=== PATIENT | female | born 1980 | race Caucasian/White ===

== ENCOUNTER 2022-12-13 11:53 | Outpatient (REF) | payer OTHER, SELFPAY ==
[2022-12-19 15:08] LABS: Age Gdln ACOG Testing Note (.); HPV Aptima Negative (Negative); IGP, Aptima HPV, rfx 16/18,45 Note (.)
== END 2022-12-14 11:54 | disposition home or self-care (01) ==
LOC: LAB 11:53
PROVIDERS: Visit Provider Obstetrics & Gynecology
DX: Z12.4 Encounter for screening for malignant neoplasm of cervix (principal)
CPT/HCPCS: 87624; G0145

== ENCOUNTER 2023-01-06 08:07 | Outpatient (OUT) | payer OTHER, SELFPAY ==
--- NOTE | 2023-01-06 08:08 | MM_ITS ---
Patient: DANIELLA GOMEZ Exam Date: 01/06/2023 : 1980 Gender:F Ordering : DR Srikanth Bolden . Admission #: [id number] Family : MRS. BILLY ORTEGA . Order #: [id number] CLICK HERE TO VIEW EXAM RADIOLOGY REPORT PROCEDURE: MM TOMOSYNTHESIS SCREENING BI COMPARISON: MG MAMM SCREEN 3D NERI CAD, 01/03/2022. INDICATIONS: Screening Calculator Name NCI Breast Cancer Risk Assessment Tool 5 Year Breast Cancer Risk 0.90% Lifetime Breast Cancer Risk 11.80% Personal Breast Cancer No Personal Ovarian Cancer No Treatments hysterectomy and chemotherapy Family Cancers Aunt-maternal with breast cancer at age 81. LOCATION: [facility] BREAST COMPOSITION: Almost entirely fatty. FINDINGS: DIAGNOSTIC CATEGORY 1--NEGATIVE. NO CHANGE FROM COMPARISON ASSESSMENT. Scattered benign-appearing calcifications are present. RIGHT BREAST: No significant suspicious finding. LEFT BREAST: No significant suspicious finding. RECOMMENDATIONS: ROUTINE MAMMOGRAM AND CLINICAL EVALUATION IN 12 MONTHS. PLEASE NOTE: A NORMAL MAMMOGRAM DOES NOT EXCLUDE THE POSSIBILITY OF BREAST CANCER. A CLINICALLY SUSPICIOUS PALPABLE LUMP SHOULD BE BIOPSIED. Dictated by: Nikita Marinelli MD on 01/06/2023 at 12:09 Approved by: Nikita Marinelli MD on 01/06/2023 at 12:11
== END 2023-01-06 08:08 | disposition home or self-care (01) ==
LOC: MAMMO 08:07
PROVIDERS: PCP Nurse Practitioner; Visit Provider Obstetrics & Gynecology
DX: Z12.31 Encounter for screening mammogram for malignant neoplasm of breast (principal); Z80.3 Family history of malignant neoplasm of breast
CPT/HCPCS: 77063; 77067

== ENCOUNTER 2023-12-19 09:35 | Outpatient (OUT) | payer OTHER, SELFPAY ==
[2023-12-19 11:03] LABS: Estimated Average Glucose 108 mg/dL; Glycohemoglobin A1C 5.4 % (4.5-6.2)
== END 2023-12-19 09:36 | disposition home or self-care (01) ==
LOC: LAB 09:36
PROVIDERS: PCP Nurse Practitioner; Visit Provider Obstetrics & Gynecology
DX: E88.819 Insulin resistance, unspecified (principal); Z01.419 Encounter for gynecological examination (general) (routine) without abnormal findings; C54.1 Malignant neoplasm of endometrium; E87.8 Other disorders of electrolyte and fluid balance, not elsewhere classified; E61.1 Iron deficiency; E66.9 Obesity, unspecified; N95.1 Menopausal and female climacteric states; E83.42 Hypomagnesemia
CPT/HCPCS: 36415; 83036; 87624; 88175

== ENCOUNTER 2023-12-19 19:21 | Outpatient (REF) | payer OTHER, SELFPAY | END 2023-12-19 19:22 | disposition home or self-care (01) | LOC: LAB 19:21 | PROVIDERS: PCP Nurse Practitioner; Visit Provider Obstetrics & Gynecology | DX: Z01.419 Encounter for gynecological examination (general) (routine) without abnormal findings (principal) | CPT/HCPCS: 87624; 88175 ==

== ENCOUNTER 2024-01-26 08:25 | Outpatient (OUT) | payer OTHER, SELFPAY ==
--- OUTSIDE RECORDS SUMMARY | 2024-01-26 08:29 | XMS_ITS | CCD ---
Author Organization [facility] Care Team Providers Care Chemist Enzymes Name Role Phone MAHDI STEPHIE Unavailable Unavailable DOTTIEANGIE SHIRA Unavailable Unavailable DOTTIE, DR ADAMS Attending Unavailable DOTTIE, DR ADAMS Consulting Unavailable CHOI, DR BHUMI Velasco Primary Care Unavailable DOTTIE, DR ADAMS Admitting Unavailable CHOI, DR BHUMI Velasco Primary Care Unavailable DOTTIE, DR ADAMS Admitting Unavailable DOTTIE, DR ADAMS Attending Unavailable DOTTIE, DR ADAMS Consulting Unavailable ZIEBER, DR MAURO Stokes Consulting Unavailable Annabella Ortega Primary Care Physician [phone] Bhumi Choi MD Primary Care Provider [phone] Shannon FAMILY PRESERVATION WORKER-Annabella MARROQUIN Primary Care Provider Shannon, MARAH-C Annabella Plummer Primary Care Provider MELISSA Gold Attending Provider Oneida Gold Admitting Unavailable Oneida Gold Attending Unavailable Annabella Ortega Primary Care Unavailable ANGIE BODLEN Attending Unavailable Shannon, PING Miranda Attending Unavailable Shannon, PING Miranda Admitting Unavailable Shannon, PING Miranda Attending Unavailable Shannon, COMMERCIAL FRONT LOAD DRIVER Annabella Miranda Attending Unavailable Shannon, COMMERCIAL FRONT LOAD DRIVER Annabella Miranda Attending Unavailable ROXANNA GOODEN Attending Unavailable BHUMI CHOI Referring Unavailable BHUMI CHOI Primary Care Unavailable ROXANNA GOODEN Referring Unavailable SHANNONANNABELLA SCRUGGS Primary Care Unavailable ROXANNA GOODEN Attending Unavailable BHUMI CHOI Referring Unavailable SHANNONANNABELLA SCRUGGS Primary Care Unavailable ROXANNA GOODEN Referring Unavailable SHANNONANNABELLA SCRUGGS Primary Care Unavailable ROXANNA GOODEN Attending Unavailable ANNABELLA ORTEGA Referring Unavailable SHANNON, ANNABELLA L Primary Care Unavailable Annabella Ortega Admitting Unavailable Annabella Ortega Attending Unavailable Annabella Ortega Attending Unavailable Allergies Allergy Classification Reported Allergen(s) Allergy Type Date of Onset Reaction(s) Facility (1 source) Deanol Drug Allergy [facility] (1 source) Tetanus AND Diphtheria Tox,Adult Drug allergy (disorder) [facility] (7 sources) aprepitant; Translations: [aprepitant] Drug Allergy 1 Pain (finding), pain [facility] Comment on above: panic attack (11 sources) Morphine; Translations: [morphine] Drug Allergy 1 Eruption of skin (disorder), Rash [facility] (5 sources) tetanus toxoid vaccine, inactivated; Translations: [TETANUS TOXOID, ADSORBED] Drug Allergy 1 Other (See Comments) [facility] (5 sources) Measles, Mumps, And Rubella Vaccine Live; Translations: [MEASLES, MUMPS, AND RUBELLA VACCINE LIVE] Propensity to adverse reactions to drug 1 Other (See Comments) [facility] [employer] Work Phone: (3 sources) fosaprepitant; Translations: [fosaprepitant] Drug Allergy 4 Unknown Reaction [facility] (3 sources) measles and rubella live virus vacc; Translations: [measles and rubella live virus vacc] Allergy to substance 4 Unknown Reaction [facility] (3 sources) Tetanus Vaccines and Toxoid; Translations: [Tetanus Vaccines and Toxoid] Allergy to substance 4 Unknown Reaction [facility] (1 source) Morphine Drug Allergy 4 [facility] (2 sources) aprepitant; Translations: [Emend] Drug Allergy [facility] Repository Medications Current Medications Medication Drug Class(es) Dates Sig (Normalized) Sig (Original) acetaminophen 500 mg oral tablet (4 sources) take 1 tablet by mouth every six hours as needed for pain acetaminophen (TYLENOL) 500 mg tablet Take 1 tablet (500 mg total) by mouth every 6 (six) hours as needed for pain. 0 Active buPROPion hydrochloride 100 mg oral tablet (9 sources) Aminoketone Start: 12-15-2023 take 1 tablet by mouth twice daily buPROPion 100 mg Tab 100 mg = 1 tab(s), Oral, BID, # 60 tab(s), Refills(s) 11, [id number], cm, 12/15/23 9:27:00 EDT, Height/Length Dosing, 197, kg, 12/15/23 9:27:00 EDT, Weight Dosing Start Date: 12/15/23 Status: Ordered Start: 08-09-2023 Bupropion Hcl Active 100 MG PO Three times daily August 09, 2023 12:00am administer 6 hours apart Start: 11-03-2022 take 1 tablet by [facility] twice daily buPROPion 100 mg Tab 100 mg = 1 tab(s), Oral, BID, # 60 tab(s), Refills(s) 11, [id number], cm, 11/03/22 9:18:00 EDT, Height/Length Dosing, 408, kg, 11/03/22 9:18:00 EDT, Weight Dosing Start Date: 11/03/22 Status: Ordered Start: 11-03-2022 take 2 tablets by [facility] once daily buPROPion 100 mg Tab 200 mg = 2 tab(s), Oral, Daily, Refills(s) 0 Start Date: 11/03/22 Status: Ordered take 2 tablets by [facility] every twelve hours in the morning buPROPion SR (WELLBUTRIN SR) 100 mg 12 hr tablet Take 2 tablets (200 mg total) by mouth in the morning. 0 Active busPIRone hydrochloride 5 mg oral tablet (4 sources) Start: 12-15-2023 take 1 tablet by mouth once daily busPIRone 5 mg Tab 5 mg = 1 tab(s), Oral, Daily, # 30 tab(s), Refills(s) 11, Pharmacy: [facility]/pharmacy #[id number], 162, cm, 12/15/23 9:27:00 EDT, Height/Length Dosing, 197, kg, 12/15/23 9:27:00 EDT, Weight Dosing Start Date: 12/15/23 Status: Ordered Start: 08-09-2023 take 5 mg by mouth twice daily Buspirone Active 5 MG PO Twice daily August 09, 2023 12:00am Start: 11-02-2022 take 1 tablet by maris th once daily in the morning busPIRone 5 mg Tab 30 EA, TAKE 1 TABLET BY MOUTH EVERY DAY IN THE MORNING, Refills(s) 0 Start Date: 11/02/22 Status: Ordered gabapentin 100 mg oral capsule (9 sources) Anti-epileptic Agent Start: 08-09-2023 take 100 mg by mouth once daily Gabapentin Active 100 MG PO Daily August 09, 2023 12:00am Start: 04-05-2023 End: 07-18-2023 take 2 capsules by mouth once daily gabapentin (NEURONTIN) 100 mg capsule Indications: Hot flash, menopausal TAKE 2 CAPSULES BY MOUTH EVERY DAY AT NIGHT 60 capsule 3 07/18/2023 Active Start: 10-31-2022 take 4 capsules by m outh once daily hydroCHLOROthiazide 25 mg oral tablet (8 sources) Thiazide Diuretic Start: 12-15-2023 take 1 tablet by mouth once daily, then take 1 tablet by mouth once daily hydrochlorothiazide 25 mg Tab 25 mg = 1 tab(s), Oral, Daily, Take 25 mg by mouth daily., # 30 tab(s), Refills(s) 11, Pharmacy: [facility]/pharmacy #[id number], 162, cm, 12/15/23 9:27:00 EDT, Height/Length Dosing, 197, kg, 12/15/23 9:27:00 EDT, Weight Dosing Start Date: 12/15/23 Status: Ordered Start: 08-09-2023 take 25 mg by mouth once daily in the morning Hydrochlorothiazide Active 25 MG PO Every morning August 09, 2023 12:00am Start: 10-31-2022 take 1 mg by mouth o nce daily ibuprofen 600 mg oral tablet (6 sources) Nonsteroidal Anti-inflammatory Drug Start: 02-10-2021 take 1 tablet by mouth every six hours as needed for pain lidocaine 0.05 mg/mg topical ointment (4 sources) Antiarrhythmic, Amide Local Anesthetic Start: 01-19-2022 lidocaine (XYLOCAINE) 5 % ointment Indications: Endometrial cancer, FIGO stage IIIA ([facility]) , Port-A-Cath in place Apply 1 application topically as needed for pain. 35.44 g 0 01/19/2022 Active lidocaine 25 mg/ml / prilocaine 25 mg/ml topical cream (3 sources) Antiarrhythmic, Amide Local Anesthetic Start: 02-24-2021 End: 07-18-2023 lidocaine-prilocai ne (EMLA) cream Apply 1 application topically as needed for pain. 30 - 60 minutes prior to port access. Cover with 4 x 4 saran wrap 30 g 3 02/24/2021 07/18/2023 Discontinued (Therapy completed) loratadine 10 mg oral tablet (9 sources) Start: 08-09-2023 take 1 tablet by mouth once daily Loratadine (Allergy Relief (Loratadine)) 10 mg tablet Active 10 MG PO Daily August 09, 2023 12:00am Start: 10-31-2022 take 2 tablets by mo uth once daily loratadine 10 mg Tab 2 Refill(s), TAKE 1 TABLET BY MOUTH EVERY DAY, Refills(s) 0 Start Date: 10/31/22 Status: Ordered Start: 10-20-2022 End: 04-25-2023 take 1 tablet by mouth once daily loratadine (CLARITIN) 10 mg tablet TAKE 1 TABLET BY MOUTH EVERY DAY 90 tablet 1 04/25/2023 Active magnesium oxide 400 mg oral capsule (9 sources) Start: 08-09-2023 take 400 mg by mouth once daily Magnesium Oxide Active 400 MG PO Daily August 09, 2023 12:00am Start: 11-02-2022 End: 07-18-2023 take 1 tablet by mouth in the morning magnesium oxide (MAGOX) 400 mg tablet Indications: Hypomagnesemia Take 1 tablet (400 mg total) by mouth in the morning. 90 tablet 1 07/18/2023 Active 24 hr metoprolol succinate 50 mg extended release oral tablet (8 sources) beta-Adrenergic Nhung Start: 12-15-2023 take 1 tablet by mouth once daily metoprolol succinate 50 mg ER Tab 50 mg = 1 tab(s), Oral, Daily, # 30 tab(s), Refills(s) 11, Pharmacy: [facility]/pharmacy #[id number], 162, cm, 12/15/23 9:27:00 EDT, Height/Length Dosing, 197, kg, 12/15/23 9:27:00 EDT, Weight Dosing Start Date: 12/15/23 Status: Ordered Start: 11-03-2022 End: 10-29-2023 take 50 mg by mouth once daily Metoprolol Succinate Ac tive 50 MG PO Daily August 09, 2023 12:00am take 1 tablet by maris th every twenty-four hours in the morning metoprolol succinate XL (TOPROL-XL) 50 mg 24 hr tablet Take 1 tablet (50 mg total) by mouth in the morning. 0 Active NIFEdipine 30 mg oral tablet (8 sources) Dihydropyridine Calcium Channel Nhung Start: 12-15-2023 take 1 tablet by mouth twice daily NIFEdipine (Eqv-Procardia XL) 30 mg oral tablet, extended release See Instructions, TAKE 1 TABLET BY MOUTH TWICE A DAY, # 60 tab(s), Refills(s) 2, Pharmacy: [facility]/pharmacy #[id number], 162, cm, 12/15/23 9:27:00 EDT, Height/Length Dosing, 197, kg, 12/15/23 9:27:00 EDT, Weight Dosing Start Date: 12/15/23 Status: Ordered Start: 08-09-2023 take 1 tablet by maris th once daily Nifedipine (Procardia Xl) 30 mg tablet extended release 24hr Active 30 MG PO Daily August 09, 2023 12:00am Start: 10-31-2022 take 1 mg by mouth twice daily take 1 tablet by maris th twice daily NIFEdipine CC (ADALAT CC) 30 mg 24 hr tablet Take 1 tablet (30 mg total) by mouth 2 (two) times daily at 0800 and 1500. 0 Active phentermine hydrochloride 37.5 mg oral tablet (1 source) Sympathomimetic Amine Anorectic Start: 12-15-2023 take 1 tablet by mouth once daily phentermine 37.5 mg Tab 37.5 mg = 1 tab(s), Oral, Daily, # 30 tab(s), Refills(s) 0, Pharmacy: [facility] #[id number], 162, cm, 12/15/23 9:27:00 EDT, Height/Length Dosing, 197, kg, 12/15/23 9:27:00 EDT, Weight Dosing Start Date: 12/15/23 Status: Ordered polysaccharide iron complex 391 mg oral capsule (8 sources) Start: 08-09-2023 take 1 capsule by mouth once daily Polysaccharide Iron Complex (Pro Fe) 180 mg iron capsule Active 180 MG PO Daily August 09, 2023 12:00am Start: 07-25-2023 take 1 capsule by mo uth once daily in the morning polysaccharide iron complex (PRO FE) 180 mg iron capsule Indications: Iron deficiency anemia due to chronic blood loss take 1 capsule by mouth every day in the morning 90 each 4 07/25/2023 Active Start: 10-31-2022 Start: 07-19-2022 End: 07-25-2023 take 1 tablet by mouth in the morning polysaccharide iron complex (PRO FE) 180 mg iron capsule Indications: Iron deficiency anemia due to chronic blood loss Take 1 tablet by mouth in the morning. 90 each 4 07/19/2022 07/25/2023 Discontinued microencapsulated potassium chloride 20 meq extended release oral tablet (6 sources) Start: 06-19-2023 take 1 tablet by mouth once daily in the morning KLOR-CON M20 20 mEq CR tablet Indications: Hypokalemia TAKE 1 TABLET BY MOUTH EVERY DAY IN THE MORNING 30 tablet 3 06/19/2023 Active Start: 02-20-2023 take 1 tablet by maris once daily in the morning KLOR-CON M20 20 mEq CR tablet Indications: Hypokalemia TAKE 1 TABLET BY MOUTH EVERY MORNING 30 tablet 3 02/20/2023 Active Start: 10-31-2022 Problems Active Problems Problem Classification Problem Date Documented Date Episodic/Chronic Administrative/social admission (1 source) Other specified counseling; Translations: [Other specified counseling] Onset: 01-17-2024 Episodic Cancer of uterus (7 sources) Primary malignant neoplasm of endometrium; Translations: [Malignant neoplasm of endometrium] Onset: 02-23-2021 02-24-2021 Chronic Deficiency and other anemia (2 sources) Iron deficiency anemia due to blood loss; Translations: [Iron deficiency anemia secondary to blood loss (chronic)] 07-18-2023 Chronic Deficiency and other anemia (1 source) Iron deficiency anemia secondary to blood loss (chronic); Translations: [Iron deficiency anemia secondary to blood loss (chronic)] Onset: 07-18-2023 Chronic Essential hypertension (2 sources) Hypertensive disorder 11-03-2022 Chronic Fluid and electrolyte disorders (11 sources) Disorder of electrolytes; Translations: [Other disorders of electrolyte and fluid balance, not elsewhere classified] Onset: 02-24-2021 Resolved: 07-19-2022 02-24-2021 Episodic Immunizations and screening for infectious disease (1 source) Encounter for screening for human papillomavirus (HPV); Translations: [ENC SCREENING HUMAN PAPILLOMAVIRUS] Onset: 11-28-2021 Episodic Menopausal disorders (2 sources) Menopausal flushing; Translations: [Menopausal and female climacteric states] Onset: 07-18-2023 07-18-2023 Chronic Other non-traumatic joint disorders (1 source) Pain in left ankle and joints of left foot; Translations: [Pain in left ankle and joints of left foot] Onset: 08-09-2023 Episodic Other nutritional; endocrine; and metabolic disorders (6 sources) Morbid obesity; Translations: [Morbid (severe) obesity due to excess calories] Onset: 01-25-2021 01-27-2021 Chronic Other nutritional; endocrine; and metabolic disorders (1 source) Hypomagnesemia; Translations: [Hypomagnesemia] 07-18-2023 Chronic Other nutritional; endocrine; and metabolic disorders (1 source) Hypomagnesemia; Translations: [Hypomagnesemia] Onset: 07-18-2023 Chronic Other nutritional; endocrine; and metabolic disorders (1 source) Morbid (severe) obesity due to excess calories; Translations: [Morbid (severe) obesity due to excess calories] Onset: 01-27-2021 Chronic Other nutritional; endocrine; and metabolic disorders (1 source) Weight gain 12-15-2023 Episodic Other screening for suspected conditions (not mental disorders or infectious disease) (8 sources) Encounter for screening mammogram for malignant neoplasm of breast; Translations: [Encounter for screening for malignant neoplasm of cervix] Onset: 11-25-2021 Episodic Residual codes; unclassified (1 source) Family history of malignant neoplasm of breast; Translations: [FAMILY HX MALIG NEOPLASM OF BREAST] Onset: 01-08-2022 Episodic Unclassified (1 source) Unknown / UNK(Unknown) Onset: 12-14-2016 Unclassified (1 source) Patient encounter status 12-15-2023 Past or Other Problems Problem Classification Problem Date Documented Da te Episodic/Chronic Nausea and vomiting (4 sources) Chemotherapy-bobby michelle nausea and vomiting; Translations: [Nausea with vomiting, unspecified] Onset: 02-24-2021 Resolved: 07-19-2022 07-19-2022 Episodic Other aftercare (4 sources) Drug therapy finding; Translations: [Other nursing home (current) drug therapy] Onset: 02-24-2021 Resolved: 07-19-2022 07-19-2022 Episodic Other circulatory disease (4 sources) Device in situ; Translations: [Presence of other vascular implants and grafts] Onset: 02-24-2021 Resolved: 01-18-2023 01-18-2023 Chronic Viral infection (4 sources) Disease caused by 2019-nCoV; Translations: [COVID-19] Onset: 04-09-2021 Resolved: 07-19-2022 07-19-2022 Episodic Results Test Name Value Interpretation Reference Range Facility Family Medicine Office/Clini c Noteon 01-17-2024 Family Medicine Office/Clinic Note Family Medicine Office/Clinic Note Chief Complaint Weight Management HPI Staff Pt presents today for 1m Weight management follow up Started on adipex 12/15/23. Sleeping well:Yes, 6-8 hours Chest pain:No Tremors:No Headaches:Yes Heart fluttering:No Blurred Vision:No Starting Weight:433.4 Weight this visit: 408 Dr Bolden added metformin 500/1000mg to aid in insulin resistance w/adipex therapy. Last A1c - 5.4 Has been having headaches, dry mouth, upset stomach. All tolerable. Does take Tylenol with sx relief. History of Present Illness pt presents today for weight management Review of Systems PHQ Score Initial Depression Screen Score: 0 SCORE Physical Exam Vitals & Measurements T: 36.8 ?C(Temporal Artery) HR: 80(Peripheral) RR: 16 BP: 126/82 SpO2: 97% HT: 64 in HT: 162 cm WT: 185.8 kg WT: 408.76 lb BMI: 70.8 General: alert, no acute distress ENMT: oral mucosa moist, no pharyngeal erythema or exudate Cardiovascular: regular rate and rhythm, normal peripheral perfusion Respiratory: Lungs CTA, respirations non labored Extremities: no deformity, no trauma Neurological: oriented x 4, LOC appropriate for age, CN II-XII intact, motor strength equal & normal bilaterally, speech normal Assessment/Plan 1. Encounter for weight management (Z76.89: Persons encountering health services in other specified circumstances) pt is down 25 pounds. pt is doing well. her OBGYN also started her on metformin 500mg daily and she will increase to BID tomorrow. if her stomach can tolerate it. all questions answered. Pt is very happy with progress. RTC 4 weeks 2. BMI 70 and over, adult (Z68.45: Body mass index [BMI] 70 or greater, adult) BMI education given Ordered: phentermine, 37.5 mg = 1 tab(s), Oral, Daily, # 30 tab(s), Refills(s) 0, Pharmacy: [facility] #[id number], 162, cm, 01/17/24 14:02:00 EDT, Height/Length Dosing, 185.8, kg, 01/17/24 14:02:00 EDT, Weight Dosing phentermine, 37.5 mg = 1 tab(s), Oral, Daily, # 30 tab(s), Refills(s) 0, Pharmacy: [facility] #72, 162, cm, 12/15/23 9:27:00 EDT, Height/Length Dosing, 197, kg, 12/15/23 9:27:00 EDT, Weight Dosing 3. Non-smoker (Z78.9: Other specified health status) continue not smoking Ordered: phentermine, 37.5 mg = 1 tab(s), Oral, Daily, # 30 tab(s), Refills(s) 0, Pharmacy: [facility] #72, 162, cm, 01/17/24 14:02:00 EDT, Height/Length Dosing, 185.8, kg, 01/17/24 14:02:00 EDT, Weight Dosing phentermine, 37.5 mg = 1 tab(s), Oral, Daily, # 30 tab(s), Refills(s) 0, Pharmacy: [facility] #72, 162, cm, 12/15/23 9:27:00 EDT, Height/Length Dosing, 197, kg, 12/15/23 9:27:00 EDT, Weight Dosing 4. Morbid obesity (E66.01: Morbid (severe) obesity due to excess calories) continue adipex and healthy food choices Hypertension (I10: Essential (primary) hypertension) reviewed BP log all BP's at goal or lower. pt is doing very well Ordered: phentermine, 37.5 mg = 1 tab(s), Oral, Daily, # 30 tab(s), Refills(s) 0, Pharmacy: [facility] #72, 162, cm, 01/17/24 14:02:00 EDT, Height/Length Dosing, 185.8, kg, 01/17/24 14:02:00 EDT, Weight Dosing phentermine, 37.5 mg = 1 tab(s), Oral, Daily, # 30 tab(s), Refills(s) 0, Pharmacy: [facility] #72, 162, cm, 12/15/23 9:27:00 EDT, Height/Length Dosing, 197, kg, 12/15/23 9:27:00 EDT, Weight Dosing Follow-up No qualifying data available Problem List/Past Medical History Ongoing Encounter for weight management Hypertension Morbid obesity Weight gain Wellness examination Historical No qualifying data Procedure/Surgical History Port (03/11/2021), Hysterectomy (02/10/2021). Medications buPROPion 100 mg Tab, 100 mg= 1 tab(s), Oral, BID, 11 refills busPIRone 5 mg Tab, 5 mg= 1 tab(s), Oral, Daily, 11 refills gabapentin 100 mg Cap hydrochlorothiazide 25 mg Tab, 25 mg= 1 tab(s), Oral, Daily, 11 refills ibuprofen 600 mg Tab Klor-Con M20 oral tablet, extended release loratadine 10 mg Tab magnesium oxide 400 mg Tab MetFORMIN (Eqv-Glucophage XR) 500 mg oral tablet, extended release metoprolol succinate 50 mg ER Tab, 50 mg= 1 tab(s), Oral, Daily, 11 refills NIFEdipine (Eqv-Procardia XL) 30 mg oral tablet, extended release, See Instructions, 2 refills phentermine 37.5 mg Tab, 37.5 mg= 1 tab(s), Oral, Daily Allergies Emend (Pain) morphine (Rash) Social History Tobacco Never (less than 100 in lifetime) Tobacco Use:. Never Smokeless Tobacco Use:. Cigarettes, Household tobacco concerns: No. Yes, 01/17/2024 Family History Congenital heart disease: Father and Aunt. Depression: Mother and Grandparent. Diabetes mellitus type 2: Mother, Sister and Grandparent. Hypertension: Mother, Sister and Brother. Primary malignant neoplasm of female breast: Grandparent. Stroke: Aunt. Immunizations Vaccine Date Status hepatitis B pediatric vaccine 08/09/1997 Recorded Normal [facility] Comment on above: Result Comment: Elec tronically Signed By: Shannon FENG, Annabella Miranda\.br\Date and Time Signed: 01/17/24 15:22 EDT CBC AND AUTO DIFFon 01-12-20 ABSOLUTE BASOPHIL 0.1 X10E9/L Normal 0.0-0.2 [facility] Comment on above: Performed By: #### Karol GALVAN [facility], [id number] #### [facility] ([id number]) [address], [address] [place] [address] ABSOLUTE NEUTROPHIL 4.7 X10E9/L Normal 1.5-6.6 [facility] Comment on above: Performed By: #### Karol GALVAN [facility], [id number] #### [facility] ([id number]) [address], [address] [place] [address] Basophils/100 WBC (Bld) 1.3 % Normal [facility] Comment on above: Performed By: #### Karol GALVAN [facility], [id number] #### [facility] ([id number]) [address], [address] [place] [address] Eosinophils (Bld) [#/Vol] 0.3 10*3/uL Normal 0.0-0.4 [facility] Comment on above: Performed By: #### Karol GALVAN CMP, [id number] #### [facility] ([id number]) [address], [address] [place] [address] Eosinophils/100 WBC (Bld) 3.9 % Normal [facility] Comment on above: Performed By: #### Karol GALVAN, CMP, [id number] #### [facility] ([id number]) [address], [address] [place] [address] Erythrocyte distribution width (RBC) [Ratio] 14.7 % Normal 11.5-15.0 [facility] Comment on above: Performed By: #### C MANDY CMP, #### [facility] ([id number]) [address], [address] [place] [address] Hematocrit (Bld) [Volume fraction] 41.8 % Normal 35-47 [facility] Comment on above: Performed By: #### Karol GALVAN, CMP, #### [facility] ([id number]) [address], [address] [place] [address] Hemoglobin (Bld) [Mass/Vol] 14.5 g/dL Normal 11.7-15.5 [facility] Comment on above: Performed By: #### Karol GALVAN, CMP, #### [facility] ([id number]) [address], [address] [place] [address] Lymphocytes (Bld) [#/Vol] 1.5 10*3/uL Normal 1.0-3.5 [facility] Comment on above: Performed By: #### Karol GALVAN, CMP, #### [facility] ([id number]) [address], [address] [place] [address] Lymphocytes/100 WBC (Bld) 21.2 % Normal [facility] Comment on above: Performed By: #### Karol GALVAN CMP, #### [facility] ([id number]) [address] [place] [address] MCH (RBC) [Entitic mass] 29.6 pg Normal 27-34 [facility] Comment on above: Performed By: #### Karol GALVAN, CMP, #### [facility] ([id number]) [address], [address] [place] [address] MCHC (RBC) [Mass/Vol] 34.7 g/dL Normal 32-36 [facility] Comment on above: Performed By: #### Karol BCA, CMP, #### [facility] ([id number]) [address], [address] [place] [address] MCV (RBC) [Entitic vol] 85 fL Normal 80-100 [facility] Comment on above: Performed By: #### C BCA, CMP, #### [facility] ([id number]) [address], [address] [place] [address] Monocytes (Bld) [#/Vol] 0.4 10*3/uL Normal 0-0.9 [facility] Comment on above: Performed By: #### C MANDY, CMP, #### [facility] ([id number]) [address], [address] [place] [address] Monocytes/100 WBC (Bld) 6.0 % Normal [facility] Comment on above: Performed By: #### C MANDY, CMP, #### [facility] ([id number]) [address], [address] [place] [address] Neutrophils/100 WBC (Bld) 67.6 % Normal [facility] Comment on above: Performed By: #### C MANDY, CMP, #### [facility] ([id number]) [address], [address] [place] [address] Platelet mean volume (Bld) [Entitic vol] 9.3 fL Normal 7-12 [facility] Comment on above: Performed By: #### C MANDY, CMP, #### [facility] ([id number]) [address], [address] [place] [address] Platelets (Bld) [#/Vol] 279 10*3/uL Normal 150-450 [facility] Comment on above: Performed By: #### C BCA, CMP, #### [facility] ([id number]) [address], [address] [place] [address] RBC COUNT 4.91 X10E12/L Normal 3.80-5.20 [facility] Comment on above: Performed By: #### C BCA, CMP, 31764-0 #### [facility] ([id number]) [address], [address] [place] [address] WBC (Bld) [#/Vol] 6.9 10*3/uL Normal 4.0-11.0 [facility] Comment on above: Performed By: #### C BCA, CMP, #### [facility] ([id number]) [address], [address] [place] [address] COMPREHENSIVE METABOLIC PANE Geoffrey 01-12-2024 Albumin [Mass/Vol] 4.4 g/dL Normal 3.2-5.3 [facility] Comment on above: Performed By: #### C BCA, CMP, 05677-8 #### [facility] ([id number]) [address], [address] [place] [address] ALP [Catalytic activity/Vol] 73 U/L Normal 39-130 [facility] Comment on above: Performed By: #### C BCA, CMP, 96671-6 #### [facility] ([id number]) [address], [address] [place] [address] ALT [Catalytic activity/Vol] 50 U/L High 0-31 [facility] Comment on above: Performed By: #### C BCA, CMP, 08187-9 #### [facility] ([id number]) [address], [address] [place] [address] Anion gap [Moles/Vol] 12 mmol/L Normal 5-15 [facility] Comment on above: Performed By: #### C BCA, CMP, 13953-0 #### [facility] ([id number]) [address], [address] [place] [address] AST [Catalytic activity/Vol] 26 U/L Normal 0-41 [facility] Comment on above: Performed By: #### C KERRY GALVAN, #### [facility] ([id number]) [address], [address] [place] [address] Bilirubin [Mass/Vol] 1.1 mg/dL Normal 0.3-1.2 [facility] Comment on above: Performed By: #### C KERRY GALVAN, #### [facility] ([id number]) [address], [address] [place] [address] Calcium [Mass/Vol] 9.7 mg/dL Normal 8.5-10.5 [facility] Comment on above: Performed By: #### Karol GALVAN CMP, #### [facility] ([id number]) [address], [address] [place] [address] Chloride [Moles/Vol] 101 mmol/L Normal 98-109 [facility] Comment on above: Performed By: #### Karol GALVAN CMP, #### [facility] ([id number]) [address], [address] [place] [address] CO2 [Moles/Vol] 24 mmol/L Normal 22-32 [facility] Comment on above: Performed By: #### Karol GALVAN CMP, #### [facility] ([id number]) [address], [address] [place] [address] Creatinine [Mass/Vol] 1.30 mg/dL High 0.40-1.00 [facility] Comment on above: Result Comment: METH OD TRACEABLE TO IDMS STANDARD Performed By: #### C KERRY GALVAN, #### [facility] ([id number]) [address], [address] [place] [address] GFR/1.73 sq M.predicted among non-blacks MDRD (S/P/Bld) [Vol rate/Area] 52 mL/min/{1.73_m2} Low >59 [facility] Comment on above: Result Comment: Reported eGFR is based on the CKD-EPI 2020 equation that does not use a race coefficient. Performed By: #### C KERRY GALVAN, 96167-7 #### [facility] ([id number]) [address], [address] [place] [address] Glucose [Mass/Vol] 105 mg/dL High 65-99 [facility] Comment on above: Performed By: #### C MANDY [facility], 37226-3 #### [facility] ([id number]) [address], [address] [place] [address] Potassium [Moles/Vol] 3.6 mmol/L Normal 3.5-5.0 [facility] Comment on above: Performed By: #### Karol GALVAN [facility], #### [facility] ([id number]) [address], [address] [place] [address] Protein [Mass/Vol] 7.7 g/dL Normal 6.0-8.0 [facility] Comment on above: Performed By: #### Karol GALVAN [facility], 55935-7 #### [facility] ([id number]) [address], [address] [place] [address] Sodium [Moles/Vol] 137 mmol/L Normal 134-146 [facility] Comment on above: Performed By: #### Karol GALVAN [facility], 19999-7 #### [facility] ([id number]) [address], [address] [place] [address] Urea nitrogen [Mass/Vol] 36 mg/dL High 5-23 [facility] Comment on above: Performed By: #### Karol GALVAN [facility], 62252-5 #### [facility] ([id number]) [address], [address] [place] [address] MAGNESIUMon 01-12-2024 Magnesium [Mass/Vol] 1.9 mg/dL Normal 1.8-2.6 [facility] Comment on above: Performed By: #### C BCA, [facility], 01883-2 #### [facility] ([id number]) [address] [place] [address], [address] [place] [address] Ambulatory Visit Summaryon 0 12-15-2023 Ambulatory Visit Summary Ambulatory Visit Summary DANIELLA MANCERA :1980 Visit Date:12/15/2023 Ambulatory Visit Instructions Your Diagnosis Wellness examination Non-smoker BMI 70 and over, adult Hypertension Morbid obesity Your Care Team Attending Physician - Annabella Moscoso Primary Care Physician - Annabella Moscoso This Is Your Medications List NIFEdipine (NIFEdipine (Eqv-Procardia XL) 30 mg oral tablet, extended release) buPROPion (buPROPion 100 mg Tab) buPROPion (buPROPion 100 mg Tab) busPIRone (busPIRone 5 mg Tab) gabapentin (gabapentin 100 mg Cap) hydrochlorothiazide (hydrochlorothiazide 25 mg Tab) ibuprofen (ibuprofen 600 mg Tab) iron polysaccharide (iron polysaccharide 180 mg (as elemental iron) oral capsule) loratadine (loratadine 10 mg Tab) magnesium oxide (magnesium oxide 400 mg Tab) potassium chloride (Klor-Con M20 oral tablet, extended release) Procedures Performed Port (03/11/2021), Hysterectomy (02/10/2021). Discharge Vitals Temperature (Oral) 36.6 ?C Heart Rate (Peripheral) 72 Respiratory Rate 20 Blood Pressure 124/86 Height 162.0 cm Height 64 in Weight 197.0 kg Weight 433.4 lb BMI 75.06 What to do next Scheduled Follow-Up Appointments Monday 8:20 AM EDT With: Annabella Moscoso Where: [facility] Medicine [address] [address]- Medications What How Much When Instructions Unchanged buPROPion (buPROPion 100 mg Tab) 1 Tablets By Mouth 2 times a day Unchanged buPROPion (buPROPion 100 mg Tab) 2 Tablets By Mouth Every day Unchanged busPIRone (busPIRone 5 mg Tab) 1 Tablets By Mouth Every day Unchanged gabapentin (gabapentin 100 mg Cap) 200 Unknown, oral, 4 Refill(s), Take 2 capsules (200 mg total) by mouth nightly. Unchanged hydrochlorothiazide (hydrochlorothiazide 25 mg Tab) 1 Tablets By Mouth Every day 25 Unknown, oral, 1 Refill(s), Take 25 mg by mouth daily. Unchanged ibuprofen (ibuprofen 600 mg Tab) 600 Unknown, oral, 1 Refill(s), Take 1 tablet (600 mg total) by mouth every 6 (six) hours as needed for pain. Unchanged iron polysaccharide (iron polysaccharide 180 mg (as elemental iron) oral capsule) 1 Unknown, oral, 5 Refill(s), Take 1 tablet by mouth in the morning. Unchanged loratadine (loratadine 10 mg Tab) 2 Refill(s), TAKE 1 TABLET BY MOUTH EVERY DAY Unchanged magnesium oxide (magnesium oxide 400 mg Tab) 90 EA, TAKE 1 TABLET (400 MG TOTAL) BY MOUTH IN THE MORNING Unchanged NIFEdipine (NIFEdipine (Eqv-Procardia XL) 30 mg oral tablet, extended release) See instructions TAKE 1 TABLET BY MOUTH TWICE A DAY Unchanged potassium chloride (Klor-Con M20 oral tablet, extended release) 20 Unknown, oral, 4 Refill(s), Take 1 tablet (20 mEq total) by mouth in the morning. Allergies Emend (Pain) morphine (Rash) Problems Ongoing - Any problem that you are currently receiving treatment for. Hypertension Morbid obesity Wellness examination Patient Survey You may receive a survey via text or e-mail asking about your office visit. Please share your experience with us by completing your survey. We appreciate your feedback and thank you for choosing us for your care. Normal [facility] CHEMISTRYOrdered By: SYSTEM SYSTEM on 12-15-2023 Albumin [Mass/Vol] 4.1 g/dL Normal 3.3 - 5.0 gm/dL [facility] Albumin/Globulin [Mass ratio] 1.3 {ratio} Normal 1.1 - 2.2 [facility] ALP [Catalytic activity/Vol] 81 [iU]/d Normal 21 - 98 Int._Unit/L [facility] ALT No additional P-5'-P [Catalytic activity/Vol] 28 [iU]/d Normal 6 - 46 Int._Unit/L [facility] Anion gap [Moles/Vol] 17 mmol/L High 6 - 16 mEq/L [facility] AST [Catalytic activity/Vol] 22 [iU]/d Normal 5 - 43 Int._Unit/L [facility] Bilirubin [Mass/Vol] 0.7 mg/dL Normal 0.0 - 1 .1 mg/dL [facility] Calcium [Mass/Vol] 9.6 mg/dL Normal 8.9 - 11. 1 mg/dL [facility] Chloride [Moles/Vol] 106 mmol/L Normal 101 - 1 11 mmol/L [facility] Cholesterol [Mass/Vol] 172 mg/dL Normal 120 - 200 mg/dL [facility] Cholesterol in HDL [Mass/Vol] 39 mg/dL Invalid Interpretation Code [facility] Comment on above: Result Comment: '>= 60 LOW RISK' '<= 40 HIGH RISK' Cholesterol in LDL [Mass/Vol] 118 mg/dL Normal <=129mg/dL [facility] Cholesterol in VLDL [Mass/Vol] 28 mg/dL Normal 7 - 40 mg/dL [facility] CO2 [Moles/Vol] 22 mmol/L Normal 21 - 31 mmol/L [facility] Creatinine [Mass/Vol] 0.9 mg/dL Normal 0.5 - 1.3 mg/dL [facility] eGFR 81 mL/min/1.73 m2 Normal >=59mL/min /1 .73 m2 [facility] Globulin (S) [Mass/Vol] 3.1 g/dL Normal 1.4 - 4.0 gm/dL [facility] Glucose [Mass/Vol] 105 mg/dL Normal 55 - 199 mg/dL [facility] Potassium [Moles/Vol] 3.8 mmol/L Normal 3.5 - 5.3 mmol/L [facility] Protein [Mass/Vol] 7.2 g/dL Normal 6.0 - 7.8 gm/dL [facility] Sodium [Moles/Vol] 141 mmol/L Normal 135 - 145 mmol/L [facility] Triglyceride [Mass/Vol] 142 mg/dL Normal <=149mg/dL [facility] TSH Qn 1.22 m[IU]/L Normal 0.34 - 5.60 mcIU/mL [facility] Urea nitrogen [Mass/Vol] 22 mg/dL High 5 - 21 mg/dL [facility] Urea nitrogen/Creatinine [Mass ratio] 24 mg/mg High 10 - 20 [facility] CMPon 12-15-2023 Albumin [Mass/Vol] 4.1 g/dL Normal 3.3-5.0 [facility] Comment on above: Performed By: #### 2 [id number] #### [facility] [address] [place] [address] Albumin/Globulin (S) [Mass conc ratio] 1.3 Normal 1.1-2.2 [facility] Comment on above: Performed By: #### 2 856285 #### [facility] [address] [place] [address] ALP [Catalytic activity/Vol] 81 Int._Unit/L Normal 21-98 [facility] Comment on above: Performed By: #### 2 [id number] #### [facility] [address] [place] [address] ALT No additional P-5'-P [Catalytic activity/Vol] 28 Int._Unit/L Normal 6-46 [facility] Comment on above: Performed By: #### 2 [id number] #### [facility] [address] [place] [address] Anion gap [Moles/Vol] 17 mmol/L High 6-16 [facility] Comment on above: Performed By: #### 2 816102 #### [facility] [address] [place] [address] AST [Catalytic activity/Vol] 22 Int._Unit/L Normal 5-43 [facility] Comment on above: Performed By: #### 2 455955 #### [facility] [address] [place] [address] Bilirubin [Mass/Vol] 0.7 mg/dL Normal 0.0-1.1 [facility] Comment on above: Performed By: #### 2 677084 #### [facility] [address] [place] [address] Calcium [Mass/Vol] 9.6 mg/dL Normal 8.9-11.1 [facility] Comment on above: Performed By: #### 2 009634 #### [facility] [address] [place] [address] Chloride [Moles/Vol] 106 mmol/L Normal 101-111 [facility] Comment on above: Performed By: #### 2 012613 #### [facility] [address] [place] [address] CO2 [Moles/Vol] 22 mmol/L Normal 21-31 [facility] Comment on above: Performed By: #### 2 013023 #### [facility] [address] [place] [address] Creatinine [Mass/Vol] 0.9 mg/dL Normal 0.5-1.3 [facility] Comment on above: Performed By: #### 2 417251 #### [facility] [address] [place] [address] Globulin (S) [Mass/Vol] 3.1 g/dL Normal 1.4-4.0 [facility] Comment on above: Performed By: #### 2 479855 #### [facility] [address] [place] [address] Glucose [Mass/Vol] 105 mg/dL Normal 55-199 [facility] Comment on above: Performed By: #### 2 164197 #### [facility] [address] [place] [address] Potassium [Moles/Vol] 3.8 mmol/L Normal 3.5-5.3 [facility] Comment on above: Performed By: #### 2 174327 #### [facility] [address] [place] [address] Protein [Mass/Vol] 7.2 g/dL Normal 6.0-7.8 [facility] Comment on above: Performed By: #### 2 903116 #### [facility] [address] [place] [address] Sodium [Moles/Vol] 141 mmol/L Normal 135-145 [facility] Comment on above: Performed By: #### 2 432751 #### [facility] [address] [place] [address] Urea nitrogen [Mass/Vol] 22 mg/dL High 5-21 [facility] Comment on above: Performed By: #### 2 177157 #### [facility] [address] [place] [address] Urea nitrogen/Creatinine [Mass ratio] 24 No Units High 10-20 [facility] Comment on above: Performed By: #### 2 464645 #### [facility] [address] [place] [address] Family Medicine Office/Clini c Noteon 12-15-2023 Family Medicine Office/Clinic Note Family Medicine Office/Clinic Note HPI Staff Opal is a 43 year old female presenting with yearly check up- med refills All meds need refilled Had headaches for awhile when she went to the eye doctor her prescription was a lot different but now her headaches are better She brought a B/P log will scan into chart Mammo with Dr. Bolden Last Dec or November Labs done June History of Present Illness pt presents today for wellness visit. will draw labs today Review of Systems PHQ Score Initial Depression Screen Score: 0 SCORE Physical Exam Vitals & Measurements T: 36.6 ?C(Oral) HR: 72(Peripheral) RR: 20 BP: 124/86 SpO2: 97% HT: 64 in HT: 162.0 cm WT: 197.0 kg WT: 433.4 lb BMI: 75.06 General: alert, no acute distress ENMT: oral mucosa moist, no pharyngeal erythema or exudate Cardiovascular: regular rate and rhythm, normal peripheral perfusion Respiratory: Lungs CTA, respirations non labored Extremities: no deformity, no trauma Neurological: oriented x 4, LOC appropriate for age, CN II-XII intact, motor strength equal & normal bilaterally, speech normal Assessment/Plan 1. Wellness examination (Z00.00: Encounter for general adult medical examination without abnormal findings) pt presents today for annual wellness visit. will check labs today. has other labs with oncologist scheduled in December. due for mammogrma in December as well. will see Dr. Bolden for that Needs refills. RTC 1 month for weight check Ordered: metoprolol, 50 mg = 1 tab(s), Oral, Daily, # 30 tab(s), Refills(s) 11, Pharmacy: [facility] #[id number], 162, cm, 12/15/23 9:27:00 EDT, Height/Length Dosing, 197, kg, 12/15/23 9:27:00 EDT, Weight Dosing Comprehensive Metabolic Panel Est Preventative 40 to 64 years [address] Lipid Panel Thyroid Stimulating Hormone 2. Weight gain (R63.5: Abnormal weight gain) pt has gained 26 pounds since last visit. will start adipex. discussed making health food choices and increasing exercise Ordered: metoprolol, 50 mg = 1 tab(s), Oral, Daily, # 30 tab(s), Refills(s) 11, Pharmacy: [id number], 162, cm, 12/15/23 9:27:00 EDT, Height/Length Dosing, 197, kg, 12/15/23 9:27:00 EDT, Weight Dosing Est Preventative 40 to 64 years [address] 3. Hypertension (I10: Essential (primary) hypertension) BP at goal Ordered: metoprolol, 50 mg = 1 tab(s), Oral, Daily, # 30 tab(s), Refills(s) 11, Pharmacy: [id number], 162, cm, 12/15/23 9:27:00 EDT, Height/Length Dosing, 197, kg, 12/15/23 9:27:00 EDT, Weight Dosing Comprehensive Metabolic Panel Est Preventative 40 to 64 years [address] Lipid Panel Thyroid Stimulating Hormone 4. BMI 70 and over, adult (Z68.45: Body mass index [BMI] 70 or greater, adult) BMI education given Ordered: metoprolol, 50 mg = 1 tab(s), Oral, Daily, # 30 tab(s), Refills(s) 11, Pharmacy: [facility] #[id number], 162, cm, 12/15/23 9:27:00 EDT, Height/Length Dosing, 197, kg, 12/15/23 9:27:00 EDT, Weight Dosing Est Preventative 40 to 64 years [address] 5. Morbid obesity (E66.01: Morbid (severe) obesity due to excess calories) see above Ordered: metoprolol, 50 mg = 1 tab(s), Oral, Daily, # 30 tab(s), Refills(s) 11, [id number], 162, cm, 12/15/23 9:27:00 EDT, Height/Length Dosing, 197, kg, 12/15/23 9:27:00 EDT, Weight Dosing Comprehensive Metabolic Panel Est Preventative 40 to 64 years [address] Lipid Panel Thyroid Stimulating Hormone 6. Non-smoker (Z78.9: Other specified health status) continue not smoking Ordered: metoprolol, 50 mg = 1 tab(s), Oral, Daily, # 30 tab(s), Refills(s) 11, [id number], 162, cm, 12/15/23 9:27:00 EDT, Height/Length Dosing, 197, kg, 12/15/23 9:27:00 EDT, Weight Dosing Comprehensive Metabolic Panel Est Preventative 40 to 64 years [address] Lipid Panel Thyroid Stimulating Hormone Orders: buPROPion, 100 mg = 1 tab(s), Oral, BID, # 60 tab(s), Refills(s) 11, [id number], 162, cm, 11/03/22 9:18:00 EDT, Height/Length Dosing, 408, kg, 11/03/22 9:18:00 EDT, Weight Dosing buPROPion, 100 mg = 1 tab(s), Oral, BID, # 60 tab(s), Refills(s) 11, [id number], 162, cm, 12/15/23 9:27:00 EDT, Height/Length Dosing, 197, kg, 12/15/23 9:27:00 EDT, Weight Dosing buPROPion, See Instructions, TAKE 1 TABLET BY MOUTH TWICE A DAY, # 60 tab(s), Refills(s) 11, Pharmacy: [id number], 162, cm, 12/15/23 9:27:00 EDT, Height/Length Dosing, 197, kg, 12/15/23 9:27:00 EDT, Weight Dosing busPIRone, 5 mg = 1 tab(s), Oral, Daily, # 30 tab(s), Refills(s) 11, [id number], 162, cm, 12/15/23 9:27:00 EDT, Height/Length Dosing, 197, kg, 12/15/23 9:27:00 EDT, Weight Dosing busPIRone, 5 mg = 1 tab(s), Oral, Daily, # 30 tab(s), Refills(s) 5, Pharmacy: [facility]/pharm[facility] #[id number], 162, cm, 11/03/22 9:18:00 EDT, Height/Length Dosing, 408, kg, 11/03/22 9:18:00 EDT, Weight Dosing hydrochlorothiazide, 25 mg = 1 tab(s), Oral, Daily, 25 Unknown, oral, 1 Refill(s), Take 25 mg by mouth daily., # 30 tab(s), Refills(s) 11, Pharmacy: [facility] #61 (more content not included)... Normal [facility] Comment on above: Result Comment: Elec tronically Signed By: Annabella Moscoso\.br\Date and Time Signed: 12/15/23 10:14 EDT Lipid Panelon 12-15-2023 Cholesterol [Mass/Vol] 172 mg/dL Normal 120-200 [facility] Comment on above: Performed By: #### 2 630291 #### [facility] [address] [place] [address] Cholesterol in HDL [Mass/Vol] 39 mg/dL Invalid Interpretation Code [facility] Comment on above: Result Comment: '>= 60 LOW RISK' '<= 40 HIGH RISK' Performed By: #### 2 [id number] #### [facility] [address] [place] [address] Cholesterol in LDL [Mass/Vol] 118 mg/dL Normal <=129 [facility] Comment on above: Performed By: #### 2 692296 #### [facility] [address] [place] [address] Cholesterol in VLDL [Mass/Vol] 28 mg/dL Normal 7-40 [facility] Comment on above: Performed By: #### 2 636753 #### [facility] [address] [place] [address] Triglyceride [Mass/Vol] 142 mg/dL Normal <=149 [facility] Comment on above: Performed By: #### 2 736185 #### [facility] [address] [place] [address] TSHon 12-15-2023 TSH Qn 1.22 m[IU]/L Normal 0.34-5.60 [facility] Comment on above: Performed By: #### 2 889633 #### [facility] [address] [place] [address] eGFRon 12-15-2023 eGFR 81 mL/min/1.73 m2 Normal >=59 [facility] Comment on above: Order Comment: Order added by Discern Expert. Performed By: #### 1 [id number] #### [facility] [address] [place] [address] Consultation Noteon 08-11-19 Consultation Note [id number] IFF Normal [facility] XR ankle LT min 3V*on 2023 XR ankle LT min 3V* [facility] [address] XRay Report Signed Patient: Daniella Mancera MR#: [id number] : 1980 Acct:[id number] Age/Sex: 42 / F ADM Date: 08/09/23 Loc: [facility] Room: Type: [facility] Attending Dr: Oneida TORRES Copies to: MELISSA Chandler Ordering Provider: MELISSA Chandler Date of Service: 08/09/23 XR/XR ankle LT min 3V*: LEFT ANKLE PAIN LEFT ANKLE - 3 views CLINICAL HISTORY: Injury 2 weeks ago now with pain COMPARISON: None FINDINGS: Diffuse soft tissue swelling is seen. Ankle mortise appears intact. No acute bony process. Plantar spurring. XR/XR ankle LT min 3V* IMPRESSION: DIFFUSE SOFT TISSUE SWELLING WITHOUT ACUTE BONY PROCESS INVOLVING THE LEFT ANKLE. PLANTAR SPURRING. Impression dictated by: Aldo Hernandez Jr., D.O.08/09/2023 11:03 AM Dictation Location: [place] [address] Transcribed By: PWS 08/09/231102 Dictated By: Aldo Hernandez Jr, DO 08/09/23 110 Signed By: 08/09/23 110 Normal [facility] COMPREHENSIVE METABOLIC PANE Geoffrey 07-14-2023 Albumin [Mass/Vol] 4.2 g/dL Normal 3.2-5.3 [facility] Comment on above: Performed By: #### C CURT, 34009-4 #### [facility] ([id number]) [address], [address] [place] [address] ALP [Catalytic activity/Vol] 94 U/L Normal 39-130 [facility] Comment on above: Performed By: #### Karol ELIAS, 80350-6 #### [facility] ([id number]) [address], [address] [place] [address] ALT [Catalytic activity/Vol] 32 U/L High 0-31 [facility] Comment on above: Performed By: #### Karol ELIAS, #### [facility] ([id number]) [address], [address] [place] [address] Anion gap [Moles/Vol] 13 mmol/L Normal 5-15 [facility] Comment on above: Performed By: #### Karol ELIAS, #### [facility] ([id number]) [address], [address] [place] [address] AST [Catalytic activity/Vol] 20 U/L Normal 0-41 [facility] Comment on above: Performed By: #### Karol ELIAS, 00551-6 #### [facility] ([id number]) [address], [address] [place] [address] Bilirubin [Mass/Vol] 1.1 mg/dL Normal 0.3-1.2 [facility] Comment on above: Performed By: #### Karol ELIAS, 39118-3 #### [facility] ([id number]) [address], [address] [place] [address] Calcium [Mass/Vol] 9.5 mg/dL Normal 8.5-10.5 [facility] Comment on above: Performed By: #### Karol ELIAS, #### [facility] ([id number]) [address], [address] [place] [address] Chloride [Moles/Vol] 104 mmol/L Normal 98-109 [facility] Comment on above: Performed By: #### Karol ELIAS, #### [facility] ([id number]) [address], [address] [place] [address] CO2 [Moles/Vol] 24 mmol/L Normal 22-32 [facility] Comment on above: Performed By: #### Karol ELIAS, #### [facility] ([id number]) [address], [address] [place] [address] Creatinine [Mass/Vol] 1.01 mg/dL High 0.40-1.00 [facility] Comment on above: Result Comment: METH OD TRACEABLE TO IDMS STANDARD Performed By: #### Karol ELIAS, #### [facility] ([id number]) [address], [address] [address] [place] [address] GFR/1.73 sq M.predicted among non-blacks MDRD (S/P/Bld) [Vol rate/Area] 71 mL/min/{1.73_m2} Normal >59 [facility] Comment on above: Result Comment: Reported eGFR is based on the CKD-EPI 2020 equation that does not use a race coefficient. Performed By: #### Karol ELIAS, #### [facility] ([id number]) [address], [address] [place] [address] Glucose [Mass/Vol] 93 mg/dL Normal 65-99 [facility] Comment on above: Performed By: #### Karol ELIAS, #### [facility] ([id number]) [address], [address] [place] [address] Potassium [Moles/Vol] 3.8 mmol/L Normal 3.5-5.0 [facility] Comment on above: Performed By: #### Karol ELIAS, 87605-9 #### [facility] ([id number]) [address], [address] [place] [address] Protein [Mass/Vol] 7.8 g/dL Normal 6.0-8.0 [facility] Comment on above: Performed By: #### Karol ELIAS, 49150-3 #### [facility] ([id number]) [address], [address] [place] [address] Sodium [Moles/Vol] 141 mmol/L Normal 134-146 [facility] Comment on above: Performed By: #### Karol ELIAS, 22345-4 #### [facility] ([id number]) [address], [address] [place] [address] Urea nitrogen [Mass/Vol] 30 mg/dL High 5-23 [facility] Comment on above: Performed By: #### Karol ELIAS, 26141-6 #### [facility] ([id number]) [address], [address] [place] [address] MAGNESIUMon 07-14-2023 Magnesium [Mass/Vol] 1.7 mg/dL Low 1.8-2.6 [facility] Comment on above: Performed By: #### Karol ELIAS, 12959-7 #### [facility] ([id number]) [address], [address] [place] [address] Consultation Noteon 01-21-20 Consultation Note [id number] D:127 Normal [facility] CHEMISTRYOrdered By: SYSTEM SYSTEM on 11-03-2022 Cholesterol [Mass/Vol] 163 mg/dL Normal 120 - 200 mg/dL [facility] Cholesterol in HDL [Mass/Vol] 41 mg/dL Invalid Interpretation Code [facility] Cholesterol in LDL [Mass/Vol] 104 mg/dL Normal <=129mg/dL [facility] Cholesterol in VLDL [Mass/Vol] 23 mg/dL Normal 7 - 40 mg/dL [facility] Triglyceride [Mass/Vol] 116 mg/dL Normal <=149mg/dL [facility] TSH Qn 1.25 m[IU]/L Normal 0.34 - 5.60 mcIU/mL [facility] MG MAMM SCREEN 3D NERI CADon 01-03-2022 MG MAMM SCREEN 3D NERI CAD Patient: DANIELLA MANCERA Exam Date: 01/03/2022 : 1980 Gender:F Ordering : DR ANGIE BOLDEN . Admission #: [id number] Family : JARED SHEARER Order #: [id number] CLICK HERE TO VIEW EXAM RADIOLOGY REPORT PROCEDURE: MAMMOGRAM SCREENING 3D BILATERAL CAD COMPARISON: None. INDICATIONS: Screening mammography Calculator Name NCI Breast Cancer Risk Assessment Tool 5 Year Breast Cancer Risk 0.80% Lifetime Breast Cancer Risk 11.90% Personal Breast Cancer No Personal Ovarian Cancer No Treatments hysterectomy and chemotherapy Family Cancers Aunt-maternal with breast cancer at age 81. LOCATION: [facility] BREAST COMPOSITION: Almost entirely fatty. FINDINGS: DIAGNOSTIC CATEGORY 2--BENIGN FINDING: RIGHT BREAST: No significant suspicious finding. Port-A-Cath. LEFT BREAST: No significant suspicious finding. Scattered benign-appearing calcifications are present. RECOMMENDATIONS: ROUTINE MAMMOGRAM AND CLINICAL EVALUATION IN 12 MONTHS. PLEASE NOTE: A NORMAL MAMMOGRAM DOES NOT EXCLUDE THE POSSIBILITY OF BREAST CANCER. A CLINICALLY SUSPICIOUS PALPABLE LUMP SHOULD BE BIOPSIED. Dictated by: Mauro Heller M.D. on 01/03/2022 at 15:56 Approved by: Mauro Heller M.D. on 01/03/2022 at 15:59 Normal [facility] PAP ACOG PANEL 2: 30 to 65on 12-01-2021 . . Normal [facility] Comment on above: Result Comment: Perf ormed at: WB Performed By: #### [id number] #### [facility] [address] [place] [address] Dr. Billy Parikh Age Gdln ACOG Testing 30-65 Normal [facility] Comment on above: Performed By: #### [id number] #### [facility] [address] [place] [address] Dr. Billy Parikh DIAGNOSIS: Comment Normal [facility] Comment on above: Result Comment: NEGA TIVE FOR INTRAEPITHELIAL LESION OR MALIGNANCY. Performed at: WB Performed By: #### 4 [id number] #### [facility] [address] [address] [address] Billy Parikh HPV Aptima Negative Normal Negative [facility] Comment on above: Result Comment: This nucleic acid amplification test detects fourteen high-risk HPV types (16,18,31,33,35,39,45,51,52,56,58,59,66,68) without differentiation. Performed at: =G Performed By: #### [id number] #### [facility] [address] [place] [address] Dr. Billy Parikh Methodology: CTIM Normal [facility] Comment on above: Result Comment: The Thin Prep(R) Brand Marketing Specialist was unable to read this specimen. Therefore a manual review was performed. Performed at: WB Performed By: #### 4 [id number] #### [facility] [address] [place] [address] Dr. Billy Parikh Note: Comment [facility] Comment on above: Result Comment: The Pap smear is a screening test designed to aid in the detection of premalignant and malignant conditions of the uterine cervix. It is not a diagnostic procedure and should not be used as the sole means of detecting cervical cancer. Both false-positive and false-negative reports do occur. . Performed at: WB Performed By: #### 4 [id number] #### [facility] [address] [place] [address] Dr. Billy Parikh Performed by: Comment [facility] Comment on above: Result Comment: Nish Wolff Manager Real Estate (ASCP) Performed at: WB Performed By: #### 4 [id number] #### [facility] [address] [place] [address] Dr. Billy Parikh Specimen adequacy: Comment Normal [facility] Comment on above: Result Comment: Sati sfactory for evaluation. No endocervical component is identified. Performed at: WB Performed By: #### 4 [id number] #### [facility] [address] [address] [address] Billy Parikh PROGRESSon 12-18-2016 PROGRESS HNO ID: [id number]: Stephie BuenoConstantineervice: (none)Author Type: PhysicianType: Progress NotesFiled: 12/18/2016 11:00 AMNote Text:DATE OF SERVICE: 12/14/2016PROBLEM: Daniella Mancera is a consult from Dr. Bolden for evaluation ofabnormal uterine bleeding.SUBJECTIVE/HPI : Ms. Mancera is a 36 year old female with history ofpelvic pain and heavy irregular vaginal bleeding requiring ER visits. Sherecently underwent hysteroscopy and D/C on 12/16 that came back c/wendometrial polyp and benign disease.Pelvic USUterus 11.5 x 6.7 x 7.3 cm. ET 44 mmNormal ovariesHysteroscopy and D/C 12/16/2016Benign endometrial polyp and secretory endometrium.HISTORIES:P AST GYNECOLOGIC HISTORY:G0. LMP: No LMP recorded.History of abnormal pap: No.No past surgical history on file. Dante teeth removalPAST MEDICAL HISTORYDiagnosis Date- Abnormal uterine bleeding- Anemia- Anxiety- Hypertension- Thickened endometriumNo family history on file.Family history of breast, ovarian, uterine or colon cancer: NoFamily history of VTE: NoSOCIAL HISTORYSocial HistorySubstance Use Topics- Smoking status: Never Smoker- Smokeless tobacco: Never Used- Alcohol use Not on file Comment: occasionalOccupation:Ma rital Status: SingleREVIEW OF SYSTEMS:GENERAL: No recent weight loss, fever, chills, malaise or fatigue.HEENT: No changes in hearing or vision, frequent or severe headaches, nosebleeds or other nasal problems.NECK: No lumps, goiter, pain, significant neck swelling, or difficultyswallowing.RE SPIRATORY: No shortness of breath, cough, wheezing, recent pneumonia(within last 6 weeks) or recent URI (within 2 weeks).CARDIOVASCULAR: No angina with activity or at rest, lower extremity edema,or palpitations. No recent MD (within 6 months), cardiac stent, cardiacsurgery, gangrene, or PVD. No history of hypertension.BREAST: No breast lumps, skin changes, nipple discharge, or adenopathy.GI: No abdominal pain, nausea, vomiting, diarrhea, or constipation. Noprior history of esophageal varicies or ascites. Patient denies drinking>2 alcoholic beverages a day.: No dysuria, gross hematuria, urinary frequency, urinary urgency, orincontinence. No history of renal failure, dialysis, or recent UTI (<6weeks).MUSCULOSKELET AL: No muscle weakness or joint pain.SKIN: No skin lesions, rashes, or itching.PSYCH: No sleep disturbances, depression, bipolar disorder, drugdependency/history of drug dependency, or recent psychosocial stressors.HEMATOLOGY/LY MPHOLOGY: No prolonged bleeding, bruising easily, swollennodes, or anemia. No prior history of a blood clot or clotting disorder.No prior history of a bleeding disorder. Not on chronicanticoagulant/pl atelet medications.ENDOCRINE: No cold or heat intolerance, polyuria, polydipsia, polyphagia,goiter, hot flashes or night sweats. No prior diagnosis of diabetes orthyroid disorder. No chronic steroid use.NEURO: No history of paralysis, stroke/TIA, seizures, tremors, syncope,or paresthesias.ECOG performance status is zero (fully active, able to carry on allpre-disease performance without restriction)Stephie Holliday MDOBJECTIVE:VITALS: BP 175/111 (BP Site: Left Arm, BP Position: Sitting, BP Cuff Size:Large Adult) Pulse 91 Temp 37.4 ?C (99.3 ?F) Resp 18 Ht 165.1 cm(5' 5 ) Wt (!) 180.3 kg (397 lb 6.4 oz) BMI 66.13 kg/c8LZYEFGZ: Patient is a well developed, well nourished female.She is Alert, oriented, pleasant and cooperative.SKIN: Color, texture, turgor normal. No rashes or lesions.HEENT: Normocephalic, atraumatic, mucus membranes moist and no lesionsLUNGS: Normal efforts .PROCEDURES: NoneASSESSMENT:36 yo women with abnormal uterine bleeding and benign endometrium andbenign polypMorbid obesityPLAN:We had a long discussion regarding the treatment options. I am happy tosee that her endometrium was benign with no evidence of cancer orhyperplasia. There was evidence of endometrial polyp which could becausing her bleeding but I think her bleeding is also related to hormonalimbalance and excess estrogen. I explained to her that at this point, I donot recommend surgery and I do recommend trying non surgical optionsincluding OCPs or MIRENA IUD. The decision to choose one of the two willbe based on the discussion between her and Dr. Bolden. We can considersurgery if all of non surgical options failed especially given her youngage, and body habitus.Total face to face time 30 minutes and more that 50% spent on counselingthe patient and coordinating her care.Stephie Holliday MD, MPHA letter and a copy of this office note were sent to:Angie Bolden, [id number] [facility]Asc[facility] [place] [id number]:Bhumi Choi MD (PCP) [facility] 12-14-2016 CNCO Letter TextDegayle Mancera:How to activate your [facility] ZOCKO Account 1. Visit the ZOCKO Signup page at [email or web address] 2. Identify yourself using your one-time use activation code: [email or web address] 3. Follow the on-screen prompts to choose your own secure username andpasswordThe following information will be necessary to access your account for thefirst time:Information needed for sign-up:Your custom activation code used one-time only for the initial accountset-up.Your date of birthThe last 4 digits of your social security numberWhat to do next:Fill in the requested information on the Identify Yourself Form [email or web address] , click Next.Create your login and password, choose a ZOCKO ID and password that will beeasy for you to use, but impossible for anyone else to guess.Pick a security question that will assist you in the event you forget yourpassword the next time you log-on.If you have difficulty activating your account, please call our [place] FFTline at [phone] or toll free at .We hope you enjoy using ZOCKO!Kindest Regards,[facility] MyChart Team Normal [facility] CNOVon 12-14-2016 CNOV Office Visit (GYNOSA) LILIANA DANIELLA GONSALES ([id number]) 1980 FDate Time Provider Department12/14/16 3:00 PM STEPHIE HOLLIDAY During your visit today, we recorded the following information about you: Temperature Pulse Respiration Blood pressure 99.3 degrees 91/minute 18/minute 175/111 Weight Height 180.3 kg 1.651 Rocío Holliday MD 12/18/2016 11:00 AM SignedDATE OF SERVICE: 12/14/2016PROBLEM: Daniella Mancera is a consult from Dr. Bolden for evaluation ofabnormal uterine bleeding.SUBJECTIVE/HPI : Ms. Mancera is a 36 year old female with history of pelvicpain and heavy irregular vaginal bleeding requiring ER visits. She recentlyunderwent hysteroscopy and D/C on 12/16 that came back c/w endometrial polyp andbenign disease.Pelvic USUterus 11.5 x 6.7 x 7.3 cm. ET 44 mmNormal ovariesHysteroscopy and D/C 12/16/2016Benign endometrial polyp and secretory endometrium.HISTORIES:P AST GYNECOLOGIC HISTORY:G0. LMP: No LMP recorded.History of abnormal pap: No.No past surgical history on file. Dante teeth removalPAST MEDICAL HISTORYDiagnosis Date- Abnormal uterine bleeding- Anemia- Anxiety- Hypertension- Thickened endometriumNo family history on file.Family history of breast, ovarian, uterine or colon cancer: NoFamily history of VTE: NoSOCIAL HISTORYSocial HistorySubstance Use Topics- Smoking status: Never Smoker- Smokeless tobacco: Never Used- Alcohol use Not on file Comment: occasionalOccupation:Ma rital Status: SingleREVIEW OF SYSTEMS:GENERAL: No recent weight loss, fever, chills, malaise or fatigue.HEENT: No changes in hearing or vision, frequent or severe headaches, nosebleeds or other nasal problems.NECK: No lumps, goiter, pain, significant neck swelling, or difficultyswallowing.RE SPIRATORY: No shortness of breath, cough, wheezing, recent pneumonia (withinlast 6 weeks) or recent URI (within 2 weeks).CARDIOVASCULAR: No angina with activity or at rest, lower extremity edema, orpalpitations. No recent MD (within 6 months), cardiac stent, cardiac surgery,gangrene, or PVD. No history of hypertension.BREAST: No breast lumps, skin changes, nipple discharge, or adenopathy.GI: No abdominal pain, nausea, vomiting, diarrhea, or constipation. No priorhistory of esophageal varicies or ascites. Patient denies drinking ANDgt;2alcoholic beverages a day.: No dysuria, gross hematuria, urinary frequency, urinary urgency, orincontinence. No history of renal failure, dialysis, or recent UTI (ANDlt;6weeks).MUSCULOS KELETAL: No muscle weakness or joint pain.SKIN: No skin lesions, rashes, or itching.PSYCH: No sleep disturbances, depression, bipolar disorder, drugdependency/history of drug dependency, or recent psychosocial stressors.HEMATOLOGY/LY MPHOLOGY: No prolonged bleeding, bruising easily, swollen nodes,or anemia. No prior history of a blood clot or clotting disorder. No priorhistory of a bleeding disorder. Not on chronic anticoagulant/plateletm edications.ENDOCRINE: No cold or heat intolerance, polyuria, polydipsia, polyphagia,goiter, hot flashes or night sweats. No prior diagnosis of diabetes or thyroiddisorder. No chronic steroid use.NEURO: No history of paralysis, stroke/TIA, seizures, tremors, syncope, orparesthesias.ECOG performance status is zero (fully active, able to carry on all pre-diseaseperformance without restriction)Stephie Holliday MDOBJECTIVE:VITALS: BP 175/111 (BP Site: Left Arm, BP Position: Sitting, BP Cuff Size:Large Adult) Pulse 91 Temp 37.4 ?C (99.3 ?F) Resp 18 Ht 165.1 cm (5'5ANDquot;) Wt (!) 180.3 kg (397 lb 6.4 oz) BMI 66.13 kg/a2LCVKOGK: Patient is a well developed, well nourished female. She isAlert, oriented, pleasant and cooperative.SKIN: Color, texture, turgor normal. No rashes or lesions.HEENT: Normocephalic, atraumatic, mucus membranes moist and no lesionsLUNGS: Normal efforts .PROCEDURES: NoneASSESSMENT:36 yo women with abnormal uterine bleeding and benign endometrium and benignpolypMorbid obesityPLAN:We had a long discussion regarding the treatment options. I am happy to seethat her endometrium was benign with no evidence of cancer or hyperplasia.There was evidence of endometrial polyp which could be causing her bleeding butI think her bleeding is also related to hormonal imbalance and excess estrogen.I explained to her that at this point, I do not recommend surgery and I dorecommend trying non surgical options including OCPs or MIRENA IUD. Thedecision to choose one of the two will be based on the discussion between herand Dr. Bolden. We can consider surgery if all of non surgical options failedespecially given her young age, and body habitus.Total face to face time 30 minutes and more that 50% spent on counseling thepatient and coordinating her care.Stephie Holliday MD, MPHA letter and a copy of this office note were sent to:Angie Bolden, [id number] [facility] [id number]:Bhumi Choi MD (PCP)Referring Provider: ANGIE BOLDEN [[id number]]Allergies As of Date: 12/14/2016(No Known Allergies)Date Reviewed: 12/14/2016Reviewed by: July Sohan - Fully AssessedReason for Visit: abnormal uterine bleeding [Other] Cmt: new patient consultationPrimary Visit Diagnosis:Abnormal uterine bleeding [N93.9] Other Visit Diagnosis:Endometrial polyp [N84.0]Prescriptions as of 12/14/2016 Sig: CLONIDINE HCL 0.1 MG TABLET KLOR-CON M10 MEQ TABLET,EXTEN* MEGESTROL 20 MG TABLET VITAMIN C ORAL Take by mouth. HYDROCHLOROTHIAZIDE 25 MG TAB* Take 25 mg by mouth once clive* NIFEDIPINE ER 30 MG TABLET,EX* Take 30 mg by mouth once clive* METOPROLOL SUCCINATE ER 50 MG* Take 50 mg by mouth once clive* BUPROPION HCL 100 MG TABLET Take 100 mg by mouth once monique* FOLIC ACID 1 MG TABLET Take 1 mg by mouth once daily. FERROUS SULFATE 325 MG (65 MG* Take 325 mg by mouth daily wi*Medication notes this encounter CLONIDINE HCL 0.1 MG TABLET >> July Parry 12/14/2016 2:43 PM >> PARRYJulyDec 14, 2016 2:43 PM Received from: External Pharmacy DECLANOR-CON M10 MEQ TABLET,EXTENDED RELEASE >> July Parry 12/14/2016 2:43 PM >> SOHAN JulyDec 14, 2016 2:43 PM Received from: External Pharmacy HYDROCODONE 5 MG-ACETAMINOPHEN 325 MG TABLET >> July Parry 12/14/2016 2:43 PM >> PARRYJulyDec 14, 2016 2:43 PM Received from: External Pharmacy HYOSCYAMINE SULFATE 0.125 MG TABLET >> July Parry 12/14/2016 2:43 PM >> PARRYJulyDec 14, 2016 2:43 PM Received from: External PharmacyProblem List As Of Date: 12/14/2016(None)Medicat ions Discontinued During This Encounter acetaminophen-codeine (TYLENOL-CODEI* 12/14/2016 Class: Historical Med Route: ORAL Sig: Take 1 tablet by mouth every 6 hours as needed. Disc: Erroneous entry HYDROcodone-acetaminoph en (NORCO) 5-* 11/13/2016 12/14/2016 Class: Historical Med Sig: Disc: Erroneous entry hyoscyamine (LEVSIN) 0.125 mg tablet 11/18/2016 12/14/2016 Class: Historical Med Sig: Disc: Erroneous entry potassium chloride ER (K-DUR, KLOR-C* 12/14/2016 Class: Historical Med Route: ORAL Sig: Take 20 mEq by mouth once daily. Disc: Erroneous entryFollow-up and Disposition History RecordedEncounter Number: [id number] Status:Closed by STEPHIE HOLLIDAY MD on 12/18/[address] [facility] RI-US PELVIS & TRANSVAG IMPO RTon 10-20-2016 RI-US PELVIS & TRANSVAG IMPORT Images were obtained outside of [facility] Normal [facility] Vital Signs Date Time Vital Sign Value Performing Clinician Facility 08-09-2023 10:15-0400 Body temperature 99.2 [degF] [employer]ICE TEAM MEMBER-C Annabella Shannon Work Phone: [facility] 08-09-2023 10:15-0400 Body weight 195.49 kg FOOD SERVICE TEAM MEMBER-C Annabella Shannon Work Phone: [facility] 08-09-2023 10:15-0400 Diastolic blood pressure 98 mm[Hg] FOOD SERVICE TEAM MEMBER-C Annabella Shannon Work Phone: [facility] 08-09-2023 10:15-0400 Heart rate 67 /min [employer] SERVICE TEAM MEMBER-C Annabella Shannon Work Phone: [facility] 08-09-2023 10:15-0400 Respiratory rate 18 /min FO[employer] SERVICE TEAM MEMBER-C Annabella Shannon Work Phone: [facility] 08-09-2023 10:15-0400 SaO2% (BldA) [Mass fraction] 98 % FOOD SERVICE TEAM MEMBER-C Annabella Shannon Work Phone: [facility] 08-09-2023 10:15-0400 Systolic blood pressure 148 mm[Hg] FOOD SERVICE TEAM MEMBER-C Annabella Shannon Work Phone: [facility] 07-18-2023 09:03-0400 Body height 165.1 cm Roxanna RAYO Work Phone: [facility] 07-18-2023 09:03-0400 Body mass index (BMI) [Ratio] 71.39 kg/m2 Roxanna Gooden PA Work Phone: [facility] 07-18-2023 09:03-0400 Body temperature 98.01 [degF] Roxanna Gooden PA Work Phone: [facility] 07-18-2023 09:03-0400 Body weight 194.59 kg [facility] Gooden [facility] 07-18-2023 09:03-0400 Diastolic blood pressure 98 mm[Hg] Roxanna RAYO Work Phone: [facility] 07-18-2023 09:03-0400 Heart rate 74 /min Roxanna RAYO Work Phone: [facility] 07-18-2023 09:03-0400 Respiratory rate 18 /min Roxanna Gooden PA Work Phone: [facility] 07-18-2023 09:03-0400 SaO2% (BldA) [Mass fraction] 99 % Roxanna RAYO Work Phone: [facility] 07-18-2023 09:03-0400 Systolic blood pressure 152 mm[Hg] Roxanna RAYO Work Phone: [facility] Encounters Encounter Date Encounter Type Care Provider Facility Start: 02-13-2024 ambulatory Annabella L Shannon Facility: [facility] Start: 01-17-2024 End: 01-17-2024 ambulatory [employer] Annabella L Shannon Facility:[facility] Start: 01-17-2024 End: 01-17-2024 ambulatory [facility] Start: 01-12-2024 End: 01-12-2024 ambulatory [facility] Start: 12-19-2023 End: 12-19-2023 ambulatory ANGIE ELMOREZIO Not Available Start: 12-15-2023 End: 12-15-2023 Lab Drop off Annabella L Shannon [facility] Start: 12-15-2023 End: 12-15-2023 ambulatory [employer] Annabella L Shannon Facility:[facility] Start: 08-09-2023 End: 08-09-2023 ambulatory Oneida Rashidmond Facility:[facility] Start: 08-09-2023 End: 08-09-2023 ambulatory FOOD SERVICE TEAM MEMBER-C Annabella Plummer Shannon Work Phone: [facility] Work Phone: Start: 08-09-2023 End: 08-09-2023 Patient encounter procedure FOOD SERVICE TEAM MEMBER-C Annabella Ortega Work Phone: [facility] Work Phone: Start: 07-25-2023 Refill Roxanna RAYO Work Phone: [facility] Comment on above: Iron deficiency anem ia due to chronic blood loss Start: 07-18-2023 End: 07-18-2023 Office outpatient visit 25 minutes Roxanna RAYO Work Phone: [facility] Comment on above: Endometrial cancer, FIGO stage IIIA ([facility]) (Primary Dx); Electrolyte abnormality; Iron deficiency anemia due to chronic blood loss; Obesity, morbid ([facility]); Hot flash, menopausal; Hypomagnesemia Start: 07-18-2023 End: 07-18-2023 ambulatory [facility] Start: 07-14-2023 End: 07-14-2023 [facility] Start: 07-06-2023 Orders Only Niecy Oliva RN [facility] Comment on above: Endometrial cancer, FIGO stage IIIA ([facility]) (Primary Dx) Start: 04-22-2023 Refill [facility]ox[facility] RAYO [facility] Start: 04-19-2023 End: 04-19-2023 ambulatory [facility] Start: 04-07-2023 End: 04-07-2023 ambulatory [employer] Annabella Ortega Facility:[facility] Start: 11-03-2022 End: 11-03-2022 Lab Drop off Annabella Ortega [facility] Start: 01-03-2022 End: 01-04-[address] BHUMI CHOI Facility: Start: 11-25-2021 End: 11-25-[address] ANGIE BOLDEN Facility:[facility] Start: 01-27-2021 End: 04-21-2021 Preoperative state Roxanna RAYO Work Phone: [facility] Start: 12-14-2016 End: 12-14-2016 Ambulatory STEPHIE HOLLIDAY [facility] Procedures Date Procedure Procedure Detail Performing Clinician Start: 08-09-2023 X-ray of left ankle [employer]ICE TEAM MEMBER- C Annabella Ortega Work Phone: Start: 04-19-2023 Follow-up visit Follow-up ALEXIA GOODEN Start: 03-11-2021 Port (substance) Annabella David chwab Comment on above: port remmoved 07/2022 infusion port placed Start: 02-10-2021 Hysterectomy Annabella peterson Comment on above: uterine caner Plan of Treatment Date Care Activity Detail Author Start: 07-17-2024 Adult BMI Screening Adult BMI Screen ing [facility] Start: 04-19-2024 Adult BMI Screening Adult BMI Screen ing [facility] Start: 01-17-2024 End: 01-17-2024 Patient encounter procedure 01/17/2024 9:00 AM EDT Office Visit Juanita Echols [facility] [address] [place] [address] [phone] Roxanna Gooden PA [address] [place] [address] Juanita Echols [facility] Start: 12-24-2023 Influenza vaccination Influenza Vacc ine [facility] Start: 07-18-2023 End: 07-18-2023 Patient encounter procedure 07/18/2023 9:00 AM EDT Office Visit Juanita Echols [facility] [address] [place] [address] [phone] Roxanna Gooden PA [address] [place] [address] [facility] Start: 12-23-2022 [facility]enza [facility] Start: 10-20-2022 Tobacco Screening [facility] Start: 11-05-1998 DTaP,Tdap and Td Vaccines (1 - Tdap) DTaP,Tdap and Td Vaccines (1 - Tdap) [facility] Start: 11-05-1997 Adult BMI Follow Up Plan Adult BMI F ollow Up Plan [facility] Start: 1991 Depression Screening Depression Scre [facility]ing [facility] End: 07-17-2024 CBC W Auto Differential panel - Blood CBC with auto diff Lab Routine Iron deficiency anemia due to chronic blood loss 1 Occurrences starting 07/18/2023 until 07/17/2024 [employer] Work Phone: Comment on above: 1 Occurrences starti ng 07/18/2023 until 07/17/2024 End: 07-05-2024 Comprehensive metabolic 2000 panel - Serum or Plasma Comprehensive metabolic panel Lab Routine Endometrial cancer, FIGO stage IIIA ([facility]) 1 Occurrences starting 07/06/2023 until 07/05/2024 [employer] Work Phone: Comment on above: 1 Occurrences starti ng 07/06/2023 until 07/05/2024 End: 07-17-2024 Comprehensive metabolic 2000 panel - Serum or Plasma Comprehensive metabolic panel Lab Routine Electrolyte abnormality 1 Occurrences starting 07/18/2023 until 07/17/2024 [employer] Comment on above: 1 Occurrences starti ng 07/18/2023 until 07/17/2024 End: 07-05-2024 Magnesium [Mass/volume] in Serum or Plasma Magnesium Lab Routine Endometrial cancer, FIGO stage IIIA ([facility]) 1 Occurrences starting 07/06/2023 until 07/05/2024 [place] Comment on above: 1 Occurrences starti ng 07/06/2023 until 07/05/2024 End: 07-17-2024 Magnesium [Mass/volume] in Serum or Plasma Magnesium Lab Routine Electrolyte abnormality 1 Occurrences starting 07/18/2023 until 07/17/2024 [place] Comment on above: 1 Occurrences starti ng 07/18/2023 until 07/17/2024 XR Ankle - left GE 3 Views [facility] Immunizations Immunization Date Immunization Notes Care Provider Dariela arnold 08-09-1997 hepatitis B vaccine, pediatric or pediatric/adolescent dosage Annabella Ortega [facility] Payers Date Payer Category Payer Self-pay [id number] 2020 Unknown [employer] [place] [employer] [id number] 2020-Present [phone] [address] [place] [address] [id number] 1979 Unknown [id number] [id number]. 593 1979 Unknown [id number] 2.16.840.1.263018.3.579.2. 593 1979 Unknown [id number] 2.16.840.1.661153.3.579.2. 1259 1979 Unknown [id number] 2.16.840.1.079692.3.579.2. 727 1979 Unknown [id number] 2.16.840.1.596620.3.579.2. 727 1979 Unknown [id number] 2.16.840.1.000934.3.579.2. 727 1979 Unknown [id number] 2.16.840.1.298948.3.579.2. 727 1979 Unknown [id number] 2.16.840.1.044234.3.579.2. 1286 1979 Unknown [id number] 2.16.840.1.492081.3.579.2. 1286 1979 Unknown [id number] 2.16.840.1.241324.3.579.2. 1286 1979 Unknown [id number] 2.16.840.1.713313.3.579.2. 1286 1979 Unknown [id number] 2.16.840.1.481273.3.579.2. 1286 1979 Unknown [id number] 2.16.840.1.918644.3.579.2. 727 1959 Unknown [id number] Private Health Insurance [facility] [id number] Unknown [id number] [id number]. 531 Social History Date Type Detail Facility Start: 11-03-2022 End: 12-15-2023 Tobacco smoking status Never smoked tobacco (finding) [facility] Tobacco smoking status Never [facility] Start: 10-20-2021 Sex Assigned At Female [facility] Start: 01-25-2021 Tobacco use and exposure Smokeless tobacco non-user [facility] Start: 10-20-2021 Alcohol intake Ex-drinker (finding) [facility] Start: 10-20-2021 History of Social function [facility] Start: 1980 Sex Assigned At Female P [facility] Start: 06-24-2021 Gender identity Identifies as female gender (finding) [facility] Start: 06-24-2021 Sexual orientation Heterosexual (fin ding) [facility] Medical Equipment Procedure Code Equipment Code Equipment Origin al Text Equipment Identifier Dates Port Powerport D uo Mri Argd 9.5fr 2 Lum Pwr Inj Rad Trnlu Rpl [id number] - [id number] , [id number] [facility] Start: 03-11-2021 Clinical Notes 07-18-2023 PERRI Farrell - 07/18/2023 9:00 AM EDT Note Date & Type Note Facility 07-18-2023 History of Present illness Narrative Subjective: Daniella M Fiordaliza is a 42 y.o. female who is here for surveillance for her stage IIIA endometrial adenocarcinoma, grade 3. Patient reports doing well. Hot flashes are mostly controlled with taking gabapentin 200 mg at night. Abdominal pain has subsided since changing her diet. She had her port removed in July 2022. She is taking iron, potassium, and magnesium for iron and electrolyte deficiency without complaints. She denies abdominal or pelvic pain, vaginal bleeding, vaginal discharge, bowel/bladder changes, SOB, cough, nausea, and vomiting. Oncology History Overview Note 11/09/2020: pelvic TVUS - 6 cm stripe, ovaries wnl 01/08/2021: D&C - endometrioid adenocarcinoma, grade 3 02/10/2021: RAH, BSO, SLND, stage IIIA endometrial carcinoma. DOI 60%, negative LVSI, +Fallopian tubes and ovaries. Loss of MLH1 and PMS2. Hypermethylation absent. 06/23/21: completed 6 cycles Carbo/Taxol. Post tx scans JAS. Endometrial cancer, FIGO stage IIIA ([facility]) 02/23/2021 Initial Diagnosis Endometrial cancer ([facility]) 07/14/2021 Remission Daniella Mancera Denies Early satiety Denies Abdominal distention Denies Leg swelling Denies Shortness of breath Denies Vaginal bleeding Denies Change in bowel habits Denies Change in bladder habits Denies Nausea and vomiting All other systems negative, unless specifically noted in HPI. Past Gynecologic History: OB History No obstetric history on file. No LMP recorded. Patient has had an implant. Hormonal Contraceptives No HRT use No History of abnormal pap No Past Surgical History: Procedure Laterality Date DAVINCI BILATERAL PELVIC LYMPH NODE DISSECTION/ BILATERAL PELVIC LYMPH NODE MAPPING/ PELVIC WASHINGS N/A 02/10/2021 Performed by Jared Shearer MD at [facility] DAVINCI HYSTERECTOMY BILATERAL SALPINGO-OOPHORECTOMY N/A 02/10/2021 Performed by Jared Shearer MD at [facility] DILATION AND CURETTAGE OF UTERUS 12/2020 WISDOM TOOTH EXTRACTION Past Medical History: Diagnosis Date Abnormal uterine bleeding Anxiety Arthritis Chronic anemia Depression Endometrial ca ([facility] 12/2020 Endometrial polyp Hypertension Iron deficiency anemia Menorrhagia Obesity Family History Problem Relation Age of Onset Arthritis Mother Depression Mother Heart disease Mother Diabetes Mother Cervical polyp Mother Heart disease Father Hypertension Father Melanoma Maternal Grandmother 87 Arthritis Maternal Grandmother Diabetes Maternal Grandmother Heart disease Maternal Grandmother Kidney disease Maternal Grandmother Ulcers Maternal Grandmother Scoliosis Maternal Grandmother Arthritis Maternal Grandfather Hypertension Maternal Grandfather Stroke Maternal Grandfather Arthritis Paternal Grandmother Heart disease Paternal Grandmother Heart failure Paternal Grandmother Hypertension Paternal Grandmother Goiter Paternal Grandmother Colon polyps Paternal Grandmother 87 Heart disease Paternal Grandfather Stroke Paternal Grandfather Breast cancer Paternal Aunt 80 Colon cancer Paternal Uncle Social History Socioeconomic History Marital status: Single Spouse name: Not on file Number of children: Not on file Years of education: Not on file Highest education level: Not on file Occupational History Not on file Tobacco Use Smoking status: Never Smokeless tobacco: Never Substance and Sexual Activity Alcohol use: Not Currently Drug use: Never Sexual activity: Defer Other Topics Concern Caffeine Use Yes Social History Narrative Not on file Social Determinants of Health Financial Resource Strain: Not on file Food Insecurity: Not on file Transportation Needs: Not on file Physical Activity: Not on file Stress: Not on file Social Connections: Not on file Interpersonal Safety: Not on file Housing Instability: Not on file Review of Symptoms: Pertinent items are noted in HPI. Objective: BP (!) 152/98 Pulse 74 Temp 36.7 C (98 F) (Oral) Resp 18 Ht 165.1 cm (5' 5 ) Wt (!) 194.6 kg (429 lb) LMP 01/29/2021 SpO2 99% BMI 71.39 kg/m ECO- Asymptomatic Physical Exam: General: alert, appears stated age and cooperative Heart: regular rate and rhythm Lungs: clear to auscultation bilaterally Abdomen: soft, non-tender, without masses or organomegaly Vulva: normal, Bartholin's, Urethra, [place]'s normal. Vagina: Atrophy: no Vaginal Cuff: yes - intact Bleeding: no Discharge: no No lesions or masses. Cervix: absent Uterus: absent Adnexa: absent Lymphatics: No abnormally enlarged lymph nodes. Musculoskeletal: Normal. No LE edema. Skin: Skin color, texture, turgor normal. No rashes or lesions Neuro: normal without focal findings, mental status, speech normal, alert and oriented x3 Psychological: normal mood, behavior, speech, dress, and thought processes Labs: Lab Results Component Value Date WBC 9.4 07/12/2022 HGB 12.8 07/12/2022 HCT 38.0 07/12/2022 MCV 82 07/12/2022 PLT 301 07/12/2022 Lab Results Component Value Date GLU 93 07/14/2023 CALCIUM 9.5 07/14/2023 SODIUM 141 07/14/2023 K 3.8 07/14/2023 CO2 24 07/14/2023 BUN 30 (H) 07/14/2023 CREATININE 1.01 (H) 07/14/2023 No results found for: CA125 Assessment: Patient is diagnosed with Patient Active Problem List Diagnosis Obesity, morbid ([facility]) Endometrial cancer, FIGO stage IIIA ([facility]) Electrolyte abnormality Plan: 1. Stage IIIA endometrial cancer - She has completed the SOC regimen with 6 cycles Carbo/Taxol. No evidence of recurrence on today's exam. - We discussed signs and symptoms of recurrence including bleeding, pain, changes in bowel or bladder habits encouraging her to call with any changes. RTC in 6 months. - mammogram up to date. Pap smears no longer indicated. 3. 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 Negative for mutations. 4. Hot flashes at night - well controlled Gabapentin at 200mg before bed. Refill provided. 5. Obesity - Encouraged continued efforts in her weight loss goals, explaining importance to her overall health and reduction in recurrence risk with lowering her BMI. 6. Anemia - hgb improved, no bleeding. Continue daily or moexp-fyxem-hhs iron tablets. Repeat CBC prior to next visit. 7. Electrolyte imbalance - mg and k wnl, continue magox and klorcon. Repeat CMP and Mag prior to next visit. *The patient has a documented plan of care to address pain. All questions were answered to the patient's satisfaction. She is agreeable to this plan of care. *This note was completed using a voice ticketer system. Every effort was made to ensure accuracy. However, inadvertent computerized ticketer errors may be present. .Total time spent was 32 minutes: Preparing to see the patient (e.g., review of tests) Performing a medically appropriate examination and/or evaluation Counseling and educating the patient/family/caregiver Ordering medications, tests, or procedures Documenting clinical information in the electronic or other health record Care coordination (not separately reported) Roxanna Gooden PA-C, RD, IF PERRI Farrell 07/18/23 0930 documented in this encounter [facility] Evaluation + Plan note No data available for this section [facility] Evaluation + Plan note Future Appointments Appointment Date:01/19/2024 08:20:00 AM Scheduled Provider:Annabella Moscoso Location:[facility] Appointment Type: Open [facility] Evaluation note Diagnosis Endometrial cancer, FIGO stage IIIA ([facility]-HCC)- Primary documented in this encounter [facility] Diagnosis Endometrial cancer, FIGO stage IIIA ([facility])- Primary Electrolyte abnormality Electrolyte and fluid disorders not elsewhere classified Iron deficiency anemia due to chronic blood loss Iron deficiency anemia secondary to blood loss (chronic) Obesity, morbid ([facility]) Morbid obesity Hot flash, menopausal Symptomatic menopausal or female climacteric states Hypomagnesemia Disorders of magnesium metabolism documented in this encounter [facility]* Diagnosis Iron deficiency anemia due to chronic blood loss Iron deficiency anemia secondary to blood loss (chronic) documented in this encounter [facility] note[facility] assessment information available [facility] Work Phone: Hospital Discharge instructions No data available for this section [facility] filedocumented in this encounter [facility] filedocumented in this encounter [facility] filedocumented in this encounter [facility] on filedocumented in this encounter [facility] No data available for this section [facility] Summary Purpose Family History No Family History Records FoundNo Family History Records FoundNo Family History Records Found No data available for this section No Family History Records FoundNo Family History Records FoundNo Family History Records FoundNo Family History Records FoundNo Family History Records FoundNo Family History Records FoundNo Family History Records Found Advance Directives No Advanced Directives Records Found Advance Directive Response Recorded Date/ Time Advance Directives No October 21 3:36pm Chief Complaint and Reason for Visit Chief Complaint Left ankle pain s/p injury Additional Source Comments INFORMATION SOURCE (unrecogn ized section and content) DATE CREATED AUTHOR 10/18/2017 [facility] DATE CREATED AUTHOR AUTHOR'S ORGANIZ ATION 01/22/2022 [facility] DATE CREATED AUTHOR AUTHOR'S ORGANIZ ATION 08/19/2023 [facility] DATE CREATED AUTHOR AUTHOR'S ORGANIZ ATION 12/18/2023 [facility] DATE CREATED AUTHOR AUTHOR'S ORGANIZ ATION 12/20/2023 [facility] DATE CREATED AUTHOR AUTHOR'S ORGANIZ ATION 01/18/2024 [facility] DATE CREATED AUTHOR AUTHOR'S ORGANIZ ATION 01/19/2024 [facility] DATE CREATED AUTHOR AUTHOR'S ORGANIZ ATION 01/23/2024 [facility] Patient Care team informatio n (unrecognized section and content) [employer] Relationship Specialty Start Date End Date Bhumi Choi MD [address] [place] [id number] PCP - General Family Medicine 01/20/21 [employer] Relationship Specialty Start Date End Date Annabella Ortega APRN-MACHINE WIPER [address] [place] [id number] PCP - General Nurse Practitioner 07/14/23 [employer] Relationship Specialty Start Date End Date Annabella Ortega APRN-MACHINE WIPER [address] [place] [id number] PCP - General Nurse Practitioner 07/14/23 Team Status: Active Member Role Status Dates MELISSA Rollins Primary Care Provider Active Team Status: Inactive Member Role Status Dates MELISSA Flores Attending Provider Active S tart: August 09, 2023 End: August 09, 2023 MELISSA Rollins Primary Care Provider Active Start: August 09, 2023 End: August 09, 2023 Team Status: Active Member Role Status Dates MELISSA Rollins Primary Care Provider Active Start: August 09, 2023 MELISSA Flores Attending Provider Active S tart: August 09, 2023 Team Status: Inactive Member Role Status Dates Annabella Ortega NP-Karol Primary Care Provider Active Start: August 09, 2023 End: August 09, 2023 MELISSA Flores Attending Provider Active S tart: August 09, 2023 End: August 09, 2023 Reason for Visit (unrecogniz ed section and content) Reason Comments Med Refill Reason Comments Follow-up Goals (unrecognized section and content) Goals may be documented in a n alternate section FOR RECORDS PERTAINING TO PATIENTS WHO ARE OR HAVE BEEN ENROLLED IN A CHEMICAL DEPENDENCY/SUBSTANCEABUSE PROGRAM, SOME INFORMATION MAY BE OMITTED. This clinical summary was aggregated from multiple sources. Caution should be exercised in using it in the provision of clinical care. This summary normalizes information from multiple sources, and as a consequence, information in this document may materially change the coding, format and clinical context of patient data. In addition, data may be omitted in some cases. CLINICAL DECISIONS SHOULD BE BASED ON THE PRIMARY CLINICAL RECORDS. [employer] provides no warranty or guarantee of the accuracy or completeness of information in this document.
--- NOTE | 2024-01-26 08:30 | MM_ITS ---
Patient Name: DANIELLA GOMEZ MR#: [id number] : 1980 Exam Date: 01/26/2024 Ordering Doctor: DR Srikanth Bolden . RADIOLOGY REPORT PROCEDURE: MM TOMOSYNTHESIS SCREENING BI COMPARISON: MM TOMOSYNTHESIS SCREENING BI, 01/06/2023. MG MAMM SCREEN 3D NERI CAD, 01/03/2022. INDICATIONS: Screening Calculator Name NCI Breast Cancer Risk Assessment Tool 5 Year Breast Cancer Risk 0.90% Lifetime Breast Cancer Risk 11.70% Personal Breast Cancer No Personal Ovarian Cancer No Treatments hysterectomy and chemotherapy Family Cancers Aunt-maternal with breast cancer at age 81. LOCATION: [facility] BREAST COMPOSITION: The breasts are almost entirely fatty. FINDINGS: DIAGNOSTIC CATEGORY 1--NEGATIVE. RIGHT BREAST: No significant suspicious finding. No significant change has occurred. LEFT BREAST: No significant suspicious finding. No significant change has occurred. RECOMMENDATIONS: ROUTINE MAMMOGRAM AND CLINICAL EVALUATION IN 12 MONTHS. PLEASE NOTE: A NORMAL MAMMOGRAM DOES NOT EXCLUDE THE POSSIBILITY OF BREAST CANCER. A CLINICALLY SUSPICIOUS PALPABLE LUMP SHOULD BE BIOPSIED. Dictated by: Mauro Heller M.D. on 01/26/2024 at 12:39 Approved by: Mauro Heller M.D. on 01/26/2024 at 12:42
== END 2024-01-26 08:26 | disposition home or self-care (01) ==
LOC: MAMMO 08:25
PROVIDERS: PCP Nurse Practitioner; Visit Provider Obstetrics & Gynecology
DX: Z12.31 Encounter for screening mammogram for malignant neoplasm of breast (principal); Z80.3 Family history of malignant neoplasm of breast
CPT/HCPCS: 77063; 77067

== ENCOUNTER 2024-11-13 07:27 | Outpatient (OUT) | payer OTHER, SELFPAY ==
--- OUTSIDE RECORDS SUMMARY | 2024-11-13 07:31 | XMS_ITS | CCD ---
Author Organization [facility]ini[facility] Care Team Providers Care Electronic Assembly Name Role Phone STEPHIE HOLLIDAY Unavailable Unavailable YUANSRIKANTH Unavailable Unavailable YUAN, DR ADAMS Attending Unavailable YUAN, DR ADAMS Consulting Unavailable CHOI, DR ALLISON Velasco Primary Care Unavailable YUAN, DR ADAMS Admitting Unavailable CHOI, DR ALLISON Velasco Primary Care Unavailable YUAN, DR ADAMS Admitting Unavailable YUAN, DR ADAMS Attending Unavailable YUAN, DR ADAMS Consulting Unavailable ZIEBER, DR MARCO ANTONIO Stokes Consulting Unavailable ShannonBilly marquez Primary Care Physician Shannon, CHANGC Billy Plummer Primary Care Provider [phone] MELISSA Gold Attending Provider Oneida Gold Admitting Unavailable Oneida Gold Attending Unavailable Billy Okeefe Primary Care Unavailable SRIKANTH BOLDEN Attending Unavailable Shannon, WHEELCHAIR DRIVER Billy Miranda Attending Unavailable Shannon, WHEELCHAIR DRIVER Billy Miranda Admitting Unavailable Shannon, WHEELCHAIR DRIVER Billy Miranda Attending Unavailable Shannon, WHEELCHAIR DRIVER Billy Miranda Attending Unavailable Shannon, WHEELCHAIR DRIVER Billy Miranda Attending Unavailable Unavailable Primary Care Provider Unavailshankar Choi MD, Allison Velasco Primary Care Provider Shannon CLINICAL QUALITY MANAGER-CARDIOVASCULAR SURGEONBilly Primary Care Provider Shannon CLINICAL QUALITY MANAGER-CARDIOVASCULAR SURGEONBilly Primary Care Provider ROXANNA GOODEN Referring Unavailable SHANNONBILLY Primary Care Unavailable ROXANNA GOODEN Attending Unavailable SHANNONBILLY Referring Unavailable SHANNONBILLY Primary Care Unavailable ROXANNA GOODEN Attending Unavailable SHANNONBILLY Referring Unavailable SHANNON, BILLY Miranda Primary Care Unavailable Shannon CLINICAL QUALITY MANAGER-CARDIOVASCULAR SURGEONBilly Primary Care Provider Shannon, Billy L Attending Unavailable Shannon, Billy L Admitting Unavailable Shannon, Billy L Attending Unavailable Shannon, Billy L Attending Unavailable Shannon, Billy L Admitting Unavailable Shannon, Billy L Attending Unavailable Shannon, Billy L Admitting Unavailable Shannon, Billy L Attending Unavailable Shannon, Billy L Attending Unavailable Shannon, Billy L Attending Unavailable Shannon, Billy L Admitting Unavailable Shannon, Billy L Attending Unavailable Shannon, Billy L Attending Unavailable Shannon, Billy L Attending Unavailable Shannon, Billy L Attending Unavailable Shannon, Billy L Attending Unavailable Shannon, Billy L Admitting Unavailable Shannon, Billy L Attending Unavailable Shannon COMPUTER SUPPORT ANALYSTLarryCBilly Primary Care Provider Krissy Morelos MD Attending Provider Allergies Allergy Classification Reported Allergen(s) Allergy Type Date of Onset Reaction(s) Facility (1 source) Deanol Drug Allergy [facility] Repository (1 source) Tetanus AND Diphtheria Tox,Adult Drug allergy (disorder) [facility] Repository (19 sources) aprepitant; Translations: [aprepitant] Drug Allergy 1 Pain (finding), pain [facility] Comment on above: panic attack (20 sources) Morphine; Translations: [morphine] Drug Allergy 1 Eruption of skin (disorder), Dizziness, Headache, Hives, Itching, Rash [facility] (4 sources) fosaprepitant; Translations: [fosaprepitant] Drug Allergy 4 Unknown Reaction [facility] (4 sources) measles and rubella live virus vacc; Translations: [measles and rubella live virus vacc] Allergy to substance 4 Unknown Reaction [facility] (4 sources) Tetanus Vaccines and Toxoid; Translations: [Tetanus Vaccines and Toxoid] Allergy to substance 4 Unknown Reaction [facility] (1 source) Morphine Drug Allergy 4 [facility] Repository (4 sources) aprepitant; Translations: [Emend] Drug Allergy [facility] Repository (4 sources) aprepitant Drug Allergy 1 Other [facility] Work Phone: (4 sources) Other Propensity to adverse reactions 1 Dizziness, Headache, Other, Shortness of breath, Unknown, Fever, Itching, Swelling [facility] (19 sources) Tetanus Toxoid, Adsorbed; Translations: [TETANUS TOXOID, ADSORBED] Propensity to adverse reactions 1 Unknown, Other (See Comments) [facility] (15 sources) Measles, Mumps, And Rubella Vaccine Live; Translations: [MEASLES, MUMPS, AND RUBELLA VACCINE LIVE] Propensity to adverse reactions to drug 1 Other (See Comments) [facility] Work Phone: (5 sources) tetanus toxoid vaccine, inactivated; Translations: [tetanus toxoid] Drug Allergy Eruption of skin (disorder), Swelling (finding), Fever (finding) [facility] (5 sources) measles virus vaccine live, attenuated Taco strain / mumps virus vaccine live, Domenic Kavitha strain / rubella virus vaccine live (Wistar RA 27-3 strain); Translations: [measles/mumps/ rubella virus vaccine] Propensity to adverse reactions to substance Fever (finding), Swelling (finding), Eruption of skin (disorder) [facility] Medications Current Medications Medication Drug Class(es) Dates Sig (Normalized) Sig (Original) acetaminophen 500 mg oral capsule (15 sources) Start: 10-21-2024 take 2 capsules by mouth every six hours as needed Acetaminophen 500 mg capsule Active 1000 MG PO Every 6 hours as needed October 21, 2024 12:00am Complies with drug therapy take 1 tablet by maris th every six hours as needed for pain acetaminophen (TYLENOL) 500 mg tablet Ta ke 1 tablet (500 mg total) by mouth every 6 (six) hours as needed for pain. Active buPROPion hydrochloride 100 mg oral tablet (20 sources) Aminoketone Start: 10-21-2024 take 2 tablets by mouth once Bupropion Hcl 100 mg tablet Active 200 MG PO Once October 21, 2024 10:15am Complies with drug therapy Start: 12-15-2023 take 1 tablet by maris th twice daily buPROPion 100 mg Tab 100 mg = 1 tab(s), Oral, BID, # 60 tab(s), Refills(s) 11, Pharmacy: [facility]/pharmacy #[id number], 162, cm, 12/15/23 9:27:00 EDT, Height/Length Dosing, 197, kg, 12/15/23 9:27:00 EDT, Weight Dosing Start Date: 12/15/23 Status: Ordered Start: 08-09-2023 End: 10-21-2024 Bupropion Hcl 100 mg tablet Discontinued 100 MG PO Three times daily August 09, 2023 12:00am October 21, 2024 10:19am administer 6 hours apart Start: 11-03-2022 take 1 tablet by maris twice daily buPROPion 100 mg Tab 100 mg = 1 tab(s), Oral, BID, # 60 tab(s), Refills(s) 11, Pharmacy: [facility]/pharmacy #[id number], 162, cm, 11/03/22 9:18:00 EDT, Height/Length Dosing, 408, kg, 11/03/22 9:18:00 EDT, Weight Dosing Start Date: 11/03/22 Status: Ordered Start: 11-03-2022 take 2 tablets by mo [facility] once daily buPROPion 100 mg Tab 200 mg = 2 tab(s), Oral, Daily, Refills(s) 0 Start Date: 11/03/22 Status: Ordered take 2 tablets by mo [facility] every twelve hours in the morning buPROPion SR (WELLBUTRIN SR) 100 mg 12 hr tablet Take 2 tablets (200 mg total) by mouth in the morning. Active take 1 tablet by maris every twelve hours in the morning buPROPion SR (Wellbutrin SR) 100 MG 12 hr tablet Take 200 mg by mouth in the morning. Active busPIRone hydrochloride 5 mg oral tablet (14 sources) Start: 11-02-2022 take 1 tablet by mouth once daily Buspirone 5 mg tablet Active 5 MG PO Daily October 21, 2024 10:15am Complies with drug therapy Start: 11-02-2022 End: 10-21-2024 take 1 tablet by mouth twice daily Buspirone 5 mg tablet Discontinued 5 MG PO Twice daily August 09, 2023 12:00am October 21, 2024 10:19am Calcium Carb-Cholecalciferol (CALCIUM 600 + D PO) (3 sources) take 1 dose by mouth in the morning, then take 1 dose by mouth once daily at bedtime Calcium Carb-Cholecalciferol (CALCIUM 600 + D PO) Take 1 each by mouth in the morning and 1 each before bedtime. Active calcium carbonate 1500 mg / cholecalciferol 800 unt chewable tablet (2 sources) Vitamin D Start: take 1 tablet by mouth twice daily Calcium Carbonate-Vitamin D3 (Calcium 600 With Vitamin D3) 600 mg-10 mcg (400 unit) tablet,chewable Active 1 TAB PO Twice daily October 21, 2024 12:00am Complies with drug therapy Start: 02-13-2024 take 1 tablet by maris th every twelve hours calcium-vitamin D 600 mg-500 intl units oral tablet, extended release 1 tab(s), Oral, q12hr, Refill(s) 0 Start Date: 02/13/24 Status: Ordered FIBER ADULT GUMMIES PO (3 sources) take 10 mg by mouth once daily FIBER ADULT GUMMIES PO Take 10 mg by mouth Daily Active gabapentin 100 mg oral capsule (20 sources) Anti-epileptic Agent Start: 10-31-2024 take 2 capsules by mouth once daily gabapentin (NEURONTIN) 100 mg capsule Indications: Hot flash, menopausal TAKE 2 CAPSULES BY MOUTH EVERY DAY AT NIGHT 60 capsule 3 10/31/2024 Active Start: 08-09-2023 End: 10-21-2024 take 1 capsule by mouth once daily Gabapentin 100 mg capsule Discontinued 100 MG PO Daily August 09, 2023 12:00am October 21, 2024 10:19am Start: 10-31-2022 take 4 capsules by m outh once daily Start: 10-31-2022 End: 10-31-2024 take 2 capsules by mouth once daily at bedtime Gabapentin 100 mg capsule Active 200 MG PO Daily at bedtime October 21, 2024 10:15am Complies with drug therapy hydroCHLOROthiazide 25 mg oral tablet (20 sources) Thiazide Diuretic Start: 10-31-2022 take 1 tablet by mouth once daily in the morning Hydrochlorothiazide 25 mg tablet Active 25 MG PO Every morning August 09, 2023 12:00am Complies with drug therapy ibuprofen 200 mg oral tablet (18 sources) Nonsteroidal Anti-inflammator y Drug Start: 10-21-2024 take 3 tablets by mouth every six hours as needed Ibuprofen 200 mg tablet Active 600 MG PO Every 6 hours as needed October 21, 2024 12:00am Complies with drug therapy Start: 02-10-2021 take 1 tablet by maris every six hours as needed for pain ibuprofen (ADVIL,MOTRIN) 600 mg tablet Take 1 tablet (600 mg total) by mouth every 6 (six) hours as needed for pain. 30 tablet 02/10/2021 Active lidocaine 0.05 mg/mg topical ointment (14 sources) Antiarrhythmic, Amide Local Anesthetic Start: 01-19-2022 lidocaine (XYLOCAINE) 5 % ointment Indications: Endometrial cancer, FIGO stage IIIA ([facility] , Port-A-Cath in place Apply 1 application topically as needed for pain. 35.44 g 01/19/2022 Active lidocaine 25 mg/ml / prilocaine 25 mg/ml topical cream (5 sources) Antiarrhythmic, Amide Local Anesthetic Start: 02-24-2021 End: 07-18-2023 lidocaine-prilocai ne (EMLA) cream Apply 1 application topically as needed for pain. 30 - 60 minutes prior to port access. Cover with 4 x 4 saran wrap 30 g 3 02/24/2021 07/18/2023 Discontinued (Therapy completed) loratadine 10 mg oral tablet (20 sources) Start: 07-24-2024 take 1 tablet by mouth once daily in the morning loratadine (CLARITIN) 10 mg tablet TAKE 1 TABLET (10 MG TOTAL) BY MOUTH EVERY MORNING. 90 tablet 1 07/24/2024 Active Start: 10-31-2022 take 2 tablets by mo [facility] once daily loratadine 10 mg Tab 2 Refill(s), TAKE 1 TABLET BY MOUTH EVERY DAY, Refills(s) 0 Start Date: 10/31/22 Status: Ordered Start: 10-20-2022 End: 07-24-2024 take 1 tablet by mouth once daily Loratadine (Allergy Relief (Loratadine)) 10 mg tablet Active 10 MG PO Daily August 09, 2023 12:00am Complies with drug therapy magnesium oxide 400 mg oral tablet (20 sources) Start: 08-09-2023 take 1 capsule by mouth once daily Magnesium Oxide 400 mg magnesium capsule Active 400 MG PO Daily August 09, 2023 12:00am Complies with drug therapy Start: 11-02-2022 End: 07-17-2024 take 1 tablet by mouth in the morning magnesium oxide (MAGOX) 400 mg tablet Indications: Hypomagnesemia Take 1 tablet (400 mg total) by mouth in the morning. 90 tablet 1 07/17/2024 Active 24 hr metFORMIN hydrochlorid e 500 mg extended release oral tablet (8 sources) Biguanide Start: 10-21-2024 Metformin 500 mg tablet extended release 24 hr Active 1000 MG PO Every evening October 21, 2024 12:00am Complies with drug therapy Start: 01-17-2024 take 1 tablet by maris th once daily at mealtime MetFORMIN (Eqv-Glucophage XR) 500 mg oral tablet, extended release 1,000 mg = 2 tab(s), Oral, Daily, TAKE 1 TABLET (500 MG) BY MOUTH IN THE EVENING. TAKE WITH MEALS DO NOT CRUSH, CHEW, OR SPLIT. Start Date: 01/17/24 Status: Ordered Start: 12-19-2023 End: 12-18-2024 take 1 tablet by mouth every twenty-four hours at mealtime metFORMIN XR (Glucophage-XR) 500 MG 24 hr tablet Indications: Insulin resistance Take 1 tablet (500 mg) by mouth in the evening. Take with meals Do not crush, chew, or split. 30 tablet 11 12/19/2023 12/18/2024 Active 24 hr metoprolol succinate 50 mg extended release oral tablet (20 sources) beta-Adrenergic Nhung Start: 11-03-2022 End: 10-29-2023 take 1 tablet by mouth once daily metoprolol succinate 50 mg ER Tab 50 mg = 1 tab(s), Oral, Daily, # 30 tab(s), Refills(s) 11, Pharmacy: [facility]/pharmacy #[id number], 162, cm, 12/15/23 9:27:00 EDT, Height/Length Dosing, 197, kg, 12/15/23 9:27:00 EDT, Weight Dosing Start Date: 12/15/23 Status: Ordered take 1 tablet by maris th every twenty-four hours in the morning metoprolol succinate XL (TOPROL-XL) 50 m g 24 hr tablet Take 1 tablet (50 mg total) by mouth in the morning. Active NIFEdipine 30 mg oral tablet (20 sources) Dihydropyridine Calcium Channel Nhung Start: 12-15-2023 take 1 tablet by mouth twice daily NIFEdipine (Eqv-Procardia XL) 30 mg oral tablet, extended release See Instructions, TAKE 1 TABLET BY MOUTH TWICE A DAY, # 60 tab(s), Refills(s) 2, Pharmacy: [facility]/pharmacy #[id number], 162, cm, 12/15/23 9:27:00 EDT, Height/Length Dosing, 197, kg, 12/15/23 9:27:00 EDT, Weight Dosing Start Date: 12/15/23 Status: Ordered Start: 12-08-2023 take 1 tablet by maris th every twenty-four hours in the morning NIFEdipine XL (Procardia XL) 30 MG 24 hr tablet Take 30 mg by mouth in the morning and 30 mg before bedtime. 12/08/2023 Active Start: 08-09-2023 take 1 tablet by mouth once da brady Nifedipine (Procardia Xl) 30 mg tablet extended release 24hr Active 30 MG PO Daily August 09, 2023 12:00am Complies with drug therapy Start: 10-31-2022 take 1 mg by mouth twice daily take 1 tablet by mouth twice monique ly NIFEdipine CC (ADALAT CC) 30 mg 24 hr tablet Take 1 tablet (30 mg total) by mouth 2 (two) times daily at 0800 and 1500. Active omeprazole 20 mg delayed release oral capsule (1 source) Proton Pump Inhibitor Start: 10-21-2024 take 1 capsule by mouth once daily as needed Omeprazole 20 mg capsule,delayed release(DR/EC) Active 20 MG PO Daily as needed October 21, 2024 12:00am Complies with drug therapy phentermine hydrochloride 37.5 mg oral tablet (9 sources) Sympathomimetic Amine Anorectic Start: 12-15-2023 take 1 tablet by mouth once daily in the morning Phentermine 37.5 mg tablet Active 37.5 MG PO Every morning October 21, 2024 12:00am Complies with drug therapy polysaccharide iron complex 391 mg oral capsule (20 sources) Start: 07-17-2024 take 1 capsule by mouth in the morning polysaccharide iron complex (PRO FE) 180 mg iron capsule Indications: Iron deficiency anemia due to chronic blood loss Apply 1 capsule to the mouth or throat in the morning. Take in the morning. 90 each 07/17/2024 Active Start: 10-31-2022 Start: 07-19-2022 End: 07-17-2024 take 1 capsule by mouth once daily Polysaccharide Iron Complex (Pro Fe) 180 mg iron capsule Active 180 MG PO Daily August 09, 2023 12:00am Complies with drug therapy take 1 capsule by mo ut once daily ProFe 391.3 (180 Fe) MG capsule Take 391.3 mg by mouth Daily Active microencapsulated potassium chloride 20 meq extended release oral tablet (20 sources) Start: 10-31-2022 End: 07-17-2024 take 1 tablet by mouth once daily Potassium Chloride 20 mEq tablet,ER particles/crystals Active 20 MEQ PO daily October 21, 2024 12:00am Complies with drug therapy ProFe 180 mg oral capsule (1 source) Start: 03-12-2024 take 1 capsule by mouth once daily in the morning ProFe 180 mg oral capsule TAKE 1 CAPSULE BY MOUTH EVERY DAY IN THE MORNING Start Date: 03/12/24 Status: Ordered Problems Active Problems Problem Classification Problem Date Documented Date Episodic/Chronic Acute and unspecified renal failure (1 source) Acute renal failure syndrome 07-24-2024 Episodic Anxiety disorders (2 sources) Mixed anxiety and depressive disorder 02-13-2024 Chronic Cancer of uterus (20 sources) Primary malignant neoplasm of endometrium; Translations: [Malignant neoplasm of endometrium] Onset: 1 04-19-2023 Chronic Chronic kidney disease (6 sources) Chronic kidney disease stage 3A ; Translations: [Chronic kidney disease, stage 3a] Onset: 5 Chronic Deficiency and other anemia (3 sources) Iron deficiency anemia due to blood loss; Translations: [Iron deficiency anemia secondary to blood loss (chronic)] 07-18-2023 Chronic Deficiency and other anemia (1 source) Iron deficiency anemia secondary to blood loss (chronic); Translations: [Iron deficiency anemia secondary to blood loss (chronic)] Onset: 4 Chronic Deficiency and other anemia (3 sources) Anemia; Translations: [Anemia, unspecified] 02-13-2024 Episodic Essential hypertension (5 sources) Hypertensive disorder; Translations: [Essential (primary) hypertension] 11-03-2022 Chronic Hypertension with complications and secondary hypertension (2 sources) Chronic kidney disease due to hypertension; Translations: [Hypertensive chronic kidney disease with stage 1 through stage 4 chronic kidney disease, or unspecified chronic kidney disease] 10-21-2024 Chronic Immunizations and screening for infectious disease (1 source) Encounter for screening for human papillomavirus (HPV); Translations: [ENC SCREENING HUMAN PAPILLOMAVIRUS] Onset: 2 Episodic Menopausal disorders (5 sources) Menopausal flushing; Translations: [Menopausal and female climacteric states] Onset: 4 07-18-2023 Chronic Miscellaneous mental health disorders (1 source) Chronic mental disorder; Translations: [Mental disorder, not otherwise specified] 10-21-2024 Chronic Other diseases of kidney and ureters (2 sources) Secondary hyperparathyroidism; Translations: [Secondary hyperparathyroidism of renal origin] 10-21-2024 Chronic Other non-traumatic joint disorders (1 source) Pain in left ankle and joints of left foot; Translations: [Pain in left ankle and joints of left foot] Onset: 4 Episodic Other nutritional; endocrine; and metabolic disorders (20 sources) Morbid obesity; Translations: [Morbid (severe) obesity due to excess calories] Onset: 1 12-15-2023 Chronic Other nutritional; endocrine; and metabolic disorders (2 sources) Insulin resistance; Translations: [Insulin resistance] 12-19-2023 Chronic Other nutritional; endocrine; and metabolic disorders (3 sources) Hypomagnesemia; Translations: [Hypomagnesemia] 07-18-2023 Chronic Other nutritional; endocrine; and metabolic disorders (1 source) Morbid (severe) obesity due to excess calories; Translations: [Morbid (severe) obesity due to excess calories] Onset: 1 Chronic Other nutritional; endocrine; and metabolic disorders (1 source) Hypomagnesemia; Translations: [Hypomagnesemia] Onset: 4 Chronic Other nutritional; endocrine; and metabolic disorders (3 sources) Weight gain 12-15-2023 Episodic Other screening for suspected conditions (not mental disorders or infectious disease) (12 sources) Encounter for screening mammogram for malignant neoplasm of breast; Translations: [Encounter for screening for malignant neoplasm of cervix] Onset: 2 Episodic Residual codes; unclassified (1 source) Family history of malignant neoplasm of breast; Translations: [FAMILY HX MALIG NEOPLASM OF BREAST] Onset: 2 Episodic Unclassified (1 source) Unknown / UNK(Unknown) Onset: 7 Unclassified (5 sources) Patient encounter status 12-15-2023 Past or Other Problems Problem Classification Problem Date Documented Da te Episodic/Chronic Administrative/social admission (2 sources) Patient encounter status; Translations: [Other specified counseling] Onset: 01-17-2024 01-17-2024 Episodic Fluid and electrolyte disorders (20 sources) Disorder of electrolytes; Translations: [Other disorders of electrolyte and fluid balance, not elsewhere classified] Onset: 02-24-2021 Resolved: 07-19-2022 04-19-2023 Episodic Nausea and vomiting (14 sources) Chemotherapy-induce d nausea and vomiting; Translations: [Nausea with vomiting, unspecified] Onset: 02-24-2021 Resolved: 07-19-2022 07-19-2022 Episodic Other aftercare (14 sources) Drug therapy finding; Translations: [Other long line teamster (current) drug therapy] Onset: 02-24-2021 Resolved: 07-19-2022 07-19-2022 Episodic Other circulatory disease (14 sources) Device in situ; Translations: [Presence of other vascular implants and grafts] Onset: 02-24-2021 Resolved: 01-18-2023 01-18-2023 Chronic Viral infection (14 sources) Disease caused by 2019-nCoV; Translations: [COVID-19] Onset: 04-09-2021 Resolved: 07-19-2022 07-19-2022 Episodic Results Test Name Value Interpretation Reference Range Facility Ambulatory Visit Summaryon 0 09-10-2024 Ambulatory Visit Summary Ambulatory Visit Summary LILIANAILDADANIELLA OPAL :1980 Visit Date:09/10/2024 Ambulatory Visit Instructions Your Diagnosis BMI 60.0-69.9, adult Non-smoker Your Care Team Attending Physician - Billy Moscoso Primary Care Physician - Billy Moscoso This Is Your Medications List NIFEdipine (NIFEdipine (Eqv-Procardia XL) 30 mg oral tablet, extended release) buPROPion (buPROPion 100 mg Tab) busPIRone (busPIRone 5 mg Tab) calcium-vitamin D (calcium-vitamin D 600 mg-500 intl units oral tablet, extended release) gabapentin (gabapentin 100 mg Cap) hydrochlorothiazide (hydrochlorothiazide 25 mg Tab) ibuprofen (ibuprofen 600 mg Tab) iron polysaccharide (ProFe 180 mg oral capsule) loratadine (loratadine 10 mg Tab) magnesium oxide (magnesium oxide 400 mg Tab) metformin (MetFORMIN (Eqv-Glucophage XR) 500 mg oral tablet, extended release) metoprolol (metoprolol succinate 50 mg ER Tab) phentermine (phentermine 37.5 mg Tab) potassium chloride (Klor-Con M20 oral tablet, extended release) Procedures Performed Port (03/11/2021), Chemotherapy (03/10/2021), Hysterectomy (02/10/2021), Dilation and curettage of uterus. Discharge Vitals Heart Rate (Peripheral) 78 Respiratory Rate 16 Blood Pressure 116/82 Height 162 cm Height 64 in Weight 163.0 kg Weight 359.353 lb BMI 62.11 What to do next Scheduled Follow-Up Appointments Monday 8:20 AM EDT With: Billy Moscoso Where: [place] [id number]- Medications What How Much When Why Instructions Unchanged buPROPion (buPROPion 100 mg Tab) See instructions Take 2 capsules once daily Unchanged busPIRone (busPIRone 5 mg Tab) 1 Tablets By Mouth Every day Unchanged calcium-vitamin D (calcium-vitamin D 600 mg-500 intl units oral tablet, extended release) 1 Tablets By Mouth Every 12 hours Unchanged gabapentin (gabapentin 100 mg Cap) 200 Unknown, oral, 4 Refill(s), Take 2 capsules (200 mg total) by mouth nightly. Unchanged hydrochlorothiazide (hydrochlorothiazide 25 mg Tab) 1 Tablets By Mouth Every day Take 25 mg by mouth daily. Unchanged ibuprofen (ibuprofen 600 mg Tab) 600 Unknown, oral, 1 Refill(s), Take 1 tablet (600 mg total) by mouth every 6 (six) hours as needed for pain. Unchanged iron polysaccharide (ProFe 180 mg oral capsule) TAKE 1 CAPSULE BY MOUTH EVERY DAY IN THE MORNING Unchanged loratadine (loratadine 10 mg Tab) 2 Refill(s), TAKE 1 TABLET BY MOUTH EVERY DAY Unchanged magnesium oxide (magnesium oxide 400 mg Tab) 90 EA, TAKE 1 TABLET (400 MG TOTAL) BY MOUTH IN THE MORNING Unchanged metformin (MetFORMIN (Eqv-Glucophage XR) 500 mg oral tablet, extended release) 2 Tablets By Mouth Every day TAKE 1 TABLET (500 MG) BY MOUTH IN THE EVENING. TAKE WITH MEALS DO NOT CRUSH, CHEW, OR SPLIT. Unchanged metoprolol (metoprolol succinate 50 mg ER Tab) 1 Tablets By Mouth Every day Wellness examination Weight gain Hypertension BMI 70 and over, adult Morbid obesity Non-smoker Unchanged NIFEdipine (NIFEdipine (Eqv-Procardia XL) 30 mg oral tablet, extended release) 1 Tablets By Mouth Every day Unchanged phentermine (phentermine 37.5 mg Tab) 1 Tablets By Mouth Every day Hypertension BMI 70 and over, adult Non-smoker bmi 102.8 z68.44 Unchanged potassium chloride (Klor-Con M20 oral tablet, extended release) 20 Unknown, oral, 4 Refill(s), Take 1 tablet (20 mEq total) by mouth in the morning. Allergies Emend (Pain) measles/mumps/rubella virus vaccine (Fever, Swelling, Eruption) morphine (Rash) tetanus toxoid (Eruption, Swelling, Fever) Problems Ongoing - Any problem that you are currently receiving treatment for. FREDA (acute kidney injury) Anemia CKD stage 3a, GFR 45-59 ml/min Elevated BUN Encounter for weight management Hypertension Mixed anxiety and depressive disorder Morbid obesity Morbid obesity with BMI of 60.0-69.9, adult Weight gain Wellness examination Patient Survey You may receive a survey via text or e-mail asking about your office visit. Please share your experience with us by completing your survey. We appreciate your feedback and thank you for choosing us for your care. Normal Barboza [facility] Family Medicine Office/Clini c Noteon 09-10-2024 Family Medicine Office/Clinic Note Family Medicine Office/Clinic Note HPI Staff Daniella is a 43 year old female presenting for 3 month follow up Weight management: Phentermine started 12/15/23 Sleeping well:Yes, 6-8 hours Chest pain:No Tremors:No Headaches:No Heart fluttering:No Blurred Vision:No Beginning weight: 433.4 Previous weight: 372 Today's weight: 359 Questions/Concerns: none History of Present Illness pt presents today for weight management Review of Systems PHQ Score Initial Depression Screen Score: 0 SCORE Physical Exam Vitals & Measurements HR: 78(Peripheral) RR: 16 BP: 116/82 SpO2: 99% HT: 64 in HT: 162 cm WT: 359.353 lb WT: 163.0 kg BMI: 62.11 General: alert, no acute distress ENMT: oral [...] in other specified circumstances) pt is down a total of 74 pounds is doing well. continues making healthy food choices and exercising. RTC 3 months 2. CKD stage 3a, GFR 45-59 ml/min (N18.31: Chronic kidney disease, stage 3a) is schedule to see nephrology in September 24. Hypertension (I10: Essential (primary) hypertension) BP well controlled. BP log scanned into chart Ordered: phentermine, 37.5 mg = 1 tab(s), Oral, Daily, bmi 102.8 z68.44, # 30 tab(s), Refills(s) 0, Pharmacy: [facility] #[id number], 162, cm, 09/10/24 8:20:00 EDT, Height/Length Dosing, 163, kg, 09/10/24 8:20:00 EDT, Weight Dosing phentermine, 37.5 mg = 1 tab(s), Oral, Daily, bmi 102.8 z68.44, # 30 tab(s), Refills(s) 0, Pharmacy: [facility] #[id number], 162, cm, 07/24/24 8:35:00 EDT, Height/Length Dosing, 166.3, kg, 07/24/24 8:35:00 EDT, Weight Dosing 4. BMI 60.0-69.9, adult (Z68.44: Body mass index [BMI] 60.0-69.9, adult) BMI education given 5. Non-smoker (Z78.9: Other specified health status) continue not smoking Ordered: phentermine, 37.5 mg = 1 tab(s), Oral, Daily, bmi 102.8 z68.44, # 30 tab(s), Refills(s) 0, Pharmacy: [facility]/pharmacy #[id number], 162, cm, 09/10/24 8:20:00 EDT, Height/Length Dosing, 163, kg, 09/10/24 8:20:00 EDT, Weight Dosing phentermine, 37.5 mg = 1 tab(s), Oral, Daily, bmi 102.8 z68.44, # 30 tab(s), Refills(s) 0, Pharmacy: [facility]/pharmacy #[id number], 162, cm, 07/24/24 8:35:00 EDT, Height/Length Dosing, 166.3, kg, 07/24/24 8:35:00 EDT, Weight Dosing Follow-up No qualifying data available Problem List/Past Medical History Ongoing FREDA (acute kidney injury) Anemia CKD stage 3a, GFR 45-59 ml/min Elevated BUN Encounter for weight management Hypertension Mixed anxiety and depressive disorder Morbid obesity Morbid obesity with BMI of 60.0-69.9, adult Weight gain Wellness examination Historical No qualifying data Procedure/Surgical History Port (03/11/2021), Chemotherapy (03/10/2021), Hysterectomy (02/10/2021), Dilation and curettage of uterus. Medications buPROPion 100 mg Tab, See Instructions busPIRone 5 mg Tab, 5 mg= 1 tab(s), Oral, Daily, 11 refills calcium-vitamin D 600 mg-500 intl units oral tablet, extended release, 1 tab(s), Oral, q12hr gabapentin 100 mg Cap hydrochlorothiazide 25 mg Tab, 25 mg= 1 tab(s), Oral, Daily, 11 refills ibuprofen 600 mg Tab Klor-Con M20 oral tablet, extended release loratadine 10 mg Tab magnesium oxide 400 mg Tab MetFORMIN (Eqv-Glucophage XR) 500 mg oral tablet, extended release, 1000 mg= 2 tab(s), Oral, Daily metoprolol succinate 50 mg ER Tab, 50 mg= 1 tab(s), Oral, Daily, 11 refills NIFEdipine (Eqv-Procardia XL) 30 mg oral tablet, extended release, 30 mg= 1 tab(s), Oral, Daily phentermine 37.5 mg Tab, 37.5 mg= 1 tab(s), Oral, Daily ProFe 180 mg oral capsule Allergies Emend (Pain) measles/mumps/rubella virus vaccine (Fever, Swelling, Eruption) morphine (Rash) tetanus toxoid (Eruption, Swelling, Fever) Social History Alcohol Never., 02/10/2024 Substance Abuse Never., 02/10/2024 Tobacco Never (less than 100 in lifetime) Tobacco Use:. Never Smokeless Tobacco Use:. Cigarettes, 03/12/2024 Family History Congenital heart disease: Father and Aunt. Depression: Mother and Grandparent. Diabetes mellitus type 2: Mother, Sister and Grandparent. Hypertension: Mother, Sister and Brother. Primary malignant neoplasm of female breast: Grandparent. Stroke: Aunt. Immunizations Vaccine Date Status hepatitis B pediatric vaccine 08/09/1997 Recorded Normal [facility] Comment on above: Result Comment: Elec tronically Signed By: Billy Moscoso\.br\Date and Time Signed: 09/10/24 08:37 EDT Ambulatory Visit Summaryon 0 07-24-2024 Ambulatory Visit Summary Ambulatory Visit Summary DANIELLA MANECRA :1980 Visit Date:07/24/2024 Ambulatory Visit Instructions Your Diagnosis Hypertension FREDA (acute kidney injury) BMI 60.0-69.9, adult Non-smoker Your Care Team Attending Physician - Billy Moscoso Primary Care Physician - Billy Moscoso This Is Your Medications List NIFEdipine (NIFEdipine (Eqv-Procardia XL) 30 mg oral tablet, extended release) buPROPion (buPROPion 100 mg Tab) busPIRone (busPIRone 5 mg Tab) calcium-vitamin D (calcium-vitamin D 600 mg-500 intl units oral tablet, extended release) gabapentin (gabapentin 100 mg Cap) hydrochlorothiazide (hydrochlorothiazide 25 mg Tab) ibuprofen (ibuprofen 600 mg Tab) iron polysaccharide (ProFe 180 mg oral capsule) loratadine (loratadine 10 mg Tab) magnesium oxide (magnesium oxide 400 mg Tab) metformin (MetFORMIN (Eqv-Glucophage XR) 500 mg oral tablet, extended release) metoprolol (metoprolol succinate 50 mg ER Tab) phentermine (phentermine 37.5 mg Tab) potassium chloride (Klor-Con M20 oral tablet, extended release) Procedures Performed Port (03/11/2021), Chemotherapy (03/10/2021), Hysterectomy (02/10/2021), Dilation and curettage of uterus. Discharge Vitals Heart Rate (Peripheral) 74 Respiratory Rate 18 Blood Pressure 118/84 Height 162.0 cm Height 64 in Weight 166.28 kg Weight 366.584 lb BMI 63.36 What to do next Scheduled Follow-Up Appointments Monday 8:20 AM EDT With: Billy Moscoso Where: [address] [id number]- Medications What How Much When Why Instructions Unchanged buPROPion (buPROPion 100 mg Tab) See instructions Take 2 capsules once daily Unchanged busPIRone (busPIRone 5 mg Tab) 1 Tablets By Mouth Every day Unchanged calcium-vitamin D (calcium-vitamin D 600 mg-500 intl units oral tablet, extended release) 1 Tablets By Mouth Every 12 hours Unchanged gabapentin (gabapentin 100 mg Cap) 200 Unknown, oral, 4 Refill(s), Take 2 capsules (200 mg total) by mouth nightly. Unchanged hydrochlorothiazide (hydrochlorothiazide 25 mg Tab) 1 Tablets By Mouth Every day Take 25 mg by mouth daily. Unchanged ibuprofen (ibuprofen 600 mg Tab) 600 Unknown, oral, 1 Refill(s), Take 1 tablet (600 mg total) by mouth every 6 (six) hours as needed for pain. Unchanged iron polysaccharide (ProFe 180 mg oral capsule) TAKE 1 CAPSULE BY MOUTH EVERY DAY IN THE MORNING Unchanged loratadine (loratadine 10 mg Tab) 2 Refill(s), TAKE 1 TABLET BY MOUTH EVERY DAY Unchanged magnesium oxide (magnesium oxide 400 mg Tab) 90 EA, TAKE 1 TABLET (400 MG TOTAL) BY MOUTH IN THE MORNING Unchanged metformin (MetFORMIN (Eqv-Glucophage XR) 500 mg oral tablet, extended release) 2 Tablets By Mouth Every day TAKE 1 TABLET (500 MG) BY MOUTH IN THE EVENING. TAKE WITH MEALS DO NOT CRUSH, CHEW, OR SPLIT. Unchanged metoprolol (metoprolol succinate 50 mg ER Tab) 1 Tablets By Mouth Every day Wellness examination Weight gain Hypertension BMI 70 and over, adult Morbid obesity Non-smoker Unchanged NIFEdipine (NIFEdipine (Eqv-Procardia XL) 30 mg oral tablet, extended release) 1 Tablets By Mouth Every day TAKE 1 TABLET BY MOUTH TWICE A DAY Unchanged phentermine (phentermine 37.5 mg Tab) 1 Tablets By Mouth Every day Hypertension BMI 70 and over, adult Non-smoker bmi 66.3 Unchanged potassium chloride (Klor-Con M20 oral tablet, extended release) 20 Unknown, oral, 4 Refill(s), Take 1 tablet (20 mEq total) by mouth in the morning. Allergies Emend (Pain) measles/mumps/rubella virus vaccine (Fever, Swelling, Eruption) morphine (Rash) tetanus toxoid (Eruption, Swelling, Fever) Problems Ongoing - Any problem that you are currently receiving treatment for. FREDA (acute kidney injury) Anemia Elevated BUN Encounter for weight management Hypertension Mixed anxiety and depressive disorder Morbid obesity Weight gain Wellness examination Patient Survey You may receive a survey via text or e-mail asking about your office visit. Please share your experience with us by completing your survey. We appreciate your feedback and thank you for choosing us for your care. Normal [facility] BMPon 07-24-2024 Anion gap [Moles/Vol] 14 mmol/L Normal 6-16 [facility] Comment on above: Performed By: #### 2 [id number] #### [facility] [address] [place] [address] Calcium [Mass/Vol] 9.7 mg/dL Normal 8.9-11.1 [facility] Comment on above: Performed By: #### 2 [id number] #### [facility] [address] [place] [address] Chloride [Moles/Vol] 105 mmol/L Normal 101-111 [facility] Comment on above: Performed By: #### 2 [id number] #### [facility] [address] [place] [address] CO2 [Moles/Vol] 24 mmol/L Normal 21-31 [facility] Comment on above: Performed By: #### 2 [id number] #### [facility] [address] [place] [address] Creatinine [Mass/Vol] 1.3 mg/dL Normal 0.5-1.3 [facility] Comment on above: Performed By: #### 2 [id number] #### [facility] [address] [place] [address] Glucose [Mass/Vol] 101 mg/dL Normal 55-199 [facility] Comment on above: Performed By: #### 2 [id number] #### [facility] [address] [place] [address] Potassium [Moles/Vol] 3.9 mmol/L Normal 3.5-5.3 [facility] Comment on above: Performed By: #### 2 [id number] #### [facility] [address] [place] [address] Sodium [Moles/Vol] 139 mmol/L Normal 135-145 [facility] Comment on above: Performed By: #### 2 [id number] #### [facility] [address] [place] [address] Urea nitrogen [Mass/Vol] 30 mg/dL High 5-21 [facility] Comment on above: Performed By: #### 2 [id number] #### [facility] [address] [place] [address] Urea nitrogen/Creatinine [Mass ratio] 23 No Units High 10-20 [facility] Comment on above: Performed By: #### 2 [id number] #### [facility] [address] [place] [address] CHEMISTRYOrdered By: SYSTEM SYSTEM on 07-24-2024 Anion gap [Moles/Vol] 14 mmol/L Normal 6 - 16 mEq/L [facility] Calcium [Mass/Vol] 9.7 mg/dL Normal 8.9 - 11. 1 mg/dL [facility] Chloride [Moles/Vol] 105 mmol/L Normal 101 - 1 11 mmol/L [facility] CO2 [Moles/Vol] 24 mmol/L Normal 21 - 31 mmol/L [facility] Creatinine [Mass/Vol] 1.3 mg/dL Normal 0.5 - 1.3 mg/dL [facility] eGFR 52 mL/min/1.73 m2 Low >=59mL/min /1 .73 m2 [facility] Glucose [Mass/Vol] 101 mg/dL Normal 55 - 199 mg/dL [facility] Potassium [Moles/Vol] 3.9 mmol/L Normal 3.5 - 5.3 mmol/L [facility] Sodium [Moles/Vol] 139 mmol/L Normal 135 - 145 mmol/L [facility] Urea nitrogen [Mass/Vol] 30 mg/dL High 5 - 21 mg/dL [facility] Urea nitrogen/Creatinine [Mass ratio] 23 mg/mg High 10 - 20 [facility] Family Medicine Office/Clini c Noteon 07-24-2024 Family Medicine Office/Clinic Note Family Medicine Office/Clinic Note HPI Staff Daniella is a 43 year old female presenting for medication refill Weight management: Started Phentermine on Sleeping well:Yes, 6-8 hours Chest pain:No Tremors:No Headaches:No Heart fluttering:No Blurred Vision:No Beginning weight: 433.4 Previous weight: 372 Today's weight: 366.6 Patient is here for follow up on hypertension. How often are you checking your blood pressure? Daily What are your average readings? _ pt brought in blood pressure records Do you have any of the following symptoms? Chest Pain? no Palpitations? no HOPE/SOB? no Headache? no Peripheral Edema? no Light Headed? no Follow up for Mental Status: Medication adherence- Yes, takes medication as prescribed Medication refill needed: _ Suicidal thoughts-Not at this time Most recent ANTON: 4 Most recent PHQ: 1 Pt currently doesn't need any refills, pt would like lab work done, pt saw oncologist for re check and got a clean bill of health Pt does have rash middle chest c/o redness and itching starting about the time she restarted nifedipine on 07/03/24 History of Present Illness pt presents today for BP check and labs to check kidney function Review of Systems PHQ Score Initial Depression Screen Score: 0 SCORE Physical Exam Vitals & Measurements HR: 74(Peripheral) RR: 18 BP: 118/84 SpO2: 98% HT: 162.0 cm HT: 64 in WT: 166.28 kg WT: 366.584 lb BMI: 63.36 General: alert, no acute distress ENMT: oral mucosa moist, no pharyngeal erythema or exudate Cardiovascular: regular rate and rhythm, normal peripheral perfusion Respiratory: Lungs CTA, respirations non labored Extremities: no deformity, no trauma Neurological: oriented x 4, LOC appropriate for age, CN II-XII intact, motor strength equal & normal bilaterally, speech normal Assessment/Plan 1. Hypertension (I10: Essential (primary) hypertension) BP at goal. reviewed BP log. much improved since starting back on meds. RTC 3 months Ordered: Basic Metabolic Panel 2. FREDA (acute kidney injury) (N17.9: Acute kidney failure, unspecified) we attempted to get her off HCTZ and nifedipine but her BP elevated and she was having headaches. so she restarted them. will check BMP in office today. if kidney function is still compromised, will send referral to nephrology Ordered: Basic Metabolic Panel 3. BMI 60.0-69.9, adult (Z68.44: Body mass index [BMI] 60.0-69.9, adult) BMI education given Ordered: Basic Metabolic Panel 4. Non-smoker (Z78.9: Other specified health status) continue not smoking Ordered: Basic Metabolic Panel Orders: buPROPion, 100 mg = 1 tab(s), Oral, BID, # 60 tab(s), Refills(s) 11, Pharmacy: [facility]/pharmacy #[id number], 162, cm, 12/15/23 9:27:00 EDT, Height/Length Dosing, 197, kg, 12/15/23 9:27:00 EDT, Weight Dosing Follow-up No qualifying data available Problem List/Past Medical History Ongoing FREDA (acute kidney injury) Anemia Elevated BUN Encounter for weight management Hypertension Mixed anxiety and depressive disorder Morbid obesity Weight gain Wellness examination Historical No qualifying data Procedure/Surgical History Port (03/11/2021), Chemotherapy (03/10/2021), Hysterectomy (02/10/2021), Dilation and curettage of uterus. Medications buPROPion 100 mg Tab, See Instructions busPIRone 5 mg Tab, 5 mg= 1 tab(s), Oral, Daily, 11 refills calcium-vitamin D 600 mg-500 intl units oral tablet, extended release, 1 tab(s), Oral, q12hr gabapentin 100 mg Cap hydrochlorothiazide 25 mg Tab, 25 mg= 1 tab(s), Oral, Daily, 11 refills ibuprofen 600 mg Tab Klor-Con M20 oral tablet, extended release loratadine 10 mg Tab magnesium oxide 400 mg Tab MetFORMIN (Eqv-Glucophage XR) 500 mg oral tablet, extended release, 1000 mg= 2 tab(s), Oral, Daily metoprolol succinate 50 mg ER Tab, 50 mg= 1 tab(s), Oral, Daily, 11 refills NIFEdipine (Eqv-Procardia XL) 30 mg oral tablet, extended release, 30 mg= 1 tab(s), Oral, Daily phentermine 37.5 mg Tab, 37.5 mg= 1 tab(s), Oral, Daily ProFe 180 mg oral capsule Allergies Emend (Pain) measles/mumps/rubella virus vaccine (Fever, Swelling, Eruption) morphine (Rash) tetanus toxoid (Eruption, Swelling, Fever) Social History Alcohol Never., 02/10/2024 Substance Abuse Never., 02/10/2024 Tobacco Never (less than 100 in lifetime) Tobacco Use:. Never Smokeless Tobacco Use:. Cigarettes, 03/12/2024 Family History Congenital heart disease: Father and Aunt. Depression: Mother and Grandparent. Diabetes mellitus type 2: Mother, Sister and Grandparent. Hypertension: Mother, Sister and Brother. Primary malignant neoplasm of female breast: Grandparent. Stroke: Aunt. Immunizations Vaccine Date Status hepatitis B pediatric vaccine 08/09/1997 Recorded Normal [facility] Comment on above: Result Comment: Elec tronically Signed By: Billy Moscoso\.br\Date and Time Signed: 07/24/24 08:53 EDT eGFRon 07-24-2024 eGFR 52 mL/min/1.73 m2 Low >=59 [facility] Comment on above: Performed By: #### 1 [id number] #### [facility] [address] [place] [address] Ambulatory Visit Summaryon 0 06-12-2024 Ambulatory Visit Summary Ambulatory Visit Summary DANIELLA MANCERA :1980 Visit Date:06/12/2024 Ambulatory Visit Instructions Your Diagnosis Encounter for weight management Elevated BUN BMI 60.0-69.9, adult Non-smoker Your Care Team Attending Physician - Billy Moscoso Primary Care Physician - Billy Moscoso This Is Your Medications List NIFEdipine (NIFEdipine (Eqv-Procardia XL) 30 mg oral tablet, extended release) buPROPion (buPROPion 100 mg Tab) busPIRone (busPIRone 5 mg Tab) calcium-vitamin D (calcium-vitamin D 600 mg-500 intl units oral tablet, extended release) gabapentin (gabapentin 100 mg Cap) hydrochlorothiazide (hydrochlorothiazide 25 mg Tab) ibuprofen (ibuprofen 600 mg Tab) iron polysaccharide (ProFe 180 mg oral capsule) loratadine (loratadine 10 mg Tab) magnesium oxide (magnesium oxide 400 mg Tab) metformin (MetFORMIN (Eqv-Glucophage XR) 500 mg oral tablet, extended release) metoprolol (metoprolol succinate 50 mg ER Tab) phentermine (phentermine 37.5 mg Tab) potassium chloride (Klor-Con M20 oral tablet, extended release) Procedures Performed Port (03/11/2021), Chemotherapy (03/10/2021), Hysterectomy (02/10/2021), Dilation and curettage of uterus. Discharge Vitals Heart Rate (Peripheral) 90 Respiratory Rate 18 Blood Pressure 110/78 Height 162.0 cm Height 64 in Weight 168.75 kg Weight 372.03 lb BMI 64.3 What to do next Scheduled Follow-Up Appointments Monday. 2024 8:20 AM EDT With: Billy Moscoso Where: [address] Medications What How Much When Why Instructions Unchanged buPROPion (buPROPion 100 mg Tab) 1 Tablets By Mouth 2 times a day Unchanged busPIRone (busPIRone 5 mg Tab) 1 Tablets By Mouth Every day Unchanged calcium-vitamin D (calcium-vitamin D 600 mg-500 intl units oral tablet, extended release) 1 Tablets By Mouth Every 12 hours Unchanged gabapentin (gabapentin 100 mg Cap) 200 Unknown, oral, 4 Refill(s), Take 2 capsules (200 mg total) by mouth nightly. Unchanged hydrochlorothiazide (hydrochlorothiazide 25 mg Tab) 1 Tablets By Mouth Every day Take 25 mg by mouth daily. Unchanged ibuprofen (ibuprofen 600 mg Tab) 600 Unknown, oral, 1 Refill(s), Take 1 tablet (600 mg total) by mouth every 6 (six) hours as needed for pain. Unchanged iron polysaccharide (ProFe 180 mg oral capsule) TAKE 1 CAPSULE BY MOUTH EVERY DAY IN THE MORNING Unchanged loratadine (loratadine 10 mg Tab) 2 Refill(s), TAKE 1 TABLET BY MOUTH EVERY DAY Unchanged magnesium oxide (magnesium oxide 400 mg Tab) 90 EA, TAKE 1 TABLET (400 MG TOTAL) BY MOUTH IN THE MORNING Unchanged metformin (MetFORMIN (Eqv-Glucophage XR) 500 mg oral tablet, extended release) 2 Tablets By Mouth Every day TAKE 1 TABLET (500 MG) BY MOUTH IN THE EVENING. TAKE WITH MEALS DO NOT CRUSH, CHEW, OR SPLIT. Unchanged metoprolol (metoprolol succinate 50 mg ER Tab) 1 Tablets By Mouth Every day Wellness examination Weight gain Hypertension BMI 70 and over, adult Morbid obesity Non-smoker Unchanged NIFEdipine (NIFEdipine (Eqv-Procardia XL) 30 mg oral tablet, extended release) 1 Tablets By Mouth 2 times a day Duration: 90 Days Unchanged phentermine (phentermine 37.5 mg Tab) 1 Tablets By Mouth Every day Hypertension BMI 70 and over, adult Non-smoker bmi 66.3 Unchanged potassium chloride (Klor-Con M20 oral tablet, extended release) 20 Unknown, oral, 4 Refill(s), Take 1 tablet (20 mEq total) by mouth in the morning. Allergies Emend (Pain) measles/mumps/rubella virus vaccine (Fever, Swelling, Eruption) morphine (Rash) tetanus toxoid (Eruption, Swelling, Fever) Problems Ongoing - Any problem that you are currently receiving treatment for. Anemia Elevated BUN Encounter for weight management Hypertension Mixed anxiety and depressive disorder Morbid obesity Weight gain Wellness examination Patient Survey You may receive a survey via text or e-mail asking about your office visit. Please share your experience with us by completing your survey. We appreciate your feedback and thank you for choosing us for your care. Normal [facility] BMPon 06-12-2024 Anion gap [Moles/Vol] 16 mmol/L Normal 6-16 [facility] Comment on above: Performed By: #### 2 [id number] #### [facility] [address] [place] [address] Calcium [Mass/Vol] 9.2 mg/dL Normal 8.9-11.1 [facility] Comment on above: Performed By: #### 2 [id number] #### [facility] [address] [place] [address] Chloride [Moles/Vol] 102 mmol/L Normal 101-111 [facility] Comment on above: Performed By: #### 2 [id number] #### [facility] [address] [place] [address] CO2 [Moles/Vol] 24 mmol/L Normal 21-31 [facility] Comment on above: Performed By: #### 2 [id number] #### [facility] [address] [place] [address] Creatinine [Mass/Vol] 1.4 mg/dL High 0.5-1.3 [facility] Comment on above: Performed By: #### 2 [id number] #### [facility] [address] [place] [address] Glucose [Mass/Vol] 101 mg/dL Normal 55-199 [facility] Comment on above: Performed By: #### 2 [id number] #### [facility] [address] [place] [address] Potassium [Moles/Vol] 3.7 mmol/L Normal 3.5-5.3 [facility] Comment on above: Performed By: #### 2 [id number] #### [facility] [address] [place] [address] Sodium [Moles/Vol] 138 mmol/L Normal 135-145 [facility] Comment on above: Performed By: #### 2 [id number] #### [facility] [address] [place] [address] Urea nitrogen [Mass/Vol] 23 mg/dL High 5-21 [facility] Comment on above: Performed By: #### 2 [id number] #### [facility] [address] [place] [address] Urea nitrogen/Creatinine [Mass ratio] 16 No Units Normal 10-20 [facility] Comment on above: Performed By: #### 2 [id number] #### [facility] [address] [place] [address] CHEMISTRYOrdered By: SYSTEM SYSTEM on 06-12-2024 Anion gap [Moles/Vol] 16 mmol/L Normal 6 - 16 mEq/L Remisol Chem Calcium [Mass/Vol] 9.2 mg/dL Normal 8.9 - 11. 1 mg/dL Remisol Chem Chloride [Moles/Vol] 102 mmol/L Normal 101 - 1 11 mmol/L Remisol Chem CO2 [Moles/Vol] 24 mmol/L Normal 21 - 31 mmol/L Remisol Chem Creatinine [Mass/Vol] 1.4 mg/dL High 0.5 - 1.3 mg/dL Remisol Chem eGFR 47 mL/min/1.73 m2 Low >=59mL/min /1 .73 m2 Remisol Chem Glucose [Mass/Vol] 101 mg/dL Normal 55 - 199 mg/dL Remisol Chem Potassium [Moles/Vol] 3.7 mmol/L Normal 3.5 - 5.3 mmol/L Remisol Chem Sodium [Moles/Vol] 138 mmol/L Normal 135 - 145 mmol/L Remisol Chem Urea nitrogen [Mass/Vol] 23 mg/dL High 5 - 21 mg/dL Remisol Chem Urea nitrogen/Creatinine [Mass ratio] 16 mg/mg Normal 10 - 20 Remisol Chem Family Medicine Office/Clini c Noteon 06-12-2024 Family Medicine Office/Clinic Note Family Medicine Office/Clinic Note HPI Staff Daniella is a 43 year old female presenting for 3 month follow up Weight management: Started Phentermine on Sleeping well:Yes, 6-8 hours Chest pain:No Tremors:No Headaches:No Heart fluttering:No Blurred Vision:No Beginning weight: 433.4 Previous weight: 388.23 Today's weight: 372 Questions/Concerns: none History of Present Illness pt presents today for weigh management. Review of Systems PHQ Score Initial Depression Screen Score: 0 SCORE Physical Exam Vitals & Measurements HR: 90(Peripheral) RR: 18 BP: 110/78 SpO2: 99% HT: 64 in HT: 162.0 cm WT: 168.75 kg WT: 372.03 lb BMI: 64.3 General: alert, no acute distress ENMT: oral [...] health services in other specified circumstances) pt presents today for weight management. is down another 16 pounds. Is doing an amazing job. denies needs. RTC 3 months Ordered: Basic Metabolic Panel Lab Specimen Collect [id number] 2. Elevated BUN (R79.9: Abnormal finding of blood chemistry, unspecified) will check BMP today Ordered: Basic Metabolic Panel Lab Specimen Collect [id number] 3. Hypertension (I10: Essential (primary) hypertension) BP log reviewed. Some are 90/70's will instruct her to stop the Procardia and continue to monitor her BP Ordered: phentermine, 37.5 mg = 1 tab(s), Oral, Daily, bmi 66.3, # 30 tab(s), Refills(s) 0, [facility]acy: [id number], 162, cm, 06/12/24 8:34:00 EST, Height/Length Dosing, 168.8, kg, 06/12/24 8:34:00 EST, Weight Dosing phentermine, 37.5 mg = 1 tab(s), Oral, Daily, bmi 66.3, # 30 tab(s), Refills(s) 0, Pharmacy: [id number], 162, cm, 04/10/24 7:19:00 EST, Height/Length Dosing, 174, kg, 04/10/24 7:19:00 EST, Weight Dosing 4. BMI 60.0-69.9, adult (Z68.44: Body mass index [BMI] 60.0-69.9, adult) BMI education given Ordered: Basic Metabolic Panel Lab Specimen Collect [id number] 5. Non-smoker (Z78.9: Other specified health status) continue not smoking Ordered: phentermine, 37.5 mg = 1 tab(s), Oral, Daily, bmi 66.3, # 30 tab(s), Refills(s) 0, Pharmacy: [id number], 162, cm, 06/12/24 8:34:00 EST, Height/Length Dosing, 168.8, kg, 06/12/24 8:34:00 EST, Weight Dosing phentermine, 37.5 mg = 1 tab(s), Oral, Daily, bmi 66.3, # 30 tab(s), Refills(s) 0, Pharmacy: [facility] #[id number], 162, cm, 04/10/24 7:19:00 EST, Height/Length Dosing, 174, kg, 04/10/24 7:19:00 EST, Weight Dosing Basic Metabolic Panel Lab Specimen Collect [id number] Follow-up No qualifying data available Problem List/Past Medical History Ongoing Anemia Elevated BUN Encounter for weight management Hypertension Mixed anxiety and depressive disorder Morbid obesity Weight gain Wellness examination Historical No qualifying data Procedure/Surgical History Port (03/11/2021), Chemotherapy (03/10/2021), Hysterectomy (02/10/2021), Dilation and curettage of uterus. Medications buPROPion 100 mg Tab, 100 mg= 1 tab(s), Oral, BID, 11 refills busPIRone 5 mg Tab, 5 mg= 1 tab(s), Oral, Daily, 11 refills calcium-vitamin D 600 mg-500 intl units oral tablet, extended release, 1 tab(s), Oral, q12hr gabapentin 100 mg Cap hydrochlorothiazide 25 mg Tab, 25 mg= 1 tab(s), Oral, Daily, 11 refills ibuprofen 600 mg Tab Klor-Con M20 oral tablet, extended release loratadine 10 mg Tab magnesium oxide 400 mg Tab MetFORMIN (Eqv-Glucophage XR) 500 mg oral tablet, extended release, 1000 mg= 2 tab(s), Oral, Daily metoprolol succinate 50 mg ER Tab, 50 mg= 1 tab(s), Oral, Daily, 11 refills NIFEdipine (Eqv-Procardia XL) 30 mg oral tablet, extended release, 30 mg= 1 tab(s), Oral, BID, 3 refills phentermine 37.5 mg Tab, 37.5 mg= 1 tab(s), Oral, Daily ProFe 180 mg oral capsule Allergies Emend (Pain) measles/mumps/rubella virus vaccine (Fever, Swelling, Eruption) morphine (Rash) tetanus toxoid (Eruption, Swelling, Fever) Social History Alcohol Never., 02/10/2024 Substance Abuse Never., 02/10/2024 Tobacco Never (less than 100 in lifetime) Tobacco Use:. Never Smokeless Tobacco Use:. Cigarettes, 03/12/2024 Family History Congenital heart disease: Father and Aunt. Depression: Mother and Grandparent. Diabetes mellitus type 2: Mother, Sister and Grandparent. Hypertension: Mother, Sister and Brother. Primary malignant neoplasm of female breast: Grandparent. Stroke: Aunt. Immunizations Vaccine Date Status hepatitis B pediatric vaccine 08/09/1997 Recorded Normal [facility] Comment on above: Result Comment: Elec tronically Signed By: Billy Moscoso\.br\Date and Time Signed: 06/12/24 08:58 EST eGFRon 06-12-2024 eGFR 47 mL/min/1.73 m2 Low >=59 [facility] Comment on above: Performed By: #### 1 [id number] #### [facility] [address] [place] [address] Ambulatory Visit Summaryon 05-12-2023 Ambulatory Visit Summary Ambulatory Visit Summary DANIELLA MANCERA :1980 Visit Date:03/12/2024 Ambulatory Visit Instructions Your Diagnosis Non-smoker BMI 60.0-69.9, adult, Body mass index [BMI] 60.0-69.9, adult Morbid obesity with BMI of 60.0-69.9, adult BMI 70 and over, adult Hypertension Your Care Team Attending Physician - Billy Moscoso Primary Care Physician - Billy Moscoso This Is Your Medications List NIFEdipine (NIFEdipine (Eqv-Procardia XL) 30 mg oral tablet, extended release) buPROPion (buPROPion 100 mg Tab) busPIRone (busPIRone 5 mg Tab) calcium-vitamin D (calcium-vitamin D 600 mg-500 intl units oral tablet, extended release) gabapentin (gabapentin 100 mg Cap) hydrochlorothiazide (hydrochlorothiazide 25 mg Tab) ibuprofen (ibuprofen 600 mg Tab) iron polysaccharide (ProFe 180 mg oral capsule) loratadine (loratadine 10 mg Tab) magnesium oxide (magnesium oxide 400 mg Tab) metformin (MetFORMIN (Eqv-Glucophage XR) 500 mg oral tablet, extended release) metoprolol (metoprolol succinate 50 mg ER Tab) phentermine (phentermine 37.5 mg Tab) potassium chloride (Klor-Con M20 oral tablet, extended release) Procedures Performed Port (03/11/2021), Chemotherapy (03/10/2021), Hysterectomy (02/10/2021), Dilation and curettage of uterus. Discharge Vitals Temperature (Oral) 36.2 ???C Heart Rate (Peripheral) 76 Respiratory Rate 18 Blood Pressure 112/72 Height 162.0 cm Height 64 in Weight 176.1 kg Weight 388.234 lb BMI 67.1 What to do next Scheduled Follow-Up Appointments Monday 8:20 AM EST With: Where: [address] [id number]- Monday 8:20 AM EST With: Billy Moscoso Where: [address] [address]- Medications What How Much When Why Instructions New phentermine (phentermine 37.5 mg Tab) 1 Tablets By Mouth Every day Hypertension BMI 70 and over, adult Non-smoker Pickup at [facility]/pharmacy #[id number] Unchanged buPROPion (buPROPion 100 mg Tab) 1 Tablets By Mouth 2 times a day Unchanged busPIRone (busPIRone 5 mg Tab) 1 Tablets By Mouth Every day Unchanged calcium-vitamin D (calcium-vitamin D 600 mg-500 intl units oral tablet, extended release) 1 Tablets By Mouth Every 12 hours Unchanged gabapentin (gabapentin 100 mg Cap) 200 Unknown, oral, 4 Refill(s), Take 2 capsules (200 mg total) by mouth nightly. Unchanged hydrochlorothiazide (hydrochlorothiazide 25 mg Tab) 1 Tablets By Mouth Every day Take 25 mg by mouth daily. Unchanged ibuprofen (ibuprofen 600 mg Tab) 600 Unknown, oral, 1 Refill(s), Take 1 tablet (600 mg total) by mouth every 6 (six) hours as needed for pain. Unchanged iron polysaccharide (ProFe 180 mg oral capsule) TAKE 1 CAPSULE BY MOUTH EVERY DAY IN THE MORNING Unchanged loratadine (loratadine 10 mg Tab) 2 Refill(s), TAKE 1 TABLET BY MOUTH EVERY DAY Unchanged magnesium oxide (magnesium oxide 400 mg Tab) 90 EA, TAKE 1 TABLET (400 MG TOTAL) BY MOUTH IN THE MORNING Unchanged metformin (MetFORMIN (Eqv-Glucophage XR) 500 mg oral tablet, extended release) TAKE 1 TABLET (500 MG) BY MOUTH IN THE EVENING. TAKE WITH MEALS DO NOT CRUSH, CHEW, OR SPLIT. Unchanged metoprolol (metoprolol succinate 50 mg ER Tab) 1 Tablets By Mouth Every day Wellness examination Weight gain Hypertension BMI 70 and over, adult Morbid obesity Non-smoker Unchanged NIFEdipine (NIFEdipine (Eqv-Procardia XL) 30 mg oral tablet, extended release) 1 Tablets By Mouth 2 times a day Duration: 90 Days Unchanged potassium chloride (Klor-Con M20 oral tablet, extended release) 20 Unknown, oral, 4 Refill(s), Take 1 tablet (20 mEq total) by mouth in the morning. Pharmacy Information [id number]: [address], [place] [id number] [phone] Allergies Emend (Pain) measles/mumps/rubella virus vaccine (Fever, Swelling, Eruption) morphine (Rash) tetanus toxoid (Eruption, Swelling, Fever) Problems Ongoing - Any problem that you are currently receiving treatment for. Anemia Encounter for weight management Hypertension Mixed anxiety and depressive disorder Morbid obesity Weight gain Wellness examination Patient Survey You may receive a survey via text or e-mail asking about your office visit. Please share your experience with us by completing your survey. We appreciate your feedback and thank you for choosing us for your care. Normal Barboza [facility] Family Medicine Office/Clini c Noteon 03-12-2024 Family Medicine Office/Clinic Note Family Medicine Office/Clinic Note HPI Staff Daniella 43 year old female presenting with weight management f/u Weight management Adipex 12/15/23 Sleeping well:Yes, 6-8 hours Chest pain:No Tremors:No Headaches:No Heart fluttering:No Blurred Vision:No Starting Weight: 433.4 lbs Weight last visit: 402.16 lbs Weight this visit: 388,23 lbs History of Present Illness pt presents today for weight management Review of Systems PHQ Score Initial Depression Screen Score: 0 SCORE Physical Exam Vitals & Measurements T: 36.2 ???C(Oral) HR: 76(Peripheral) RR: 18 BP: 112/72 SpO2: 97% HT: 64 in HT: 162.0 cm WT: 176.1 kg WT: 388.234 lb BMI: 67.1 General: alert, no acute distress ENMT: oral [...] in other specified circumstances) pt is down another 14 pounds. is doing well. feeling great. BP is well controlled. RTC 3 months 2. Hypertension (I10: Essential (primary) hypertension) BP well controlled Ordered: phentermine, 37.5 mg = 1 tab(s), Oral, Daily, # 30 tab(s), Refills(s) 0, Pharmacy: [id number], 162, cm, 02/13/24 8:26:00 EDT, Height/Length Dosing, 182.8, kg, 02/13/24 8:26:00 EDT, Weight Dosing phentermine, 37.5 mg = 1 tab(s), Oral, Daily, # 30 tab(s), Refills(s) 0, Pharmacy: [id number], 162, cm, 03/12/24 8:26:00 EST, Height/Length Dosing, 176.1, kg, 03/12/24 8:26:00 EST, Weight Dosing 3. Non-smoker (Z78.9: Other specified health status) continue not smoking Ordered: phentermine, 37.5 mg = 1 tab(s), Oral, Daily, # 30 tab(s), Refills(s) 0, Pharmacy: [id number], 162, cm, 02/13/24 8:26:00 EDT, Height/Length Dosing, 182.8, kg, 02/13/24 8:26:00 EDT, Weight Dosing phentermine, 37.5 mg = 1 tab(s), Oral, Daily, # 30 tab(s), Refills(s) 0, Pharmacy: [id number], 162, cm, 03/12/24 8:26:00 EST, Height/Length Dosing, 176.1, kg, 03/12/24 8:26:00 EST, Weight Dosing 4. BMI 60.0-69.9, adult (Z68.44: Body mass index [BMI] 60.0-69.9, adult) BMI education pt continues to lose weight 5. Morbid obesity with BMI of 60.0-69.9, adult (E66.01: Morbid (severe) obesity due to excess calories) will continue adipex Follow-up No qualifying data available Problem List/Past Medical History Ongoing Anemia Encounter for weight management Hypertension Mixed anxiety and depressive disorder Morbid obesity Weight gain Wellness examination Historical No qualifying data Procedure/Surgical History Port (03/11/2021), Chemotherapy (03/10/2021), Hysterectomy (02/10/2021), Dilation and curettage of uterus. Medications buPROPion 100 mg Tab, 100 mg= 1 tab(s), Oral, BID, 11 refills busPIRone 5 mg Tab, 5 mg= 1 tab(s), Oral, Daily, 11 refills calcium-vitamin D 600 mg-500 intl units oral tablet, extended release, 1 tab(s), Oral, q12hr gabapentin 100 mg Cap hydrochlorothiazide 25 mg [...] XL) 30 mg oral tablet, extended release, 30 mg= 1 tab(s), Oral, BID, 3 refills phentermine 37.5 mg Tab, 37.5 mg= 1 tab(s), Oral, Daily ProFe 180 mg oral capsule Allergies Emend (Pain) measles/mumps/rubella virus vaccine (Fever, Swelling, Eruption) morphine (Rash) tetanus toxoid (Eruption, Swelling, Fever) Social History Alcohol Never., 02/10/2024 Substance Abuse Never., 02/10/2024 Tobacco Never (less than 100 in lifetime) Tobacco Use:. Never Smokeless Tobacco Use:. Cigarettes, 03/12/2024 Family History Congenital heart disease: Father and Aunt. Depression: Mother and Grandparent. Diabetes mellitus type 2: Mother, Sister and Grandparent. Hypertension: Mother, Sister and Brother. Primary malignant neoplasm of female breast: Grandparent. Stroke: Aunt. Immunizations Vaccine Date Status hepatitis B pediatric vaccine 08/09/1997 Recorded Normal [facility] Comment on above: Result Comment: Elec tronically Signed By: Billy Moscoso\.br\Date and Time Signed: 03/12/24 08:41 EST Ambulatory Visit Summaryon 1 Ambulatory Visit Summary Ambulatory Visit Summary DANIELLA MANCERA :1980 Visit Date:02/13/2024 Ambulatory Visit Instructions Your Diagnosis Encounter for weight management Non-smoker Adult BMI 60.0-69.9 kg/sq m Morbid obesity Respiratory disorder, unspecified Your Care Team Attending Physician - Billy Moscoso Primary Care Physician - Billy Moscoso This Is Your Medications List NIFEdipine (NIFEdipine (Eqv-Procardia XL) 30 mg oral tablet, extended release) buPROPion (buPROPion 100 mg Tab) busPIRone (busPIRone 5 mg Tab) calcium-vitamin D (calcium-vitamin D 600 mg-500 intl units oral tablet, extended release) gabapentin (gabapentin 100 mg Cap) hydrochlorothiazide (hydrochlorothiazide 25 mg Tab) ibuprofen (ibuprofen 600 mg Tab) loratadine (loratadine 10 mg Tab) magnesium oxide (magnesium oxide 400 mg Tab) metformin (MetFORMIN (Eqv-Glucophage XR) 500 mg oral tablet, extended release) metoprolol (metoprolol succinate 50 mg ER Tab) phentermine (phentermine 37.5 mg Tab) potassium chloride (Klor-Con M20 oral tablet, extended release) Procedures Performed Port (03/11/2021), Hysterectomy (02/10/2021), Dilation and curettage of uterus. Discharge Vitals Temperature (Temporal Artery) 36.9 ?C Heart Rate (Peripheral) 88 Respiratory Rate 18 Blood Pressure 124/86 Height 162.0 cm Height 64 in Weight 182.8 kg Weight 402.16 lb BMI 69.65 What to do next Scheduled Follow-Up Appointments Monday 8:20 AM EST With: Billy Moscoso Where: [place] [id number]- Medications What How Much When Why Instructions New calcium-vitamin D (calcium-vitamin D 600 mg-500 intl units oral tablet, extended release) 1 Tablets By Mouth Every 12 hours Unchanged buPROPion (buPROPion 100 mg Tab) 1 Tablets By Mouth 2 times a day Unchanged busPIRone (busPIRone 5 mg Tab) 1 Tablets By Mouth Every day Unchanged gabapentin (gabapentin 100 mg Cap) 200 Unknown, oral, 4 Refill(s), Take 2 capsules (200 mg total) by mouth nightly. Unchanged hydrochlorothiazide (hydrochlorothiazide 25 mg Tab) 1 Tablets By Mouth Every day Take 25 mg by mouth daily. Unchanged ibuprofen (ibuprofen 600 mg Tab) 600 Unknown, oral, 1 Refill(s), Take 1 tablet (600 mg total) by mouth every 6 (six) hours as needed for pain. Unchanged loratadine (loratadine 10 mg Tab) 2 Refill(s), TAKE 1 TABLET BY MOUTH EVERY DAY Unchanged magnesium oxide (magnesium oxide 400 mg Tab) 90 EA, TAKE 1 TABLET (400 MG TOTAL) BY MOUTH IN THE MORNING Unchanged metformin (MetFORMIN (Eqv-Glucophage XR) 500 mg oral tablet, extended release) TAKE 1 TABLET (500 MG) BY MOUTH IN THE EVENING. TAKE WITH MEALS DO NOT CRUSH, CHEW, OR SPLIT. Unchanged metoprolol (metoprolol succinate 50 mg ER Tab) 1 Tablets By Mouth Every day Wellness examination Weight gain Hypertension BMI 70 and over, adult Morbid obesity Non-smoker Unchanged NIFEdipine (NIFEdipine (Eqv-Procardia XL) 30 mg oral tablet, extended release) See instructions TAKE 1 TABLET BY MOUTH TWICE A DAY Unchanged phentermine (phentermine 37.5 mg Tab) 1 Tablets By Mouth Every day Hypertension BMI 70 and over, adult Non-smoker Unchanged potassium chloride (Klor-Con M20 oral tablet, extended release) 20 Unknown, oral, 4 Refill(s), Take 1 tablet (20 mEq total) by mouth in the morning. Allergies Emend (Pain) measles/mumps/rubella virus vaccine (Fever, Swelling, Eruption) morphine (Rash) tetanus toxoid (Eruption, Swelling, Fever) Problems Ongoing - Any problem that you are currently receiving treatment for. Anemia Encounter for weight management Hypertension Mixed anxiety and depressive disorder Morbid obesity Weight gain Wellness examination Patient Survey You may receive a survey via text or e-mail asking about your office visit. Please share your experience with us by completing your survey. We appreciate your feedback and thank you for choosing us for your care. Normal Jabari [facility] Family Medicine Office/Clini c Noteon 02-13-2024 Family Medicine Office/Clinic Note Family Medicine Office/Clinic Note HPI Staff Pt presents today for 1m Weight management follow up Started on adipex 12/15/23. Sleeping well:Yes, 6-8 hours Chest pain:No Tremors:No Headaches:Yes Heart fluttering:No Blurred Vision:No Starting Weight:433.4lbs Weight Last Visit: 408lbs Weight this visit: 402.16 lbs Refills on Nifedipine 30 mg History of Present Illness pt presents today for weight management Review of Systems PHQ Score Initial Depression Screen Score: 0 SCORE Physical Exam Vitals & Measurements T: 36.9 ?C(Temporal Artery) HR: 88(Peripheral) RR: 18 BP: 124/86 SpO2: 97% HT: 64 in HT: 162.0 cm WT: 182.8 kg WT: 402.16 lb BMI: 69.65 General: alert, no acute distress ENMT: oral [...] health services in other specified circumstances) pt presents today for weight management is down another 6 pounds. doing very well. denies needs. refill sent. RTC 1 month 2. Non-smoker (Z78.9: Other specified health status) continue not smoking Ordered: phentermine, 37.5 mg = 1 tab(s), Oral, Daily, # 30 tab(s), Refills(s) 0, Pharmacy: [facility]/pharmacy #[id number], 162, cm, 02/13/24 8:26:00 EDT, Height/Length Dosing, 182.8, kg, 02/13/24 8:26:00 EDT, Weight Dosing phentermine, 37.5 mg = 1 tab(s), Oral, Daily, # 30 tab(s), Refills(s) 0, Pharmacy: [facility], 162, cm, 01/17/24 14:02:00 EDT, Height/Length Dosing, 185.8, kg, 01/17/24 14:02:00 EDT, Weight Dosing 3. Adult BMI 60.0-69.9 kg/sq m (Z68.44: Body mass index [BMI] 60.0-69.9, adult) pt will continue making healthy food choices and walking daily. pt has been getting 7,000 steps in a day 4. Morbid obesity (E66.01: Morbid (severe) obesity due to excess calories) see above Orders: NIFEdipine, See Instructions, TAKE 1 TABLET BY MOUTH TWICE A DAY, # 60 tab(s), Refills(s) 2, Pharmacy: [facility]/pharmacy #[id number], 162, cm, 12/15/23 9:27:00 EDT, Height/Length Dosing, 197, kg, 12/15/23 9:27:00 EDT, Weight Dosing NIFEdipine, 30 mg = 1 tab(s), Oral, BID, # 180 tab(s), Refills(s) 3, Pharmacy: [facility]/pharmacy #[id number], 162, cm, 02/13/24 8:26:00 EDT, Height/Length Dosing, 182.8, kg, 02/13/24 8:26:00 EDT, Weight Dosing Follow-up No qualifying data available Problem List/Past Medical History Ongoing Anemia Encounter for weight management Hypertension Mixed anxiety and depressive disorder Morbid obesity Weight gain Wellness examination Historical No qualifying data Procedure/Surgical History Port (03/11/2021), Hysterectomy (02/10/2021), Dilation and curettage of uterus. Medications buPROPion 100 mg Tab, 100 mg= 1 tab(s), Oral, BID, 11 refills busPIRone 5 mg Tab, 5 mg= 1 tab(s), Oral, Daily, 11 refills calcium-vitamin D 600 mg-500 intl units oral tablet, extended release, 1 tab(s), Oral, q12hr gabapentin 100 mg Cap hydrochlorothiazide 25 mg [...] XL) 30 mg oral tablet, extended release, 30 mg= 1 tab(s), Oral, BID, 3 refills phentermine 37.5 mg Tab, 37.5 mg= 1 tab(s), Oral, Daily Allergies Emend (Pain) measles/mumps/rubella virus vaccine (Fever, Swelling, Eruption) morphine (Rash) tetanus toxoid (Eruption, Swelling, Fever) Social History Alcohol Never., 02/10/2024 Substance Abuse Never., 02/10/2024 Tobacco Never (less than 100 in lifetime) Tobacco Use:. Never Smokeless Tobacco Use:. Cigarettes, 02/13/2024 Family History Congenital heart disease: Father and Aunt. Depression: Mother and Grandparent. Diabetes mellitus type 2: Mother, Sister and Grandparent. Hypertension: Mother, Sister and Brother. Primary malignant neoplasm of female breast: Grandparent. Stroke: Aunt. Immunizations Vaccine Date Status hepatitis B pediatric vaccine 08/09/1997 Recorded Normal [facility] Comment on above: Result Comment: Elec tronically Signed By: Billy Moscoso\.br\Date and Time Signed: 02/13/24 08:39 EDT Family Medicine Office/Clini c Noteon 01-17-2024 Family [...] in insulin resistance w/adipex therapy. Last A1c 12/18/245- 5.4 Has been having headaches, dry mouth, [...] Daily, # 30 tab(s), Refills(s) 0, Pharmacy: [facility], 162, cm, 01/17/24 14:02:00 EDT, Height/Length Dosing, 185.8, kg, 01/17/24 14:02:00 EDT, Weight Dosing phentermine, 37.5 mg = 1 tab(s), Oral, Daily, # 30 tab(s), Refills(s) 0, Pharmacy: [facility], 162, cm, 12/15/23 9:27:00 EDT, Height/Length Dosing, 197, kg, 12/15/23 9:27:00 EDT, Weight Dosing 3. Non-smoker (Z78.9: Other specified health status) continue not smoking Ordered: phentermine, 37.5 mg = 1 tab(s), Oral, Daily, # 30 tab(s), Refills(s) 0, Pharmacy: [facility], 162, cm, 01/17/24 14:02:00 EDT, Height/Length Dosing, 185.8, kg, 01/17/24 14:02:00 EDT, Weight Dosing phentermine, 37.5 mg = 1 tab(s), Oral, Daily, # 30 tab(s), Refills(s) 0, Pharmacy: [facility], 162, cm, 12/15/23 9:27:00 EDT, Height/Length [...] Daily, # 30 tab(s), Refills(s) 0, Pharmacy: [facility], 162, cm, 01/17/24 14:02:00 EDT, Height/Length Dosing, 185.8, kg, 01/17/24 14:02:00 EDT, Weight Dosing phentermine, 37.5 mg = 1 tab(s), Oral, Daily, # 30 tab(s), Refills(s) 0, Pharmacy: [facility], 162, cm, 12/15/23 9:27:00 EDT, Height/Length [...] hepatitis B pediatric vaccine 08/09/1997 Recorded Normal [facility] Comment on above: Result Comment: Elec tronically Signed By: Shannon FENG, Billy Miranda\.br\Date and Time Signed: 01/17/24 15:22 EDT CBC AND AUTO DIFFon 01-12-20 ABSOLUTE BASOPHIL 0.1 X10E9/L Normal 0.0-0.2 [facility] Comment on above: Performed By: #### 1 9123-9, CBCA, CMP #### [facility] ([id number]) [address] [place] [address] ABSOLUTE NEUTROPHIL 4.7 X10E9/L Normal 1.5-6.6 [facility] Comment on above: Performed By: #### 1 9123-9, CBCA, CMP #### [facility] ([id number]) [address] [facility] [address] [place] [address] Basophils/100 WBC (Bld) 1.3 % Normal [facility] Comment on above: Performed By: #### 1 9123-9, CBCA, CMP #### [facility] ([id number]) [address] [address] Eosinophils (Bld) [#/Vol] 0.3 10*3/uL Normal 0.0-0.4 [facility] Comment on above: Performed By: #### 1 9123-9, CBCA, CMP #### [facility] ([id number]) [address] [place] [address] Eosinophils/100 WBC (Bld) 3.9 % Normal [facility] Comment on above: Performed By: #### 1 9123-9, CBCA, CMP #### [facility] ([id number]) [address] [facility] [address] [place] [address] Erythrocyte distribution width (RBC) [Ratio] 14.7 % Normal 11.5-15.0 [facility] Comment on above: Performed By: #### 1 9123-9, CBCA, CMP #### [facility] ([id number]) [address] [place] [address] Hematocrit (Bld) [Volume fraction] 41.8 % Normal 35-47 [facility] Comment on above: Performed By: #### 1 9123-9, CBCA, CMP #### [facility] ([id number]) [address], [address] [place] [address] Hemoglobin (Bld) [Mass/Vol] 14.5 g/dL Normal 11.7-15.5 [facility] Comment on above: Performed By: #### 1 9123-9, CBCA, CMP #### [facility] ([id number]) [address], [address] [place] [address] Lymphocytes (Bld) [#/Vol] 1.5 10*3/uL Normal 1.0-3.5 [facility] Comment on above: Performed By: #### 1 9123-9, CBCA, CMP #### [facility] ([id number]) [address], [facility] [address] [place] [address] Lymphocytes/100 WBC (Bld) 21.2 % Normal [facility] Comment on above: Performed By: #### 1 9123-9, CBCA, CMP #### [facility] ([id number]) [address], [address] [place] [address] MCH (RBC) [Entitic mass] 29.6 pg Normal 27-34 [facility] Comment on above: Performed By: #### 1 9123-9, CBCA, CMP #### [facility] ([id number]) [address], [address] [place] [address] MCHC (RBC) [Mass/Vol] 34.7 g/dL Normal 32-36 [facility] Comment on above: Performed By: #### 1 9123-9, CBCA, CMP #### [facility] ([id number]) [address], [address] [place] [address] MCV (RBC) [Entitic vol] 85 fL Normal 80-100 [facility] Comment on above: Performed By: #### 1 9123-9, CBCA, CMP #### [facility] ([id number]) [address], [address] [place] [address] Monocytes (Bld) [#/Vol] 0.4 10*3/uL Normal 0-0.9 [facility] Comment on above: Performed By: #### 1 9123-9, CBCA, CMP #### [facility] ([id number]) [address], [address] [place] [address] Monocytes/100 WBC (Bld) 6.0 % Normal [facility] Comment on above: Performed By: #### 1 9123-9, CBCA, CMP #### [facility] ([id number]) [address], [address] [place] [address] Neutrophils/100 WBC (Bld) 67.6 % Normal [facility] Comment on above: Performed By: #### 1 9123-9, CBCA, CMP #### [facility] ([id number]) [address], [address] [place] [address] Platelet mean volume (Bld) [Entitic vol] 9.3 fL Normal 7-12 [facility] Comment on above: Performed By: #### 1 9123-9, CBCA, CMP #### [facility] ([id number]) [address], [address] [place] [address] Platelets (Bld) [#/Vol] 279 10*3/uL Normal 150-450 [facility] Comment on above: Performed By: #### 1 9123-9, CBCA, CMP #### [facility] ([id number]) [address], [facility] [address] [place] [address] RBC COUNT 4.91 X10E12/L Normal 3.80-5.20 [facility] Comment on above: Performed By: #### 1 9123-9, CBCA, CMP #### [facility] ([id number]) [address], [facility] [address] [place] [address] WBC (Bld) [#/Vol] 6.9 10*3/uL Normal 4.0-11.0 [facility] Comment on above: Performed By: #### 1 9123-9, CBCA, CMP #### [facility] ([id number]) [address], [address] [place] [address] COMPREHENSIVE METABOLIC PANE Geoffrey 01-12-2024 Albumin [Mass/Vol] 4.4 g/dL Normal 3.2-5.3 [facility] Comment on above: Performed By: #### 1 9123-9, CBCA, CMP #### [facility] ([id number]) [address], [address] [place] [address] ALP [Catalytic activity/Vol] 73 U/L Normal 39-130 [facility] Comment on above: Performed By: #### 1 9123-9, CBCA, CMP #### [facility] ([id number]) [address], [address] [place] [address] ALT [Catalytic activity/Vol] 50 U/L High 0-31 [facility] Comment on above: Performed By: #### 1 9123-9, CBCA, CMP #### [facility] ([id number]) [address], [address] [place] [address] Anion gap [Moles/Vol] 12 mmol/L Normal 5-15 [facility] Comment on above: Performed By: #### 1 9123-9, CBCA, CMP #### [facility] ([id number]) [address], [address] [place] [address] AST [Catalytic activity/Vol] 26 U/L Normal 0-41 [facility] Comment on above: Performed By: #### 1 9123-9, CBCA, CMP #### [facility] ([id number]) [address], [address] [place] [address] Bilirubin [Mass/Vol] 1.1 mg/dL Normal 0.3-1.2 [facility] Comment on above: Performed By: #### 1 9123-9, CBCA, CMP #### [facility] ([id number]) [address], [address] [place] [address] Calcium [Mass/Vol] 9.7 mg/dL Normal 8.5-10.5 [facility] Comment on above: Performed By: #### 1 9123-9, CBCA, CMP #### [facility] ([id number]) [address], [address] [place] [address] Chloride [Moles/Vol] 101 mmol/L Normal 98-109 [facility] Comment on above: Performed By: #### 1 9123-9, CBCA, CMP #### [facility] ([id number]) [address], [address] [place] [address] CO2 [Moles/Vol] 24 mmol/L Normal 22-32 [facility] Comment on above: Performed By: #### 1 9123-9, CBCA, CMP #### [facility] ([id number]) [address] [address] [place] [address] Creatinine [Mass/Vol] 1.30 mg/dL High 0.40-1.00 [facility] Comment on above: Result Comment: METH OD TRACEABLE TO IDMS STANDARD Performed By: #### 1 9123-9, CBCA, CMP #### [facility] ([id number]) [address] [place] [address] GFR/1.73 sq M.predicted among non-blacks MDRD (S/P/Bld) [Vol rate/Area] 52 mL/min/{1.73_m2} Low >59 [facility] Comment on above: Result Comment: Reported eGFR is based on the CKD-EPI 2020 equation that does not use a race coefficient. Performed By: #### 1 9123-9, CBCA, CMP #### [facility] ([id number]) [address] [place] [address] Glucose [Mass/Vol] 105 mg/dL High 65-99 [facility] Comment on above: Performed By: #### 1 9123-9, CBCA, CMP #### [facility] ([id number]) [address] [address] [place] [address] Potassium [Moles/Vol] 3.6 mmol/L Normal 3.5-5.0 [facility] Comment on above: Performed By: #### 1 9123-9, CBCA, CMP #### [facility] ([id number]) [address] [address] [place] [address] Protein [Mass/Vol] 7.7 g/dL Normal 6.0-8.0 [facility] Comment on above: Performed By: #### 1 9123-9, CBCA, CMP #### [facility] ([id number]) [address] [place] [address] Sodium [Moles/Vol] 137 mmol/L Normal 134-146 [facility] Comment on above: Performed By: #### 1 9123-9, CBCA, CMP #### [facility] ([id number]) [address], [address] [place] [address] Urea nitrogen [Mass/Vol] 36 mg/dL High 5-23 [facility] Comment on above: Performed By: #### 1 9123-9, CBCA, CMP #### [facility] ([id number]) [address] [facility] [facility] [place] [address] MAGNESIUMon 01-12-2024 Magnesium [Mass/Vol] 1.9 mg/dL Normal 1.8-2.6 [facility] Comment on above: Performed By: #### 1 9123-9, CBCA, CMP #### [facility] ([id number]) [address], [address] [place] [address] MLR HEMOGLOBIN A1Con 024 Glucose [Mass/Vol] 108 mg/dL [facility] HbA1c (Bld) [Mass fraction] 5.4 % 4.5 - 6.2 % [facility] Comment on above: ADA RECOMMENDED LIMI T 4.0 - 6.0 ADA THERAPEUTIC TARGET < 7.0 ACTION SUGGESTED > 7.[address] [facility] Ambulatory Visit Summaryon 0 12-15-2023 Ambulatory Visit Summary Ambulatory Visit Summary DANIELLA MANCERA :1980 Visit Date:12/15/2023 Ambulatory Visit Instructions Your Diagnosis Wellness examination Non-smoker BMI 70 and over, adult Hypertension Morbid obesity Your Care Team Attending Physician - Billy Moscoso Primary Care Physician - Billy Moscoso This Is Your Medications List NIFEdipine [...] Follow-Up Appointments Monday 8:20 AM EDT With: Billy Moscoso Where: [place] [id number]- Medications What How Much When Instructions Unchanged [...] for choosing us for your care. Normal [facility] CHEMISTRYOrdered By: SYSTEM SYSTEM on 12-15-2023 Albumin [...] 12-15-2023 Albumin [Mass/Vol] 4.1 g/dL Normal 3.3-5.0 [facility] Comment on above: Performed By: #### 2 [id number] #### [facility] [address] [place] [address] Albumin/Globulin (S) [Mass conc ratio] 1.3 Normal 1.1-2.2 [facility] Comment on above: Performed By: #### 2 [id number] #### [facility] [address] [place] [address] ALP [Catalytic activity/Vol] 81 Int._Unit/L Normal 21-98 [facility] Comment on above: Performed By: #### 2 [id number] #### [facility] [address] [place] [address] ALT No additional P-5'-P [Catalytic activity/Vol] 28 Int._Unit/L Normal 6-46 [facility] Comment on above: Performed By: #### 2 152686 #### [facility] [address] [place] [address] Anion gap [Moles/Vol] 17 mmol/L High 6-16 [facility] Comment on above: Performed By: #### 2 284961 #### [facility] [address] [place] [address] AST [Catalytic activity/Vol] 22 Int._Unit/L Normal 5-43 [facility] Comment on above: Performed By: #### 2 476873 #### [facility] [address] [place] [address] Bilirubin [Mass/Vol] 0.7 mg/dL Normal 0.0-1.1 [facility] Comment on above: Performed By: #### 2 [id number] #### [facility] [address] [place] [address] Calcium [Mass/Vol] 9.6 mg/dL Normal 8.9-11.1 [facility] Comment on above: Performed By: #### 2 854654 #### [facility] [address] [place] [address] Chloride [Moles/Vol] 106 mmol/L Normal 101-111 [facility] Comment on above: Performed By: #### 2 804948 #### [facility] [address] [place] [address] CO2 [Moles/Vol] 22 mmol/L Normal 21-31 [facility] Comment on above: Performed By: #### 2 152521 #### [facility] [address] [place] [address] Creatinine [Mass/Vol] 0.9 mg/dL Normal 0.5-1.3 [facility] Comment on above: Performed By: #### 2 739242 #### [facility] [address] [place] [address] Globulin (S) [Mass/Vol] 3.1 g/dL Normal 1.4-4.0 [facility] Comment on above: Performed By: #### 2 519107 #### [facility] [address] [place] [address] Glucose [Mass/Vol] 105 mg/dL Normal 55-199 [facility] Comment on above: Performed By: #### 2 878833 #### [facility] [address] [place] [address] Potassium [Moles/Vol] 3.8 mmol/L Normal 3.5-5.3 [facility] Comment on above: Performed By: #### 2 564904 #### [facility] [address] [place] [address] Protein [Mass/Vol] 7.2 g/dL Normal 6.0-7.8 [facility] Comment on above: Performed By: #### 2 642703 #### [facility] [address] [place] [address] Sodium [Moles/Vol] 141 mmol/L Normal 135-145 [facility] Comment on above: Performed By: #### 2 532161 #### [facility] [address] [place] [address] Urea nitrogen [Mass/Vol] 22 mg/dL High 5-21 [facility] Comment on above: Performed By: #### 2 392894 #### [facility] [address] [place] [address] Urea nitrogen/Creatinine [Mass ratio] 24 No Units High 10-20 [facility] Comment on above: Performed By: #### 2 292716 #### [facility] [address] [place] [address] Family Medicine Office/Clini c Noteon 12-15-2023 Family [...] Daily, # 30 tab(s), Refills(s) 11, Pharmacy: [facility] #[id number], 162, cm, 12/15/23 9:27:00 EDT, Height/Length Dosing, 197, kg, 12/15/23 9:27:00 EDT, Weight Dosing Comprehensive Metabolic Panel Est Preventative 40 to 64 years [address] Lipid Panel Thyroid Stimulating Hormone 2. Weight gain (R63.5: Abnormal weight gain) pt has gained 26 pounds since last visit. will start adipex. discussed making health food choices and increasing exercise Ordered: metoprolol, 50 mg = 1 tab(s), Oral, Daily, # 30 tab(s), Refills(s) 11, Pharmacy: [id number], 162, cm, 12/15/23 9:27:00 EDT, Height/Length Dosing, 197, kg, 12/15/23 9:27:00 EDT, Weight Dosing Est Preventative 40 to 64 years [address] 3. Hypertension (I10: Essential (primary) hypertension) BP at goal Ordered: metoprolol, 50 mg = 1 tab(s), Oral, Daily, # 30 tab(s), Refills(s) 11, Pharmacy: [facility]/pharmacy #[id number], 162, cm, 12/15/23 9:27:00 EDT, Height/Length Dosing, 197, kg, 12/15/23 9:27:00 EDT, Weight Dosing Comprehensive Metabolic Panel Est Preventative 40 to 64 years [address] Lipid Panel Thyroid Stimulating Hormone 4. BMI 70 and over, adult (Z68.45: Body mass index [BMI] 70 or greater, adult) BMI education given Ordered: metoprolol, 50 mg = 1 tab(s), Oral, Daily, # 30 tab(s), Refills(s) 11, Pharmacy: [facility]/pharmacy #6177, 162, cm, 12/15/23 9:27:00 EDT, Height/Length Dosing, 197, kg, 12/15/23 9:27:00 EDT, Weight Dosing Est Preventative 40 to 64 years [address] 5. Morbid obesity (E66.01: Morbid (severe) obesity due to excess calories) see above Ordered: metoprolol, 50 mg = 1 tab(s), Oral, Daily, # 30 tab(s), Refills(s) 11, Pharmacy: [facility]/pharmacy #6177, 162, cm, 12/15/23 9:27:00 EDT, Height/Length Dosing, 197, kg, 12/15/23 9:27:00 EDT, Weight Dosing Comprehensive Metabolic Panel Est Preventative 40 to 64 years [address] Lipid Panel Thyroid Stimulating Hormone 6. Non-smoker (Z78.9: Other specified health status) continue not smoking Ordered: metoprolol, 50 mg = 1 tab(s), Oral, Daily, # 30 tab(s), Refills(s) 11, Pharmacy: [facility]/pharmacy #6177, 162, cm, 12/15/23 9:27:00 EDT, Height/Length Dosing, 197, kg, 12/15/23 9:27:00 EDT, Weight Dosing Comprehensive Metabolic Panel Est Preventative 40 to 64 years [address] Lipid Panel Thyroid Stimulating Hormone Orders: buPROPion, 100 mg = 1 tab(s), Oral, BID, # 60 tab(s), Refills(s) 11, Pharmacy: [facility]/pharmacy #[id number], 162, cm, 11/03/22 9:18:00 EDT, Height/Length Dosing, 408, kg, 11/03/22 9:18:00 EDT, Weight Dosing buPROPion, 100 mg = 1 tab(s), Oral, BID, # 60 tab(s), Refills(s) 11, [facility], 162, cm, 12/15/23 9:27:00 EDT, Height/Length Dosing, 197, kg, 12/15/23 9:27:00 EDT, Weight Dosing buPROPion, See Instructions, TAKE 1 TABLET BY MOUTH TWICE A DAY, # 60 tab(s), Refills(s) 11, Pharmacy: [facility] [id number], 162, cm, 12/15/23 9:27:00 EDT, Height/Length Dosing, 197, kg, 12/15/23 9:27:00 EDT, Weight Dosing busPIRone, 5 mg = 1 tab(s), Oral, Daily, # 30 tab(s), Refills(s) 11, [id number], 162, cm, 12/15/23 9:27:00 EDT, Height/Length Dosing, 197, kg, 12/15/23 9:27:00 EDT, Weight Dosing busPIRone, 5 mg = 1 tab(s), Oral, Daily, # 30 tab(s), Refills(s) 5, [id number], 162, cm, 11/03/22 9:18:00 EDT, Height/Length Dosing, 408, kg, 11/03/22 9:18:00 EDT, Weight Dosing hydrochlorothiazide, 25 mg = 1 tab(s), Oral, Daily, 25 Unknown, oral, 1 Refill(s), Take 25 mg by mouth daily., # 30 tab(s), Refills(s) 11, Pharmacy: [facility]/pharmacy #61 (more content not included)... Normal [facility] Comment on above: Result Comment: Elec tronically Signed By: Billy Moscoso.br\Date and Time Signed: 12/15/23 10:14 EDT Lipid Panelon 12-15-2023 Cholesterol [Mass/Vol] 172 mg/dL Normal 120-200 [facility] Comment on above: Performed By: #### 2 [id number] #### [facility] [address] [place] [address] Cholesterol in HDL [Mass/Vol] 39 mg/dL Invalid Interpretation Code [facility] Comment on above: Result Comment: '>= 60 LOW RISK' '<= 40 HIGH RISK' Performed By: #### 2 585076 #### [facility] [address] [place] [address] Cholesterol in LDL [Mass/Vol] 118 mg/dL Normal <=129 [facility] Comment on above: Performed By: #### 2 844243 #### [facility] [address] [place] [address] Cholesterol in VLDL [Mass/Vol] 28 mg/dL Normal 7-40 [facility] Comment on above: Performed By: #### 2 442627 #### [facility] [address] [place] [address] Triglyceride [Mass/Vol] 142 mg/dL Normal <=149 [facility] Comment on above: Performed By: #### 2 032278 #### [facility] [address] [place] [address] TSHon 12-15-2023 TSH Qn 1.22 m[IU]/L Normal 0.34-5.60 [facility] Comment on above: Performed By: #### 2 452229 #### [facility] [address] [place] [address] eGFRon 12-15-2023 eGFR 81 mL/min/1.73 m2 Normal >=59 [facility] Comment on above: Order Comment: Order added by Discern Expert. Performed By: #### 1 [id number] #### [facility] [address] [place] [address] Consultation Noteon 08-11-19 Consultation Note [id number] IFF Normal [facility] XR ankle LT min 3V*on 2023 XR ankle LT min 3V* [address] [place] [address] XRay Report Signed Patient: Daniella Mancera MR#: [id number] : 1980 Acct:[id number] Age/Sex: 42 / F ADM Date: 08/09/23 Loc: XDUCLY Room: Type: [facility] Attending Dr: Oneida TORRES Copies to: MELISSA [...] SPURRING. Impression dictated by: Aldo Hernandez Jr., DCampbellOCampbell08/09/2023 11:03 AM Dictation Location: [place] [address] Transcribed By: [facility] 08/09/23 1103 Dictated By: Aldo Hernandez Jr, DO 08/09/23 1103 Signed By: 08/09/23 1103 Normal [facility] Consultation Noteon 01-21-20 Consultation Note [id number] D:127 Normal [facility] Cytology Cervical or vaginal smear or scraping studyon 12-13-2022 [facility] CHEMISTRYOrdered By: SYSTEM SYSTEM on 11-03-2022 Cholesterol [...] 1.25 m[IU]/L Normal 0.34 - 5.60 mcIU/mL [facility] Remisol MG MAMM SCREEN 3D NERI CADon 01-03-2022 MG MAMM SCREEN 3D NERI CAD Patient: DANIELLA MANCERA Exam Date: 01/03/2022 : 1980 Gender:F Ordering : DR SRIKANTH BOLDEN . Admission #: [id number] Family : JARED SHEARER Order #: [id number] CLICK HERE TO VIEW EXAM RADIOLOGY REPORT PROCEDURE: MAMMOGRAM SCREENING 3D BILATERAL CAD COMPARISON: None. INDICATIONS: Screening mammography Calculator Name NCI Breast Cancer Risk Assessment Tool 5 Year Breast Cancer Risk 0.80% Lifetime Breast Cancer Risk 11.90% Personal Breast Cancer No Personal Ovarian Cancer No Treatments hysterectomy and chemotherapy Family Cancers Aunt-maternal with breast cancer at age 81. LOCATION: [facility] BREAST COMPOSITION: Almost entirely fatty. FINDINGS: DIAGNOSTIC CATEGORY 2--BENIGN FINDING: RIGHT BREAST: No significant suspicious finding. Port-A-Cath. LEFT BREAST: No significant suspicious finding. Scattered benign-appearing calcifications are present. RECOMMENDATIONS: ROUTINE MAMMOGRAM AND CLINICAL EVALUATION IN 12 MONTHS. PLEASE NOTE: A NORMAL MAMMOGRAM DOES NOT EXCLUDE THE POSSIBILITY OF BREAST CANCER. A CLINICALLY SUSPICIOUS PALPABLE LUMP SHOULD BE BIOPSIED. Dictated by: Marco Antonio Heller M.D. on 01/03/2022 at 15:56 Approved by: Marco Antonio Heller M.D. on 01/03/2022 at 15:59 [facility] PAP ACOG PANEL 2: 30 to 65on 12-01-2021 . . Normal [facility] Comment on above: Result Comment: Perf ormed at: WB Performed By: #### 4 [id number] #### [facility] [address] [place] [address] [address] Billy Parikh Age Gdln ACOG Testing 30-65 Normal [facility] Comment on above: Performed By: #### 4 [id number] #### [facility] [address] [place] [address] [address] Billy Parikh DIAGNOSIS: Comment Normal [facility] Comment on above: Result Comment: NEGA TIVE FOR INTRAEPITHELIAL LESION OR MALIGNANCY. Performed at: WB Performed By: #### 4 [id number] #### [facility] [address] [place] [address] Dr. Billy Parikh HPV Aptima Negative Normal Negative [facility] Comment on above: Result Comment: This nucleic acid amplification test detects fourteen high-risk HPV types (16,18,31,33,35,39,45,51,52,56,58,59,66,68) without differentiation. Performed at: =G Performed By: #### 4 [id number] #### [facility] [address] [place] [address] Dr. Billy Parikh Methodology: CTIM Normal [facility] Comment on above: Result Comment: The Thin Prep(R) Machine Deburrer was unable to read this specimen. Therefore a manual review was performed. Performed at: WB Performed By: #### 4 [id number] #### [facility] [address] [place] [address] Dr. Billy Parikh Note: Comment Normal [facility] Comment on above: Result Comment: The Pap smear is a screening test designed to aid in the detection of premalignant and malignant conditions of the uterine cervix. It is not a diagnostic procedure and should not be used as the sole means of detecting cervical cancer. Both false-positive and false-negative reports do occur. . Performed at: WB Performed By: #### 4 [id number] #### [facility] [address] [place] [address] Dr. Billy Parikh Performed by: Comment Normal [facility] Comment on above: Result Comment: Nish Wolff Consumer Marketing Analyst (ASCP) Performed at: WB Performed By: #### 4 [id number] #### [facility] [address] [place] [address] Dr. Billy Parikh Specimen adequacy: Comment Normal [facility] Comment on above: Result Comment: Sati sfactory for evaluation. No endocervical component is identified. Performed at: WB Performed By: #### 4 [id number] #### [facility] [address] [place], [place] [id number] Dr. Billy Parikh PROGRESSon 12-18-2016 PROGRESS HNO ID: [id number]: Stephie Looneyice: (none)Author Type: PhysicianType: Progress NotesFiled: 12/18/2016 11:00 [...] pap: No.No past surgical history on file. [place] teeth removalPAST MEDICAL HISTORYDiagnosis Date- Abnormal uterine [...] rest, lower extremity edema,or palpitations. No recent ID (within 6 months), cardiac stent, cardiacsurgery, gangrene, [...] kg (397 lb 6.4 oz) BMI 66.13 kg/y1DVGQCAS: Patient is a well developed, well nourished [...] copy of this office note were sent to:Srikanth Bolden, [id number] [facility] Hospital[facility] [place] [id number]:Allison Choi MD (PCP) Normal [facility] CNCOon 12-14-2016 CNCO Letter JimboDegayle Mancera:How to activate your [facility] [email or web address] Account 1. Visit the [email or web address] Signup page at [email or web address] 2. Identify yourself using your one-time use activation code: [email or web address] 3. Follow the on-screen prompts to choose your own secure username andpasswordThe following information will be necessary to access your account for thefirst time:Information needed for sign-up:Your custom activation code used one-time only for the initial accountset-up.Your date of birthThe last 4 digits of your social security numberWhat to do next:Fill in the requested information on the Identify Yourself Form [email or web address] , click Next.Create your login and password, choose a [email or web address] ID and password that will beeasy for you to use, but impossible for anyone else to guess.Pick a security question that will assist you in the event you forget yourpassword the next time you log-on.If you have difficulty activating your account, please call our [employer] at [phone] or toll free at .We hope you enjoy using [email or web address]!Kindest Regards,[facility] Streemiot Team Normal [facility] CNOVon 12-14-2016 CNOV Office Visit (GYNOSA) LILIANA DANIELLA GONSALES ([id number]) 1980 FDate Time Provider Department12/14/16 3:00 PM [...] pap: No.No past surgical history on file. [place] teeth removalPAST MEDICAL HISTORYDiagnosis Date- Abnormal uterine [...] rest, lower extremity edema, orpalpitations. No recent ID (within 6 months), cardiac stent, cardiac surgery,gangrene, [...] kg (397 lb 6.4 oz) BMI 66.13 kg/u7GAHOIKC: Patient is a well developed, well nourished [...] copy of this office note were sent to:Srikanth Bolden, [id number] [facility] [id number]:Allison Choi MD (PCP)Referring Provider: SRIKANTH BOLDEN [[id number]]Allergies As of Date: 12/14/2016(No Known Allergies)Date Reviewed: 12/14/2016Reviewed by: Sadia Parry - Fully AssessedReason for Visit: abnormal uterine [...] encounter CLONIDINE HCL 0.1 MG TABLET >> Sadia Parry 12/14/2016 2:43 PM >> SHASHA JulyDec 14, 2016 2:43 PM Received from: External Pharmacy KLOR-CON M10 MEQ TABLET,EXTENDED RELEASE >> July Parry 12/14/2016 2:43 PM >> PARRYJulyDec 14, 2016 2:43 PM Received from: External Pharmacy HYDROCODONE 5 MG-ACETAMINOPHEN 325 MG TABLET >> July Parry 12/14/2016 2:43 PM >> PARRYJulyDec 14, 2016 2:43 PM Received from: External Pharmacy HYOSCYAMINE SULFATE 0.125 MG TABLET >> July Parry 12/14/2016 2:43 PM >> SHASHAJulyDec 14, 2016 2:43 PM Received from: External [...] Erroneous entryFollow-up and Disposition History RecordedEncounter Number: [id number] Status:Closed by STEPHIE HOLLIDAY MD on 12/18/16 Normal [facility] WA-US PELVIS & TRANSVAG IMPO RTon 10-20-2016 WA-US PELVIS & TRANSVAG IMPORT Images were obtained outside of [facility] Normal [facility] Vital Signs Date Time Vital Sign Value Performing Clinician Facility 10-21-2024 10: Body height 162.56 cm Billy Okeefe NP-C Work Phone: [facility] 10-21-2024 10: Body mass index (BMI) [Ratio] 60.2 kg/m2 Billy Okeefe COMPUTER SUPPORT ANALYST-C Work Phone: [facility] 10-21-2024 10:14-0400 Body temperature 97.4 [degF] Billy Shannon COMPUTER SUPPORT ANALYST-C Work Phone: [facility] 10-21-2024 10:14-0400 Body weight 159.38 kg Billy Shannon COMPUTER SUPPORT ANALYST-C Work Phone: [facility] 10-21-2024 10:14-0400 Diastolic blood pressure 93 mm[Hg] Billy Shannon COMPUTER SUPPORT ANALYST-C Work Phone: [facility] 10-21-2024 10:14-0400 Heart rate 78 /min Billy Shannon COMPUTER SUPPORT ANALYST-C Work Phone: [facility] 10-21-2024 10:14-0400 Respiratory rate 18 /min Billy Shannon COMPUTER SUPPORT ANALYST-C Work Phone: [facility] 10-21-2024 10:14-0400 SaO2% (BldA) [Mass fraction] 99 % Billy Shannon COMPUTER SUPPORT ANALYST-C Work Phone: [facility] 10-21-2024 10:14-0400 Systolic blood pressure 139 mm[Hg] Billy Shannon COMPUTER SUPPORT ANALYST-C Work Phone: [facility] 07-17-2024 09:14-0400 Body height 165.1 cm Roxanna RAYO [facility] 07-17-2024 09:14-0400 Body mass index (BMI) [Ratio] 61.54 kg/m2 Roxanna Gooden PA Work Phone: [facility] 07-17-2024 09:14-0400 Body temperature 98.2 [degF] Roxanna Gooden PA Work Phone: [employer] 07-17-2024 09:14-0400 Body weight 167.74 kg Roxanna Gooden PA [facility] 07-17-2024 09:14-0400 Diastolic blood pressure 83 mm[Hg] Roxanna Gooden PA Work Phone: [facility] 07-17-2024 09:14-0400 Heart rate 81 /min Roxanna Gooden PA [facility] 07-17-2024 09:14-0400 Respiratory rate 18 /min Roxanna Gooden PA [facility] 07-17-2024 09:14-0400 SaO2% (BldA) [Mass fraction] 100 % Roxanna Gooden PA [facility] 07-17-2024 09:14-0400 Systolic blood pressure 130 mm[Hg] Roxanna Gooden PA [facility] 01-17-2024 09:00-0400 Body height 165.1 cm Roxanna Gooden PA [facility] 01-17-2024 09:00-0400 Body mass index (BMI) [Ratio] 68.39 kg/m2 Roxanna Gooden PA [facility] 01-17-2024 09:00-0400 Body temperature 98.2 [degF] Roxanna Gooden PA [facility] 01-17-2024 09:00-0400 Body weight 186.43 kg Roxanna Gooden PA [facility] 01-17-2024 09:00-0400 Diastolic blood pressure 88 mm[Hg] Roxanna Gooden PA [facility] 01-17-2024 09:00-0400 Heart rate 84 /min Roxanna Gooden PA [facility] 01-17-2024 09:00-0400 Respiratory rate 18 /min Roxanna Gooden PA [facility] 01-17-2024 09:00-0400 SaO2% (BldA) [Mass fraction] 99 % Roxanna Gooden PA Work Phone: [facility] 01-17-2024 09:00-0400 Systolic blood pressure 135 mm[Hg] Roxanna Gooden PA Work Phone: [facility] 12-19-2023 08:48-0400 Body height 162.6 cm Srikanth Yuan DO Work Phone: [facility] 12-19-2023 08:48-0400 Body mass index (BMI) [Ratio] 73.98 kg/m2 Srikanth Yuan DO Work Phone: [facility] 12-19-2023 08:48-0400 Body weight 195.5 kg Srikanth Yuan DO Work Phone: [facility] 12-19-2023 08:48-0400 Diastolic blood pressure 72 mm[Hg] Srikanth Yuan DO Work Phone: [facility] 12-19-2023 08:48-0400 Systolic blood pressure 128 mm[Hg] Srikanth Yuan DO Work Phone: [facility] 08-09-2023 10:15-0400 Body temperature 99.2 [degF] COMPUTER SUPPORT ANALYST-C Billy Shannon Work Phone: [facility] 08-09-2023 10:15-0400 Body weight 195.49 kg COMPUTER SUPPORT ANALYST-C Billy Shannon Work Phone: [facility] 08-09-2023 10:15-0400 Diastolic blood pressure 98 mm[Hg] COMPUTER SUPPORT ANALYST-C Billy Shannon Work Phone: [facility] 08-09-2023 10:15-0400 Heart rate 67 /min COMPUTER SUPPORT ANALYST-C Billy Shannon Work Phone: [facility] 08-09-2023 10:15-0400 Respiratory rate 18 /min COMPUTER SUPPORT ANALYST-C Billy Shannon Work Phone: [facility] 08-09-2023 10:15-0400 SaO2% (BldA) [Mass fraction] 98 % COMPUTER SUPPORT ANALYST-C Billy Shannon Work Phone: [facility] 08-09-2023 10:15-0400 Systolic blood pressure 148 mm[Hg] COMPUTER SUPPORT ANALYST-C Billy Okeefe Work Phone: [facility] 07-18-2023 09:03-0400 Body height 165.1 cm Roxanna Gooden PA [facility] 07-18-2023 09:03-0400 Body mass index (BMI) [Ratio] 71.39 kg/m2 Roxanna Gooden PA Work Phone: [facility] 07-18-2023 09:03-0400 Body temperature 98.01 [degF] Roxanna Gooden PA Work Phone: [facility] 07-18-2023 09:03-0400 Body weight 194.59 kg Roxanna Gooden PA [facility] 07-18-2023 09:03-0400 Diastolic blood pressure 98 mm[Hg] Roxanna Gooden PA Work Phone: [facility] 07-18-2023 09:03-0400 Heart rate 74 /min Roxanna Gooden PA Work Phone: [facility] 07-18-2023 09:03-0400 Respiratory rate 18 /min Roxanna Gooden PA [facility] 07-18-2023 09:03-0400 SaO2% (BldA) [Mass fraction] 99 % Roxanna Gooden PA Work Phone: [facility] 07-18-2023 09:03-0400 Systolic blood pressure 152 mm[Hg] Roxanna Gooden PA Work Phone: [facility] 04-19-2023 09:06-0500 Body height 165.1 cm Roxanna Gooden PA Work Phone: [facility] 04-19-2023 09:06-0500 Body mass index (BMI) [Ratio] 71.66 kg/m2 Roxanna Gooden PA Work Phone: [facility] 04-19-2023 09:06-0500 Body temperature 97.9 [degF] Roxanna Gooden PA [facility] 04-19-2023 09:06-0500 Body weight 195.32 kg Roxanna Gooden PA [facility] 04-19-2023 09:06-0500 Diastolic blood pressure 91 mm[Hg] Roxanna Gooden PA Work Phone: [facility] 04-19-2023 09:06-0500 Heart rate 79 /min Roxanna Gooden PA [facility] 04-19-2023 09:06-0500 Respiratory rate 18 /min Roxanna Wanne PA [facility] 04-19-2023 09:06-0500 SaO2% (BldA) [Mass fraction] 97 % Roxanna Wanne PA [facility] Phone[facility] 04-19-2023 09:06-0500 Systolic blood pressure 143 mm[Hg] Roxanna Wanne PA [facility] Phone[facility] En[facility] Encounter Date Encounter Type Care Provider Facility Start: 12-11-2024 ambulatory Billy Okeefe Facility: [facility] Start: 10-30-2024 End: 10-31-2024 Refill Roxanna Gooden PA Work Phone: [facility] Comment on above: Hot flash, menopausa l Start: 10-21-2024 End: 10-21-2024 ambulatory Billy Okeefe COMPUTER SUPPORT ANALYST-C Work Phone: [facility] Work Phone: Start: 10-21-2024 End: 10-21-2024 Patient encounter procedure Kirssy Morelos MD -[facility] Work Phone: Start: 09-10-2024 End: 09-10-2024 ambulatory Billy L Shannon Facility:[facility] [place] Start: 07-24-2024 End: 07-25-2024 Lab Drop off Billy L Shannon [facility] Start: 07-24-2024 End: 07-25-2024 ambulatory Billy L Shannon Facility:[facility] [place] Start: 07-23-2024 End: 07-24-2024 Refill Roxanna RAYO Work Phone: [facility] - [facility] On[facility] Start: 07-17-2024 End: 07-17-2024 ambulatory ROXANNA GOODEN [facility] Start: 07-17-2024 End: 07-17-2024 Office outpatient visit 25 minutes Roxanna RAYO Work Phone: [facility] - Medical Oncology Comment on above: Endometrial cancer, FIGO stage IIIA ([facility]) (Primary Dx); Electrolyte abnormality; Obesity, morbid ([facility]); Hypomagnesemia; Hypokalemia; Iron deficiency anemia due to chronic blood loss Start: 06-23-2024 End: 06-24-2024 Refill Roxanna RAYO Work Phone: [facility] - [facility] Oncology Comment on above: Hypokalemia Start: 06-12-2024 End: 06-12-2024 Lab Drop off Billy L Shannon [facility] Start: 06-12-2024 End: 06-12-2024 ambulatory Billy L Shannon Facility:[facility] Start: 05-17-2024 ambulatory Billy L Shannon Facility: [facility] [place] Start: 03-12-2024 End: 03-12-2024 ambulatory Billy L Shannon Facility:[facility] [place] Start: 02-13-2024 End: 02-13-2024 ambulatory Billy L Shannon Facility:[facility] [place] Start: 01-17-2024 End: 01-17-2024 ambulatory WHEELCHAIR DRIVER Billy Okeefe Facility:[facility] Start: 01-17-2024 End: 01-17-2024 Office outpatient visit 25 minutes Roxanna RAYO Work Phone: [facility] - Medical Oncology Comment on above: Endometrial cancer, FIGO stage IIIA ([facility]) (Primary Dx); Hot flash, menopausal; Hypokalemia; Hypomagnesemia; Electrolyte abnormality; Counseling on health promotion and disease prevention Start: 01-17-2024 End: 01-17-2024 ambulatory [facility] Start: 01-12-2024 End: 01-12-2024 ambulatory [facility] Start: 12-19-2023 End: 12-19-2023 Bamboo flowsheet Srikanth Yuan DO Work Phone: [facility] Start: 12-19-2023 End: 12-19-2023 Bamboo flowsheet Srikanth Yuan DO Work Phone: [facility] Start: 12-19-2023 End: 12-19-2023 Clinisync Result Encounter Srikanth Yuan DO Work Phone: [facility] Unsolicited Start: 12-19-2023 End: 12-19-2023 ambulatory SRIKANTH YUAN Not Available Start: 12-19-2023 End: 12-19-2023 Patient encounter procedure Srikanth Yuan DO Work Phone: [facility] Work Phone: Start: 12-19-2023 End: 12-19-2023 Periodic preventive med est patient 40-64yrs Srikanth Yuan DO Work Phone: [facility] Comment on above: Well woman exam with routine gynecological exam; Breast cancer screening by mammogram; Insulin resistance Start: 12-15-2023 End: 12-15-2023 Lab Drop off Billy Okeefe [facility] Start: 12-15-2023 End: 12-15-2023 ambulatory WHEELCHAIR DRIVER Billy Okeefe Facility:[facility] [place] Start: 12-03-2023 End: 12-04-2023 Refill Roxanna RAYO Work Phone: [facility] - Medical Oncology Comment on above: Hot flash, menopausa l Start: 10-22-2023 End: 10-23-2023 Refill Roxanna RAYO Work Phone: [facility] Start: 10-12-2023 End: 10-12-2023 Refill Roxanna RAYO Work Phone: [facility] - Medical Oncology Comment on above: Hypokalemia Start: 08-09-2023 End: 08-09-2023 ambulatory Oneida Gold Facility:[facility] Start: 08-09-2023 End: 08-09-2023 ambulatory COMPUTER SUPPORT ANALYST-C Billy Okeefe Work Phone: [facility] Work Phone: Start: 08-09-2023 End: 08-09-2023 Patient encounter procedure COMPUTER SUPPORT ANALYST-Karol Okeefe Work Phone: [facility] Work Phone: Start: 07-25-2023 Refill Roxanna RAYO Work Phone: [facility] - Medical Oncology Comment on above: Iron deficiency anem ia due to chronic blood loss Start: 07-18-2023 End: 07-18-2023 Office outpatient visit 25 minutes Roxanna RAYO Work Phone: [facility] - [facility] Oncology Comment on above: Endometrial cancer, FIGO stage IIIA ([facility]) (Primary Dx); Electrolyte abnormality; Iron deficiency anemia due to chronic blood loss; Obesity, morbid (CMS-HCC); Hot flash, menopausal; Hypomagnesemia Start: 07-06-2023 Orders Only [facility] Comment on above: Endometrial cancer, FIGO stage IIIA ([facility]) (Primary Dx) Start: 06-16-2023 Refill Roxanna RAYO Work Phone: [facility] - [facility] Oncology Comment on above: Hypokalemia Start: 04-22-2023 Refill Roxanna RAYO Work Phone: [facility] Start: 04-19-2023 End: 04-19-2023 Office outpatient visit 25 minutes Roxanna RAYO Work Phone: [facility] - [facility] Comment on above: Endometrial cancer, FIGO stage IIIA ([facility]) (Primary Dx); Electrolyte abnormality; Obesity, morbid ([facility]) Start: 04-07-2023 End: 04-07-2023 ambulatory WHEELCHAIR DRIVER Billy Okeefe Facility:[facility] Start: 11-03-2022 End: 11-03-2022 Lab Drop off Billy Okeefe [facility] Start: 01-03-2022 End: 01-04-[address] ALLISON CHOI Facility:[facility] Start: 11-25-2021 End: 11-25-[address] SRIKANTH BOLDEN Facility:[facility] Start: 01-27-2021 End: 04-21-2021 Preoperative state Roxanna RAYO Work Phone: [facility] Start: 12-14-2016 End: 12-14-2016 Ambulatory STEPHIE HOLLIDAY [facility] Procedures Date Procedure Procedure Detail Performing Clinician Start: 01-17-2024 Follow-up visit Follow-up ALEXIA GOODEN Start: 12-19-2023 MLR HEMOGLOBIN A1C Carter Bolden DO Work Phone: Start: 08-09-2023 X-ray of left ankle COMPUTER SUPPORT ANALYST- C Billy Okeefe Work Phone: Start: 12-13-2022 Cytp cerv/vag auto t hin layer prep mnl screen [facility] Yuan Nurse Start: 11-18-2021 Port (substance) Billy york Comment on above: port remmoved 07/2022 infusion port placed Start: 03-10-2021 Chemotherapy Billy peterson Start: 02-10-2021 Hysterectomy Billy peterson Comment on above: uterine caner Dilation and curetta ge of uterus Billy Okeefe Plan of Treatment Date Care Activity Detail Author Start: 07-17-2025 Adult BMI Screening Adult BMI Screen ing [facility] Start: 07-17-2025 Tobacco Screening Tobacco Screening [facility] Start: 01-22-2025 End: 01-22-2025 Patient encounter procedure 01/22/2025 9:00 AM EDT Office Visit [facility]ita L [facility] - Medical Oncology [address] [place] [address] [phone] Roxanna Gooden PA [address] [place] [address] [facility] Start: 01-16-2025 Adult BMI Screening Adult BMI Screen ing [facility] Start: 12-23-2024 Influenza vaccination Influenza Vacc ine [facility] Start: 12-19-2024 End: 12-19-2024 Patient encounter procedure 12/19/2024 8:30 AM EDT Office Visit [facility] [address] [place] [phone] Srikanth Bolden DO [address] [place] [place] [address] [facility] Start: 07-17-2024 Adult BMI Screening Adult BMI Screen ing [facility] Start: 07-17-2024 End: 07-17-2024 Patient encounter procedure 07/17/2024 9:00 AM EDT Office Visit Juanita Ruben [facility] - Medical Oncology [address] [place] [phone] Roxanna Gooden PA [address] [facility] [place] [address] Juanitaterry Echols [facility] - [facility] Oncology Start: 04-19-2024 Adult BMI Screening Adult BMI Screen ing [facility] Start: 01-17-2024 End: 01-17-2024 Patient encounter procedure 01/17/2024 9:00 AM EDT Office Visit Juanitaterry Echols [facility] - Medical Oncology [address] [place] [phone] Roxanna Gooden PA [address] [place] [address] Juanitaterry Echols [facility] Medical Oncology Start: 12-24-2023 Influenza vaccination Influenza Vacc ine [facility] Start: 12-19-2023 End: 02-17-2025 MG Breast - bilateral Screening Bilateral screening mammogram Imaging Routine Breast cancer screening by mammogram Expected: 12/19/2023 (Approximate), Expires: 02/17/2025 [facility] [employer] Work Phone: Comment on above: Expected: 12/19/2023 (Approximate), Expires: 02/17/2025 Start: 07-18-2023 End: 07-18-2023 Patient encounter procedure 07/18/2023 9:00 AM EDT Office Visit Juanita Echols [facility] Medical Oncology [address] [place] [phone] Roxanna Gooden PA [address] [place] [address] Juanitaterry Echols [facility] Medical Oncology Start: 12-23-2022 Influenza vaccination Influenza Vacc ine [facility] Start: 10-20-2022 Tobacco Screening Tobacco Screening [facility] Start: 11-05-1998 DTaP,Tdap and Td Vaccines (1 - Tdap) DTaP,Tdap and Td Vaccines (1 - Tdap) [facility] Start: 11-05-1997 Adult BMI Follow Up Plan Adult BMI Follow [facility] Plan [facility] Start: 1991 Depression Screening Depression Scre ening [facility] Start: 1991 Tobacco Screening Tobacco Screening [facility] End: 07-17-2024 CBC W Auto Differential panel - Blood CBC with auto diff Lab Routine Iron deficiency anemia due to chronic blood loss 1 Occurrences starting 07/18/2023 until 07/17/2024 [employer] Work Phone: Comment on above: 1 Occurrences starti ng 07/18/2023 until 07/17/2024 End: 07-05-2024 Comprehensive metabolic 2000 panel - Serum or Plasma Comprehensive metabolic panel Lab Routine Endometrial cancer, FIGO stage IIIA ([facility]) 1 Occurrences starting 07/06/2023 until 07/05/2024 [employer] Work Phone: Comment on above: 1 Occurrences starti ng 07/06/2023 until 07/05/2024 End: 07-17-2024 Comprehensive metabolic 2000 panel - Serum or Plasma Comprehensive metabolic panel Lab Routine Electrolyte abnormality 1 Occurrences starting 07/18/2023 until 07/17/2024 [employer] Comment on above: 1 Occurrences starti ng 07/18/2023 until 07/17/2024 Hemoglobin A1c/Hemoglobin.total in Blood Hemoglobin A1c Lab Routine Insulin resistance Ordered: 12/19/2023 [facility] Comment on above: Ordered: 12/19/2023 End: 07-05-2024 Magnesium [Mass/volume] in Serum or Plasma Magnesium Lab Routine Endometrial cancer, FIGO stage IIIA ([facility]) 1 Occurrences starting 07/06/2023 until 07/05/2024 [facility] Comment on above: 1 Occurrences starti ng 07/06/2023 until 07/05/2024 End: 07-17-2024 Magnesium [Mass/volume] in Serum or Plasma Magnesium Lab Routine Electrolyte abnormality 1 Occurrences starting 07/18/2023 until 07/17/2024 [facility] Comment on above: 1 Occurrences starti ng 07/18/2023 until 07/17/2024 Renal function 2000 panel - Serum or Plasma [facility] THIN PREP TIS PAP AN D HR HPV DNA THIN PREP TIS PAP AND HR HPV DNA Pathology and Cytology Routine Well woman exam with routine gynecological exam Ordered: 12/19/2023 [facility] Comment on above: Ordered: 12/19/2023 US Kidney - bilateral [facility] XR Ankle - left GE 3 Views [facility] Immunizations Immunization Date Immunization Notes Care Provider Dariela jordanbita 08[birth year]09[birth year]1997 hepatitis B vaccine, pediatric or pediatric/adolescent dosage Billy Okeefe [facility] Payers Date Payer Category Payer Self-pay [id number] 2020 [employer] are - [employer] Member Subscriber Plan / Payer (Effective 2020-Present) Name: Daniella Mancera Relation to Subscriber: Self Name: Daniella Mancera Payer ID: Not on file Type: Not on file Address: [place] [id number] 2020 Unknown [id number] 1979 Unknown [id number] [id number]. 593 1979 Unknown [id number] [id number]. 593 1979 Unknown [id number] 2..840.1.706360.3.579.2. 1259 1979 Unknown [id number] 2.16.840.1.949357.3.579.2. 727 1979 Unknown [id number] 2.16.840.1.700004.3.579.2. 727 1979 Unknown [id number] 2.16.840.1.494991.3.579.2. 1979 Unknown [id number] 2.16.840.1.772399.3.579.2. 1979 Unknown [id number] 2.16.840.1.242384.3.579.2. 1285 1979 Unknown [id number] 2.16.840.1.938808.3.579.2. 1285 1979 Unknown [id number]. [id number] 1979 Unknown [id number] [id number] 1979 Unknown [id number] [id number] 1979 Unknown [id number] 2.16.840.1.332733.3.579.2. 1979 Unknown [id number] 2.16.840.1.295071.3.579.2. 1979 Unknown [id number] 2.16.840.1.441484.3.579.2. 1979 Unknown [id number] 2.16.840.1.340386.3.579.2. 1979 Unknown [id number] 2.16.840.1.178200.3.579.2. 1979 Unknown [id number] 2.16.840.1.840644.3.579.2. 1979 Unknown [id number] 2.16.840.1.265708.3.579.2. 1979 Unknown [id number] 2.16.840.1.662338.3.579.2. 72 1959 Unknown [id number] Private Health Insurance [facility] [id number] Unknown [id number]. 531 Social History Date Type Detail Facility Start: 01-25-2021 End: 11-03-2022 Tobacco smoking status Never smoked tobacco (finding) [facility] Tobacco smoking status Never [facility] Start: 10-20-2021 End: 07-16-2024 Sex Assigned At Female [facility] Start: 1980 Sex Assigned At Female [facility] Tobacco smoking stat [facility] Tobacco smoking consumption unknown [facility] Start: 06-24-2021 Gender identity Identifies as female gender (finding) [facility] Start: 06-24-2021 Sexual orientation Heterosexual (finding) [facility] Start: 01-25-2021 Tobacco use and exposure Smokeless tobacco non-user [facility] Start: 10-20-2021 End: 07-17-2024 Alcohol intake Ex-drinker (finding) [facility] Start: 10-20-2021 End: 07-16-2024 History of Social function [facility] Start: 01-18-2021 Sex Female (finding) [facility] How hard is it for y ou to pay for the very basics like food, housing, medical care, and heating Not very hard [facility] Sexual Orientation [facility] Medical Equipment Procedure Code Equipment Code Equipment Origin al Text Equipment Identifier Dates Port Powerport D uo Mri Argd 9.5fr 2 Lum Pwr Inj Rad Trnlu Rpl [id number] - [id number] , [id number] [facility] Start: 03-11-2021 Clinical Notes 04-19-2023 to 07-17-2024 PERRI Farrell - 07/17/2024 9:00 AM PERRI Perry - 01/17/2024 9:00 AM Gely Smart LPN - 12/19/2023 8:30 AM PERRI Perry - 07/18/2023 9:00 AM EDT Note Date & Type Note Facility 07-17-2024 History of Present illness Narrative Subjective: Daniella Mancera is a 43 y.o. female who is here for surveillance for her stage IIIA endometrial adenocarcinoma, grade 3. Patient reports doing well. Hot flashes are mostly controlled with taking gabapentin 200 mg at night. She has lost about 70 lb in the last two years with continued diet and exercise changes. She was also placed on metformin by Dr. Bolden and Adipex by Billy Okeefe NP (PCP). Her blood pressure is well controlled. She reports occasional stomach upset, diarrhea, nausea with metformin but otherwise feels like she is tolerating these well. She had her port removed in July [...] scans JAS. Endometrial cancer, FIGO stage IIIA ([facility]) 02/23/2021 Initial Diagnosis Endometrial cancer ([facility]) 07/14/2021 Remission Daniella Mancera Denies Early satiety [...] 02/10/2021 Performed by Jared Shearer MD at [facility] HYSTERECTOMY BILATERAL SALPINGO-OOPHORECTOMY N/A 02/10/2021 Performed by Jared Shearer MD at [facility] DILATION AND CURETTAGE OF UTERUS 12/2020 WISDOM TOOTH EXTRACTION Past Medical History: Diagnosis Date Abnormal uterine bleeding Anxiety Arthritis Chronic anemia Depression Endometrial ca ([facility]) 12/2020 Endometrial polyp Hypertension Iron deficiency anemia [...] Social History Socioeconomic History Marital status: Single Tobacco Use Smoking status: Never Smokeless tobacco: Never Substance and Sexual Activity Alcohol use: Not Currently Drug use: Never Sexual activity: Defer Other Topics Concern Caffeine Use Yes Social Drivers of Health Financial Resource Strain: Low Risk (07/16/2024) Overall Financial Resource Strain (CARDIA) Difficulty of Paying Living Expenses: Not very hard Food Insecurity: No Food Insecurity (07/16/2024) Hunger Screening Food Insecurity - Worry: Never True Food Insecurity - Inability: Never True Transportation Needs: No Transportation Needs (07/16/2024) PRAPARE - Transportation Lack of Transportation (Medical): No Lack of Transportation (Non-Medical): No Housing Instability: Low Risk (07/16/2024) Housing Instability Housing Instability: No Review of Symptoms: Pertinent items are noted in HPI. Objective: BP 130/83 Pulse 81 Temp 36.8 C (98.2 F) (Oral) Resp 18 Ht 165.1 cm (5' 5 ) Wt (!) 167.7 kg (369 lb 12.8 oz) LMP 01/29/2021 SpO2 100% BMI 61.54 kg/m ECO- Asymptomatic Physical Exam: General: alert, appears stated age and cooperative Heart: regular rate and rhythm Lungs: clear to auscultation bilaterally Abdomen: soft, non-tender, without masses or organomegaly Vulva: normal, Bartholin's, Urethra, Funk's normal. Vagina: Atrophy: no Vaginal Cuff: yes [...] Labs: Lab Results Component Value Date WBC 6.9 01/12/2024 HGB 14.5 01/12/2024 HCT 41.8 01/12/2024 MCV 85 01/12/2024 PLT 279 01/12/2024 Lab Results Component Value Date GLU 105 (H) 01/12/2024 CALCIUM 9.7 01/12/2024 SODIUM 137 01/12/2024 K 3.6 01/12/2024 CO2 24 01/12/2024 BUN 36 (H) 01/12/2024 CREATININE 1.30 (H) 01/12/2024 No results found for: CA125 Assessment: Patient is diagnosed with Patient Active Problem List Diagnosis Obesity, morbid ([facility]) Endometrial cancer, FIGO stage IIIA ([facility]) Electrolyte abnormality Plan: 1. Stage IIIA endometrial cancer - She has completed the SOC regimen with 6 cycles Carbo/Taxol. No evidence of recurrence on today's exam. - We discussed signs and symptoms of recurrence including bleeding, pain, changes in bowel or bladder habits encouraging her to call with any changes. RTC in 6 months. - mammogram up to date and wnl. Pap smears no longer indicated. 3. 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 Negative for mutations. 4. Hot flashes at night - well controlled Gabapentin at 200mg before bed. Refill provided. 5. Obesity - Encouraged continued efforts in her weight loss goals, explaining importance to her overall health and reduction in recurrence risk with lowering her BMI. Continue follow up with PCP and benign structural steel worker helper re: metformin and Adipex. 6. Anemia - hgb improved, no bleeding. Continue daily or ifmao-ctsco-joi iron tablets. Repeat CBC prior to next visit. Iron tablets refilled. May consider discontinuing if consistently wnl. 7. Electrolyte imbalance - mg and k wnl, continue magox and klorcon. Repeat CMP and Mag prior to next visit. Refills provided. *The patient has a documented plan of care to address pain. All questions were answered to the patient's satisfaction. She is agreeable to this plan of care. *This note was completed using a voice material mover system. Every effort was made to ensure accuracy. However, inadvertent computerized material mover errors may be present. .Total time spent was 32 minutes: Preparing to see the patient (e.g., review of tests) Performing a medically appropriate examination and/or evaluation Counseling and educating the patient/family/caregiver Ordering medications, tests, or procedures Documenting clinical information in the electronic or other health record Care coordination (not separately reported) Roxanna Gooden PA-C, RD, IF PERRI Farrell 07/17/24 0946 documented in this encounter [facility] 01-17-2024 History of Present illness Narrative Subjective: Daniella Mancera is a 43 y.o. female who is here for surveillance for her stage IIIA endometrial adenocarcinoma, grade 3. Patient reports doing well. Hot flashes are mostly controlled with taking gabapentin 200 mg at night. She has lost about 23 lb in the last few months with continued diet and exercise changes. She was also placed on metformin by Dr. Bolden and Adipex by Billy Okeefe NP (PCP). Her blood pressure is well controlled. She reports occasional stomach upset, diarrhea, nausea with metformin but otherwise feels like she is tolerating these well. She had her port removed in July [...] scans JAS. Endometrial cancer, FIGO stage IIIA ([facility]) 02/23/2021 Initial Diagnosis Endometrial cancer ([facility]) 07/14/2021 Remission Daniella Mancera Denies Early satiety [...] 02/10/2021 Performed by Jared Shearer MD at [facility] HYSTERECTOMY BILATERAL SALPINGO-OOPHORECTOMY N/A 02/10/2021 Performed by Jared Shearer MD at [facility] DILATION AND CURETTAGE OF UTERUS 12/2020 WISDOM TOOTH EXTRACTION Past Medical History: Diagnosis Date Abnormal uterine bleeding Anxiety Arthritis Chronic anemia Depression Endometrial ca ([facility]) 12/2020 Endometrial polyp Hypertension Iron deficiency anemia [...] Social History Socioeconomic History Marital status: Single Tobacco Use Smoking status: Never Smokeless tobacco: Never Substance and Sexual Activity Alcohol use: Not Currently Drug use: Never Sexual activity: Defer Other Topics Concern Caffeine Use Yes Review of Symptoms: Pertinent items are noted in HPI. Objective: BP 135/88 Pulse 84 Temp 36.8 C (98.2 F) (Oral) Resp 18 Ht 165.1 cm (5' 5 ) Wt (!) 186.4 kg (411 lb) LMP 01/29/2021 SpO2 99% BMI 68.39 kg/m ECO- Asymptomatic Physical Exam: General: alert, appears stated age and cooperative Heart: regular rate and rhythm Lungs: clear to auscultation bilaterally Abdomen: soft, non-tender, without masses or organomegaly Vulva: normal, Bartholin's, Urethra, Funk's normal. Vagina: Atrophy: no Vaginal Cuff: yes [...] Labs: Lab Results Component Value Date WBC 6.9 01/12/2024 HGB 14.5 01/12/2024 HCT 41.8 01/12/2024 MCV 85 01/12/2024 PLT 279 01/12/2024 Lab Results Component Value Date GLU 105 (H) 01/12/2024 CALCIUM 9.7 01/12/2024 SODIUM 137 01/12/2024 K 3.6 01/12/2024 CO2 24 01/12/2024 BUN 36 (H) 01/12/2024 CREATININE 1.30 (H) 01/12/2024 No results found for: CA125 Assessment: Patient is diagnosed with Patient Active Problem List Diagnosis Obesity, morbid ([facility]) Endometrial cancer, FIGO stage IIIA ([facility]) Electrolyte abnormality Plan: 1. Stage IIIA endometrial cancer - She has completed the SOC regimen with 6 cycles Carbo/Taxol. No evidence of recurrence on today's exam. - We discussed signs and symptoms of recurrence including bleeding, pain, changes in bowel or bladder habits encouraging her to call with any changes. RTC in 6 months. - mammogram due. Pap smears no longer indicated. 3. 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 Negative for mutations. 4. Hot flashes at night - well controlled Gabapentin at 200mg before bed. Refill provided. 5. Obesity - Encouraged continued efforts in her weight loss goals, explaining importance to her overall health and reduction in recurrence risk with lowering her BMI. Continue follow up with PCP and benign structural steel worker helper re: metformin and Adipex. 6. Anemia - hgb improved, no bleeding. Continue daily or tlyek-sgnlz-fsk iron tablets. Repeat CBC prior to next visit. Iron tablets refilled. May consider discontinuing if consistently wnl. 7. Electrolyte imbalance - mg and k wnl, continue magox and klorcon. Repeat CMP and Mag prior to next visit. Refills provided. *The patient has a documented plan of care to address pain. All questions were answered to the patient's satisfaction. She is agreeable to this plan of care. *This note was completed using a voice material mover system. Every effort was made to ensure accuracy. However, inadvertent computerized material mover errors may be present. .Total time spent was 32 minutes: Preparing to see the patient (e.g., review of tests) Performing a medically appropriate examination and/or evaluation Counseling and educating the patient/family/caregiver Ordering medications, tests, or procedures Documenting clinical information in the electronic or other health record Care coordination (not separately reported) Roxanna Gooden PA-C, RD, IF PERRI Farrell 01/17/24 0935 documented in this encounter [facility] 12-19-2023 History of Present illness Narrative Reason for Appointment: Patient ID: Daniella Mancera is a 43 y.o. female who presents for Well Women Visit Patient presents today for Annual Exam. MEDICATIONS Current Outpatient Medications Medication Instructions buPROPion SR (WELLBUTRIN SR) 200 mg, Oral, Daily RT busPIRone (BUSPAR) 5 mg, Oral, Every morning Calcium Carb-Cholecalciferol (CALCIUM 600 + D PO) 1 each, Oral, 2 times daily FIBER ADULT GUMMIES PO 10 mg, Oral, Daily gabapentin (NEURONTIN) 200 mg, Oral, Nightly hydroCHLOROthiazide (HYDRODIURIL) 25 mg, Oral, Daily KLOR-CON 20 MEQ ER tablet 20 mEq, Oral, Daily loratadine (CLARITIN) 10 mg, Oral, Daily magnesium oxide (MAG-OX) 400 mg, Oral, Daily metoprolol succinate XL (TOPROL-XL) 50 mg, Oral, Daily NIFEdipine XL (PROCARDIA XL) 30 mg, Oral, 2 times daily phentermine (ADIPEX-P) 37.5 mg, Oral, Daily before breakfast ProFe 391.3 mg, Oral, Daily ALLERGIES Allergies Allergen Reactions Other Dizziness, Headache, Other, Shortness of breath, Unknown, Fever, Itching and Swelling Fever of 106 per patent Aprepitant Other panic attack Tetanus Toxoid, Adsorbed Unknown High fever cellults Morphine Dizziness, Headache, Hives, Itching and Rash PROBLEMS Active Ambulatory Problems Diagnosis Date Noted No Active Ambulatory Problems Resolved Ambulatory Problems Diagnosis Date Noted No Resolved Ambulatory Problems Past Medical History: Diagnosis Date Anemia Endometrial polyp Iron deficiency Pelvic pain in female Vaginal bleeding between periods HISTORY PAST MEDICAL HISTORY SOCIAL HISTORY Past Medical History: Diagnosis Date Anemia Endometrial polyp Iron deficiency Pelvic pain in female Vaginal bleeding between periods Social History Tobacco Use Smoking status: Not on file Smokeless tobacco: Not on file Substance Use Topics Alcohol use: Not on file Drug use: Not on file FAMILY HISTORY Family History Problem Relation Name Age of Onset Hypertension Mother Diabetes Mother Mental illness Mother Hypertension Father Heart disease Father Diabetes Maternal Grandmother Heart disease Maternal Grandmother Hypertension Maternal Grandmother Hypertension Maternal Grandfather Hypertension Paternal Grandmother Heart disease Paternal Grandfather Hypertension Paternal Grandfather SURGICAL HISTORY Past Surgical History: Procedure Laterality Date DILATION AND CURETTAGE HYSTERECTOMY IR CVC PORT REMOVAL 07/29/2022 IR CVC PORT REMOVAL 07/29/2022 IR TUNNELED CENTRAL VENOUS ACCESS DEVICE W SUBCUTANEOUS PUMP 03/11/2021 IR TUNNELED CENTRAL VENOUS ACCESS DEVICE W SUBCUTANEOUS PUMP 03/11/2021 WISDOM TOOTH EXTRACTION wisdom teeth REVIEW OF SYSTEMS Review of Systems: Review of Systems Constitutional: Negative. HENT: Negative. Eyes: Negative. Respiratory: Negative. Cardiovascular: Negative. Gastrointestinal: Negative. Genitourinary: Negative. Musculoskeletal: Negative. Skin: Negative. Neurological: Negative. All other systems reviewed and are negative. Hematological: Negative. Endocrine: Negative. Allergic/Immunologic: Negative. OBJECTIVE Objective: Physical Exam Constitutional: Appearance: Normal appearance. She is well-developed. Genitourinary: Vulva normal. Breasts: Breasts are soft. Right: Normal. Left: Normal. Cardiovascular: Rate and Rhythm: Normal rate and regular rhythm. Pulmonary: Effort: Pulmonary effort is normal. Breath sounds: Normal breath sounds. Abdominal: General: Bowel sounds are normal. There is no distension. Palpations: Abdomen is soft. Tenderness: There is no abdominal tenderness. There is no guarding or rebound. Musculoskeletal: General: No swelling. Normal range of motion. Right lower leg: No edema. Left lower leg: No edema. Neurological: Mental Status: She is alert and oriented to person, place, and time. Skin: General: Skin is warm and dry. Psychiatric: Mood and Affect: Mood normal. Behavior: Behavior normal. Vitals and nursing note reviewed. Exam conducted with a gunite nozzle operator present. Vitals: Estimated body mass index is 73.98 kg/m as calculated from the following: Height as of this encounter: 5' 4 . Weight as of this encounter: 431 lb. BP: 128/72 No LMP recorded. Patient has had a hysterectomy. ASSESSMENT & PLAN ICD-10-CM 1. Well woman exam with routine gynecological exam Z01.419 THIN PREP TIS PAP AND HR HPV DNA 2. Breast cancer screening by mammogram Z12.31 Bilateral screening mammogram Bilateral screening mammogram Annual Exam: Patient presents today for an annual exam. Patient states she is doing well and has no complaints. Pap was obtained without difficulty. Pt had hysterectomy with Dr Shearer. Sees oncologist at [facility]. Pt having night sweats takes gabapentin 200mg at HS. Hot flashes are minimal during the day. Pt given hgba1c- rx for for metformin faxed to pharmacy. Discussed adding 500mg to total 1000mg a day. Orders Placed This Encounter Procedures Bilateral screening mammogram Follow Up: Patient is to return in one year for annual unless needed otherwise. Documented by Vinita Smart LPN on behalf of: Srikanth Bolden DO documented in this encounter [facility] 07-18-2023 History of Present illness Narrative Subjective: Daniella Mancera is a 42 y.o. female who is [...] scans JAS. Endometrial cancer, FIGO stage IIIA ([facility]) 02/23/2021 Initial Diagnosis Endometrial cancer ([facility]) 07/14/2021 Remission Daniella Taylor Mancera Denies Early satiety Denies Abdominal distention [...] 02/10/2021 Performed by Jared Shearer MD at [facility] HYSTERECTOMY BILATERAL SALPINGO-OOPHORECTOMY N/A 02/10/2021 Performed by Jared Shearer MD at [facility] DILATION AND CURETTAGE OF UTERUS 12/2020 WISDOM TOOTH EXTRACTION Past Medical History: Diagnosis Date Abnormal uterine bleeding Anxiety Arthritis Chronic anemia Depression Endometrial ca ([facility]) 12/2020 Endometrial polyp Hypertension Iron deficiency anemia [...] masses or organomegaly Vulva: normal, Bartholin's, Urethra, Funk's normal. Vagina: Atrophy: no Vaginal Cuff: yes [...] Patient Active Problem List Diagnosis Obesity, morbid ([facility]) Endometrial cancer, FIGO stage IIIA ([facility]) Electrolyte abnormality Plan: 1. Stage IIIA endometrial [...] hgb improved, no bleeding. Continue daily or wcdvx-samyy-dki iron tablets. Repeat CBC prior to next visit. 7. Electrolyte imbalance - mg and k wnl, continue magox and klorcon. Repeat CMP and Mag prior to next visit. *The patient has a documented plan of care to address pain. All questions were answered to the patient's satisfaction. She is agreeable to this plan of care. *This note was completed using a voice material mover system. Every effort was made to ensure accuracy. However, inadvertent computerized material mover errors may be present. .Total time spent [...] Farrell 07/18/23 0930 documented in this encounter [facility] 04-19-2023 History of Present illness Narrative Subjective: Daniella Mancera is a 42 y.o. female who is here for surveillance for her stage IIIA endometrial adenocarcinoma, grade 3. Patient reports doing well. Hot flashes are mostly controlled with taking gabapentin 200 mg at night. She has noticed an occasional stabbing abdominal pain that transitions to an ache. She states this is typically brief and occurs once or twice a month. She denies any changes in appetite, bowel or bladder changes. She had her port removed in July 2022. She is taking iron, potassium, and magnesium for iron and electrolyte deficiency without complaints. She denies abdominal or pelvic pain, vaginal bleeding, vaginal discharge, SOB, cough, nausea, and vomiting. Oncology History Overview Note 11/09/2020: pelvic TVUS - 6 cm stripe, ovaries wnl 01/08/2021: D&C - endometrioid adenocarcinoma, grade 3 02/10/2021: RAH, BSO, SLND, stage IIIA endometrial carcinoma. DOI 60%, negative LVSI, +Fallopian tubes and ovaries. Loss of MLH1 and PMS2. Hypermethylation absent. 06/23/21: completed 6 cycles Carbo/Taxol. Post tx scans JAS. Endometrial cancer, FIGO stage IIIA ([facility]) 02/23/2021 Initial Diagnosis Endometrial cancer ([facility]) 07/14/2021 Remission Daniella Mancera Denies Early satiety [...] 02/10/2021 Performed by Jared Shearer MD at [facility] DILATION AND CURETTAGE OF UTERUS 12/2020 WISDOM TOOTH EXTRACTION Past Medical History: Diagnosis Date Abnormal uterine bleeding Anxiety Arthritis Chronic anemia Depression Endometrial ca ([facility]) 12/2020 Endometrial polyp Hypertension Iron deficiency anemia [...] on file Interpersonal Safety: Not on file Review of Symptoms: Pertinent items are noted in HPI. Objective: BP (!) 143/91 Pulse 79 Temp 36.6 C (97.9 F) (Oral) Resp 18 Ht 165.1 cm (5' 5 ) Wt (!) 195.3 kg (430 lb 9.6 oz) LMP 01/29/2021 SpO2 97% BMI 71.66 kg/m ECO- Asymptomatic Physical Exam: General: alert, appears stated age and cooperative Heart: regular rate and rhythm Lungs: clear to auscultation bilaterally Abdomen: soft, non-tender, without masses or organomegaly Vulva: normal, Bartholin's, Urethra, Funk's normal. Vagina: Atrophy: no Vaginal Cuff: yes [...] 07/12/2022 Lab Results Component Value Date GLU 115 (H) 01/10/2023 CALCIUM 9.0 01/10/2023 SODIUM 139 01/10/2023 K 3.7 01/10/2023 CO2 25 01/10/2023 BUN 24 (H) 01/10/2023 CREATININE 0.79 01/10/2023 No results found for: CA125 Assessment: Patient is diagnosed with Patient Active Problem List Diagnosis Obesity, morbid ([facility]) Endometrial cancer, FIGO stage IIIA ([facility]) Electrolyte abnormality Plan: 1. Stage IIIA endometrial cancer - She has completed the SOC regimen with 6 cycles Carbo/Taxol. No evidence of recurrence on today's exam. - Discussed surveillance schedule including visits every 3 months for the first 2 years, every 6 months for 2 years, then annually. We discussed signs and symptoms of recurrence including bleeding, pain, changes in bowel or bladder habits encouraging her to call with any changes. - Plan for next surveillance visit in 3 months. Begin 6 month visits in june 2023. - mammogram up to date. Pap smears no longer indicated. 3. 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 Negative for mutations. 4. Hot flashes at night - well controlled Gabapentin at 200mg before bed. Refills not needed at this time. 5. Obesity - Encouraged continued efforts in her weight loss goals, explaining importance to her overall health and reduction in recurrence risk with lowering her BMI. 6. Anemia - hgb improved, no bleeding. Continue daily or xmsvq-nlobn-qcu iron tablets. 7. Electrolyte imbalance - mg and k wnl, continue magox and klorcon. Repeat labs in 3 months. PERRI Farrell 04/19/23 0930 documented in this encounter [facility] Evaluation + Plan note No data available for this section [facility] Evaluation + Plan note Future Appointments Appointment Date:01/19/2024 08:20:00 AM Scheduled Provider:Billy Moscoso Location:[facility] Appointment Type:[facility] Evaluation + Plan note Future Appointments Appointment Date:09/10/2024 08:20:00 AM Scheduled Provider:Billy Moscoso Location:[facility] Appointment Type:[facility] Evaluation note No assessment inform ation available [facility] Work Phone: Evaluation note Diagnosis Well woman exam with routine gynecological exam Routine gynecological examination Breast cancer screening by mammogram Insulin resistance Other abnormal glucose documented in this encounter [facility] HealthcareEvaluation note* Diagnosis Endometrial cancer, FIGO stage IIIA (CMS-HCC)- Primary Electrolyte abnormality Electrolyte and fluid disorders not elsewhere classified Obesity, morbid (CMS-HCC) Morbid obesity [facility] Hypokalemia Hypopotassemia [facility] Diagnosis Hypokalemia Hypopotassemia [facility] Diagnosis Endometrial cancer, FIGO stage IIIA (CMS-HCC)- Primary [facility] Diagnosis Endometrial cancer, FIGO stage IIIA (CMS-HCC)- Primary Electrolyte abnormality Electrolyte and fluid disorders not elsewhere classified Iron deficiency anemia due to chronic blood loss Iron deficiency anemia secondary to blood loss (chronic) Obesity, morbid (CMS-HCC) Morbid obesity Hot flash, menopausal Symptomatic menopausal or female climacteric states Hypomagnesemia Disorders of magnesium metabolism [facility] Iron deficiency anemia due to chronic blood loss Iron deficiency anemia secondary to blood loss (chronic) [facility] Diagnosis Hot flash, menopausal Symptomatic menopausal or female climacteric states [facility] Diagnosis Endometrial cancer, FIGO stage IIIA (CMS-HCC)- Primary Hot flash, menopausal Symptomatic menopausal or female climacteric states Hypokalemia Hypopotassemia Hypomagnesemia Disorders of magnesium metabolism Electrolyte abnormality Electrolyte and fluid disorders not elsewhere classified Counseling on health promotion and disease prevention Other specified counseling [facility] Diagnosis Endometrial cancer, FIGO stage IIIA (CMS-HCC)- Primary Electrolyte abnormality Electrolyte and fluid disorders not elsewhere classified Obesity, morbid (CMS-HCC) Morbid obesity Hypomagnesemia Disorders of magnesium metabolism Hypokalemia Hypopotassemia Iron deficiency anemia due to chronic blood loss Iron deficiency anemia secondary to blood loss (chronic) [facility] Diagnosis Onset Date Resolution Status Admit Date Anemia of renal disease acute J 2024 10:09am BMI 60.0-69.9, adult acute October 21, 2024 10:09am CKD (chronic kidney disease) stage 3, GFR 30-59 ml/min acute October 21 10:09am Endometrial cancer, FIGO stage IIIA acute October 21, 2024 10:09am Hypertensive chronic kidney disease with stage 1 through stage 4 chronic ki acute October 21, 2024 10:09am Secondary hyperparathyroidism acute October 21, 2024 10:09am [facility] Work Phone: Evaluation note* Diagnosis Hot flash, menopausal Symptomatic menopausal or female climacteric states [facility] No data available for this section [facility] filedocumented in this [facility] filedocumented in this [facility] filedocumented in this encounter [facility] filedocumented in this encounter [facility] filedocumented in this encounter [facility] on filedocumented in this encounter [facility] on filedocumented in this encounter [facility] on filedocumented in this encounter [facility] on filedocumented in this encounter [facility] No data available for this section [facility] HospitalReason for referral (narrative)No reason for referral [facility] Summary Purpose Family History Relationship Condition Age at Onset Recorded Date/T jonathan father Myocardial infarction Unknown mother Chronic kidney disea se with end stage renal failure on dialysis Unknown Advance Directives Advance Directive Response Recorded Date/ Time Advance Directives No October 21 3:36pm Chief Complaint and Reason for Visit Chief Complaint Left ankle pain s/p injury Chief Complaint Admit Date RENAL CKD 3 October 21, 2024 10:0 9am Reason for Visit Admit Date Anemia of renal disease October 21, 2024 10:09am BMI 60.0-69.9, adult October 21, 2024 10: 09am CKD (chronic kidney disease) stage 3, GF R 30-59 ml/min October 21, 2024 10:09am Endometrial cancer, FIGO stage IIIA October 21, 2024 10:09am Hypertensive chronic kidney disease with stage 1 through stage 4 chronic ki October 21, 2024 10:09am Secondary hyperparathyroidism October 21, 2024 10:09am Additional Source Comments INFORMATION SOURCE (unrecogn ized section and content) DATE CREATED AUTHOR 10/18/2017 [facility] DATE CREATED AUTHOR AUTHOR'S ORGANIZ ATION 01/22/2022 [facility] DATE CREATED AUTHOR AUTHOR'S ORGANIZ ATION 08/19/2023 [facility] DATE CREATED AUTHOR AUTHOR'S ORGANIZ ATION 12/18/2023 [facility] DATE CREATED AUTHOR AUTHOR'S ORGANIZ ATION 12/20/2023 [facility] DATE CREATED AUTHOR AUTHOR'S ORGANIZ ATION 01/18/2024 [facility] DATE CREATED AUTHOR AUTHOR'S ORGANIZ ATION 06/14/2024 [facility] DATE CREATED AUTHOR AUTHOR'S ORGANIZ ATION 07/18/2024 [facility] DATE CREATED AUTHOR AUTHOR'S ORGANIZ ATION 07/27/2024 [facility] DATE CREATED AUTHOR AUTHOR'S ORGANIZ ATION 07/28/2024 [facility] DATE CREATED AUTHOR AUTHOR'S ORGANIZ ATION 09/11/2024 [facility] DATE CREATED AUTHOR AUTHOR'S ORGANIZ ATION 09/17/2024 [facility] Patient Care team informatio n (unrecognized section and content) Team Status: Active Member Role Status Dates MELISSA Rollins Primary Care Provider Active Team Status: Inactive Member Role Status Dates MELISSA Flores Attending Provider Active S tart: August 09, 2023 End: August 09, 2023 MELISSA Rollins Primary Care Provider Active Start: August 09, 2023 End: August 09, 2023 Team Status: Active Member Role Status Dates CHANG RollinsC Primary Care Provider Active Start: August 09, 2023 MELISSA Flores Attending Provider Active S tart: August 09, 2023 Team Status: Inactive Member Role Status Dates MELISSA Rollins Primary Care Provider Active Start: August 09, 2023 End: August 09, 2023 MELISSA Flores Attending Provider Active S tart: August 09, 2023 End: August 09, 2023 Electronic Assembly Relationship Specialty Start Date End Date Allison Choi MD [address] [place] [address] [phone] PCP - General Family Medicine 01/20/21 Electronic Assembly Relationship Specialty Start Date End Date Allison Choi MD [address] [place], [place] [phone] PCP - General Family Medicine 01/20/21 Electronic Assembly Relationship Specialty Start Date End Date Billy Okeefe, CLINICAL QUALITY MANAGER-CARDIOVASCULAR SURGEON [address] [place], [place] [phone] PCP - General Nurse Practitioner 07/14/23 Electronic Assembly Relationship Specialty Start Date End Date Billy Okeefe, CLINICAL QUALITY MANAGER-CARDIOVASCULAR SURGEON [address] [place], [place] [phone] PCP - General Nurse Practitioner 07/14/23 Electronic Assembly Relationship Specialty Start Date End Date Allison Choi MD [address] [place] [address] [phone] PCP - General Family Medicine 01/20/21 Electronic Assembly Relationship Specialty Start Date End Date Billy Okeefe CLINICAL QUALITY MANAGER-CARDIOVASCULAR SURGEON [address] [place] [address] [phone] PCP - General Nurse Practitioner 07/14/23 Electronic Assembly Relationship Specialty Start Date End Date Billy Okeefe, CLINICAL QUALITY MANAGER-CARDIOVASCULAR SURGEON [address] [place] [id number] PCP - General Nurse Practitioner 07/14/23 Electronic Assembly Relationship Specialty Start Date End Date Billy Okeefe, CLINICAL QUALITY MANAGER-CARDIOVASCULAR SURGEON [address] [place] [id number] PCP - General Nurse Practitioner 07/14/23 Electronic Assembly Relationship Specialty Start Date End Date Billy Okeefe, CLINICAL QUALITY MANAGER-CARDIOVASCULAR SURGEON [address] [place] [phone] PCP - General Nurse Practitioner 07/14/23 Team Status: Inactive Member Role Status Dates Billy Okeefe , COMPUTER SUPPORT ANALYST-C Primary Care Provider Active Start: October 21, 2024 End: October 21, 2024 Krissy Morelos MD Attending Provider Active Start : October 21, 2024 End: October 21, 2024 Electronic Assembly Relationship Specialty Start Date End Date Billy Okeefe, CLINICAL QUALITY MANAGER-CARDIOVASCULAR SURGEON [address] [place] [id number] PCP - General Nurse Practitioner 07/14/23 Goals (unrecognized section and content) Goals may be documented in a n alternate section Reason for Visit (unrecogniz ed section and content) Reason Comments Well Women Visit Reason Comments Follow-up Reason Comments Med Refill FOR RECORDS PERTAINING TO PATIENTS WHO ARE [...] BE BASED ON THE PRIMARY CLINICAL RECORDS. [facility]. provides no warranty or guarantee of the accuracy or completeness of information in this document.
--- NOTE | 2024-11-13 07:35 | US_ITS ---
The [place] [id number] Patient Name: DANIELLA GOMEZ MRN: [id number] date: 1980 Sex: F Assigned Patient Location: US Current Patient Location: US Accession/Order Number: [id number] Exam Date: 11/13/2024 09:48 Report Date: 11/13/2024 09:50 At the request of: HOMAR LANDERS Procedure: US renal BI BILATERAL RENAL AND BLADDER ULTRASOUND CLINICAL HISTORY: Stage 3 Chronic Kidney Disease, Hypertensive Renal Disease COMPARISON: None FINDINGS: Estimation of renal size is approximately 11.8 cm on the right and 11.5 cm on the left. No hydronephrosis. Suspected bilateral renal calculi largest measuring 7 mm involving the right kidney. Small cyst left kidney. The urinary bladder is partially distended with a volume of 25 ml. No shadowing stone or focal lesion. US/US renal BI IMPRESSION: BILATERAL NEPHROLITHIASIS. NO HYDRONEPHROSIS. Impression dictated by: Aldo Hernandez Jr., DCampbellOCampbell 11/13/2024 9:50 AM Dictation Location: [place] [address] Electronically authenticated by: [id number] Y Date: 11/13/2024 09:50
[2024-11-13 08:29] LABS: Hematocrit 39.0 % (36.0-48.0); Hemoglobin 13.5 g/dL (12.0-16.0); Mean Corpuscular HGB Conc 34.6 g/dL (29.9-35.2); Mean Corpuscular Hemoglobin 30.7 pg (26.7-34.0); Mean Corpuscular Volume 88.6 fL (81.0-99.0); Platelet Count 297 10^3/uL (150-450); Red Blood Count 4.40 10^6/uL (4.20-5.40); White Blood Count 7.6 10^3/uL (4.0-11.0)
[2024-11-13 08:40] LABS: Glucose Urine UA NEGATIVE (NEGATIVE)
[2024-11-13 08:51] LABS: Cast Seen? NONE SEEN #/LPF (NONE SEEN); Crystals Seen? None Seen #/HPF (None Seen)
[2024-11-13 09:13] LABS: Protein Creatinine Ratio Urine 0.14; Total Protein Urine Random 18.8 mg/dL (<=11.9)
[2024-11-13 09:52] LABS: Albumin Level 3.5 g/dL (3.4-5.0); Anion Gap 16.8; Blood Urea Nitrogen 32.0 mg/dL (7.0-18.0); Calcium 9.5 mg/dL (8.5-10.1); Carbon Dioxide 25.1 mmol/L (21.0-32.0); Chloride 101 mmol/L (98-107); Estimated GFR (African America 32 (>=60 mL/min/1.73m^2); Estimated GFR (Non-African Ame 26 (>=60 mL/min/1.73m^2); Glucose 99 mg/dL (74-106); Magnesium 1.6 mg/dL (1.8-2.4); Potassium 3.9 mmol/L (3.5-5.1); Sodium 139 mmol/L (136-145); Uric Acid 9.1 mg/dL (2.6-6.0)
== END 2024-11-13 07:28 | disposition home or self-care (01) ==
LOC: US 07:29
PROVIDERS: PCP Nurse Practitioner; Visit Provider Internal Medicine
DX: N20.0 Calculus of kidney (principal); Z68.44 Body mass index [BMI] 60.0-69.9, adult; N25.81 Secondary hyperparathyroidism of renal origin; N18.9 Chronic kidney disease, unspecified; D63.1 Anemia in chronic kidney disease; I12.9 Hypertensive chronic kidney disease with stage 1 through stage 4 chronic kidney disease, or unspecified chronic kidney disease; N18.30 Chronic kidney disease, stage 3 unspecified
CPT/HCPCS: 36415; 76775; 80069; 81001; 82306; 82570; 83735; 83970; 84156; 84550; 85027

== ENCOUNTER 2024-11-21 09:37 | Outpatient (OUT) | payer OTHER, SELFPAY ==
--- OUTSIDE RECORDS SUMMARY | 2024-11-21 09:39 | XMS_ITS | Clinical Summary ---
Author Organization [facility] Address [address] [place] [address] Care Team Providers Care Band Shover Name Role Phone Unavailable Primary Care Provider Unavailabl e Allergies Active Allergy Reactions Criticality Noted Date Comments Aprepitant Other 03/11/2021 panic attack Morphine Dizziness,Headache,H i ves,Itching,Rash Low 03/10/2021 Other Dizziness,Headache,O t her,Shortness of breath,Unknown,Fever, Itching,Swelling High 01/29/2021 Fever of 106 per patent Tetanus Toxoid, Adsorbed Unknown 01/25/2021 High fever cellults Medications magnesium oxide (Mag-Ox) 400 MG tablet Take 400 mg by mouth in the morning. Active hydroCHLOROthia zide (HYDRODiuril) 25 MG tablet Take 25 mg by mouth in the morning. Active busPIRone (Buspar) 5 MG tablet Take 5 mg by mouth in the morning. Active KLOR-CON 20 MEQ ER tablet Take 20 mEq by mouth in the morning. Active buPROPion SR (Wellbutrin SR) 100 MG 12 hr tablet Take 200 mg by mouth in the morning. Active metoprolol succinate XL (Toprol-XL) 50 MG 24 hr tablet Take 50 mg by mouth in the morning. Active gabapentin (Neurontin) 100 MG capsule Take 200 mg by mouth at bedtime. 10/31/2022 Active ProFe 391.3 (180 Fe) MG capsule Take 391.3 mg by mouth Daily Active loratadine (Claritin) 10 MG tablet Take 10 mg by mouth Daily Active NIFEdipine XL (Procardia XL) 30 MG 24 hr tablet Take 30 mg by mouth in the morning and 30 mg before bedtime. 12/08/2023 Active Calcium Carb-Cholecalci ferol (CALCIUM 600 + D PO) Take 1 each by mouth in the morning and 1 each before bedtime. Active FIBER ADULT GUMMIES PO Take 10 mg by mouth Daily Active phentermine (Adipex-P) 37.5 MG tablet Take 37.5 mg by mouth in the morning. Take before meals. Active metFORMIN XR (Glucophage-XR) 500 MG 24 hr tabletIndicatio ns:Insulin resistance Take 2 tablets (1,000 mg) by mouth in the evening. Take with meals Do not crush, chew, or split. 60 tablet 11 01/29/2024 Active Family History Medical History Relation Name Comments Heart disease Father Hypertension Father Hypertension Maternal Grandfather Diabetes Maternal Grandmother Heart disease Maternal Grandmother Hypertension Maternal Grandmother Diabetes Mother Hypertension Mother Mental illness Mother Heart disease Paternal Grandfather Hypertension Paternal Grandfather Hypertension Paternal Grandmother Relation Name Status Comments Father Maternal Grandfather Maternal Grandmother Mother Paternal Grandfather Paternal Grandmother Social History Tobacco Use Types Packs/Day Years Used Date Smoking Tobacco: Never Assessed Comments No Sex and Gender Information Value Date Recorded Sex Assigned at Female 12/06/2022 10:11 PM EDT Legal Sex Female 11:47 PM EDT Gender Identity Female 12/06/2022 10:11 PM EDT Sexual Orientation Straight 12/06/2022 10 :11 PM EDT Last Filed Vital Signs Vital Sign Reading Time Taken Comments Blood Pressure 128/72 12/19/2023 8:48 AM EDT Pulse - - Temperature - - Respiratory Rate - - Oxygen Saturation - - Inhaled Oxygen Concentration - - Weight 196 kg (431 lb) 12/19/2023 8:48 AM EDT Height 162.6 cm (5' 4 ) 12/19/2023 8:48 AM EDT Body Mass Index 73.98 12/19/2023 8:48 AM EDT Plan of Treatment Upcoming Encounters Date Type Department Care Team (Late st Contact Info) Description 12/19/2024 8:30 AM EDT Office Visit [facility] [address] [place] [place] [id number] Srikanth Bolden DO [address] [place] [address] Insurance [employer]
--- OUTSIDE RECORDS SUMMARY | 2024-11-21 09:39 | XMS_ITS | Encounter Summary ---
Author Organization [facility] Address [address] [place] [address] Care Team Providers Care Advanced Practice Professional Name Role Phone Unavailable Primary Care Provider Unavailabl e Encounter Details Date Type Department Care Team (Late Contact Info) Description 01/26/2024 Clinisync Result Encounter [facility] Unsolicited Srikanth Bolden, DO [address] [place], [facility] Social History Tobacco Use Types Packs/Day Years Used Date Smoking Tobacco: Never Assessed Comments No Sex and Gender Information Value Date Recorded Sex Assigned at Female 12/06/2022 10:11 PM EDT Legal Sex Female 11:47 PM EDT Gender Identity Female 12/06/2022 10:11 PM EDT Sexual Orientation Straight 12/06/2022 10 :11 PM EDT documented as of this encounter Plan of Treatment Upcoming Encounters Date Type Department Care Team (Late Contact Info) Description 12/19/2024 8:30 AM EDT [facility] [place] [facility] [address] [place] [phone] Srikanth Bolden DO [address] [place] [address] documented as of this encounter Procedures Procedure Name Priority Date/Time Associated Diagnosis Comments MM TOMOSYNTHESIS SCREENING BI 01/26/2024 12:42 PM EDT documented in this encounter Results * MM TOMOSYNTHESIS SCREENING BI (01/26/2024 12:42 PM EDT) Anatomical Region Laterality Modality Other 01/26/2024 12:4 2 PM EDT Narrative 01/26/2024 12:43 PM EDT The [address] [address] Mammography Report Signed Patient: FE MANCERA MR#: [id number] : 1980 Acct:[id number] Age/Sex: 43 / F ADM Date: 01/26/24 Loc: MAMMO Attending Dr: Srikanth Bolden D.O. Ordering Physician: Srikanth Bolden D.O. Results: Date of Service: 01/26/24 Follow Up: Procedure(s): MM tomosynthesis screening BI Accession Number(s): [id number] cc: Srikanth Bolden D.O.; BILLY ORTEGA Patient Name: FE MANCERA MR#: [id number] : 1980 Exam Date: 01/26/2024 Ordering Doctor: DR Srikanth Bolden . RADIOLOGY REPORT PROCEDURE: MM TOMOSYNTHESIS SCREENING BI COMPARISON: MM TOMOSYNTHESIS SCREENING BI, 01/06/2023. MG MAMM SCREEN 3D NERI CAD, 01/03/2022. INDICATIONS: Screening Calculator Name NCI Breast Cancer Risk Assessment Tool 5 Year Breast Cancer Risk 0.90% Lifetime Breast Cancer Risk 11.70% Personal Breast Cancer No Personal Ovarian Cancer No Treatments hysterectomy and chemotherapy Family Cancers Aunt-maternal with breast cancer at age 81. LOCATION: The [facility] BREAST COMPOSITION: The breasts are almost entirely fatty. FINDINGS: DIAGNOSTIC CATEGORY 1--NEGATIVE. RIGHT BREAST: No significant suspicious finding. No significant change has occurred. LEFT BREAST: No significant suspicious finding. No significant change has occurred. RECOMMENDATIONS: ROUTINE MAMMOGRAM AND CLINICAL EVALUATION IN 12 MONTHS. PLEASE NOTE: A NORMAL MAMMOGRAM DOES NOT EXCLUDE THE POSSIBILITY OF BREAST CANCER. A CLINICALLY SUSPICIOUS PALPABLE LUMP SHOULD BE BIOPSIED. Dictated by: Mauro Heller M.D. on 01/26/2024 at 12:39 Approved by: Mauro Heller M.D. on 01/26/2024 at 12:42 Dictated By: Mauro Heller M.D. Signed By: 01/26/24 1243 DD/ 41 TD/TT: Process Safety Engineering Technologist: Procedure Note Radiology, Radiologist, MD - 01/26/2024 [place] [address] Mammography Report Signed Patient: FE MANCERA MMR#: [id number] : 1980Acct:[id number] Age/Sex: 43 / FADM Date: 01/26/24 Loc: MAMMO Attending Dr: Srikanth Bolden D.O. Ordering Physician: Srikanth Bolden D.O.Results: Date of Service: 01/26/24Follow Up: Procedure(s): MM tomosynthesis screening BI Accession Number(s): [id number] cc: Srikanth Bolden D.O.; BILLY ORTEGA Patient Name: FE MANCERA MR#: [id number] : 1980 Exam Date: 01/26/2024 Ordering Doctor: DR Srikanth Bolden . RADIOLOGY REPORT PROCEDURE: MM TOMOSYNTHESIS SCREENING BI COMPARISON: MM TOMOSYNTHESIS SCREENING BI, 01/06/2023. MG MAMM [id number] NERI CAD, 01/03/2022. INDICATIONS: Screening Calculator Name NCI Breast Cancer Risk Assessment Tool 5 Year Breast Cancer Risk 0.90% Lifetime Breast Cancer Risk 11.70% Personal Breast Cancer No Personal Ovarian Cancer No Treatments hysterectomy and chemotherapy Family Cancers Aunt-maternal with breast cancer at age 81. LOCATION: The [facility] BREAST COMPOSITION: The breasts are almost entirely fatty. FINDINGS: DIAGNOSTIC CATEGORY 1--NEGATIVE. RIGHT BREAST: No significant suspicious finding. No significant changehas occurred. LEFT BREAST: No significant suspicious finding. No significant changehas occurred. RECOMMENDATIONS: ROUTINE MAMMOGRAM AND CLINICAL EVALUATION IN 12 MONTHS. PLEASE NOTE: A NORMAL MAMMOGRAM DOES NOT EXCLUDE THE POSSIBILITY OFBREAST CANCER. A CLINICALLY SUSPICIOUS PALPABLE LUMP SHOULD BE BIOPSIED. Dictated by: Mauro Heller M.D. on 01/26/2024 at 12:39 Approved by: Mauro Heller M.D. on 01/26/2024 at 12:42 Dictated By: Mauro Heller M.D. Signed By:01/26/24 1243 DD/ 1242 TD/TT: Process Safety Engineering Technologist: us Srikanth Bolden DO [facility] Final Result documented in this encounter Visit Diagnoses Not on filedocumented in this encounter
--- OUTSIDE RECORDS SUMMARY | 2024-11-21 09:39 | XMS_ITS | Clinical Summary ---
Author Organization [facility] Address [address] [place] [address] Care Team Providers Care Armored Service Technician Name Role Phone Bhumi Choi MD Primary Care Provider [phone] Allergies No known active allergies Medications hydroCHLOROthiaz benedict (HYDRODIURIL, ESIDRIX) 25 mg tablet Take 25 mg by mouth once daily. Active NIFEdipine XL (ADALAT CC,PROCARDIA XL) 30 mg 24 hr tablet Take 30 mg by mouth once daily. Active metoprolol succinate ER (TOPROL XL) 50 mg 24 hr tablet Take 50 mg by mouth once daily. Active buPROPion (WELLBUTRIN) 100 mg tablet Take 100 mg by mouth once daily. Active folic acid 1 mg tablet Take 1 mg by mouth once daily. Active ferrous sulfate 325 mg (65 mg iron) tablet Take 325 mg by mouth daily with breakfast. Active cloNIDine HCl (CATAPRES) 0.1 mg tablet 11/18/2016 Active KLOR-CON M10 10 mEq tablet 11/16/2016 Active megestrol (MEGACE) 20 mg tablet 11/07/2016 Active ASCORBIC ACID (VITAMIN C ORAL) Take by mouth. Active Active Problems No known active problems Social History Tobacco Use Types Packs/Day Years Used Date Smoking Tobacco: Never Smokeless Tobacco: Never Comments No Sex and Gender Information Value Date Recorded Sex Assigned at Not on file Legal Sex Female 9:40 AM EDT Gender Identity Not on file Sexual Orientation Not on file Last Filed Vital Signs Vital Sign Reading Time Taken Comments Blood Pressure 175/111 12/14/2016 3:05 PM EDT Pulse 91 12/14/2016 3:05 PM EDT Temperature 37.4 C (99.3 F) 12/14/2016 3:05 PM EDT Respiratory Rate 18 12/14/2016 3:05 PM EDT Oxygen Saturation - - Inhaled Oxygen Concentration - - Weight 180.3 kg (397 lb 6.4 oz) 12/14/2016 3:05 PM EDT Height 165.1 cm (5' 5 ) 12/14/2016 3:05 PM EDT Body Mass Index 66.13 12/14/2016 3:05 PM EDT Plan of Treatment Health Maintenance Due Date Last Done Comments Anxiety Screening 11/05/1997 Depression Screening 11/05/1997 HIV Screening 11/05/1997 Hepatitis C Screening 11/05/1997 DTaP,Tdap,Td Vaccine (1 - Tdap) 11/05/1998 Hepatitis B Vaccine (1 of 3 - 19+ 3-dose series) 11/05 Cervical Cancer Screening 11/05/2000 Mammogram Screening 2019 Covid-19 Vaccine () 12/24/2023 CT Colonography 11/05/2024 Cologuard (FIT-DNA) 11/05/2024 Colonoscopy 11/05/2024 Colorectal Cancer Screening 11/05/2024 Diabetes Screening 11/05/2024 Fecal Occult Blood 11/05/2024 Lipid Screening 11/05/2024 Sigmoidoscopy 11/05/2024 Influenza Vaccine (#1) 2024 Care Teams Armored Service Technician Relationship Specialty Start Date End Date Bhumi Choi MD [address] [place] [address] PCP - General Family Medicine 12/06/16
--- OUTSIDE RECORDS SUMMARY | 2024-11-21 09:39 | XMS_ITS | Encounter Summary ---
Author Organization [facility] Address [address] [place] [address] Care Team Providers Care Snack Foods Mixer Operator Name Role Phone Unavailable Primary Care Provider Unavailabl e Encounter Details Date Type Department Care Team (Late Contact Info) Description 01/18/[address] [place] [address] Srikanth Bolden DO [address] [place], [place] [address] Social History Tobacco Use Types Packs/Day Years [...] Description 12/19/2024 8:30 AM EDT Office Visit [address] [place] [address] Srikanth Bolden DO [address] [place], [place] [id number] documented as of this encounter Visit Diagnoses Not on filedocumented in this encounter
--- OUTSIDE RECORDS SUMMARY | 2024-11-21 09:39 | XMS_ITS | Encounter Summary ---
Author Organization [facility] Address [address] [place] [address] Care Team Providers Care Microcomputer Support Specialist Name Role Phone Unavailable Primary Care Provider Unavailabl e Encounter Details Date Type Department Care Team (Late Contact Info) Description 01/06/2023 Clinisync Result Encounter [facility] External Department Unsolicited Srikanth Bolden, DO [address] [place], [place] [id number] Social History Tobacco Use Types Packs/Day Years Used Date Smoking Tobacco: Never Assessed Comments Unknown Sex and Gender Information Value Date Recorded Sex Assigned at Female 12/06/2022 10:11 PM EDT Legal Sex Female 11:47 PM EDT Gender Identity Female 12/06/2022 10:11 PM EDT Sexual Orientation Straight 12/06/2022 10 :11 PM EDT COVID-19 Exposure Response Date Recorded In the last 10 days, have yo u been in contact with someone who was confirmed or suspected to have Coronavirus/COVID-19? No / Unsure 12/12/2022 8:24 PM EDT documented as of this encounter Plan of Treatment Upcoming Encounters Date Type Department Care Team ([facility] Contact Info) Description 12/19/2024 8:30 AM EDT Office Visit [facility] [place] [facility] [address] [place] [phone] Srikanth Bolden, DO [address] [place], [place] [id number] documented as of this encounter Procedures Procedure Name Priority Date/Time Associated Diagnosis Comments MM TOMOSYNTHESIS SCREENING BI 01/06/2023 12:11 PM EDT documented in this encounter Results * MM TOMOSYNTHESIS SCREENING BI (01/06/2023 12:11 PM EDT) Anatomical Region Laterality Modality Other 01/06/2023 12:1 1 PM EDT Narrative 01/06/2023 12:11 [place] [address] Mammography Report Signed Patient: FE MANCERA MR#: [id number] : 1980 Acct:[id number] Age/Sex: 42 / F ADM Date: 01/06/23 Loc: MAMMO Attending Dr: Srikanth Bolden D.O. Ordering Physician: Srikanth Bolden D.O. Results: Date of Service: 01/06/23 Follow Up: Procedure(s): MM tomosynthesis screening BI Accession Number(s): [id number] cc: Srikanth Bolden D.O.; BILLY ORTEGA Patient: FE MANCERA. Exam Date: 01/06/2023 : 1980 Gender:F Ordering : DR Srikanth Bolden . Admission #: [id number] Family : MRS. BILLY Miranda. SHANNON . Order #: [id number] CLICK HERE TO VIEW EXAM RADIOLOGY REPORT PROCEDURE: MM TOMOSYNTHESIS SCREENING BI COMPARISON: MG MAMM SCREEN 3D NERI CAD, 01/03/2022. INDICATIONS: Screening Calculator Name NCI Breast Cancer Risk Assessment Tool 5 Year Breast Cancer Risk 0.90% Lifetime Breast Cancer Risk 11.80% Personal Breast Cancer No Personal Ovarian Cancer No Treatments hysterectomy and chemotherapy Family Cancers Aunt-maternal with breast cancer at age 81. LOCATION: The BREAST COMPOSITION: Almost entirely fatty. FINDINGS: DIAGNOSTIC CATEGORY 1--NEGATIVE. NO CHANGE FROM COMPARISON ASSESSMENT. Scattered benign-appearing calcifications are present. RIGHT BREAST: No significant suspicious finding. LEFT BREAST: No significant suspicious finding. RECOMMENDATIONS: ROUTINE MAMMOGRAM AND CLINICAL EVALUATION IN 12 MONTHS. PLEASE NOTE: A NORMAL MAMMOGRAM DOES NOT EXCLUDE THE POSSIBILITY OF BREAST CANCER. A CLINICALLY SUSPICIOUS PALPABLE LUMP SHOULD BE BIOPSIED. Dictated by: Nikita Marinelli MD on 01/06/2023 at 12:09 Approved by: Nikita Marinelli MD on 01/06/2023 at 12:11 Dictated By: Nikita Marinelli M.D. Signed By: 01/06/23 1212 DD/ 121 TD/TT: Business Records Manager: Procedure Note Radiology, Radiologist, MD - 01/13/2023 [facility] [place] [id number] Mammography Report Signed Patient: FE MANCERA MMR#: [id number] : 1980Acct:[id number] Age/Sex: 42 / FADM Date: 01/06/23 Loc: MAMMO Attending Dr: Srikanth Bolden D.O. Ordering Physician: Srikanth Bolden D.O.Results: Date of Service: 01/06/23Follow Up: Procedure(s): MM tomosynthesis screening BI Accession Number(s): [id number] cc: Srikanth Bolden D.O.; BILLY ORTEGA Patient: FE MANCERA Exam Date: 01/06/2023 : 1980 Gender:F Ordering : DR Srikanth Bolden . Admission #: [id number] Family : MRS. BILLY Miranda. SHANNON . Order #: [id number] CLICK HERE TO VIEW EXAM RADIOLOGY REPORT PROCEDURE: MM TOMOSYNTHESIS SCREENING BI COMPARISON: MG MAMM SCREEN 3D NERI CAD, 01/03/2022. INDICATIONS: Screening Calculator Name NCI Breast Cancer Risk Assessment Tool 5 Year Breast Cancer Risk 0.90% Lifetime Breast Cancer Risk 11.80% Personal Breast Cancer No Personal Ovarian Cancer No Treatments hysterectomy and chemotherapy Family Cancers Aunt-maternal with breast cancer at age 81. LOCATION: The BREAST COMPOSITION: Almost entirely fatty. FINDINGS: DIAGNOSTIC CATEGORY 1--NEGATIVE. NO CHANGE FROM COMPARISON ASSESSMENT. Scattered benign-appearing calcifications are present. RIGHT BREAST: No significant suspicious finding. LEFT BREAST: No significant suspicious finding. RECOMMENDATIONS: ROUTINE MAMMOGRAM AND CLINICAL EVALUATION IN 12 MONTHS. PLEASE NOTE: A NORMAL MAMMOGRAM DOES NOT EXCLUDE THE POSSIBILITY OFBREAST CANCER. A CLINICALLY SUSPICIOUS PALPABLE LUMP SHOULD BE BIOPSIED. Dictated by: Nikita Marinelli MD on 01/06/2023 at 12:09 Approved by: Nikita Marinelli MD on 01/06/2023 at 12:11 Dictated By: Nikita Marinelli M.D. Signed By:01/06/23 1212 DD/ 1211 TD/TT: Business Records Manager: Srikanth Bolden DO [facility] Final Result documented in this encounter Visit Diagnoses Not on filedocumented in this encounter
--- OUTSIDE RECORDS SUMMARY | 2024-11-21 09:39 | XMS_ITS | Encounter Summary ---
Author Organization [facility] Address [address] [place] [address] Care Team Providers Care Egg Processing Supervisor Name Role Phone Unavailable Primary Care Provider Unavailabl e Encounter Details Date Type Department Care Team (Late Contact Info) Description 01/03/[address] [place] [address] Marina Hernandez LPN Social History Tobacco Use Types Packs/Day Years [...] Office Visit [address] [place] [address] Srikanth Bolden DO [address] [place] [address] [place], [facility]11 documented as of this encounter Visit Diagnoses Not on filedocumented in this encounter
--- OUTSIDE RECORDS SUMMARY | 2024-11-21 09:39 | XMS_ITS | Encounter Summary ---
Author Organization [facility] Address [address] [place] [address] Care Team Providers Care Signal Manager Name Role Phone Unavailable Primary Care Provider Unavailabl e Encounter Details Date Type Department Care Team (Late Contact Info) Description 12/19/[address] [place] [address] Srikanth Bolden DO [address] [place], [place] [address] Social History Tobacco Use Types Packs/Day Years [...] Office Visit [address] [place] [address] Srikanth Bolden DO [address] [place], [place] [id number] documented as of this encounter Visit Diagnoses Not on filedocumented in this encounter
--- OUTSIDE RECORDS SUMMARY | 2024-11-21 09:39 | XMS_ITS | Encounter Summary ---
Author Organization [facility] Address [address] [place] [address] Care Team Providers Care Case Management Manager Name Role Phone Unavailable Primary Care Provider Unavailabl e Encounter Details Date Type Department Care Team (Late Contact Info) Description 12/28/[address] [place] [phone] Ramona Murdock LPN [address] [place] [address] [facility]11 Social History Tobacco Use Types Packs/Day [...] 12/19/2024 8:30 AM EDT Office Visit [facility] [address] [place] [place] [address] Srikanth Bolden DO [address] [facility] [address] [place], [place] [phone] documented as of this encounter Procedures Procedure Name Priority Date/Time Associated Diagnosis Comments PAP SMEAR Routine 12/19/2023 12:00 AM EDT documented in this encounter Results * Pap Smear (12/19/2023 12:00 AM EDT) Swab Cervical swab / Unknown us Yuan Nurse [facility] CYTOLOGY ORDERABLES Final Result EXTERNAL LAB documented in this encounter Visit Diagnoses Not on filedocumented in this encounter
--- OUTSIDE RECORDS SUMMARY | 2024-11-21 09:57 | XMS_ITS | CCD ---
Author Organization [facility] CliniSyde Care Team Providers Care Pest Controller Assistant Name Role Phone STEPHIE HOLLIDAY Unavailable Unavailable [...] Shannon, CHANGC Billy Plummer Primary Care Provider [phone] MELISSA Gold Attending Provider Oneida Gold Admitting Unavailable Oneida Gold Attending Unavailable Billy Okeefe Primary Care Unavailable SRIKANTH BOLDEN Attending Unavailable Shannon, CHANGE DIRECTOR Billy Miranda Attending Unavailable Shannon, CHANGE DIRECTOR Billy Miranda Admitting Unavailable Shannon, CHANGE DIRECTOR Billy Miranda Attending Unavailable Shannon, CHANGE DIRECTOR Billy Miranda Attending Unavailable Shannon, CHANGE DIRECTOR Billy Miranda Attending Unavailable Unavailable Primary Care Provider Unavailshankar Choi MD, Allison Velasco Primary Care Provider Shannon ELECTROMEDICAL SERVICE ENGINEER-MEDICAL SERVICES COORDINATORBilly Primary Care Provider Shannon ELECTROMEDICAL SERVICE ENGINEER-MEDICAL SERVICES COORDINATORBilly Primary Care Provider ROXANNA GOODEN Referring Unavailable SHANNONBILLY Primary Care Unavailable ROXANNA GOODEN Attending Unavailable SHANNONBILLY Referring Unavailable SHANNONBILLY Primary Care Unavailable ROXANNA GOODEN Attending Unavailable SHANNONBILLY Referring Unavailable SHANNON, BILLY Miranda Primary Care Unavailable Shannon ELECTROMEDICAL SERVICE ENGINEER-MEDICAL SERVICES COORDINATORBilly Primary Care Provider Shannon, Billy L Attending [...] Unavailable Shannon, Billy L Attending Unavailable Shannon COMPOSITE BOAT BUILDERLarryC, Billy Plummer Primary Care Provider Krissy Morelos MD Attending Provider [phone] Allergies Allergy Classification Reported Allergen(s) Allergy Type Date of Onset Reaction(s) Facility (1 source) Deanol Drug Allergy [facility] Repository (1 source) Tetanus AND Diphtheria Tox,Adult Drug allergy (disorder) [facility] Repository (19 sources) aprepitant; Translations: [aprepitant] Drug Allergy 1 Pain (finding), pain [facility] Comment on above: panic attack (20 sources) Morphine; Translations: [morphine] Drug Allergy 1 Eruption of skin (disorder), Dizziness, Headache, Hives, Itching, Rash [facility] (5 sources) fosaprepitant; Translations: [fosaprepitant] Drug Allergy 4 Unknown Reaction [facility] (5 sources) measles and rubella live virus vacc; Translations: [measles and rubella live virus vacc] Allergy to substance 4 Unknown Reaction [facility] (5 sources) Tetanus Vaccines and Toxoid; Translations: [Tetanus Vaccines and Toxoid] Allergy to substance 4 Unknown Reaction [facility] (1 source) Morphine Drug Allergy 4 [facility] Repository (4 sources) aprepitant; Translations: [Emend] Drug Allergy [facility] Repository (4 sources) aprepitant Drug Allergy 1 Other [facility] Work Phone: (4 sources) Other Propensity to adverse reactions 1 Dizziness, Headache, Other, Shortness of breath, Unknown, Fever, Itching, Swelling [facility] (19 sources) Tetanus Toxoid, Adsorbed; Translations: [TETANUS TOXOID, ADSORBED] Propensity to adverse reactions 1 Unknown, Other (See Comments) [facility] (15 sources) Measles, Mumps, And Rubella Vaccine Live; Translations: [MEASLES, MUMPS, AND RUBELLA VACCINE LIVE] Propensity to adverse reactions to drug 1 Other (See Comments) [facility] Work Phone: (5 sources) tetanus toxoid vaccine, inactivated; Translations: [tetanus toxoid] Drug Allergy Eruption of skin (disorder), Swelling (finding), Fever (finding) [facility] (5 sources) measles virus vaccine live, attenuated Taco strain / mumps virus vaccine live, Domenic Kavitha strain / rubella virus vaccine live (Wistar 27-3 strain); Translations: [measles/mumps/ rubella virus vaccine] Propensity to adverse reactions to substance Fever (finding), Swelling (finding), Eruption of skin (disorder) [facility] Medications Current Medications Medication Drug Class(es) Dates Sig (Normalized) Sig (Original) acetaminophen 500 mg oral capsule (16 sources) Start: 10-21-2024 take 2 capsules by [...] # 60 tab(s), Refills(s) 11, Pharmacy: [facility]/pharmacy #[id number], 162, cm, 12/15/23 9:27:00 [...] # 60 tab(s), Refills(s) 11, Pharmacy: [facility]/pharmacy #[id number], 162, cm, 11/03/22 9:18:00 EDT, Height/Length Dosing, 408, kg, 11/03/22 9:18:00 EDT, Weight Dosing Start Date: 11/03/22 Status: Ordered Start: 11-03-2022 take 2 tablets by mo [facility] once daily buPROPion 100 mg Tab 200 mg = 2 tab(s), Oral, Daily, Refills(s) 0 Start Date: 11/03/22 Status: Ordered take [address] [facility] every twelve hours in the morning buPROPion SR (WELLBUTRIN SR) 100 mg 12 hr tablet Take 2 tablets (200 mg total) by mouth in the morning. Active take 1 tablet by maris every twelve hours in the morning buPROPion SR (Wellbutrin SR) 100 MG 12 hr tablet Take 200 mg by mouth in the morning. Active Calcium Carb-Cholecalciferol (CALCIUM 600 + D PO) (3 sources) take 1 dose by mouth in the morning, then take 1 dose by mouth once daily at bedtime Calcium Carb-Cholecalciferol (CALCIUM 600 + D PO) Take 1 each by mouth in the morning and 1 each before bedtime. Active calcium carbonate 1500 mg / cholecalciferol 800 unt chewable tablet (3 sources) Vitamin D Start: take 1 tablet [...] Take 10 mg by mouth Daily Active hydroCHLOROthiazide 25 mg oral tablet (20 sources) Thiazide Diuretic Start: Hydrochlorothiazide 25 mg tablet Active 12.5 MG PO Every morning November 14, 2024 10:45am Complies with drug therapy Start: 10-31-2022 End: 11-14-2024 take 1 tablet by mouth once daily in the morning Hydrochlorothiazide 25 mg tablet Discontinued 25 MG PO Every morning August 09, 2023 12:00am November 14, 2024 10:45am ibuprofen 200 mg oral tablet (19 sources) Nonsteroidal Anti-inflammatory Drug Start: 10-21-2024 take 3 tablets by mouth every six hours as needed Ibuprofen 200 mg tablet Active 600 MG PO Every 6 hours as needed October 21, 2024 12:00am Complies with drug therapy Start: 02-10-2021 take 1 tablet by maris th every six hours as needed for pain ibuprofen (ADVIL,MOTRIN) 600 mg tablet Take 1 tablet (600 mg total) by mouth every 6 (six) hours as needed for pain. 30 tablet 02/10/2021 Active lidocaine 0.05 mg/mg topical ointment (14 sources) Antiarrhythmic, Amide Local Anesthetic Start: 01-19-2022 lidocaine (XYLOCAINE) 5 % ointment Indications: Endometrial cancer, FIGO stage IIIA [facility] , Port-A-Cath in place Apply 1 application [...] 10 mg oral tablet (20 sources) Start: 10-31-2022 take 2 tablets by mouth once daily loratadine 10 mg Tab 2 Refill(s), TAKE 1 TABLET BY MOUTH EVERY DAY, Refills(s) 0 Start Date: 10/31/22 Status: Ordered Start: 10-20-2022 End: 07-24-2024 take 1 tablet by mouth once daily in the morning loratadine (CLARITIN) 10 mg tablet TAKE 1 TABLET (10 MG TOTAL) BY MOUTH EVERY MORNING. 90 tablet 1 07/24/2024 Active 24 hr metFORMIN hydrochlorid e 500 mg extended release oral tablet (9 sources) Biguanide Start: 10-21-2024 Metformin 500 mg [...] take 1 tablet by mouth once daily Metoprolol Succinate 50 mg tablet extended release 24 hr Active 50 MG PO Daily August 09, 2023 12:00am Complies with drug therapy take 1 tablet by maris th every twenty-four hours in the morning metoprolol succinate XL (TOPROL-XL) 50 m g 24 hr tablet Take 1 tablet (50 mg total) by mouth in the morning. Active NIFEdipine 30 mg osmotic 24 hr extended release oral tablet (20 sources) Dihydropyridine Calcium Channel Nhung Start: 11-14-2024 take 1 tablet by mouth twice daily Nifedipine (Procardia Xl) 30 mg tablet extended release 24hr Active 30 MG PO Twice daily November 14, 2024 10:44am Complies with drug therapy Start: 12-15-2023 take 1 tablet by maris th twice daily NIFEdipine (Eqv-Procardia XL) 30 mg oral tablet, extended release See Instructions, TAKE 1 TABLET BY MOUTH TWICE A DAY, # 60 tab(s), Refills(s) 2, Pharmacy: [facility]/pharmacy #[id number], 162, cm, 12/15/23 9:27:00 EDT, Height/Length Dosing, 197, kg, 12/15/23 9:27:00 EDT, Weight Dosing Start Date: 12/15/23 Status: Ordered Start: 12-08-2023 take 1 tablet by maris th every twenty-four hours in the morning NIFEdipine XL (Procardia XL) 30 MG 24 hr tablet Take 30 mg by mouth in the morning and 30 mg before bedtime. 12/08/2023 Active Start: 08-09-2023 End: 11-14-2024 take 1 tablet by mouth once daily Nifedipine (Procardia Xl) 30 mg tablet extended release 24hr Discontinued 30 MG PO Daily August 09, 2023 12:00am November 14, 2024 10:45am Start: 10-31-2022 take 1 mg by mouth twice daily take 1 tablet by maris th twice daily NIFEdipine CC (ADALAT CC) 30 mg 24 hr tablet Take 1 tablet (30 mg total) by mouth 2 (two) times daily at 0800 and 1500. Active omeprazole 20 mg delayed release oral capsule (2 sources) Proton Pump Inhibitor Start: 10-21-2024 take 1 capsule by mouth once daily as needed Omeprazole 20 mg capsule,delayed release(DR/EC) Active 20 MG PO Daily as needed October 21, 2024 12:00am Complies with drug therapy phentermine hydrochloride 37.5 mg oral tablet (10 sources) Sympathomimetic Amine Anorectic Start: 12-15-2023 take [...] morning. Take in the morning. 90 each 4 07/17/2024 Active Start: 10-31-2022 Start: 07-19-2022 End: 07-17-2024 take 1 capsule by mouth once daily Polysaccharide Iron Complex (Pro Fe) 180 mg iron capsule Active 180 MG PO Daily August 09, 2023 12:00am Complies with drug therapy take [address] [facility] once daily ProFe 391.3 (180 Fe) MG capsule Take 391.3 mg by mouth Daily Active microencapsulated potassium chloride 20 meq extended release oral tablet (20 sources) Start: 10-21-2024 take 1 tablet by mouth once daily Potassium Chloride 20 mEq tablet,ER particles/crystals Active 20 MEQ PO daily October 21, 2024 12:00am Complies with drug therapy Start: 10-31-2022 End: 07-17-2024 take 1 tablet [...] THE MORNING Start Date: 03/12/24 Status: Ordered Completed/Discontinued Medications Medication Drug Class(es) Dates Sig (Normalized) Sig (Original) busPIRone hydrochloride 5 mg oral tablet (16 sources) Start: 11-02-2022 take 1 tablet by mouth once daily Buspirone 5 mg tablet Active 5 MG PO Daily October 21, 2024 10:15am Complies with drug therapy Start: 11-02-2022 End: 10-21-2024 take 1 tablet by mouth twice daily Buspirone 5 mg tablet Discontinued 5 MG PO Twice daily August 09, 2023 12:00am October 21, 2024 10:19am gabapentin 100 mg oral capsule (20 sources) Anti-epileptic Agent Start: 08-09-2023 End: 10-21-2024 take 1 capsule [...] AT NIGHT 60 capsule 3 10/31/2024 Active magnesium oxide 400 mg oral capsule (20 sources) Start: 11-14-2024 End: 11-14-2024 take 1 capsule by mouth twice daily Magnesium Oxide 400 mg magnesium capsule Discontinued 400 MG PO Twice daily November 14, 2024 10:45am November 14, 2024 10:47am Start: 11-14-2024 take 1 tablet by maris th twice daily Magnesium Oxide 400 mg (241.3 mg magnesium) tablet Active 400 MG PO Twice daily 180 November 14, 2024 12:00am Complies with drug therapy Start: 08-09-2023 End: 11-14-2024 take 1 capsule by mouth once daily Magnesium Oxide 400 mg magnesium capsule Discontinued 400 MG PO Daily August 09, 2023 12:00am November 14, 2024 10:46am Start: 11-02-2022 End: 07-17-2024 take 1 tablet by mouth in the morning magnesium oxide (MAGOX) 400 mg tablet Indications: Hypomagnesemia Take 1 tablet (400 mg total) by mouth in the morning. 90 tablet 1 07/17/2024 Active Problems Active Problems Problem Classification Problem Date Documented Date Episodic/Chronic Acute and unspecified renal failure (1 source) Acute renal failure syndrome 07-24-2024 Episodic Anxiety disorders (2 sources) Mixed anxiety and depressive disorder 02-13-2024 Chronic Calculus of urinary tract (2 sources) Kidney stone; Translations: [Calculus of kidney] 11-14-2024 Episodic Cancer of uterus (20 sources) Primary malignant neoplasm of endometrium; Translations: [Malignant neoplasm of endometrium] Onset: 04-19-2023 Chronic Chronic kidney disease (11 sources) Chronic kidney disease stage 3A ; [...] Onset: 4 Chronic Deficiency and other anemia (4 sources) Anemia; Translations: [Anemia, unspecified] 02-13-2024 Episodic Essential hypertension (6 sources) Hypertensive disorder; Translations: [Essential (primary) hypertension] 11-03-2022 Chronic Hypertension with complications and secondary hypertension (5 sources) Chronic kidney disease due to hypertension; [...] 4 07-18-2023 Chronic Miscellaneous mental health disorders (2 sources) Chronic mental disorder; Translations: [Mental disorder, not otherwise specified] 10-21-2024 Chronic Other diseases of kidney and ureters (5 sources) Secondary hyperparathyroidism; Translations: [Secondary hyperparathyroidism of [...] (14 sources) Drug therapy finding; Translations: [Other terminal superintendent (current) drug therapy] Onset: 02-24-2021 Resolved: 07-19-2022 07-19-2022 Episodic Other circulatory disease (14 sources) Device in situ; Translations: [Presence of other vascular implants and grafts] Onset: 02-24-2021 Resolved: 01-18-2023 01-18-2023 Chronic Viral infection (14 sources) Disease caused by 2019-nCoV; Translations: [COVID-19] Onset: 04-09-2021 Resolved: 07-19-2022 07-19-2022 Episodic Results Test Name Value Interpretation Reference Range Facility Erythrocyte distribution wid th Auto (RBC) [Ratio]Ordered By: Krissy Morelos on 11-13-2024 Erythrocyte distribution width (RBC) [Ratio] 13.6 % 11.0-15.0 [facility] Estimated glomerular filtrat ion rate (GFR) non- AmericanOrdered By: Krissy Morelos on 11-13-2024 GFR/1.73 sq M.predicted among non-blacks MDRD (S/P/Bld) [Vol rate/Area] 26 mL/min/{1.73_m2} Low >=60 mL/min/1.73 m 2 [facility] Hematocrit Auto (Bld) [Volum e fraction]Ordered By: Krissy Morelos on 11-13-2024 Hematocrit (Bld) [Volume fraction] 39.0 % 36.0-48.0 [facility] Hemoglobin [Mass/volume] in BloodOrdered By: Krissy Morelos on 11-13-2024 Hemoglobin (Bld) [Mass/Vol] 13.5 g/dL 12.0-16.0 [facility] Laboratory - Chemistry and C hemistry - challengeOrdered By: Krissy Morelos on 11-13-2024 Albumin [Mass/Vol] 3.5 g/dL 3.4-5.0 [facility] Calcium [Mass/Vol] 9.5 mg/dL 8.5-10.1 [facility] Chloride [Moles/Vol] 101 mmol/L 98-107 [facility] CO2 [Moles/Vol] 25.1 mmol/L 21.0-32.0 [facility] Creatinine [Mass/Vol] 2.06 mg/dL High 0.55-1.02 [place] GFR/1.73 sq M.predicted MDRD (S/P/Bld) [Vol rate/Area] 32 mL/min/{1.73_m2} Low >=60 mL/min/1.73 m 2 [facility] Glucose [Mass/Vol] 99 mg/dL 74-106 [facility] Magnesium [Mass/Vol] 1.6 mg/dL Low 1.8-2.4 [facility] Potassium [Moles/Vol] 3.9 mmol/L 3.5-5.1 [place] Sodium [Moles/Vol] 139 mmol/L 136-145 [facility] Urate [Mass/Vol] 9.1 mg/dL High 2.6-6.0 [facility] Urea nitrogen [Mass/Vol] 32.0 mg/dL High 7.0-18.0 [facility] Urea nitrogen/Creatinine [Mass ratio] 15.5 mg/mg [facility] Bilirubin Ql (U) Negative NEGATIVE [facility] Glucose (U) [Mass/Vol] Negative NEGATIVE [facility] Ketones Ql (U) Negative NEGATIVE [facility] pH (U) 6.0 [pH] 5.0-9.0 [facility] Specific gravity (U) [Rel density] 1.015 1.005-1.025 [facility] Urobilinogen Qn (U) 0.2 {Bhavya'U}/dL 0.2-1.0 [facility] Laboratory - Specimen inform ationOrdered By: Krissy Morelos on 11-13-2024 Appearance (U) CLEAR CLEAR [facility] Color (U) LT. YELLOW YELLOW [facility] Laboratory - UrinalysisOrder ed By: Krissy Morelos on 11-13-2024 Leukocyte esterase Test strip Ql (U) Negative NEGATIVE [facility] Mucus Ql (Urine sed) TRACE Abnormal NONE SEEN [facility] Nitrite Ql (U) Negative NEGATIVE [facility] Protein (U) [Mass/Vol] 18.8 mg/dL High <=11.9 [facility] Protein Ql (U) Negative NEG/TRACE [facility] Leukocytes [#/volume] correc rebecca for nucleated erythrocytes in Blood by Automated counOrdered By: Krissy Morelos on 11-13-2024 WBC corrected for nucl RBC Auto (Bld) [#/Vol] 7.6 10 3/uL 4.0-11.0 [facility] MCH Auto (RBC) [Entitic mass ]Ordered By: Krissy Morelos on 11-13-2024 MCH (RBC) [Entitic mass] 30.7 pg 26.7-34.0 [facility] MCHC Auto (RBC) [Mass/Vol]Or dered By: Krissy Morelos on 11-13-2024 MCHC (RBC) [Mass/Vol] 34.6 g/dL 29.9-35.2 [facility] MCV Auto (RBC) [Entitic vol] Ordered By: Krissy Morelos on 11-13-2024 MCV (RBC) [Entitic vol] 88.6 fL 81.0-99.0 [facility] No Panel InformationOrdered By: Krissy Morelos on 11-13-2024 25-Hydroxy Vitamin D Total 32.4 ng/mL [facility] Comment on above: <20 ng/mL Vit D defi cient20-<30 ng/mL Vit D [id number] ng/mL Vit D sufficient>100 ng/mL Potential Toxicity Phosphorus Level 4.4 mg/dL 2.6-4.7 [facility] Urine Bacteria MODERATE #/HPF Abnormal NONE SEEN [facility] Urine Occult Blood SMALL Abnormal NEGATIVE [facility] Urine Other Casts NONE SEEN #/LPF NONE SEEN [facility] Urine Other Crystals None Seen #/HPF None Seen [facility] Urine Random Creatinine 131.92 mg/dL 20.0 0-300.0 0 [facility] Urine RBC 0-2 #/HPF 0-2 [facility] Urine Squamous Epithelial Cells MODERATE #/LPF Abnormal NONE/RARE [facility] Urine WBC 0-2 #/HPF Abnormal NONE SEEN [facility] Platelet mean volume Auto (B ld) [Entitic vol]Ordered By: Krissy Morelos on 11-13-2024 Platelet mean volume (Bld) [Entitic vol] 10.1 fL 9.5-13.5 [facility] Platelets Auto (Bld) [#/Vol] Ordered By: Krissy Morelos on 11-13-2024 Platelets (Bld) [#/Vol] 297 10 3/uL 150-450 [facility] RBC Auto (Bld) [#/Vol]Ordere d By: Krissy Morelos on 11-13-2024 RBC (Bld) [#/Vol] 4.40 10 6/uL 4.20-5.40 [facility] Serum or plasma anion gap de terminationOrdered By: Krissy Morelos on 11-13-2024 Anion gap [Moles/Vol] 16.8 mmol/L [facility] Urine protein/creatinine rat ioOrdered By: Krissy Morelos on 11-13-2024 Protein/Creatinine (U) [Ratio] 0.14 [facility] Ambulatory Visit Summaryon 0 09-10-2024 Ambulatory Visit Summary Ambulatory Visit Summary DANIELLA MANCERA :1980 Visit Date:09/10/2024 Ambulatory Visit Instructions Your [...] 8:20 AM EDT With: Billy Moscoso Where: [facility] [place] [phone]- Medications What How Much When Why Instructions [...] choosing us for your care. Normal [facility] Family Medicine Office/Clini c Noteon 09-10-2024 Family [...] z68.44, # 30 tab(s), Refills(s) 0, [id number], cm, 09/10/24 8:20:00 EDT, Height/Length Dosing, 163, kg, 09/10/24 8:20:00 EDT, Weight Dosing phentermine, 37.5 mg = 1 tab(s), Oral, Daily, bmi 102.8 z68.44, # 30 tab(s), Refills(s) 0, [id number], cm, 07/24/24 8:35:00 EDT, Height/Length Dosing, 166.3, kg, 07/24/24 8:35:00 EDT, Weight Dosing 4. BMI 60.0-69.9, adult (Z68.44: Body mass index [BMI] 60.0-69.9, adult) BMI education given 5. Non-smoker (Z78.9: Other specified health status) continue not smoking Ordered: phentermine, 37.5 mg = 1 tab(s), Oral, Daily, bmi 102.8 z68.44, # 30 tab(s), Refills(s) 0, [id number] 162, cm, 09/10/24 8:20:00 EDT, Height/Length Dosing, 163, kg, 09/10/24 8:20:00 EDT, Weight Dosing phentermine, 37.5 mg = 1 tab(s), Oral, Daily, bmi 102.8 z68.44, # 30 tab(s), Refills(s) 0, [id number], cm, 07/24/24 8:35:00 EDT, Height/Length [...] hepatitis B pediatric vaccine 08/09/1997 Recorded Normal [facility] Comment on above: Result Comment: Elec tronically Signed By: Billy Moscoso\.julianna\Date and Time Signed: 09/10/24 08:37 EDT Ambulatory Visit Summaryon 0 07-24-2024 Ambulatory Visit Summary Ambulatory Visit Summary DANIELLA MANCERA :1980 Visit Date:07/24/2024 Ambulatory Visit Instructions Your [...] 8:20 AM EDT With: Billy Moscoso Where: [place] [phone]- Medications What How Much When Why Instructions [...] choosing us for your care. Normal [facility] BMPon 07-24-2024 Anion gap [Moles/Vol] 14 mmol/L Normal 6-16 [facility] Comment on above: Performed By: #### [id number] #### [facility] Laboratory [address] [place] [address] Calcium [Mass/Vol] 9.7 mg/dL Normal 8.9-11.1 [facility] Comment on above: Performed By: #### [id number] #### [facility] [address] [place] [address] Chloride [Moles/Vol] 105 mmol/L Normal 101-111 [facility] Comment on above: Performed By: #### [id number] #### [facility] [address] [place] [address] CO2 [Moles/Vol] 24 mmol/L Normal 21-31 [facility] Comment on above: Performed By: #### 2 [id number] #### [facility] [address] [place] [address] Creatinine [Mass/Vol] 1.3 mg/dL Normal 0.5-1.3 [facility] Comment on above: Performed By: #### 2 [id number] #### [facility] [address] [place] [address] Glucose [Mass/Vol] 101 mg/dL Normal 55-199 [facility] Comment on above: Performed By: #### 2 [id number] #### [facility] [address] [place] [address] Potassium [Moles/Vol] 3.9 mmol/L Normal 3.5-5.3 [facility] Comment on above: Performed By: #### 2 [id number] #### [facility] [address] [place] [address] Sodium [Moles/Vol] 139 mmol/L Normal 135-145 [facility] Comment on above: Performed By: #### 2 [id number] #### [facility] [address] [place] [address] Urea nitrogen [Mass/Vol] 30 mg/dL High 5-21 [facility] Comment on above: Performed By: #### 2 [id number] #### [facility] [address] [place] [address] Urea nitrogen/Creatinine [Mass ratio] 23 No Units High 10-20 [facility] Comment on above: Performed By: #### 2 [id number] #### [facility] [address] [place] [address] CHEMISTRYOrdered By: SYSTEM SYSTEM on 07-24-2024 Anion [...] Chem eGFR 52 mL/min/1.73 m2 Low >=59mL/min / 1.73 m2 Remisol Chem Glucose [Mass/Vol] 101 mg/dL [...] # 60 tab(s), Refills(s) 11, Pharmacy: [facility]/pharmacy #[id number], 162, cm, 12/15/23 9:27:00 EDT, Height/Length Dosing, [...] hepatitis B pediatric vaccine 08/09/1997 Recorded Normal [facility] Comment on above: Result Comment: Elec tronically Signed By: Billy Moscoso\.br\Date and Time Signed: 07/24/24 08:53 EDT eGFRon 07-24-2024 eGFR 52 mL/min/1.73 m2 Low >=59 [facility] Comment on above: Performed By: #### 1 [id number] #### [facility] Laboratory [address] [place] [address] Ambulatory Visit Summaryon 0 06-12-2024 Ambulatory Visit [...] 8:20 AM EDT With: Billy Moscoso Where: [address] Street Medications What How Much When Why [...] for choosing us for your care. Normal [facility] BMPon 06-12-2024 Anion gap [Moles/Vol] 16 mmol/L Normal 6-16 [facility] Comment on above: Performed By: #### 2 [id number] #### [facility] Laboratory [address] [place] [address] Calcium [Mass/Vol] 9.2 mg/dL Normal 8.9-11.1 [facility] Comment on above: Performed By: #### 2 [id number] #### [facility] [address] [place] [address] Chloride [Moles/Vol] 102 mmol/L Normal 101-111 [facility] Comment on above: Performed By: #### 2 [id number] #### [facility] [address] [place] [address] CO2 [Moles/Vol] 24 mmol/L Normal 21-31 [facility] Comment on above: Performed By: #### 2 [id number] #### [facility] [address] [place] [address] Creatinine [Mass/Vol] 1.4 mg/dL High 0.5-1.3 [facility] Comment on above: Performed By: #### 2 [id number] #### [facility] [address] [place] [address] Glucose [Mass/Vol] 101 mg/dL Normal 55-199 [facility] Comment on above: Performed By: #### 2 [id number] #### [facility] [address] [place] [address] Potassium [Moles/Vol] 3.7 mmol/L Normal 3.5-5.3 [facility] Comment on above: Performed By: #### 2 151515 #### [facility] [address] [place] [address] Sodium [Moles/Vol] 138 mmol/L Normal 135-145 [facility] Comment on above: Performed By: #### 2 [id number] #### [facility] [address] [place] [address] Urea nitrogen [Mass/Vol] 23 mg/dL High 5-21 [facility] Comment on above: Performed By: #### 2 [id number] #### [facility] [address] [place] [address] Urea nitrogen/Creatinine [Mass ratio] 16 No Units Normal 10-20 [facility] Comment on above: Performed By: #### 2 [id number] #### [facility] [address] [place] [address] CHEMISTRYOrdered By: SYSTEM SYSTEM on 06-12-2024 Anion [...] Chem eGFR 47 mL/min/1.73 m2 Low >=59mL/min / 1.73 m2 Remisol Chem Glucose [Mass/Vol] 101 mg/dL Normal 55 - 199 mg/dL Remisol Chem Potassium [Moles/Vol] 3.7 mmol/L Normal 3.5 - 5.3 mmol/L Remisol Chem Sodium [Moles/Vol] 138 mmol/L Normal 135 - 145 mmol/L Remisol Chem Urea nitrogen [Mass/Vol] 23 mg/dL High 5 - 21 mg/dL Remisol Chem Urea nitrogen/Creatinine [Mass ratio] 16 mg/mg Normal 10 - 20 Remisol Chem Family [facility] Office/Clini c Noteon 06-12-2024 Family Medicine Office/Clinic [...] Ordered: Basic Metabolic Panel Lab Specimen Collect 39471 2. Elevated BUN (R79.9: Abnormal finding of blood chemistry, unspecified) will check BMP today Ordered: Basic Metabolic Panel Lab Specimen Collect [id number] 3. Hypertension (I10: Essential (primary) hypertension) BP log reviewed. Some are 90/70's will instruct her to stop the Procardia and continue to monitor her BP Ordered: phentermine, 37.5 mg = 1 tab(s), Oral, Daily, bmi 66.3, # 30 tab(s), Refills(s) 0, Pharmacy: [facility]/pharmacy #[id number], 162, cm, 06/12/24 8:34:00 EST, Height/Length Dosing, 168.8, kg, 06/12/24 8:34:00 EST, Weight Dosing phentermine, 37.5 mg = 1 tab(s), Oral, Daily, bmi 66.3, # 30 tab(s), Refills(s) 0, [id number], cm, 04/10/24 7:19:00 EST, Height/Length Dosing, 174, kg, 04/10/24 7:19:00 EST, Weight Dosing 4. BMI 60.0-69.9, adult (Z68.44: Body mass index [BMI] 60.0-69.9, adult) BMI education given Ordered: Basic Metabolic Panel Lab Specimen Collect [id number] 5. Non-smoker (Z78.9: Other specified health status) continue not smoking Ordered: phentermine, 37.5 mg = 1 tab(s), Oral, Daily, bmi 66.3, # 30 tab(s), Refills(s) 0, [facility] 162, cm, 06/12/24 8:34:00 EST, Height/Length Dosing, 168.8, kg, 06/12/24 8:34:00 EST, Weight Dosing phentermine, 37.5 mg = 1 tab(s), Oral, Daily, bmi 66.3, # 30 tab(s), Refills(s) 0, [id number], 162, cm, 04/10/24 7:19:00 EST, Height/Length Dosing, 174, kg, 04/10/24 7:19:00 EST, Weight Dosing Basic Metabolic Panel Lab Specimen Collect 13418 Follow-up No qualifying data available Problem List/Past [...] hepatitis B pediatric vaccine 08/09/1997 Recorded Normal [facility] Comment on above: Result Comment: Elec tronically Signed By: Billy Moscoso\.br\Date and Time Signed: 06/12/24 08:58 EST eGFRon 06-12-2024 eGFR 47 mL/min/1.73 m2 Low >=59 [facility] Comment on above: Performed By: #### 1 [id number] #### [facility] Laboratory [address] [place] [address] Ambulatory Visit Summaryon 1 05-12-2023 Ambulatory Visit Summary Ambulatory Visit Summary [...] Appointments Monday 8:20 AM EST With: Where: [address] [id number]- Monday 8:20 AM EST With: Billy Moscoso Where: [address] [address]- Medications What How Much When Why Instructions New phentermine (phentermine 37.5 mg Tab) 1 Tablets By Mouth Every day Hypertension BMI 70 and over, adult Non-smoker Pickup at [facility]/pharmacy #[id number] Unchanged buPROPion (buPROPion 100 mg Tab) 1 [...] by mouth in the morning. Pharmacy Information [facility]/pharmacy #[id number]: [address], [place] [id number] [phone] Allergies Emend (Pain) measles/mumps/rubella virus vaccine (Fever, [...] choosing us for your care. Normal [facility] Family Medicine Office/Clini c Noteon 03-12-2024 Family [...] Daily, # 30 tab(s), Refills(s) 0, Pharmacy: [facility]/pharmacy #[id number], 162, cm, 02/13/24 8:26:00 EDT, Height/Length Dosing, 182.8, kg, 02/13/24 8:26:00 EDT, Weight Dosing phentermine, 37.5 mg = 1 tab(s), Oral, Daily, # 30 tab(s), Refills(s) 0, Pharmacy: [facility]/pharmacy #[id number], 162, cm, 03/12/24 8:26:00 EST, Height/Length Dosing, 176.1, kg, 03/12/24 8:26:00 EST, Weight Dosing 3. Non-smoker (Z78.9: Other specified health status) continue not smoking Ordered: phentermine, 37.5 mg = 1 tab(s), Oral, Daily, # 30 tab(s), Refills(s) 0, Pharmacy: [facility]/pharmacy #[id number], 162, cm, 02/13/24 8:26:00 EDT, Height/Length Dosing, 182.8, kg, 02/13/24 8:26:00 EDT, Weight Dosing phentermine, 37.5 mg = 1 tab(s), Oral, Daily, # 30 tab(s), Refills(s) 0, Pharmacy: [facility]/pharmacy #[id number], 162, cm, 03/12/24 8:26:00 EST, Height/Length [...] hepatitis B pediatric vaccine 08/09/1997 Recorded Normal [facility] Comment on above: Result Comment: [...] 8:20 AM EST With: Billy Moscoso Where: [place] [id number]- Medications What How Much When Why Instructions [...] for choosing us for your care. Normal [facility] Family Medicine Office/Clini c Noteon 02-13-2024 Family [...] Daily, # 30 tab(s), Refills(s) 0, [id number] 162, cm, 02/13/24 8:26:00 EDT, Height/Length Dosing, 182.8, kg, 02/13/24 8:26:00 EDT, Weight Dosing phentermine, 37.5 mg = 1 tab(s), Oral, Daily, # 30 tab(s), Refills(s) 0, Pharmacy: [facility] #72, 162, cm, 01/17/24 14:02:00 EDT, Height/Length [...] DAY, # 60 tab(s), Refills(s) 2, Pharmacy: [facility]/pharmacy #[id number], 162, cm, 12/15/23 9:27:00 EDT, Height/Length Dosing, 197, kg, 12/15/23 9:27:00 EDT, Weight Dosing NIFEdipine, 30 mg = 1 tab(s), Oral, BID, # 180 tab(s), Refills(s) 3, Pharmacy: [facility]/pharmacy #[id number], 162, cm, 02/13/24 8:26:00 EDT, Height/Length [...] hepatitis B pediatric vaccine 08/09/1997 Recorded Normal [facility] Comment on above: Result Comment: Elec tronically Signed By: Billy Moscoso.julianna\Date and Time Signed: 02/13/24 08:39 EDT Family [...] Daily, # 30 tab(s), Refills(s) 0, Pharmacy: [facility] #72, 162, cm, 01/17/24 14:02:00 EDT, Height/Length Dosing, 185.8, kg, 01/17/24 14:02:00 EDT, Weight Dosing phentermine, 37.5 mg = 1 tab(s), Oral, Daily, # 30 tab(s), Refills(s) 0, Pharmacy: [facility] #72, 162, cm, 12/15/23 9:27:00 EDT, Height/Length Dosing, 197, kg, 12/15/23 9:27:00 EDT, Weight Dosing 3. Non-smoker (Z78.9: Other specified health status) continue not smoking Ordered: phentermine, 37.5 mg = 1 tab(s), Oral, Daily, # 30 tab(s), Refills(s) 0, Pharmacy: [facility] #[facility], 162, cm, 01/17/24 14:02:00 EDT, Height/Length Dosing, 185.8, kg, 01/17/24 14:02:00 EDT, Weight Dosing phentermine, 37.5 mg = 1 tab(s), Oral, Daily, # 30 tab(s), Refills(s) 0, Pharmacy: [facility] #72, 162, cm, 12/15/23 9:27:00 EDT, Height/Length [...] Daily, # 30 tab(s), Refills(s) 0, Pharmacy: [facility] #72, 162, cm, 01/17/24 14:02:00 EDT, Height/Length Dosing, 185.8, kg, 01/17/24 14:02:00 EDT, Weight Dosing phentermine, 37.5 mg = 1 tab(s), Oral, Daily, # 30 tab(s), Refills(s) 0, Pharmacy: [facility] #72, 162, cm, 12/15/23 9:27:00 EDT, Height/Length [...] hepatitis B pediatric vaccine 08/09/1997 Recorded Normal [facility] Comment on above: Result Comment: Elec tronically Signed By: Billy Moscoso\.br\Date and Time Signed: 01/17/24 15:22 EDT CBC AND AUTO DIFFon 01-12-20 ABSOLUTE BASOPHIL 0.1 X10E9/L Normal 0.0-0.2 [facility] Comment on above: Performed By: #### 1 9123-9, CBCA, CMP #### [facility] ([id number]) [address], [address] [place] [address] ABSOLUTE NEUTROPHIL 4.7 X10E9/L Normal 1.5-6.6 [facility] Comment on above: Performed By: #### 1 9123-9, CBCA, CMP #### [facility] ([id number]) [address], [address] [place] [address] Basophils/100 WBC (Bld) 1.3 % Normal [facility] Comment on above: Performed By: #### 1 9123-9, CBCA, CMP #### [facility] ([id number]) [address], [address] [place] [address] Eosinophils (Bld) [#/Vol] 0.3 10*3/uL Normal 0.0-0.4 [facility] Comment on above: Performed By: #### 1 9123-9, CBCA, CMP #### [facility] ([id number]) [address], [address] [place] [address] Eosinophils/100 WBC (Bld) 3.9 % Normal [facility] Comment on above: Performed By: #### 1 9123-9, CBCA, CMP #### [facility] ([id number]) [address], [address] [place] [address] Erythrocyte distribution width (RBC) [Ratio] 14.7 % Normal 11.5-15.0 [facility] Comment on above: Performed By: #### 1 9123-9, CBCA, CMP #### [facility] ([id number]) [address], [address] [place] [address] Hematocrit (Bld) [Volume fraction] 41.8 % Normal 35-47 [facility] Comment on above: Performed By: #### 1 9123-9, CBCA, CMP #### [facility] ([id number]) [address], [address] [place] [address] Hemoglobin (Bld) [Mass/Vol] 14.5 g/dL Normal 11.7-15.5 [facility] Comment on above: Performed By: #### 1 9123-9, CBCA, CMP #### [facility] ([id number]) [address], [facility] [address] [place] [address] Lymphocytes (Bld) [#/Vol] 1.5 10*3/uL Normal 1.0-3.5 [facility] Comment on above: Performed By: #### 1 9123-9, CBCA, CMP #### [facility] ([id number]) [address], [facility] [address] [place] [address] Lymphocytes/100 WBC (Bld) 21.2 % Normal [facility] Comment on above: Performed By: #### 1 9123-9, CBCA, CMP #### [facility] ([id number]) [address], [facility] [address] [place] [address] MCH (RBC) [Entitic mass] 29.6 pg Normal 27-34 [facility] Comment on above: Performed By: #### 1 9123-9, CBCA, CMP #### [facility] ([id number]) [address], [address] [place] [address] MCHC (RBC) [Mass/Vol] 34.7 g/dL Normal 32-36 [facility] Comment on above: Performed By: #### 1 9123-9, CBCA, CMP #### [facility] ([id number]) [address], [facility] [address] [place] [address] MCV (RBC) [Entitic vol] 85 fL Normal 80-100 [facility] Comment on above: Performed By: #### 1 9123-9, CBCA, CMP #### [facility] ([id number]) [address], [address] [place] [address] Monocytes (Bld) [#/Vol] 0.4 10*3/uL Normal 0-0.9 [facility] Comment on above: Performed By: #### 1 9123-9, CBCA, CMP #### [facility] ([id number]) [address], [address] [place] [address] Monocytes/100 WBC (Bld) 6.0 % Normal [facility] Comment on above: Performed By: #### 1 9123-9, CBCA, CMP #### [facility] ([id number]) [address], [address] [place] [address] Neutrophils/100 WBC (Bld) 67.6 % Normal [facility] Comment on above: Performed By: #### 1 9123-9, CBCA, CMP #### [facility] ([id number]) [address], [address] [place] [address] Platelet mean volume (Bld) [Entitic vol] 9.3 fL Normal 7-12 [facility] Comment on above: Performed By: #### 1 9123-9, CBCA, CMP #### [facility] ([id number]) [address], [address] [place] [address] Platelets (Bld) [#/Vol] 279 10*3/uL Normal 150-450 [facility] Comment on above: Performed By: #### 1 9123-9, CBCA, CMP #### [facility] ([id number]) [address], [address] [place] [address] RBC COUNT 4.91 X10E12/L Normal 3.80-5.20 [facility] Comment on above: Performed By: #### 1 9123-9, CBCA, CMP #### [facility] ([id number]) [address], [address] [place] [address] WBC (Bld) [#/Vol] 6.9 10*3/uL Normal 4.0-11.0 [facility] Comment on above: Performed By: #### 1 9123-9, CBCA, CMP #### [facility] ([id number]) [address], [address] [place] [address] COMPREHENSIVE METABOLIC PANE Geoffrey 01-12-2024 Albumin [Mass/Vol] 4.4 g/dL Normal 3.2-5.3 [facility] Comment on above: Performed By: #### 1 9123-9, CBCA, CMP #### [facility] ([id number]) [address], [address] [place] [address] ALP [Catalytic activity/Vol] 73 U/L Normal 39-130 [facility] Comment on above: Performed By: #### 1 9123-9, CBCA, CMP #### [facility] ([id number]) [address], [address] [place] [address] ALT [Catalytic activity/Vol] 50 U/L High 0-31 [facility] Comment on above: Performed By: #### 1 9123-9, CBCA, CMP #### [facility] ([id number]) [address], [address] [place] [address] Anion gap [Moles/Vol] 12 mmol/L Normal 5-15 [facility] Comment on above: Performed By: #### 1 9123-9, CBCA, CMP #### [facility] ([id number]) [address], [address] [place] [address] AST [Catalytic activity/Vol] 26 U/L Normal 0-41 [facility] Comment on above: Performed By: #### 1 9123-9, CBCA, CMP #### [facility] ([id number]) [address], [address] [place] [address] Bilirubin [Mass/Vol] 1.1 mg/dL Normal 0.3-1.2 [facility] Comment on above: Performed By: #### 1 9123-9, CBCA, CMP #### [facility] ([id number]) [address], [address] [place] [address] Calcium [Mass/Vol] 9.7 mg/dL Normal 8.5-10.5 [facility] Comment on above: Performed By: #### 1 9123-9, CBCA, CMP #### [facility] ([id number]) [address], [address] [place] [address] Chloride [Moles/Vol] 101 mmol/L Normal 98-109 [facility] Comment on above: Performed By: #### 1 9123-9, CBCA, CMP #### [facility] ([id number]) [address], [address] [place] [address] CO2 [Moles/Vol] 24 mmol/L Normal 22-32 [facility] Comment on above: Performed By: #### 1 9123-9, CBCA, CMP #### [facility] ([id number]) [address], [address] [place] [address] Creatinine [Mass/Vol] 1.30 mg/dL High 0.40-1.00 [facility] Comment on above: Result Comment: METH OD TRACEABLE TO IDMS STANDARD Performed By: #### 1 9123-9, CBCA, CMP #### [facility] ([id number]) [address], [address] [place] [address] GFR/1.73 sq M.predicted among non-blacks MDRD (S/P/Bld) [Vol rate/Area] 52 mL/min/{1.73_m2} Low >59 [facility] Comment on above: Result Comment: Reported eGFR is based on the CKD-EPI 2020 equation that does not use a race coefficient. Performed By: #### 1 9123-9, CBCA, CMP #### [facility] ([id number]) [address] [place] [address] Glucose [Mass/Vol] 105 mg/dL High 65-99 [facility] Comment on above: Performed By: #### 1 9123-9, CBCA, CMP #### [facility] ([id number]) [address], [address] [place] [address] Potassium [Moles/Vol] 3.6 mmol/L Normal 3.5-5.0 [facility] Comment on above: Performed By: #### 1 9123-9, CBCA, CMP #### [facility] ([id number]) [address], [address] [place] [address] Protein [Mass/Vol] 7.7 g/dL Normal 6.0-8.0 [facility] Comment on above: Performed By: #### 1 9123-9, CBCA, CMP #### [facility] ([id number]) [address], [address] [place] [address] Sodium [Moles/Vol] 137 mmol/L Normal 134-146 [facility] Comment on above: Performed By: #### 1 9123-9, CBCA, CMP #### [facility] ([id number]) [address], [address] [place] [address] Urea nitrogen [Mass/Vol] 36 mg/dL High 5-23 [facility] Comment on above: Performed By: #### 1 9123-9, CBCA, CMP #### [facility] ([id number]) [address], [address] [place] [address] MAGNESIUMon 01-12-2024 Magnesium [Mass/Vol] 1.9 mg/dL Normal 1.8-2.6 [facility] Comment on above: Performed By: #### 1 9123-9, CBCA, CMP #### [facility] ([id number]) [address] [place] [address], [address] [place] [address] MLR HEMOGLOBIN A1Con 024 Glucose [Mass/Vol] 108 mg/dL [facility] HbA1c (Bld) [Mass fraction] 5.4 % 4.5 - 6.2 % [facility] Comment on above: ADA RECOMMENDED LIMI T 4.0 - 6.0 ADA THERAPEUTIC TARGET < 7.0 ACTION SUGGESTED > 7.0 [facility] Ambulatory Visit Summaryon 0 12-15-2023 Ambulatory Visit [...] 8:20 AM EDT With: Billy Moscoso Where: [facility] [address] [address]- Medications What How Much When Instructions Unchanged [...] for choosing us for your care. Normal [facility] CHEMISTRYOrdered By: SYSTEM SYSTEM on [...] Chem eGFR 81 mL/min/1.73 m2 Normal >=59mL/min / 1.73 m2 Remisol Chem Globulin (S) [Mass/Vol] 3.1 [...] Chem Triglyceride [Mass/Vol] 142 mg/dL Normal <=149mg/dL R emisol Chem TSH Qn 1.22 m[IU]/L Normal 0.34 - 5.60 mcIU/mL Remisol Chem Urea nitrogen [Mass/Vol] 22 mg/dL High 5 - 21 mg/dL Remisol Chem Urea nitrogen/Creatinine [Mass ratio] 24 mg/mg High 10 - 20 Remisol Chem CMPon 12-15-2023 Albumin [Mass/Vol] 4.1 g/dL Normal 3.3-5.0 [facility] Comment on above: Performed By: #### 2 [id number] #### [facility] [address] [place] [address] Albumin/Globulin (S) [Mass conc ratio] 1.3 Normal 1.1-2.2 [facility] Comment on above: Performed By: #### 2 538476 #### [facility] [address] [place] [address] ALP [Catalytic activity/Vol] 81 Int._Unit/L Normal 21-98 [facility] Comment on above: Performed By: #### 2 [id number] #### [facility] [address] [place] [address] ALT No additional P-5'-P [Catalytic activity/Vol] 28 Int._Unit/L Normal 6-46 [facility] Comment on above: Performed By: #### 2 704435 #### [facility] [address] [place] [address] Anion gap [Moles/Vol] 17 mmol/L High 6-16 [facility] Comment on above: Performed By: #### 2 606117 #### [facility] [address] [place] [address] AST [Catalytic activity/Vol] 22 Int._Unit/L Normal 5-43 [facility] Comment on above: Performed By: #### 2 628908 #### [facility] [address] [place] [address] Bilirubin [Mass/Vol] 0.7 mg/dL Normal 0.0-1.1 [facility] Comment on above: Performed By: #### 2 393789 #### [facility] [address] [place] [address] Calcium [Mass/Vol] 9.6 mg/dL Normal 8.9-11.1 [facility] Comment on above: Performed By: #### 2 818956 #### [facility] [address] [place] [address] Chloride [Moles/Vol] 106 mmol/L Normal 101-[address] [facility] Comment on above: Performed By: #### 2 [id number] #### [facility] [address] [place] [address] CO2 [Moles/Vol] 22 mmol/L Normal 21-31 [facility] Comment on above: Performed By: #### 2 543612 #### [facility] [address] [place] [address] Creatinine [Mass/Vol] 0.9 mg/dL Normal 0.5-1.3 [facility] Comment on above: Performed By: #### 2 [id number] #### [facility] [address] [place] [address] Globulin (S) [Mass/Vol] 3.1 g/dL Normal 1.4-4.0 [facility] Comment on above: Performed By: #### 2 [id number] #### [facility] [address] [place] [address] Glucose [Mass/Vol] 105 mg/dL Normal 55-199 [facility] Comment on above: Performed By: #### 2 737109 #### [facility] [address] [place] [address] Potassium [Moles/Vol] 3.8 mmol/L Normal 3.5-5.3 [facility] Comment on above: Performed By: #### 2 516892 #### [facility] [address] [place] [address] Protein [Mass/Vol] 7.2 g/dL Normal 6.0-7.8 [facility] Comment on above: Performed By: #### 2 [id number] #### [facility] [address] [place] [address] Sodium [Moles/Vol] 141 mmol/L Normal 135-145 [facility] Comment on above: Performed By: #### 2 342745 #### [facility] [address] [place] [address] Urea nitrogen [Mass/Vol] 22 mg/dL High 5-21 [facility] Comment on above: Performed By: #### 2 283946 #### [facility] [address] [place] [address] Urea nitrogen/Creatinine [Mass ratio] 24 No Units High 10-20 [facility] Comment on above: Performed By: #### 2 [id number] #### [facility] [address] [place] [address] Family Medicine Office/Clini c Noteon 12-15-2023 Family [...] # 30 tab(s), Refills(s) 11, Pharmacy: [facility]/pharmacy #[id number], 162, cm, 12/15/23 9:27:00 EDT, Height/Length Dosing, 197, kg, 12/15/23 9:27:00 EDT, Weight Dosing Comprehensive Metabolic Panel Est Preventative 40 to 64 years [address] Lipid Panel Thyroid Stimulating Hormone 2. Weight gain (R63.5: Abnormal weight gain) pt has gained 26 pounds since last visit. will start adipex. discussed making health food choices and increasing exercise Ordered: metoprolol, 50 mg = 1 tab(s), Oral, Daily, # 30 tab(s), Refills(s) 11, Pharmacy: [id number], 162, cm, 12/15/23 9:27:00 EDT, Height/Length Dosing, 197, kg, 12/15/23 9:27:00 EDT, Weight Dosing Est Preventative 40 to 64 years [address] 3. Hypertension (I10: Essential (primary) hypertension) BP at goal Ordered: metoprolol, 50 mg = 1 tab(s), Oral, Daily, # 30 tab(s), Refills(s) 11, [id number] 162, cm, 12/15/23 9:27:00 EDT, Height/Length Dosing, 197, kg, 12/15/23 9:27:00 EDT, Weight Dosing Comprehensive Metabolic Panel Est Preventative 40 to 64 years 24359 Lipid Panel Thyroid Stimulating Hormone 4. BMI 70 and over, adult (Z68.45: Body mass index [BMI] 70 or greater, adult) BMI education given Ordered: metoprolol, 50 mg = 1 tab(s), Oral, Daily, # 30 tab(s), Refills(s) 11, [facility]: [id number], 162, cm, 12/15/23 9:27:00 EDT, Height/Length Dosing, 197, kg, 12/15/23 9:27:00 EDT, Weight Dosing Est Preventative 40 to 64 years [address]1247 5. Morbid obesity (E66.01: Morbid (severe) obesity due to excess calories) see above Ordered: metoprolol, 50 mg = 1 tab(s), Oral, Daily, # 30 tab(s), Refills(s) 11, [id number], 162, cm, 12/15/23 9:27:00 EDT, Height/Length Dosing, 197, kg, 12/15/23 9:27:00 EDT, Weight Dosing Comprehensive Metabolic Panel Est Preventative 40 to 64 years 40066 Lipid Panel Thyroid Stimulating Hormone 6. Non-smoker (Z78.9: Other specified health status) continue not smoking Ordered: metoprolol, 50 mg = 1 tab(s), Oral, Daily, # 30 tab(s), Refills(s) 11, [id number], 162, cm, 12/15/23 9:27:00 EDT, Height/Length Dosing, 197, kg, 12/15/23 9:27:00 EDT, Weight Dosing Comprehensive Metabolic Panel Est Preventative 40 to 64 years 19553 Lipid Panel Thyroid Stimulating Hormone Orders: buPROPion, 100 mg = 1 tab(s), Oral, BID, # 60 tab(s), Refills(s) 11, [id number], 162, cm, 11/03/22 9:18:00 EDT, Height/Length Dosing, 408, kg, 11/03/22 9:18:00 EDT, Weight Dosing buPROPion, 100 mg = 1 tab(s), Oral, BID, # 60 tab(s), Refills(s) 11, [id number], 162, cm, 12/15/23 9:27:00 EDT, Height/Length Dosing, 197, kg, 12/15/23 9:27:00 EDT, Weight Dosing buPROPion, See Instructions, TAKE 1 TABLET BY MOUTH TWICE A DAY, # 60 tab(s), Refills(s) 11, Pharm[facility]: [id number], 162, cm, 12/15/23 9:27:00 EDT, Height/Length Dosing, 197, kg, 12/15/23 9:27:00 EDT, Weight Dosing busPIRone, 5 mg = 1 tab(s), Oral, Daily, # 30 tab(s), Refills(s) 11, [id number], 162, cm, 12/15/23 9:27:00 EDT, Height/Length Dosing, 197, kg, 12/15/23 9:27:00 EDT, Weight Dosing busPIRone, 5 mg = 1 tab(s), Oral, Daily, # 30 tab(s), Refills(s) 5, [id number], 162, cm, 11/03/22 9:18:00 EDT, Height/Length Dosing, 408, kg, 11/03/22 9:18:00 EDT, Weight Dosing hydrochlorothiazide, 25 mg = 1 tab(s), Oral, Daily, 25 Unknown, oral, 1 Refill(s), Take 25 mg by mouth daily., # 30 tab(s), Refills(s) 11, [facility] #[id number] (more content not included)... Normal [facility] Comment on above: Result Comment: Elec tronically Signed By: Shannon FENG, Billy Miranda\.br\Date and Time Signed: 12/15/23 10:14 EDT Lipid Panelon 12-15-2023 Cholesterol [Mass/Vol] 172 mg/dL Normal 120-200 [facility] Comment on above: Performed By: #### 2 [id number] #### [facility] [address] [place] [address] Cholesterol in HDL [Mass/Vol] 39 mg/dL Invalid Interpretation Code [facility] Comment on above: Result Comment: '>= 60 LOW RISK' '<= 40 HIGH RISK' Performed By: #### 2 [id number] #### [facility] [address] [place] [address] Cholesterol in LDL [Mass/Vol] 118 mg/dL Normal <=129 [facility] Comment on above: Performed By: #### 2 [id number] #### [facility] [address] [place] [address] Cholesterol in VLDL [Mass/Vol] 28 mg/dL Normal 7-40 [facility] Comment on above: Performed By: #### 2 [id number] #### [facility] [address] [place] [address] Triglyceride [Mass/Vol] 142 mg/dL Normal <=149 F [facility] Comment on above: Performed By: #### 2 [id number] #### [facility] [address] [place] [address] TSHon 12-15-2023 TSH Qn 1.22 m[IU]/L Normal 0.34-5.60 [facility] Comment on above: Performed By: #### 2 [id number] #### [facility] [address] [place] [address] eGFRon 12-15-2023 eGFR 81 mL/min/1.73 m2 Normal >=59 [facility] Comment on above: Order Comment: Order added by Discern Expert. Performed By: #### 1 [id number] #### [facility] [address] [place] [address] Consultation Noteon 08-11-19 Consultation Note [id number] 0TIFF Normal [facility] XR ankle LT min 3V*on 2023 XR ankle LT min 3V* [facility] [place] [address] XRay Report Signed Patient: Daniella Mancera MR#: [id number] : 1980 Acct:[id number] Age/Sex: 42 / F ADM Date: 08/09/23 Loc: XDUCLY Room: Type: [facility] Attending Dr: Oneida TORRES Copies to: MELISSA [...] LEFT ANKLE. PLANTAR SPURRING. Impression dictated by: Farhan Upton Jr.OCampbell08/09/2023 11:03 AM Dictation Location: [place] [address] Transcribed By: [facility] 08/09/231102 Dictated By: Aldo Hernandez Jr, DO 08/09/231102 Signed By: 08/09/23 110 Normal [facility] Consultation Noteon 01-21-20 Consultation Note [id number] 0CD:127 Normal [facility] Cytology Cervical or vaginal smear or scraping studyon 12-13-2022 [facility] CHEMISTRYOrdered By: SYSTEM SYSTEM on 11-03-2022 Cholesterol [Mass/Vol] 163 mg/dL Normal 120 - 200 mg/dL [facility] Cholesterol in HDL [Mass/Vol] 41 mg/dL Invalid Interpretation Code [facility] Cholesterol in LDL [Mass/Vol] 104 mg/dL Normal <=129mg/dL [facility] Cholesterol in VLDL [Mass/Vol] 23 mg/dL Normal 7 - 40 mg/dL [facility] Triglyceride [Mass/Vol] 116 mg/dL Normal <=149mg/dL [facility] TSH Qn 1.25 m[IU]/L Normal 0.34 - 5.60 mcIU/mL [facility] MG MAMM SCREEN 3D NERI CADon 01-03-2022 MG MAMM SCREEN 3D NERI CAD Patient: DANIELLA MANCERA Exam Date: 01/03/2022 : 1980 Gender:F Ordering : DR SRIKANTH BOLDEN . Admission #: [id number] Family : JARED SHEARER Order #: [id number] CLICK HERE TO VIEW EXAM RADIOLOGY REPORT PROCEDURE: MAMMOGRAM SCREENING 3D BILATERAL CAD COMPARISON: None. INDICATIONS: Screening mammography Calculator Name NCI Breast Cancer Risk Assessment Tool 5 Year Breast Cancer Risk 0.80% Lifetime Breast Cancer Risk 11.90% Personal Breast Cancer No Personal Ovarian Cancer No Treatments hysterectomy and chemotherapy Family Cancers Aunt-maternal with breast cancer at age 81. LOCATION: [facility] BREAST COMPOSITION: Almost entirely fatty. FINDINGS: DIAGNOSTIC [...] Antonio Heller M.D. on 01/03/2022 at 15:59 Normal [facility] PAP ACOG PANEL 2: 30 to 65on 12-01-2021 . . Normal [facility] Comment on above: Result Comment: Perf ormed at: WB Performed By: #### 4 [id number] #### [facility] [address] [place] [address] [address] Billy Parikh Age Gdln ACOG Testing 30-65 [facility] Comment on above: Performed By: #### 4 [id number] #### [facility] [address] [place] [address] [address] Billy Parikh DIAGNOSIS: Comment Normal [facility] Comment on above: Result Comment: NEGA TIVE FOR INTRAEPITHELIAL LESION OR MALIGNANCY. Performed at: WB Performed By: #### 4 [id number] #### [facility] [address] [place] [address] [address] Billy Parikh HPV Aptima Negative Normal Negative [facility] Comment on above: Result Comment: This nucleic acid amplification test detects fourteen high-risk HPV types (16,18,31,33,35,39,45,51,52,56,58,59,66,68) without differentiation. Performed at: =G Performed By: #### 4 [id number] #### [facility] [address] [place] [address] [address] Billy Parikh Methodology: CTIM Normal [facility] Comment on above: Result Comment: The Thin Prep(R) Olericulture Professor was unable to read this specimen. Therefore a manual review was performed. Performed at: WB Performed By: #### 4 [id number] #### [facility] [address] [place] [address] [address] Billy Parikh Note: Comment Normal [facility] Comment on above: Result Comment: The Pap smear is a screening test designed to aid in the detection of premalignant and malignant conditions of the uterine cervix. It is not a diagnostic procedure and should not be used as the sole means of detecting cervical cancer. Both false-positive and false-negative reports do occur. . Performed at: WB Performed By: #### 4 [id number] #### [facility] [address] [place] [address] Dr. Billy Parikh Performed by: Comment Normal [facility] Comment on above: Result Comment: Nish Wolff Supervisor Dried Yeast (ASCP) Performed at: WB Performed By: #### 4 [id number] #### [facility] [address] [place] [address] [address] Billy Parikh Specimen adequacy: Comment Normal [facility] Comment on above: Result Comment: Sati sfactory for evaluation. No endocervical component is identified. Performed at: WB Performed By: #### 4 [id number] #### [facility] [address] [place] [address] Dr. Billy Parikh PROGRESSon 12-18-2016 PROGRESS HNO ID: [id number]: Stephie Looneyice: (none)Author Type: PhysicianType: Progress NotesFiled: 12/18/2016 11:00 AMNote Text:DATE OF SERVICE: 12/14/2016PROBLEM: Daniella Mancera is a consult from Dr. Bolden for evaluation ofabnormal uterine bleeding.SUBJECTIVE/HP I: Ms. Mancera is a 36 year old female with history ofpelvic pain and heavy irregular vaginal bleeding requiring ER visits. Sherecently underwent hysteroscopy and D/C on 12/16 that came back c/wendometrial polyp and benign disease.Pelvic USUterus 11.5 x 6.7 x 7.3 cm. ET 44 mmNormal ovariesHysteroscopy and D/C 12/16/2016Benign endometrial polyp and secretory endometrium.HISTORIES: PAST GYNECOLOGIC HISTORY:G0. LMP: No LMP recorded.History of abnormal pap: No.No past surgical history on file. Diamond teeth removalPAST MEDICAL HISTORYDiagnosis Date- Abnormal uterine bleeding- Anemia- Anxiety- Hypertension- Thickened endometriumNo family history on file.Family history of breast, ovarian, uterine or colon cancer: NoFamily history of VTE: NoSOCIAL HISTORYSocial HistorySubstance Use Topics- Smoking status: Never Smoker- Smokeless tobacco: Never Used- Alcohol use Not on file Comment: occasionalOccupation:M arital Status: SingleREVIEW OF SYSTEMS:GENERAL: No recent weight loss, fever, chills, malaise or fatigue.HEENT: No changes in hearing or vision, frequent or severe headaches, nosebleeds or other nasal problems.NECK: No lumps, goiter, pain, significant neck swelling, or difficultyswallowing.R ESPIRATORY: No shortness of breath, cough, wheezing, recent pneumonia(within last 6 weeks) or recent URI (within 2 weeks).CARDIOVASCULAR: No angina with activity or at rest, lower extremity edema,or palpitations. No recent UT (within 6 months), cardiac stent, cardiacsurgery, gangrene, or PVD. No history of hypertension.BREAST: No breast lumps, skin changes, nipple discharge, or adenopathy.GI: No abdominal pain, nausea, vomiting, diarrhea, or constipation. Noprior history of esophageal varicies or ascites. Patient denies drinking>2 alcoholic beverages a day.: No dysuria, gross hematuria, urinary frequency, urinary urgency, orincontinence. No history of renal failure, dialysis, or recent UTI (<6weeks).MUSCULOSKELE SHARIFA: No muscle weakness or joint pain.SKIN: No skin lesions, rashes, or itching.PSYCH: No sleep disturbances, depression, bipolar disorder, drugdependency/history of drug dependency, or recent psychosocial stressors.HEMATOLOGY/L YMPHOLOGY: No prolonged bleeding, bruising easily, swollennodes, or anemia. No prior history of a blood clot or clotting disorder.No prior history of a bleeding disorder. Not on chronicanticoagulant/p latelet medications.ENDOCRINE: No cold or heat intolerance, polyuria, [...] kg (397 lb 6.4 oz) BMI 66.13 kg/c6VAOFBFT: Patient is a well developed, well nourished [...] this office note were sent to:Srikanth Bolden, [id number] [facility] [id number]:Allison Choi MD (PCP) [facility] CNCOon 12-14-2016 CNCO Letter JimboDegayle Mancera:How to activate your [facility] Artify It Account 1. Visit the Artify It Signup page at [email or web address] 2. Identify yourself using your one-time use activation code: [email or web address] 3. Follow the on-screen prompts to choose your own secure username andpasswordThe following information will be necessary to access your account for thefirst time:Information needed for sign-up:Your custom activation code used one-time only for the initial accountset-up.Your date of birthThe last 4 digits of your social security numberWhat to do next:Fill in the requested information on the Identify Yourself Form [email or web address] , click Next.Create your login and password, choose a Artify It ID and password that will beeasy for you to use, but impossible for anyone else to guess.Pick a security question that will assist you in the event you forget yourpassword the next time you log-on.If you have difficulty activating your account, please call our NeuroSave at [phone] or toll free at .We hope you enjoy using Artify It!Kindest Regards,[facility] Artify It Team Normal [facility] CNOVon 12-14-2016 CNOV Office Visit (GYNOSA) DANIELLA MANCERA ([id number]) 1980 FDate Time Provider Department12/14/16 3:00 PM STEPHIE HOLLIDAY During your visit today, we recorded the following information about you: Temperature Pulse Respiration Blood pressure 99.3 degrees 91/minute 18/minute 175/111 Weight Height 180.3 kg 1.651 Rocío Holliday MD 12/18/2016 11:00 AM SignedDATE OF SERVICE: 12/14/2016PROBLEM: Daniella Mancera is a consult from Dr. Bolden for evaluation ofabnormal uterine bleeding.SUBJECTIVE/HP I: Ms. Mancera is a 36 year old female with history of pelvicpain and heavy irregular vaginal bleeding requiring ER visits. She recentlyunderwent hysteroscopy and D/C on 12/16 that came back c/w endometrial polyp andbenign disease.Pelvic USUterus 11.5 x 6.7 x 7.3 cm. ET 44 mmNormal ovariesHysteroscopy and D/C 12/16/2016Benign endometrial polyp and secretory endometrium.HISTORIES: PAST GYNECOLOGIC HISTORY:G0. LMP: No LMP recorded.History of abnormal pap: No.No past surgical history on file. Diamond teeth removalPAST MEDICAL HISTORYDiagnosis Date- Abnormal uterine bleeding- Anemia- Anxiety- Hypertension- Thickened endometriumNo family history on file.Family history of breast, ovarian, uterine or colon cancer: NoFamily history of VTE: NoSOCIAL HISTORYSocial HistorySubstance Use Topics- Smoking status: Never Smoker- Smokeless tobacco: Never Used- Alcohol use Not on file Comment: occasionalOccupation:M arital Status: SingleREVIEW OF SYSTEMS:GENERAL: No recent weight loss, fever, chills, malaise or fatigue.HEENT: No changes in hearing or vision, frequent or severe headaches, nosebleeds or other nasal problems.NECK: No lumps, goiter, pain, significant neck swelling, or difficultyswallowing.R ESPIRATORY: No shortness of breath, cough, wheezing, recent pneumonia (withinlast 6 weeks) or recent URI (within 2 weeks).CARDIOVASCULAR: No angina with activity or at rest, lower extremity edema, orpalpitations. No recent UT (within 6 months), cardiac stent, cardiac surgery,gangrene, or PVD. No history of hypertension.BREAST: No breast lumps, skin changes, nipple discharge, or adenopathy.GI: No abdominal pain, nausea, vomiting, diarrhea, or constipation. No priorhistory of esophageal varicies or ascites. Patient denies drinking ANDgt;2alcoholic beverages a day.: No dysuria, gross hematuria, urinary frequency, urinary urgency, orincontinence. No history of renal failure, dialysis, or recent UTI (ANDlt;6weeks).MUSCULO SKELETAL: No muscle weakness or joint pain.SKIN: No skin lesions, rashes, or itching.PSYCH: No sleep disturbances, depression, bipolar disorder, drugdependency/history of drug dependency, or recent psychosocial stressors.HEMATOLOGY/L YMPHOLOGY: No prolonged bleeding, bruising easily, swollen nodes,or anemia. No prior history of a blood clot or clotting disorder. No priorhistory of a bleeding disorder. Not on chronic anticoagulant/platelet medications.ENDOCRINE: No cold or heat intolerance, polyuria, [...] kg (397 lb 6.4 oz) BMI 66.13 kg/u7TEBWNXT: Patient is a well developed, well nourished [...] this office note were sent to:Srikanth Bolden, [id number] [facility] [id number]:Allison Choi MD (PCP)Referring Provider: SRIKANTH BOLDEN [[id number]]Allergies As of Date: 12/14/2016(No Known Allergies)Date Reviewed: [...] CLONIDINE HCL 0.1 MG TABLET >> Sadia Sohan 12/14/2016 2:43 PM >> SOHANJulyDec 14, 2016 2:43 PM Received from: External Pharmacy KLOR-CON M10 MEQ TABLET,EXTENDED RELEASE >> July Sohan 12/14/2016 2:43 PM >> SOHANJulyDec 14, 2016 2:43 PM Received from: External Pharmacy HYDROCODONE 5 MG-ACETAMINOPHEN 325 MG TABLET >> July Sohan 12/14/2016 2:43 PM >> SOHANJulyDec 14, 2016 2:43 PM Received from: External Pharmacy HYOSCYAMINE SULFATE 0.125 MG TABLET >> July Sohan 12/14/2016 2:43 PM >> SOHANJulyDec 14, 2016 2:43 PM Received from: External PharmacyProblem List As Of Date: 12/14/2016(None)Medica tions Discontinued During This Encounter acetaminophen-codeine (TYLENOL-CODEI* 12/14/2016 Class: Historical Med Route: ORAL Sig: Take 1 tablet by mouth every 6 hours as needed. Disc: Erroneous entry HYDROcodone-acetaminop hen (NORCO) 5-* 11/13/2016 12/14/2016 Class: Historical Med Sig: Disc: Erroneous entry hyoscyamine (LEVSIN) 0.125 mg tablet 11/18/2016 12/14/2016 Class: Historical Med Sig: Disc: Erroneous entry potassium chloride ER (K-DECLAN SHINLAM-C* 12/14/2016 Class: Historical Med Route: ORAL Sig: Take 20 mEq by mouth once daily. Disc: Erroneous entryFollow-up and Disposition History RecordedEncounter Number: [id number] Status:Closed by STEPHIE HOLLIDAY MD on 12/18/16 Normal [facility] ND-US PELVIS & TRANSVAG IMPO RTon 10-20-2016 ND-US PELVIS & TRANSVAG IMPORT Images were obtained outside of [facility] Normal [facility] Vital Signs Date Time Vital Sign Value Performing Clinician Facility 11-14-2024 10:17-0400 Body height 162.56 cm Billy Shannon [employer] Work Phone: [facility] 11-14-2024 10:17-0400 Body mass index (BMI) [Ratio] 61 kg/m2 Billy Shannon [employer] Work Phone: [facility] 11-14-2024 10:17-0400 Body temperature 97.4 [degF] Billy Shannon [employer]POS[employer] Work Phone: [facility] 11-14-2024 10:17-0400 Body weight 161.25 kg Billy Shannon [employer] Work Phone: [facility] 11-14-2024 10:17-0400 Diastolic blood pressure 82 mm[Hg] Billy Shannon [employer] Work Phone: [facility] 11-14-2024 10:17-0400 Heart rate 97 /min Billy Shannon [employer]POS[employer] Work Phone: [facility] 11-14-2024 10:17-0400 Respiratory rate 18 /min Billy Shannon [employer] Work Phone: [facility] 11-14-2024 10:17-0400 SaO2% (BldA) [Mass fraction] 98 % Billy Shannon [employer] Work Phone: [facility] 11-14-2024 10:17-0400 Systolic blood pressure 127 mm[Hg] Billy Shannon [employer]POS[employer] Work Phone: [facility] 10-21-2024 10:14040 Body height 162.56 cm Billy Shannon [employer]POS[employer] Work Phone: [facility] 10-21-2024 10:14040 Body mass index (BMI) [Ratio] 60.2 kg/m2 Billy Shannon [employer] Work Phone: [facility] 10-21-2024 10:14040 Body temperature 97.4 [degF] Billy Shannon [employer]POS[employer] Work Phone: [facility] 10-21-2024 10:14040 Body weight 159.38 kg Billy Shannon [employer] Work Phone: [facility] 10-21-2024 10:140400 Diastolic blood pressure 93 mm[Hg] Billy Shannon [employer]POS[employer] Work Phone: [facility] 10-21-2024 10:14-0400 Heart rate 78 /min Billy Shannon [employer]POS[employer] Work Phone: [facility] 10-21-2024 10:140400 Respiratory rate 18 /min Billy Shannon [employer]POS[employer] Work Phone: [facility] 10-21-2024 10:14-0400 SaO2% (BldA) [Mass fraction] 99 % Billy Shannon [employer] Work Phone: [facility] 10-21-2024 10:14-0400 Systolic blood pressure 139 mm[Hg] Billy Shannon [employer]POS[employer] Work Phone: [facility] 07-17-2024 09:14-0400 Body height 165.1 cm Roxanna RAYO [facility] 07-17-2024 09:14-0400 Body mass index (BMI) [Ratio] 61.54 kg/m2 Roxanna Gooden PA Work Phone: [facility] 07-17-2024 09:14-0400 Body temperature 98.2 [degF] Roxanna Gooden PA Work Phone: [facility] 07-17-2024 09:14-0400 Body weight 167.74 kg Roxanna Gooden PA [facility] 07-17-2024 09:14-0400 Diastolic blood pressure 83 mm[Hg] Roxanna Gooden PA Work Phone: [facility] 07-17-2024 09:14-0400 Heart rate 81 /min Roxanna Gooden PA Work Phone: [facility] 07-17-2024 09:14-0400 Respiratory rate 18 /min Roxanna Gooden PA [facility] 07-17-2024 09:14-0400 SaO2% (BldA) [Mass fraction] 100 % Roxanna Gooden PA Work Phone: [facility] 07-17-2024 09:14-0400 Systolic blood pressure 130 mm[Hg] Roxanna Gooden PA Work Phone: [facility] 01-17-2024 09:00-0400 Body height 165.1 cm Roxanna Gooden PA Work Phone: [facility] 01-17-2024 09:00-0400 Body mass index (BMI) [Ratio] 68.39 kg/m2 Roxanna Gooden PA Work Phone: [facility] 01-17-2024 09:00-0400 Body temperature 98.2 [degF] Roxanna Gooden PA Work Phone: [facility] 01-17-2024 09:00-0400 Body weight 186.43 kg Roxanna Gooden PA Work Phone: [facility] 01-17-2024 09:00-0400 Diastolic blood pressure 88 mm[Hg] Roxanna Wanne PA Work Phone: [facility] 01-17-2024 09:00-0400 Heart rate 84 /min Roxanna Wanne PA Work Phone: [facility] 01-17-2024 09:00-0400 Respiratory rate 18 /min Roxanna Wanne PA Work Phone: [facility] 01-17-2024 09:00-0400 SaO2% (BldA) [Mass fraction] 99 % Roxanna Wanne PA Work Phone: [facility] 01-17-2024 09:00-0400 Systolic blood pressure 135 mm[Hg] Roxanna Wanne PA Work Phone: [facility] 12-19-2023 08:48-0400 Body height 162.6 cm Srikanth Yuan DO Work Phone: [facility] 12-19-2023 08:48-0400 Body mass index (BMI) [Ratio] 73.98 kg/m2 Srikanth Yuan DO Work Phone: [facility] docplanner 12-19-2023 08:48-0400 Body weight 195.5 kg Srikanth Yuan DO Work Phone: [facility] 12-19-2023 08:48-0400 Diastolic blood pressure 72 mm[Hg] Srikanth Yuan DO Work Phone: [facility] 12-19-2023 08:48-0400 Systolic blood pressure 128 mm[Hg] Srikanth Yuan DO Work Phone: [facility] 08-09-2023 10:15-0400 Body temperature 99.2 [degF] COMPOSITE BOAT BUILDER-C Billy Shannon Work Phone: [facility] 08-09-2023 10:15-0400 Body weight 195.49 kg COMPOSITE BOAT BUILDER-C Billy Shannon Work Phone: [facility] 08-09-2023 10:15-0400 Diastolic blood pressure 98 mm[Hg] COMPOSITE BOAT BUILDER-C Billy Shannon Work Phone: [facility] 08-09-2023 10:15-0400 Heart rate 67 /min COMPOSITE BOAT BUILDER-C Billy Shannon Work Phone: [facility] 08-09-2023 10:15-0400 Respiratory rate 18 /min COMPOSITE BOAT BUILDER-C Billy Shannon Work Phone: [facility] 08-09-2023 10:15-0400 SaO2% (BldA) [Mass fraction] 98 % COMPOSITE BOAT BUILDER-C Billy Shannon Work Phone: [facility] 08-09-2023 10:15-0400 Systolic blood pressure 148 mm[Hg] COMPOSITE BOAT BUILDER-C Billy Shannon Work Phone: [facility] 07-18-2023 09:03-0400 Body height 165.1 cm Roxanna Gooden PA Work Phone: [facility] 07-18-2023 09:03-0400 Body mass index (BMI) [Ratio] 71.39 kg/m2 Roxanna Gooden PA Work Phone: [facility] 07-18-2023 09:03-0400 Body temperature 98.01 [degF] Roxanna Gooden PA Work Phone: [facility] 07-18-2023 09:03-0400 Body weight 194.59 kg Roxanna Gooden PA Work Phone: [facility] 07-18-2023 09:03-0400 Diastolic blood pressure 98 mm[Hg] Roxanna Gooden PA Work Phone: [facility] 07-18-2023 09:03-0400 Heart rate 74 /min Roxanna Gooden PA Work Phone: [facility] 07-18-2023 09:03-0400 Respiratory rate 18 /min Roxanna Gooden PA Work Phone: [facility] 07-18-2023 09:03-0400 SaO2% (BldA) [Mass fraction] 99 % Roxanna Gooden PA Work Phone: [facility] 07-18-2023 09:03-0400 Systolic blood pressure 152 mm[Hg] Roxanna Gooden PA [facility] Phone[facility] 04-19-2023 09:06-0500 Body height 165.1 cm Roxanna Gooden PA Work Phone: [facility] 04-19-2023 09:06-0500 Body mass index (BMI) [Ratio] 71.66 kg/m2 Roxanna Gooden PA Work Phone: [facility] 04-19-2023 09:06-0500 Body temperature 97.9 [degF] Roxanna Gooden PA Work Phone: [facility] 04-19-2023 09:06-0500 Body weight 195.32 kg Roxanna Gooden PA Work Phone: [facility] 04-19-2023 09:06-0500 Diastolic blood pressure 91 mm[Hg] Roxanna Gooden PA Work Phone: [facility] 04-19-2023 09:06-0500 Heart rate 79 /min Roxanna Gooden PA Work Phone: [facility] 04-19-2023 09:06-0500 Respiratory rate 18 /min Roxanna Gooden PA Work Phone: [facility] 04-19-2023 09:06-0500 SaO2% (BldA) [Mass fraction] 97 % Roxanna Gooden PA Work Phone: [facility] 04-19-2023 09:06-0500 Systolic blood pressure 143 mm[Hg] Roxanna Gooden PA Work Phone: [facility] Encounters Encounter Date Encounter Type Care Provider Facility Start: 12-11-2024 ambulatory Billy L Shannon Facility: [facility] Start: 11-14-2024 End: 11-14-2024 ambulatory Billy Kavitha Shannon COMPOSITE BOAT BUILDER-C Work Phone: [facility] Work Phone: Start: 11-14-2024 End: 11-14-2024 Patient encounter procedure Krissy Morelos MD -[facility] Work Phone: Start: 11-13-2024 Non-patient / Non-visit Krissy Morelos MD -[facility] Work Phone: Start: 10-30-2024 End: 10-31-2024 Refill Roxanna RAYO Work Phone: Juanita Miranda [facility] - [facility] Oncology Comment on above: Hot flash, menopausa l Start: 10-21-2024 End: 10-21-2024 ambulatory Billyshawn Plummer Shannon COMPOSITE BOAT BUILDER-C Work Phone: [facility] Work Phone: Start: 10-21-2024 End: 10-21-2024 Patient encounter procedure Krissy Morelos MD -[facility] Work Phone: Start: 09-10-2024 End: 09-10-2024 ambulatory Billy L Shannon Facility:[facility] [place] [facility] Start: 07-24-2024 End: 07-25-2024 Lab Drop off Billy L Shannon [facility] Start: 07-24-2024 End: 07-25-2024 ambulatory Billy L Shannon Facility:[facility] [place] [facility] Start: 07-23-2024 End: 07-24-2024 Refill Roxanna RAYO Work Phone: Juanita Echols [facility] Start: 07-17-2024 End: 07-17-2024 ambulatory ROXANNA GOODEN [facility] Start: 07-17-2024 End: 07-17-2024 Office outpatient visit 25 minutes Roxanna RAYO Work Phone: Juanita L Ogle [facility] Comment on above: Endometrial cancer, FIGO stage IIIA ([facility]) (Primary Dx); Electrolyte abnormality; Obesity, morbid ([facility]); Hypomagnesemia; Hypokalemia; Iron deficiency anemia due to chronic blood loss Start: 06-23-2024 End: 06-24-2024 Refill Roxanna RAYO Work Phone: Juanita L Ogle [facility] Comment on above: Hypokalemia Start: 06-12-2024 End: 06-12-2024 Lab Drop off Billy L Shannon [facility] Start: 06-12-2024 End: 06-12-2024 ambulatory Billy L Shannon [facility] Start: 05-17-2024 ambulatory Billy L Shannon Facility: [facility] Start: 03-12-2024 End: 03-12-2024 ambulatory Billy L Shannon Facility:[facility] [place] [facility] Start: 02-13-2024 End: 02-13-2024 ambulatory Billy L Shannon Facility: [facility] [place] [facility] Start: 01-17-2024 End: 01-17-2024 ambulatory CHANGE DIRECTOR Billy L Shannon Facility: [facility] [place] [facility] Start: 01-17-2024 End: 01-17-2024 Office outpatient visit 25 minutes Roxanna RAYO Work Phone: Juanita L Ogle [facility] Medical Oncology Comment on above: Endometrial cancer, FIGO stage IIIA ([facility]) (Primary Dx); Hot flash, menopausal; Hypokalemia; Hypomagnesemia; Electrolyte abnormality; Counseling on health promotion and disease prevention Start: 01-17-2024 End: 01-17-2024 ambulatory [facility] Start: 01-12-2024 End: 01-12-2024 ambulatory [facility] Start: 12-19-2023 End: 12-19-2023 Bamboo flowsheet [...] patient 40-64yrs Srikanth Yuan DO Work Phone: [facility] Comment on above: Well woman exam with routine gynecological exam; Breast cancer screening by mammogram; Insulin resistance Start: 12-15-2023 End: 12-15-2023 Lab Drop off Billy L Shannon [facility] Start: 12-15-2023 End: 12-15-2023 ambulatory CHANGE DIRECTOR Billy L Shannon Facility:[facility] Caitlyn hines Start: 12-03-2023 End: 12-04-2023 Refill Roxanna RAYO Work Phone: Juanita Echols [facility] - [facility] Oncology Comment on above: Hot flash, menopausa l Start: 10-22-2023 End: 10-23-2023 Refill Roxanna RAYO Work Phone: [facility] Start: 10-12-2023 End: 10-12-2023 Refill Roxanna RAYO Work Phone: Juanita Echols [facility] - [facility] Comment on above: Hypokalemia Start: 08-09-2023 End: 08-09-2023 ambulatory Oneida Gold Facility:[facility] Start: 08-09-2023 End: 08-09-2023 ambulatory COMPOSITE BOAT BUILDER-C Billy Okeefe Work Phone: [facility] Work Phone: Start: 08-09-2023 End: 08-09-2023 Patient encounter procedure COMPOSITE BOAT BUILDER-Karol Okeefe Work Phone: [facility] Work Phone: Start: 07-25-2023 Refill Roxanna Gooden PA Work Phone: Juanita Echols [facility] Comment on above: Iron deficiency anem ia due to chronic blood loss Start: 07-18-2023 End: 07-18-2023 Office outpatient visit 25 minutes Roxanna RAYO Work Phone: Juanita Echols [facility] - [facility] Comment on above: Endometrial cancer, FIGO stage IIIA ([facility]) (Primary Dx); Electrolyte abnormality; Iron deficiency anemia due to chronic blood loss; Obesity, morbid (CMS-HCC); Hot flash, menopausal; Hypomagnesemia Start: 07-06-2023 Orders Only Niecy Oliva RN [facility] Comment on above: Endometrial cancer, FIGO stage IIIA (CMS-HCC) (Primary Dx) Start: 06-16-2023 Refill Roxanna Gooden PA Work Phone: Juanita Echols [facility] Comment on above: Hypokalemia Start: 04-22-2023 Refill Roxanna Gooden PA Work Phone: [facility] Start: 04-19-2023 End: 04-19-2023 Office outpatient visit 25 minutes Roxanna Gooden PA Work Phone: Juanita Echols [facility] - [facility] Comment on above: Endometrial cancer, FIGO stage IIIA ([facility]) (Primary Dx); Electrolyte abnormality; Obesity, morbid (CMS-HCC) Start: 04-07-2023 End: 04-07-2023 ambulatory CHANGE DIRECTOR Billy Okeefe Facility:[facility] Start: 11-03-2022 End: 11-03-2022 Lab Drop off Billy Okeefe [facility] Start: 01-03-2022 End: 01-04-[address] ALLISON CHOI Facility:[facility] Start: 11-25-2021 End: 11-25-[address] SRIKANTH BOLDEN Facility:[facility] Start: 01-27-2021 End: 04-21-2021 Preoperative state Roxanna RAYO Work Phone: [facility] Start: 12-14-2016 End: 12-14-2016 Ambulatory STEPHIE HOLLIDAY [facility] Procedures Date Procedure Procedure Detail Performing Clinician Start: 01-17-2024 Follow-up visit Follow-up ALEXIA GOODEN Start: 12-19-2023 MLR HEMOGLOBIN A1C Carter Bolden DO Work Phone: Start: 08-09-2023 X-ray of left ankle COMPOSITE BOAT BUILDER- C Billy Okeefe Work Phone: Start: 12-13-2022 Cytp cerv/vag auto t hin layer prep mnl screen [facility] Yuan Nurse Start: 03-11-2021 Port (substance) Billy David chwab Comment on above: port remmoved 07/2022 infusion port placed Start: 03-10-2021 Chemotherapy Billy Careya nicholas Start: 02-10-2021 Hysterectomy Billy Schwa b Comment on above: uterine caner Dilation and curetta ge of uterus Billy Okeefe Plan of Treatment Date Care Activity Detail Author Start: 07-17-2025 Adult BMI Screening Adult BMI Screen ing [facility] Start: 07-17-2025 Tobacco Screening Tobacco Screening [facility] Start: 01-22-2025 End: 01-22-2025 Patient encounter procedure 01/22/2025 9:00 AM EDT Office Visit [facility] [address] [place] [address] Roxanna Gooden PA [address] [place] [address] Juanita Echols [facility] - [facility]cology Start: 01-16-2025 Adult BMI Screening Adult BMI Screen ing [facility] Start: 12-23-2024 Influenza vaccination Influenza Vacc ine [facility] Start: 12-19-2024 End: 12-19-2024 Patient encounter procedure 12/19/2024 8:30 AM EDT Office Visit [facility] [address] [place] [id number] Srikanth Bolden DO [address] [place] [address] [facility] Start: 07-17-2024 Adult BMI Screening Adult BMI Screen ing [facility] Start: 07-17-2024 End: 07-17-2024 Patient encounter procedure 07/17/2024 9:00 AM EDT Office Visit Juanita Echols [facility] Medical Oncology [address] [place] [phone] Roxanna Gooden PA [address] [place] [address] Juanitaterry Echols [facility] Medical Oncology Start: 04-19-2024 Adult BMI Screening Adult BMI Screen ing [facility] Start: 01-17-2024 End: 01-17-2024 Patient encounter procedure 01/17/2024 9:00 AM EDT Office Visit Juanita Echols [facility] - [facility] Oncology [address] [place] [phone] Roxanna Gooden PA [address] [facility] [address] Juanitaterry Echols [facility] Medical Oncology Start: 12-24-2023 Influenza vaccination Influenza Vacc ine [facility] Start: 12-19-2023 End: 02-17-2025 MG Breast - bilateral Screening Bilateral screening mammogram Imaging Routine Breast cancer screening by mammogram Expected: 12/19/2023 (Approximate), Expires: 02/17/2025 [facility] Work Phone: Comment on above: Expected: 12/19/2023 (Approximate), Expires: 02/17/2025 Start: 07-18-2023 End: 07-18-2023 Patient encounter procedure 07/18/2023 9:00 AM EDT Office Visit Juanita Miranda [facility] - Medical Oncology [address] [place] [address] Roxanna Gooden PA [address] [place] [address] Juanita Echols [facility] - [facility] Oncology Start: 12-23-2022 Influenza vaccination Influenza Vacc ine [facility] Start: 10-20-2022 Tobacco Screening Tobacco Screening [facility] Start: 11-05-1998 DTaP,Tdap and Td Vaccines (1 - Tdap) DTaP,Tdap and Td Vaccines (1 - Tdap) [facility] Start: 11-05-1997 Adult BMI Follow Up Plan Adult BMI Follow Up Plan [facility] Start: 1991 Depression Screening Depression Scre ening [facility] Start: 1991 Tobacco Screening Tobacco Screening [facility] End: 07-17-2024 CBC W Auto Differential panel - Blood CBC with auto diff Lab Routine Iron deficiency anemia due to chronic blood loss 1 Occurrences starting 07/18/2023 until 07/17/2024 [employer] Work Phone: Comment on above: 1 Occurrences starti ng 07/18/2023 until 07/17/2024 End: 07-05-2024 Comprehensive metabolic 2000 panel - Serum or Plasma Comprehensive metabolic panel Lab Routine Endometrial cancer, FIGO stage IIIA ([facility]) 1 Occurrences starting 07/06/2023 until 07/05/2024 [employer] Work Phone: Comment on above: 1 Occurrences starti ng 07/06/2023 until 07/05/2024 End: 07-17-2024 Comprehensive metabolic 2000 panel - Serum or Plasma Comprehensive metabolic panel Lab Routine Electrolyte abnormality 1 Occurrences starting 07/18/2023 until 07/17/2024 [facility] Comment on above: 1 Occurrences starti ng 07/18/2023 until 07/17/2024 Hemoglobin A1c/Hemoglobin.total in Blood Hemoglobin A1c Lab Routine Insulin resistance Ordered: 12/19/2023 [facility] Comment on above: Ordered: 12/19/2023 End: 07-05-2024 Magnesium [Mass/volume] in Serum or Plasma Magnesium Lab Routine Endometrial cancer, FIGO stage IIIA ([facility]) 1 Occurrences starting 07/06/2023 until 07/05/2024 [facility] Comment on above: 1 Occurrences starti ng 07/06/2023 until 07/05/2024 End: 07-17-2024 Magnesium [Mass/volume] in Serum or Plasma Magnesium Lab Routine Electrolyte abnormality 1 Occurrences starting 07/18/2023 until 07/17/2024 [facility] Comment on above: 1 Occurrences starti ng 07/18/2023 until 07/17/2024 Renal function 2000 panel - Serum or Plasma [facility] Renal function 2000 panel - Serum or Plasma [facility] THIN PREP TIS PAP AN D HR HPV DNA THIN PREP TIS PAP AND HR HPV DNA Pathology and Cytology Routine Well woman exam with routine gynecological exam Ordered: 12/19/2023 [facility] Comment on above: Ordered: 12/19/2023 US Kidney - bilateral [facility] XR Ankle - left GE 3 [facility] Immunizations Immunization Date Immunization Notes Care Provider Dariela arnold 08-09-1998 hepatitis B vaccine, pediatric or pediatric/adolescent dosage Billy Okeefe [facility] Payers Date Payer Category Payer Self-pay [id number] 2020 [employer] are - P[employer] [id number] 2020 Unknown [id number]. [id number] 1979 Unknown [id number] 2.16.840.1.869188.3.579.2. 593 1979 Unknown [id number] 2.16.840.1.722979.3.579.2. 593 1979 Unknown [id number] 2.16.840.1.108141.3.579.2. 1259 1979 Unknown [id number] 2.16.840.1.862030.3.579.2. 727 1979 Unknown [id number] 2.16.840.1.645730.3.579.2. 7 1979 Unknown [id number] 2.16.840.1.397787.3.579.2. 727 1979 Unknown [id number] 2.16.840.1.682999.3.579.2. 727 1979 Unknown [id number] 2.16.840.1.866562.3.579.2. 1286 1979 Unknown [id number] 2.16.840.1.674515.3.579.2. 1285 1979 Unknown [id number] 2.16.840.1.779511.3.579.2. 128 1979 Unknown [id number] 2.16.840.1.921217.3.579.2. 72 1979 Unknown [id number] 2.16.840.1.933346.3.579.2. 1979 Unknown [id number] 2.16.840.1.943436.3.579.2. 1979 Unknown [id number] 2.16.840.1.181189.3.579.2. 1979 Unknown [id number] 2.16.840.1.767843.3.579.2. 1979 Unknown [id number] 2.16.840.1.541910.3.579.2. 1979 Unknown [id number] 2.16.840.1.007210.3.579.2. 1979 Unknown [id number] 2.16.840.1.389861.3.579.2. 1979 Unknown [id number] 2.16.840.1.151579.3.579.2. 1979 Unknown [id number] 2.16.840.1.120844.3.579.2. 727 1959 Unknown [id number] Private Health Insurance [facility] [id number] Unknown [id number] 2.16.840.1.504969.3.579.2. 531 Social History Date Type Detail Facility Start: 11-03-2022 End: 10-21-2024 Tobacco smoking status Never smoked tobacco (finding) [facility] Tobacco smoking status Never [facility] Start: 10-20-2021 End: 07-16-2024 Sex Assigned At Female [facility] Start: 1980 Sex Assigned At Female [facility] Tobacco smoking stat [facility] Tobacco smoking consumption unknown [facility] Start: 06-24-2021 Gender identity Identifies as female gender (finding) [facility] Start: 06-24-2021 Sexual orientation Heterosexual (finding) [facility] Start: 01-25-2021 Tobacco use and exposure Smokeless tobacco non-user [facility] Start: 10-20-2021 End: 07-17-2024 Alcohol intake Ex-drinker (finding) [facility] Start: 10-20-2021 End: 07-16-2024 History of Social function [facility] Start: 01-18-2021 Sex Female (finding) [facility] How hard is it for y ou to pay for the very basics like food, housing, medical care, and heating Not very hard [facility] Sexual Orientation [facility] Medical Equipment Procedure Code Equipment Code Equipment Origin al Text Equipment Identifier Dates Port Powerport D uo Mri Argd 9.5fr 2 Lum Pwr Inj Rad Trnlu Rpl [id number] - [id number] [facility] Start: 03-11-2021 Clinical Notes 04-19-2023 to 10-21-2024 Note Date & Type Note Facility 10-21-2024 Evaluation note Diagnosis Onset Date Resolution Anemia of renal disease acute J une 2024 10:09am BMI 60.0-69.9, adult acute October 21, 2024 10:09am CKD (chronic kidney disease) stage 3, GFR 30-59 ml/min acute October 21, 2024 10:09am Endometrial cancer, FIGO stage IIIA acute October 21, 2024 10:09am Hypertensive chronic kidney disease with stage 1 through stage 4 chronic ki acute October 21, 2024 10:09am Secondary hyperparathyroidism acute October 21, 025 10:09am BMI 60.0-69.9, adult acute November 14, 2024 10:14am CKD (chronic kidney disease) stage 3, GFR 30-59 ml/min acute November 14, 2024 10:14am Endometrial cancer, FIGO stage IIIA acute November 14, 2024 10:14am Hypertensive chronic kidney disease with stage 1 through stage 4 chronic ki acute November 14, 2024 10:14am Nephrolithiasis acute October 10:14am Secondary hyperparathyroidism acute November 14, 2 025 10:14am [facility] Work Phone: [phone]) 320-640803-26-2025 History of Present illness Narrative* PERRI Farrell - 07/17/2024 9:00 AM EDT Subjective: Daniella Mancera is a 43 y.o. [...] scans JAS. Endometrial cancer, FIGO stage IIIA ([facility]) 02/23/2021 Initial Diagnosis Endometrial cancer ([facility]) 07/14/2021 Remission Daniella Mancera Denies Early satiety [...] 02/10/2021 Performed by Jared Shearer MD at [facility] DAVINCI HYSTERECTOMY BILATERAL SALPINGO-OOPHORECTOMY N/A 02/10/2021 Performed by Jared Shearer MD at [facility] DILATION AND CURETTAGE OF UTERUS 12/2020 WISDOM TOOTH EXTRACTION Past Medical History: Diagnosis Date Abnormal uterine bleeding Anxiety Arthritis Chronic anemia Depression Endometrial ca ([facility]) 12/2020 Endometrial polyp Hypertension Iron deficiency anemia [...] masses or organomegaly Vulva: normal, Bartholin's, Urethra, Monmouth's normal. Vagina: Atrophy: no Vaginal Cuff: yes [...] Patient Active Problem List Diagnosis Obesity, morbid ([facility]) Endometrial cancer, FIGO stage IIIA ([facility]) Electrolyte abnormality Plan: 1. Stage IIIA endometrial [...] her BMI. Continue follow up with PCP andbenign gauge checker re: metformin and Adipex. 6. Anemia - hgb improved, no bleeding. Continue daily or [id number] iron tablets. Repeat CBC prior to next [...] *This note was completed using a voice aerographer system. Every effort was made to ensure accuracy. However, inadvertent computerized aerographer errors may be present. .Total time spent was 32 minutes: Preparing to see the patient (e.g., review of tests) Performing a medically appropriate examination and/or evaluation Counseling and educating the patient/family/caregiver Ordering medications, tests, or procedures Documenting clinical information in the electronic or other health record Care coordination (not separately reported) Roxanna Gooden PA-C, RD, IF PERRI Farrell 07/17/24 0946 [facility] History of Present illness Narrative* PERRI Farrell - 01/17/2024 9:00 AM EDT Subjective: Daniella Mancera is a 43 y.o. female who is here for surveillance for her stage IIIA endometrial adenocarcinoma, grade 3. Patient reports doing well. Hot flashes are mostly controlled with taking gabapentin 200 mg at night. She has lost about 23 lb in the last few months with continued diet and exercise changes. She wasalso placed on metformin by Dr. Bolden and [...] scans JAS. Endometrial cancer, FIGO stage IIIA ([facility]) 02/23/2021 Initial Diagnosis Endometrial cancer ([facility]) 07/14/2021 Remission Daniella Taylor [place] Denies Early satiety Denies Abdominal distention Denies [...] 02/10/2021 Performed by Jared Shearer MD at [facility] HYSTERECTOMY BILATERAL SALPINGO-OOPHORECTOMY N/A 02/10/2021 Performed by Jared Shearer MD at [facility] DILATION AND CURETTAGE OF UTERUS 12/2020 WISDOM TOOTH EXTRACTION Past Medical History: Diagnosis Date Abnormal uterine bleeding Anxiety Arthritis Chronic anemia Depression Endometrial ca ([facility]) 12/2020 Endometrial polyp Hypertension Iron deficiency anemia [...] masses or organomegaly Vulva: normal, Bartholin's, Urethra, Monmouth's normal. Vagina: Atrophy: no Vaginal Cuff: yes [...] Patient Active Problem List Diagnosis Obesity, morbid ([facility]) Endometrial cancer, FIGO stage IIIA ([facility]) Electrolyte abnormality Plan: 1. Stage IIIA endometrial [...] her BMI. Continue follow up with PCP andbenign gauge checker re: metformin and Adipex. 6. Anemia - hgb improved, no bleeding. Continue daily or rxnym-scigw-odg iron tablets. Repeat CBC prior to next [...] *This note was completed using a voice aerographer system. Every effort was made to ensure accuracy. However, inadvertent computerized aerographer errors may be present. .Total time spent was 32 minutes: Preparing to see the patient (e.g., review of tests) Performing a medically appropriate examination and/or evaluation Counseling and educating the patient/family/caregiver Ordering medications, tests, or procedures Documenting clinical information in the electronic or other health record Care coordination (not separately reported) Roxanna Gooden PA-C, RD, IF PERRI Farrell 01/17/24 0935 documented [facility] encounter[facility] History of Present illness Narrative* Vinita Smart LPN - 12/19/2023 8:30 AM EDT Reason for Appointment: Patient ID: Daniella Mancera [...] nursing note reviewed. Exam conducted with a implementation services analyst present. Vitals: Estimated body mass index is [...] hysterectomy with Dr Shearer. Sees oncologist at [facility]. Pt having night sweats takes gabapentin 200mg [...] of: Srikanth Bolden DO documented in this encounterDeaconess [facility] [id number] History of Present illness Narrative* PERRI Farrell - 07/18/2023 9:00 AM EDT Subjective: Daniella Mancera is a 42 y.o. [...] scans JAS. Endometrial cancer, FIGO stage IIIA ([facility]) 02/23/2021 Initial Diagnosis Endometrial cancer ([facility]) 07/14/2021 Remission Daniella Mancera Denies Early satiety [...] by Jared Shearer MD at [facility] DILATION AND CURETTAGE OF UTERUS 12/2020 WISDOM TOOTH EXTRACTION Past Medical History: Diagnosis Date Abnormal uterine bleeding Anxiety Arthritis Chronic anemia Depression Endometrial ca ([facility]) 12/2020 Endometrial polyp Hypertension Iron deficiency anemia [...] 165.1 cm (5' 5 ) Wt (!) 194.6kg (429 lb) LMP 01/29/2021 SpO2 99% BMI 71.39 kg/m ECO- Asymptomatic Physical Exam: General: alert, appears stated age and cooperative Heart: regular rate and rhythm Lungs: clear to auscultation bilaterally Abdomen: soft, non-tender, without masses or organomegaly Vulva: normal, Bartholin's, Urethra, Monmouth's normal. Vagina: Atrophy: no Vaginal Cuff: yes [...] Patient Active Problem List Diagnosis Obesity, morbid ([facility]) Endometrial cancer, FIGO stage IIIA ([facility]) Electrolyte abnormality Plan: 1. Stage IIIA endometrial [...] hgb improved, no bleeding. Continue daily or axhpe-odywe-jaq iron tablets. Repeat CBC prior to next visit. 7. Electrolyte imbalance - mg and k wnl, continue magox and klorcon. Repeat CMP and Mag prior to next visit. *The patient has a documented plan of care to address pain. All questions were answered to the patient's satisfaction. She is agreeable to this plan of care. *This note was completed using a voice aerographer system. Every effort was made to ensure accuracy. However, inadvertent computerized aerographer errors may be present. .Total time spent was 32 minutes: Preparing to see the patient (e.g., review of tests) Performing a medically appropriate examination and/or evaluation Counseling and educating the patient/family/caregiver Ordering medications, tests, or procedures Documenting clinical information in the electronic or other health record Care coordination (not separately reported) Roxanna Gooden PA-C, RD, IF PERRI Farrell 07/18/23 0930 documented in this encounterJ[facility]. [facility]12[facility]27[facility] History of Present illness Narrative* PERRI Farrell - 04/19/2023 9:00 AM EST Subjective: Daniella Mancera is a 42 y.o. [...] scans JAS. Endometrial cancer, FIGO stage IIIA ([facility]) 02/23/2021 Initial Diagnosis Endometrial cancer ([facility]) 07/14/2021 Remission Daniella Mancera Denies Early satiety [...] 02/10/2021 Performed by Jared Shearer MD at [facility] DAVINCI HYSTERECTOMY BILATERAL SALPINGO-OOPHORECTOMY N/A 02/10/2021 Performed by Jared Shearer MD at [facility] DILATION AND CURETTAGE OF UTERUS 12/2020 WISDOM TOOTH EXTRACTION Past Medical History: Diagnosis Date Abnormal uterine bleeding Anxiety Arthritis Chronic anemia Depression Endometrial ca ([facility]) 12/2020 Endometrial polyp Hypertension Iron deficiency anemia [...] masses or organomegaly Vulva: normal, Bartholin's, Urethra, Monmouth's normal. Vagina: Atrophy: no Vaginal Cuff: yes [...] Patient Active Problem List Diagnosis Obesity, morbid ([facility]) Endometrial cancer, FIGO stage IIIA ([facility]) Electrolyte abnormality Plan: 1. Stage IIIA endometrial [...] hgb improved, no bleeding. Continue daily or dmdev-fqnzu-xef iron tablets. 7. Electrolyte imbalance - mg and k wnl, continue magox and klorcon. Repeat labs in 3 months. PERRI Farrell 04/19/23 0930 documented in [facility] encounterC[facility] SystemEvaluation + Plan note No data available for this [facility] Future Appointments Appointment Date:01/19/2024 08:20:00 AM Scheduled Provider:Billy Moscoso Location:[facility] Appointment Type:[facility] Evaluation + Plan note Future Appointments Appointment Date:09/10/2024 08:20:00 AM Scheduled Provider:Billy Moscoso Location:[facility] Appointment Type:[facility] evaluation noteNo assessment information available [facility] Work Phone: evaluation note* Diagnosis Well woman exam with routine gynecological exam Routine gynecological examination Breast cancer screening by mammogram Insulin resistance Other abnormal glucose documented in this encounter [facility] SystemEvaluation [facility]* Diagnosis Endometrial cancer, FIGO stage IIIA ([facility] Primary Electrolyte abnormality Electrolyte and fluid disorders not elsewhere classified Obesity, morbid ([facility]) Morbid obesity documented in this encounter [facility]* Diagnosis Hypokalemia Hypopotassemia documented in this encounter [facility]* Diagnosis Hypokalemia Hypopotassemia documented in this encounter [facility]* Diagnosis Endometrial cancer, FIGO stage IIIA (CMS-HCC)- Primary [facility] this [facility]* Diagnosis Endometrial cancer, FIGO stage IIIA (CMS-HCC)- Primary Electrolyte abnormality Electrolyte and fluid disorders not elsewhere classified Iron deficiency anemia due to chronic blood loss Iron deficiency anemia secondary to blood loss (chronic) Obesity, morbid (CMS-HCC) Morbid obesity Hot flash, menopausal Symptomatic menopausal or female climacteric states Hypomagnesemia Disorders of magnesium metabolism documented [facility] this encounter [facility]* Diagnosis Iron deficiency anemia due to chronic blood loss Iron deficiency anemia secondary to blood loss (chronic) documented in this encounter [facility]* Diagnosis Hot flash, menopausal Symptomatic menopausal or female climacteric states documented in this encounter [facility]* Diagnosis Endometrial cancer, FIGO stage IIIA ([facility] Primary Hot flash, menopausal Symptomatic menopausal or female climacteric states Hypokalemia Hypopotassemia Hypomagnesemia Disorders of magnesium metabolism Electrolyte abnormality Electrolyte and fluid disorders not elsewhere classified Counseling on health promotion and disease prevention Other specified counseling documented [facility] encounter [facility]* Diagnosis Endometrial cancer, FIGO stage IIIA ([facility] Primary Electrolyte abnormality Electrolyte and fluid disorders not elsewhere classified Obesity, morbid ([facility]) Morbid obesity Hypomagnesemia Disorders of magnesium metabolism [...] Secondary hyperparathyroidism acute October 21, 2024 10:09am [facility] Work Phone: Evaluation note* Diagnosis Hot flash, menopausal Symptomatic menopausal or female climacteric states documented [facility] encounter [facility] instructions No data available for this section [facility] CenterInstructionsNot on filedocumented in this encounter [facility] [...] No data available for this section [facility] CenterReason for referral (narrative)No reason for referral information availableWilson Street Hospital Work Phone: Summary Purpose Family History Relationship [...] 10:09am Secondary hyperparathyroidism October 21, 2024 10:09am Chief Complaint Admit Date RENAL CKD 3 October 21, 2024 10:0 9am Renal F/U per Dr Morelos November 14, 2024 1 0:14am Reason for Visit Admit Date Anemia of [...] 10:09am Secondary hyperparathyroidism October 21, 2024 10:09am BMI 60.0-69.9, adult November 14, 2024 10: 14am CKD (chronic kidney disease) stage 3, GF R 30-59 ml/min November 14, 2024 10:14am Endometrial cancer, FIGO stage IIIA November 14, 2024 10:14am Hypertensive chronic kidney disease with stage 1 through stage 4 chronic ki November 14, 2024 10:14am Nephrolithiasis November 14, 2024 10:1 4am Secondary hyperparathyroidism November 14, 2024 10:14am Additional Source Comments INFORMATION SOURCE (unrecogn ized section and content) DATE CREATED AUTHOR 10/18/2017 [facility] DATE CREATED AUTHOR AUTHOR'S ORGANIZ ATION 01/22/2022 [facility] DATE CREATED AUTHOR AUTHOR'S ORGANIZ ATION 08/19/2023 [facility] DATE CREATED AUTHOR AUTHOR'S ORGANIZ ATION 12/18/2023 [facility] DATE CREATED AUTHOR AUTHOR'S ORGANIZ ATION 12/20/2023 [facility] DATE CREATED AUTHOR AUTHOR'S ORGANIZ ATION 01/18/2024 [facility] DATE CREATED AUTHOR AUTHOR'S ORGANIZ ATION 06/14/2024 [facility] DATE CREATED AUTHOR AUTHOR'S ORGANIZ ATION 07/18/2024 [facility] DATE CREATED AUTHOR AUTHOR'S ORGANIZ ATION 07/27/2024 [facility] DATE CREATED AUTHOR AUTHOR'S ORGANIZ ATION 07/28/2024 [facility] DATE CREATED AUTHOR AUTHOR'S ORGANIZ ATION 09/11/2024 [facility] DATE CREATED AUTHOR AUTHOR'S ORGANIZ ATION 09/17/2024 [facility] Patient Care team informatio n (unrecognized section and content) Team Status: Active Member Role Status Dates Billy Okeefe NP-Karol Primary Care Provider Active Team Status: Inactive [...] Inactive Member Role Status Dates Billy Okeefe NP-Karol Primary Care Provider Active Start: August 09, 2023 End: August 09, 2023 Oneida Alla , COMPOSITE BOAT BUILDER-C Attending Provider Active S tart: August 09, 2023 End: August 09, 2023 Pest Controller Assistant Relationship Specialty Start Date End Date Allison Choi MD [address] [place], [place] [id number] PCP - General Family Medicine 01/20/21 Pest Controller Assistant Relationship Specialty Start Date End Date Allison Choi MD [address] [place] [id number] [id number] PCP - General Family Medicine 01/20/21 Pest Controller Assistant Relationship Specialty Start Date End Date Billy Okeefe ELECTROMEDICAL SERVICE ENGINEER-MEDICAL SERVICES COORDINATOR [address] [place], [place] [id number] PCP - General Nurse Practitioner 07/14/23 Pest Controller Assistant Relationship Specialty Start Date End Date Billy Okeefe ELECTROMEDICAL SERVICE ENGINEER-MEDICAL SERVICES COORDINATOR [address] [place], [place] [id number] PCP - General Nurse Practitioner 07/14/23 Pest Controller Assistant Relationship Specialty Start Date End Date Allison Choi MD [address] [place] [address] [id number] PCP - General Family Medicine 01/20/21 Pest Controller Assistant Relationship Specialty Start Date End Date Billy Okeefe ELECTROMEDICAL SERVICE ENGINEER-MEDICAL SERVICES COORDINATOR [address] [place], [place] [id number] PCP - General Nurse Practitioner 07/14/23 Pest Controller Assistant Relationship Specialty Start Date End Date Billy Okeefe ELECTROMEDICAL SERVICE ENGINEER-MEDICAL SERVICES COORDINATOR [address] [place] [address] [id number] PCP - General Nurse Practitioner 07/14/23 Pest Controller Assistant Relationship Specialty Start Date End Date Billy Okeefe ELECTROMEDICAL SERVICE ENGINEER-MEDICAL SERVICES COORDINATOR [address] [place] [id number] PCP - General Nurse Practitioner 07/14/23 Pest Controller Assistant Relationship Specialty Start Date End Date Billy Okeefe APRN-CNP [address] [place] [id number] PCP - General Nurse Practitioner 07/14/23 Team Status: Inactive Member Role Status Dates MELISSA Rollins Primary Care Provider Active Start: October 21, 2024 End: October 21, 2024 Krissy Morelos MD Attending Provider Active Start : October 21, 2024 End: October 21, 2024 Pest Controller Assistant Relationship Specialty Start Date End Date Billy Okeefe APRN-CNP [address] [place] [id number] PCP - General Nurse Practitioner 07/14/23 Team Status: Active Member Role Status Dates MELISSA Rollins Primary Care Provider Active Start: November 13, 2024 Krissy Morelos MD Attending Provider Active Start : November 13, 2024 Team Status: Inactive Member Role Status Dates MELISSA Rollins Primary Care Provider Active Start: November 14, 2024 End: November 14, 2024 Krissy Morelos MD Attending Provider Active Start : November 14, 2024 End: November 14, 2024 Goals (unrecognized section and content) Goals may [...] BE BASED ON THE PRIMARY CLINICAL RECORDS. [employer] provides no warranty or guarantee of the accuracy or completeness of information in this document.
[2024-11-21 10:55] LABS: Albumin Level 3.9 g/dL (3.4-5.0); Anion Gap 14.7; Blood Urea Nitrogen 26.0 mg/dL (7.0-18.0); Calcium 9.5 mg/dL (8.5-10.1); Carbon Dioxide 25.9 mmol/L (21.0-32.0); Chloride 99 mmol/L (98-107); Estimated GFR (African America 39 (>=60 mL/min/1.73m^2); Estimated GFR (Non-African Ame 32 (>=60 mL/min/1.73m^2); Glucose 84 mg/dL (74-106); Potassium 3.6 mmol/L (3.5-5.1); Sodium 136 mmol/L (136-145)
== END 2024-11-21 09:38 | disposition home or self-care (01) ==
LOC: LAB 09:37
PROVIDERS: PCP Nurse Practitioner; Visit Provider Internal Medicine
DX: N20.0 Calculus of kidney (principal); C54.1 Malignant neoplasm of endometrium; Z68.44 Body mass index [BMI] 60.0-69.9, adult; N25.81 Secondary hyperparathyroidism of renal origin; N18.9 Chronic kidney disease, unspecified; D63.1 Anemia in chronic kidney disease
CPT/HCPCS: 36415; 80069

== ENCOUNTER 2024-12-19 20:45 | Outpatient (REF) | payer OTHER, SELFPAY ==
--- OUTSIDE RECORDS SUMMARY | 2024-12-19 20:51 | XMS_ITS | CCD ---
Author Organization [facility] Care Team Providers Care Sanitary Landfill Supervisor Name Role Phone STEPHIE HOLLIDAY Unavailable Unavailable YUANANGIE Unavailable Unavailable YUAN, DR ADAMS Attending Unavailable YUAN, DR ADAMS Consulting Unavailable CHOI, DR BHUMI Velasco Primary Care Unavailable YUAN, DR ADAMS Admitting Unavailable CHOI, DR BHUMI Velasco Primary Care Unavailable YUAN, DR ADAMS Admitting Unavailable YUAN, DR ADAMS Attending Unavailable YUAN, DR ADAMS Consulting Unavailable ZIEBER, DR MAURO Stokes Consulting Unavailable ShannonAnnabella marquez Primary Care Physician Shannon, TRUCK TRAILER MECHANICLarryC Annabella Plummer Primary Care Provider [phone] MELISSA Gold Attending Provider [phone] Oneida Gold Admitting Unavailable Oneida Gold Attending Unavailable ShannonAnnabella marquez Primary Care Unavailable ANGIE BOLDEN Attending Unavailable Shannon, INSOLE CEMENTER Annabella Miranda Attending Unavailable Shannon, INSOLE CEMENTER Annabella Miranda Admitting Unavailable Shannon, INSOLE CEMENTER Annabella Miranda Attending Unavailable Shannon, INSOLE CEMENTER Annabella Miranda Attending Unavailable Shannon, INSOLE CEMENTER Annabella Miranda Attending Unavailable Unavailable Primary Care Provider UnavailBhumi Jay MD Primary Care Provider Shannon MAIL MESSENGER-AIRFRAME AND POWERPLANT MECHANICAnnabella Primary Care Provider Shannon MAIL MESSENGER-AIRFRAME AND POWERPLANT MECHANICAnnabella Primary Care Provider ROXANNA GOODEN Referring Unavailable SHANNONANNABELLA Primary Care Unavailable ROXANNA GOODEN Attending Unavailable SHANNONANNABELLA Referring Unavailable SHANNON, ANNABELLA Miranda Primary Care Unavailable ROXANNA GOODEN Attending Unavailable SHANNONANNABELLA Referring Unavailable SHANNON, ANNABELLA Miranda Primary Care Unavailable Shannon MAIL MESSENGER-AIRFRAME AND POWERPLANT MECHANICAnnabella Primary Care Provider Shannon, Annabella L Attending Unavailable Shannon, Annabella L Admitting Unavailable Shannon, Annabella L Attending Unavailable Shannon, Annabella L Attending Unavailable Shannon, Annabella L Admitting Unavailable Shannon, Annabella L Attending Unavailable Shannon, Annabella L Attending Unavailable Shannon, Annabella L Admitting Unavailable Shannon, Annabella L Attending Unavailable Shannon, Annabella L Attending Unavailable Shannon, Annabella L Attending Unavailable Shannon, Annabella L Attending Unavailable Shannon, Annabella L Attending Unavailable Shannon, Annabella L Admitting Unavailable Shannon, Annabella L Attending Unavailable Shannon TRUCK TRAILER MECHANICLarryCAnnabella Primary Care Provider Krissy Morelos MD Attending Provider Shannon, Annabella L Attending Unavailable Shannon, Annabella L Admitting Unavailable Shannon, Annabella L Attending Unavailable Shannon, Annabella L Attending Unavailable Allergies Allergy Classification Reported Allergen(s) Allergy Type Date of Onset Reaction(s) Facility (1 source) Deanol Drug Allergy [facility] Repository (1 source) Tetanus AND Diphtheria Tox,Adult Drug allergy (disorder) [facility] Repository (19 sources) aprepitant; Translations: [aprepitant] Drug Allergy 1 Pain (finding), pain [facility] Comment on above: panic attack (20 sources) Morphine; Translations: [morphine] Drug Allergy 1 Eruption of skin (disorder), Dizziness, Headache, Hives, Itching, Rash [facility] (5 sources) fosaprepitant; Translations: [fosaprepitant] Drug Allergy 4 Unknown Reaction [facility] (5 sources) measles and rubella live virus vacc; Translations: [measles and rubella live virus vacc] Allergy to substance 4 Unknown Reaction [facility] (5 sources) Tetanus Vaccines and Toxoid; Translations: [Tetanus Vaccines and Toxoid] Allergy to substance 4 Unknown Reaction [facility] (1 source) Morphine Drug Allergy 4 [facility] Repository (4 sources) aprepitant; Translations: [Emend] Drug Allergy [facility] Repository (5 sources) aprepitant Drug Allergy 1 Other [facility] Work Phone: (5 sources) Other Propensity to adverse reactions 1 Dizziness, Headache, Other, Shortness of breath, Unknown, Fever, Itching, Swelling [facility] (20 sources) Tetanus Toxoid, Adsorbed; Translations: [TETANUS TOXOID, ADSORBED] Propensity to adverse reactions 1 Unknown, Other (See Comments) [facility] (15 sources) Measles, Mumps, And Rubella Vaccine Live; Translations: [MEASLES, MUMPS, AND RUBELLA VACCINE LIVE] Propensity to adverse reactions to drug 1 Other (See Comments) [facility] Work Phone: (5 sources) tetanus toxoid vaccine, inactivated; Translations: [tetanus toxoid] Drug Allergy Eruption of skin (disorder), Swelling (finding), Fever (finding) [facility] (5 sources) measles virus vaccine live, attenuated Taco strain / mumps virus vaccine live, Domenic Kavitha strain / rubella virus vaccine live (Wistar RA 27-3 strain); Translations: [measles/mumps/ rubella virus vaccine] Propensity to adverse reactions to substance Fever (finding), Swelling (finding), Eruption of skin (disorder) [facility] Medications Current Medications Medication Drug Class(es) Dates [...] BID, # 60 tab(s), Refills(s) 11, [id number], cm, 12/15/23 9:27:00 EDT, Height/Length Dosing, 197, kg, 12/15/23 9:27:00 EDT, Weight Dosing Start Date: 12/15/23 Status: Ordered Start: 08-09-2023 End: 10-21-2024 Bupropion Hcl 100 mg tablet Discontinued 100 MG PO Three times daily August 09, 2023 12:00am October 21, 2024 10:19am administer 6 hours apart Start: 11-03-2022 take 1 tablet by [facility] twice daily buPROPion 100 mg Tab 100 mg = 1 tab(s), Oral, BID, # 60 tab(s), Refills(s) 11, [id number], cm, 11/03/22 9:18:00 EDT, Height/Length Dosing, 408, kg, 11/03/22 9:18:00 EDT, Weight Dosing Start Date: 11/03/22 Status: Ordered Start: 11-03-2022 take 2 tablets by [facility] once daily buPROPion 100 mg Tab 200 mg = 2 tab(s), Oral, Daily, Refills(s) 0 Start Date: 11/03/22 Status: Ordered take 1 tablet by [facility] every twelve hours in the morning buPROPion SR (Wellbutrin SR) 100 MG 12 hr tablet Take 200 mg by mouth in the morning. Active take 2 tablets by [facility] every twelve hours in the morning buPROPion SR (WELLBUTRIN SR) 100 mg 12 hr tablet Take 2 tablets (200 mg total) by mouth in the morning. Active Calcium Carb-Cholecalciferol (CALCIUM 600 + D PO) (4 sources) take 1 dose by mouth in the morning, then take 1 dose by mouth once daily at bedtime Calcium Carb-Cholecalciferol (CALCIUM 600 + D PO) Take 1 each by mouth in the morning and 1 each before bedtime. Active calcium carbonate 1500 mg / cholecalciferol 800 unt chewable tablet (3 sources) Vitamin D Start: 025 take 1 tablet by mouth twice daily [...] 02/13/24 Status: Ordered FIBER ADULT GUMMIES PO (4 sources) take 10 mg by mouth once [...] ointment Indications: Endometrial cancer, FIGO stage IIIA ([facility]) , Port-A-Cath in place Apply 1 application [...] e 500 mg extended release oral tablet (10 sources) Biguanide Start: 10-21-2024 Metformin 500 mg tablet extended release 24 hr Active 1000 MG PO Every evening October 21, 2024 12:00am Complies with drug therapy Start: 01-29-2024 End: 01-28-2025 take 2 tablets by mouth every twenty-four hours at mealtime metFORMIN XR (Glucophage-XR) 500 MG 24 hr tablet Indications: Insulin resistance Take 2 tablets (1,000 mg) by mouth in the evening. Take with meals Do not crush, chew, or split. 60 tablet 11 01/29/2024 01/28/2025 Active Start: 01-17-2024 take 1 tablet by maris [...] hours in the morning metoprolol succinate XL (Toprol-XL) 50 M G 24 hr tablet Take 50 mg by mouth in the morning. Active NIFEdipine [...] DAY, # 60 tab(s), Refills(s) 2, [id number], 162, cm, 12/15/23 9:27:00 EDT, [...] therapy phentermine hydrochloride 37.5 mg oral tablet (11 sources) Sympathomimetic Amine Anorectic Start: 12-15-2023 take [...] with drug therapy take 1 capsule by [facility] once daily ProFe 391.3 (180 Fe) [...] (Original) busPIRone hydrochloride 5 mg oral tablet (17 sources) Start: 11-02-2022 take 1 tablet by [...] End: 10-31-2024 take 2 capsules by mouth at bedtime gabapentin (Neurontin) 100 MG capsule Take 200 mg by mouth at bedtime. 10/31/2022 Active magnesium oxide 400 mg oral capsule [...] Onset: 1 04-19-2023 Chronic Chronic kidney disease (11 sources) [...] (14 sources) Drug therapy finding; Translations: [Other chcf (current) drug therapy] Onset: 02-24-2021 Resolved: 07-19-2022 07-19-2022 Episodic Other circulatory disease (14 sources) Device in situ; Translations: [Presence of other vascular implants and grafts] Onset: 02-24-2021 Resolved: 01-18-2023 01-18-2023 Chronic Viral infection (14 sources) Disease caused by 2019-nCoV; Translations: [COVID-19] Onset: 04-09-2021 Resolved: 07-19-2022 07-19-2022 Episodic Results Test Name Value Interpretation Reference Range Facility Ambulatory Visit Summaryon 0 12-11-2024 Ambulatory Visit Summary Ambulatory Visit Summary DANIELLA MANCERA :1980 Visit Date:12/11/2024 Ambulatory Visit Instructions Your Diagnosis Encounter for weight management Non-smoker BMI 60.0-69.9, adult, Body mass index [BMI] 60.0-69.9, adult Class 3 severe obesity due to excess calories with body mass index (BMI) of 60.0 to 69.9 in adult Morbid (severe) obesity due to excess calories Your Care Team Attending Physician - Annabella [...] magnesium oxide (magnesium oxide 400 mg Tab) magnesium oxide (magnesium oxide 400 mg Tab) metformin (MetFORMIN (Eqv-Glucophage XR) 500 mg oral tablet, extended release) metoprolol (metoprolol succinate 50 mg ER Tab) phentermine (phentermine 37.5 mg Tab) potassium chloride (Klor-Con M20 oral tablet, extended release) Procedures Performed Port (03/11/2021), Chemotherapy (03/10/2021), Hysterectomy (02/10/2021), Dilation and curettage of uterus. Discharge Vitals Temperature (Temporal Artery) 36.3 ???C Heart Rate (Peripheral) 78 Respiratory Rate 20 Blood Pressure 128/84 Height 162.0 cm Height 64 in Weight 161.2 kg Weight 355.385 lb BMI 61.42 What to do next Scheduled Follow-Up Appointments Monday 8:20 AM EST With: Annabella Moscoso Where: [place] [phone]- Medications What How Much When Why Instructions [...] nightly. Unchanged hydrochlorothiazide (hydrochlorothiazide 25 mg Tab) 1/2 tab By Mouth Every day Take 25 mg [...] magnesium oxide (magnesium oxide 400 mg Tab) 1 Tablets By Mouth Every day Duration: 10 Days Unchanged magnesium oxide (magnesium oxide 400 mg [...] By Mouth 2 times a day Unchanged phentermine (phentermine 37.5 mg Tab) 1 Tablets By Mouth Every day Hypertension BMI 70 and over, adult Non-smoker bmi 59.63 z68.44 Unchanged potassium chloride (Klor-Con M20 oral [...] Morbid obesity Morbid obesity with BMI of 50.0-59.9, adult Morbid obesity with BMI of 60.0-69.9, adult Weight gain Wellness examination Patient Survey You may receive a survey via text or e-mail asking about your office visit. Please share your experience with us by completing your survey. We appreciate your feedback and thank you for choosing us for your care. Patient Portal You may access all of your results and other medical record information on our secure patient portal. If you are not signed up for this yet, please contact [employer] at [phone] to get signed up today. [Image Remov (more content not included)... Normal [facility] Family Medicine Office/Clini c Noteon 12-11-2024 Family Medicine Office/Clinic Note Family Medicine Office/Clinic Note HPI Staff Daniella is a 44 year old female presenting with 3 month f/u Weight management Adipex Sleeping well:Yes, 6-8 hours Chest pain:No Tremors:No Headaches:No Heart fluttering:No Blurred Vision:No Starting Weight: 433.4 lbs. Weight last visit: 359 lbs. Weight this visit: 355 lbs. refills needed: Adipex History of Present Illness pt presents today for weight managment Review of Systems PHQ Score Initial Depression Screen Score: 0 SCORE Physical Exam Vitals & Measurements T: 36.3 ???C(Temporal Artery) HR: 78(Peripheral) RR: 20 BP: 128/84 SpO2: 98% HT: 162.0 cm HT: 64 in WT: 161.2 kg WT: 355.385 lb BMI: 61.42 General: alert, no acute distress ENMT: oral mucosa moist, no pharyngeal erythema or exudate Cardiovascular: regular rate and rhythm, normal peripheral perfusion Respiratory: Lungs CTA, respirations non labored Extremities: no deformity, no trauma Neurological: oriented x 4, LOC appropriate for age, CN II-XII intact, motor strength equal & normal bilaterally, speech normal Assessment/Plan 1. Hypertension (I10: Essential (primary) hypertension) BP log reviewed. all WNL. sees nephrology in January Ordered: phentermine, 37.5 mg = 1 tab(s), Oral, Daily, bmi 59.63 z68.44, # 30 tab(s), Refills(s) 0, [id number] 162, cm, 12/11/24 8:27:00 EDT, Height/Length Dosing, 161.2, kg, 12/11/24 8:27:00 EDT, Weight Dosing phentermine, 37.5 mg = 1 tab(s), Oral, Daily, bmi 59.63 z68.44, # 30 tab(s), Refills(s) 0, [id number], 162, cm, 09/10/24 8:20:00 EDT, Height/Length Dosing, 163, kg, 09/10/24 8:20:00 EDT, Weight Dosing 2. Encounter for weight management (Z76.89: Persons encountering health services in other specified circumstances) pt is down another 5 pounds. doing well. denies needs. pt will continue adipex. RTC 3 months 3. Non-smoker (Z78.9: Other specified health status) continue not smoking Ordered: phentermine, 37.5 mg = 1 tab(s), Oral, Daily, bmi 59.63 z68.44, # 30 tab(s), Refills(s) 0, Pharmacy: [id number], 162, cm, 12/11/24 8:27:00 EDT, Height/Length Dosing, 161.2, kg, 12/11/24 8:27:00 EDT, Weight Dosing phentermine, 37.5 mg = 1 tab(s), Oral, Daily, bmi 59.63 z68.44, # 30 tab(s), Refills(s) 0, Pharmacy: [facility][id number], 162, cm, 09/10/24 8:20:00 EDT, Height/Length Dosing, 163, kg, 09/10/24 8:20:00 EDT, Weight Dosing 4. BMI 60.0-69.9, adult (Z68.44: Body mass index [BMI] 60.0-69.9, adult) BMI education down another 5 pounds 5. Class 3 severe obesity due to excess calories with body mass index (BMI) of 60.0 to 69.9 in adult (E66.813: Obesity, class 3) see above Orders: hydrochlorothiazide, 1/2 tab, Oral, Daily, Take 25 mg by mouth daily., # 30 cap(s), Refills(s) 11, [facility]: [id number], 162, cm, 12/15/23 9:27:00 EDT, Height/Length Dosing, 197, kg, 12/15/23 9:27:00 EDT, Weight Dosing Follow-up No qualifying data available Problem List/Past Medical History Ongoing FREDA (acute kidney injury) Anemia CKD stage 3a, GFR 45-59 ml/min Elevated BUN Encounter for weight management Hypertension Mixed anxiety and depressive disorder Morbid obesity Morbid obesity with BMI of 50.0-59.9, adult Morbid obesity with BMI of 60.0-69.9, [...] 100 mg Cap hydrochlorothiazide 25 mg Tab, 1/2 tab, Oral, Daily, 11 refills ibuprofen 600 mg Tab Klor-Con M20 oral tablet, extended release loratadine 10 mg Tab magnesium oxide 400 mg Tab magnesium oxide 400 mg Tab, 400 mg= 1 tab(s), Oral, Daily MetFORMIN (Eqv-Glucophage XR) 500 mg oral tablet, extended release, 1000 mg= 2 tab(s), Oral, Daily metoprolol succinate 50 mg ER Tab, 50 mg= 1 tab(s), Oral, Daily, 11 refills NIFEdipine (Eqv-Procardia XL) 30 mg oral tablet, extended release, 30 mg= 1 tab(s), Oral, BID phentermine 37.5 mg Tab, 37.5 mg= 1 tab(s), Oral, Daily ProFe 180 mg oral capsule Allergies Emend (Pain) measles/mumps/rubella virus vaccine (Fever, Swelling, Eruption) morphine (Rash) tetanus toxoid (Eruption, Swelling, Fever) Social History Alcohol Never., 02/10/2024 Substance Abuse Never., 02/10/2024 Tobacco Never (less than 100 in lifetime) Tobacco Use:. Never Smokeless Tobacco Use:. Cigarettes, 12/11/2024 Family History Congenital heart disease: Father and Aunt. Depression: Mother and Grandparent. Diabetes mellitus type 2: Mother, Sister and Grandparent. Hypertension: Mother, Sister and Brother. Primary malignant neoplasm of female breast: Grandparent. Stroke: Aunt (more content not included)... Normal [facility] Comment on above: Result Comment: Elec tronically Signed By: Annabella Moscoso\.br\Date and Time Signed: 12/11/24 09:08 EDT Erythrocyte distribution wid th Auto (RBC) [Ratio]Ordered By: Krissy Morelos on 11-13-2024 Erythrocyte distribution width (RBC) [Ratio] 13.6 % 11.0-15.0 [facility] Estimated glomerular filtrat ion rate (GFR) non- AmericanOrdered By: Krissy Morelos on 11-13-2024 GFR/1.73 sq M.predicted among non-blacks MDRD (S/P/Bld) [Vol rate/Area] 26 mL/min/{1.73_m2} Low >=60 mL/min/1.73 m 2 [facility] Hematocrit Auto (Bld) [Volum e fraction]Ordered By: Krissy Morelos on 11-13-2024 Hematocrit (Bld) [Volume fraction] 39.0 % 36.0-48.0 [facility] Hemoglobin [Mass/volume] in BloodOrdered By: Krissy Morelos on 11-13-2024 Hemoglobin (Bld) [Mass/Vol] 13.5 g/dL 12.0-16.0 [facility] Laboratory - Chemistry and C hemistry - challengeOrdered By: Krissy Morelos on 11-13-2024 Albumin [Mass/Vol] 3.5 g/dL 3.4-5.0 [facility] Calcium [Mass/Vol] 9.5 mg/dL 8.5-10.1 [facility] Chloride [Moles/Vol] 101 mmol/L 98-107 [facility] CO2 [Moles/Vol] 25.1 mmol/L 21.0-32.0 [facility] Creatinine [Mass/Vol] 2.06 mg/dL High 0.55-1.02 [facility] GFR/1.73 sq M.predicted MDRD (S/P/Bld) [Vol rate/Area] 32 mL/min/{1.73_m2} Low >=60 mL/min/1.73 m 2 [facility] Glucose [Mass/Vol] 99 mg/dL 74-106 [facility] Magnesium [Mass/Vol] 1.6 mg/dL Low 1.8-2.4 [facility] Potassium [Moles/Vol] 3.9 mmol/L 3.5-5.1 [facility] Sodium [Moles/Vol] 139 mmol/L 136-145 [facility] Urate [Mass/Vol] 9.1 mg/dL High 2.6-6.0 [facility] Urea nitrogen [Mass/Vol] 32.0 mg/dL High 7.0-18.0 [facility] Urea nitrogen/Creatinine [Mass ratio] 15.5 mg/mg [facility] Bilirubin Ql (U) Negative NEGATIVE [facility] Glucose (U) [Mass/Vol] Negative NEGATIVE [facility] Ketones Ql (U) Negative NEGATIVE [facility] pH (U) 6.0 [pH] 5.0-9.0 [facility] Specific gravity (U) [Rel density] 1.015 1.005-1.025 [facility] Urobilinogen Qn (U) 0.2 {Bhavya'U}/dL 0.2-1.0 [facility] Laboratory - Specimen inform ationOrdered By: Krissy Morelos on 11-13-2024 Appearance (U) CLEAR CLEAR [facility] Color (U) LT. YELLOW YELLOW [facility] Laboratory - UrinalysisOrder ed By: Krissy Morelos on 11-13-2024 Leukocyte esterase Test strip Ql (U) Negative NEGATIVE [facility] Mucus Ql (Urine sed) TRACE Abnormal NONE SEEN [facility] Nitrite Ql (U) Negative NEGATIVE [facility] Protein (U) [Mass/Vol] 18.8 mg/dL High <=11.9 [facility] Protein Ql (U) Negative NEG/TRACE [facility] Leukocytes [#/volume] correc rebecca for nucleated erythrocytes in Blood by Automated counOrdered By: Krissy Morelos on 11-13-2024 WBC corrected for nucl RBC Auto (Bld) [#/Vol] 7.6 10 3/uL 4.0-11.0 [facility] MCH Auto (RBC) [Entitic mass ]Ordered By: Krissy Morelos on 11-13-2024 MCH (RBC) [Entitic mass] 30.7 pg 26.7-34.0 [facility] MCHC Auto (RBC) [Mass/Vol]Or dered By: Krissy Morelos on 11-13-2024 MCHC (RBC) [Mass/Vol] 34.6 g/dL 29.9-35.2 [facility] MCV Auto (RBC) [Entitic vol] Ordered By: Krissy Morelos on 11-13-2024 MCV (RBC) [Entitic vol] 88.6 fL 81.0-99.0 [facility] No Panel InformationOrdered By: Krissy Morelos on 11-13-2024 25-Hydroxy Vitamin D Total 32.4 ng/mL [facility] Comment on above: <20 ng/mL Vit D defi cient20-<30 ng/mL Vit D [id number] ng/mL Vit D sufficient>100 ng/mL Potential Toxicity Phosphorus Level 4.4 mg/dL 2.6-4.7 [facility] Urine Bacteria MODERATE #/HPF Abnormal NONE SEEN [facility] Urine Occult Blood SMALL Abnormal NEGATIVE [facility] Urine Other Casts NONE SEEN #/LPF NONE SEEN [facility] Urine Other Crystals None Seen #/HPF None Seen [facility] Urine Random Creatinine 131.92 mg/dL 20.0 0-300.0 0 [facility] Urine RBC 0-2 #/HPF 0-2 [facility] Urine Squamous Epithelial Cells MODERATE #/LPF Abnormal NONE/RARE [facility] Urine WBC 0-2 #/HPF Abnormal NONE SEEN [facility] Platelet mean volume Auto (B ld) [Entitic vol]Ordered By: Krissy Morelos on 11-13-2024 Platelet mean volume (Bld) [Entitic vol] 10.1 fL 9.5-13.5 [facility] Platelets Auto (Bld) [#/Vol] Ordered By: Krissy Morelos on 11-13-2024 Platelets (Bld) [#/Vol] 297 10 3/uL 150-450 [facility] RBC Auto (Bld) [#/Vol]Ordere d By: Krissy Morelos on 11-13-2024 RBC (Bld) [#/Vol] 4.40 10 6/uL 4.20-5.40 [facility] Serum or plasma anion gap de terminationOrdered By: Krissy Morelos on 11-13-2024 Anion gap [Moles/Vol] 16.8 mmol/L [facility] Urine protein/creatinine rat ioOrdered By: Krissy Morelos on 11-13-2024 Protein/Creatinine (U) [Ratio] 0.14 [facility] Ambulatory Visit Summaryon 0 - Ambulatory Visit Summary Ambulatory Visit Summary DANIELLA MANCERA :1980 Visit Date:09/10/2024 Ambulatory Visit Instructions Your Diagnosis BMI 60.0-69.9, adult Non-smoker Your Care Team Attending Physician - Annabella [...] 8:20 AM EDT With: Annabella Moscoso Where: [place] [phone]- Medications What How Much When Why Instructions [...] you for choosing us for your care. Ace Barboza [facility] Family Medicine Office/Clini c Noteon 09-10-2024 [...] z68.44, # 30 tab(s), Refills(s) 0, [id number], 162, cm, 09/10/24 8:20:00 EDT, Height/Length Dosing, 163, kg, 09/10/24 8:20:00 EDT, Weight Dosing phentermine, 37.5 mg = 1 tab(s), Oral, Daily, bmi 102.8 z68.44, # 30 tab(s), Refills(s) 0, [id number], 162, cm, 07/24/24 8:35:00 EDT, Height/Length Dosing, 166.3, kg, 07/24/24 8:35:00 EDT, Weight Dosing 4. BMI 60.0-69.9, adult (Z68.44: Body mass index [BMI] 60.0-69.9, adult) BMI education given 5. Non-smoker (Z78.9: Other specified health status) continue not smoking Ordered: phentermine, 37.5 mg = 1 tab(s), Oral, Daily, bmi 102.8 z68.44, # 30 tab(s), Refills(s) 0, Pharmacy: [id number], 162, cm, 09/10/24 8:20:00 EDT, Height/Length Dosing, 163, kg, 09/10/24 8:20:00 EDT, Weight Dosing phentermine, 37.5 mg = 1 tab(s), Oral, Daily, bmi 102.8 z68.44, # 30 tab(s), Refills(s) 0, Pharmacy: [facility] #[id number], 162, cm, 07/24/24 8:35:00 EDT, [...] hepatitis B pediatric vaccine 08/09/1997 Recorded Normal [facility] Comment on above: Result Comment: Elec tronically Signed By: Annabella Moscoso\.br\Date and Time Signed: 09/10/24 08:37 EDT Ambulatory Visit Summaryon 0 07-24-2024 Ambulatory Visit Summary Ambulatory Visit Summary DANIELLA MANCERA :1980 Visit Date:07/24/2024 Ambulatory Visit Instructions Your Diagnosis Hypertension FREDA (acute kidney injury) BMI 60.0-69.9, adult Non-smoker Your Care Team Attending Physician - Annabella [...] Appointments Monday. 2024 8:20 AM EDT With: Annabella Moscoso Where: [place] [phone]- Medications What How Much When Why Instructions [...] for choosing us for your care. Normal [facility] BMPon 07-24-2024 Anion gap [Moles/Vol] 14 mmol/L Normal 6-[address] [facility] Comment on above: Performed By: #### 2 [id number] #### [facility] [address] [place] [address] Calcium [Mass/Vol] 9.7 mg/dL Normal 8.9-11.1 [facility] Comment on above: Performed By: #### 2 [id number] #### [facility] [address] [place] [address] Chloride [Moles/Vol] 105 mmol/L Normal 101-111 [facility] Comment on above: Performed By: #### 2 [id number] #### [facility] [address] [place] [address] CO2 [Moles/Vol] 24 mmol/L Normal 21-31 [facility] Comment on above: Performed By: #### 2 [id number] #### [facility] [address] [place] [address] Creatinine [Mass/Vol] 1.3 mg/dL Normal 0.5-1.[address] [facility] Comment on above: Performed By: #### 2 771583 #### [facility] [address] [place] [address] Glucose [Mass/Vol] 101 mg/dL Normal 55-199 [facility] Comment on above: Performed By: #### 2 346102 #### [facility] [address] [place] [address] Potassium [Moles/Vol] 3.9 mmol/L Normal 3.5-5.[address] [facility] Comment on above: Performed By: #### 2 [id number] #### [facility] [address] [place] [address] Sodium [Moles/Vol] 139 mmol/L Normal 135-145 [facility] Comment on above: Performed By: #### 2 111754 #### [facility] [address] [place] [address] Urea nitrogen [Mass/Vol] 30 mg/dL High 5-21 [facility] Comment on above: Performed By: #### 2 [id number] #### [facility] [address] [place] [address] Urea nitrogen/Creatinine [Mass ratio] 23 No Units High 10-20 [facility] Comment on above: Performed By: #### 2 682341 #### [facility] [address] [place] [address] CHEMISTRYOrdered By: SYSTEM SYSTEM on 07-24-2024 Anion [...] BID, # 60 tab(s), Refills(s) 11, Pharmacy: [facility]/pharmacy #[id number], 162, cm, 12/15/23 9:27:00 EDT, [...] hepatitis B pediatric vaccine 08/09/1997 Recorded Normal [facility] Comment on above: Result Comment: Elec tronically Signed By: Annabella Moscoso\.br\Date and Time Signed: 07/24/24 08:53 EDT eGFRon 07-24-2024 eGFR 52 mL/min/1.73 m2 Low >=59 [facility] Comment on above: Performed By: #### 1 [id number] #### [facility] [address] [place] [address] Ambulatory Visit Summaryon 0 06-12-2024 Ambulatory Visit Summary Ambulatory Visit Summary DANIELLA MANCERA :1980 Visit Date:06/12/2024 Ambulatory Visit Instructions Your Diagnosis Encounter for weight management Elevated BUN BMI 60.0-69.9, adult Non-smoker Your Care Team Attending Physician - Annabella [...] 8:20 AM EDT With: Annabella Moscoso Where: [facility] [place] [phone]- Medications What How Much When Why Instructions [...] for choosing us for your care. Normal [facility] BMPon 06-12-2024 Anion gap [Moles/Vol] 16 mmol/L Normal 6-[address] [facility] Comment on above: Performed By: #### 2 [id number] #### [facility] [address] [place] [address] Calcium [Mass/Vol] 9.2 mg/dL Normal 8.9-11.1 [facility] Comment on above: Performed By: #### 2 [id number] #### [facility] [address] [place] [address] Chloride [Moles/Vol] 102 mmol/L Normal 101-111 [facility] Comment on above: Performed By: #### 2 [id number] #### [facility] [address] [place] [address] CO2 [Moles/Vol] 24 mmol/L Normal 21-31 [facility] Comment on above: Performed By: #### 2 [id number] #### [facility] [address] [place] [address] Creatinine [Mass/Vol] 1.4 mg/dL High 0.5-1.[address] [facility] Comment on above: Performed By: #### 2 371020 #### [facility] [address] [place] [address] Glucose [Mass/Vol] 101 mg/dL Normal 55-199 [facility] Comment on above: Performed By: #### 2 606536 #### [facility] [address] [place] [address] Potassium [Moles/Vol] 3.7 mmol/L Normal 3.5-5.[address] [facility] Comment on above: Performed By: #### 2 438104 #### [facility] [address] [place] [address] Sodium [Moles/Vol] 138 mmol/L Normal 135-145 [facility] Comment on above: Performed By: #### 2 144394 #### [facility] [address] [place] [address] Urea nitrogen [Mass/Vol] 23 mg/dL High 5-21 [facility] Comment on above: Performed By: #### 2 133852 #### [facility] [address] [place] [address] Urea nitrogen/Creatinine [Mass ratio] 16 No Units Normal 10-20 [facility] Comment on above: Performed By: #### 2 511907 #### [facility] [address] [place] [address] CHEMISTRYOrdered By: SYSTEM SYSTEM on 06-12-2024 Anion [...] Ordered: Basic Metabolic Panel Lab Specimen Collect [id number] 2. Elevated BUN (R79.9: Abnormal finding of blood chemistry, unspecified) will check BMP today Ordered: Basic Metabolic Panel Lab Specimen Collect [id number] 3. Hypertension (I10: Essential (primary) hypertension) BP log reviewed. Some are 90/70's will instruct her to stop the Procardia and continue to monitor her BP Ordered: phentermine, 37.5 mg = 1 tab(s), Oral, Daily, bmi 66.3, # 30 tab(s), Refills(s) 0, [facility]: [id number], 162, cm, 06/12/24 8:34:00 EST, Height/Length Dosing, 168.8, kg, 06/12/24 8:34:00 EST, Weight Dosing phentermine, 37.5 mg = 1 tab(s), Oral, Daily, bmi 66.3, # 30 tab(s), Refills(s) 0, [facility]: [id number], 162, cm, 04/10/24 7:19:00 EST, Height/Length Dosing, 174, kg, 04/10/24 7:19:00 EST, Weight Dosing 4. BMI 60.0-69.9, adult (Z68.44: Body mass index [BMI] 60.0-69.9, adult) BMI education given Ordered: Basic Metabolic Panel Lab Specimen Collect [id number] 5. Non-smoker (Z78.9: Other specified health status) continue not smoking Ordered: phentermine, 37.5 mg = 1 tab(s), Oral, Daily, bmi 66.3, # 30 tab(s), Refills(s) 0, Pharmacy: [facility]/pharmacy #[id number], 162, cm, 06/12/24 8:34:00 EST, Height/Length Dosing, 168.8, kg, 06/12/24 8:34:00 EST, Weight Dosing phentermine, 37.5 mg = 1 tab(s), Oral, Daily, bmi 66.3, # 30 tab(s), Refills(s) 0, Pharmacy: [facility]/pharmacy #[id number], 162, cm, 04/10/24 7:19:00 EST, Height/Length Dosing, 174, kg, 04/10/24 7:19:00 EST, Weight Dosing Basic Metabolic Panel Lab Specimen Collect [id number] Follow-up No qualifying data available Problem List/Past [...] hepatitis B pediatric vaccine 08/09/1997 Recorded Normal [facility] Comment on above: Result Comment: Elec tronically Signed By: Annabella Moscoso\.br\Date and Time Signed: 06/12/24 08:58 EST eGFRon 06-12-2024 eGFR 47 mL/min/1.73 m2 Low >=59 [facility] Comment on above: Performed By: #### 1 [id number] #### [facility] [address] [place] [address] Ambulatory Visit Summaryon 1 05-12-2023 Ambulatory Visit Summary Ambulatory Visit Summary DANIELLA MANCERA :1980 Visit Date:03/12/2024 Ambulatory Visit Instructions Your Diagnosis Non-smoker BMI 60.0-69.9, adult, Body mass index [BMI] 60.0-69.9, adult Morbid obesity with BMI of 60.0-69.9, adult BMI 70 and over, adult Hypertension Your Care Team Attending Physician - Annabella [...] Appointments Monday 8:20 AM EST With: Where: [address] [phone]- Monday 8:20 AM EST With: Annabella Moscoso Where: [address] [address]- Medications What How Much When Why Instructions New phentermine (phentermine 37.5 mg Tab) 1 Tablets By Mouth Every day Hypertension BMI 70 and over, adult Non-smoker Pickup at [facility]/pharmacy #[id number] Unchanged buPROPion (buPROPion 100 mg Tab) 1 [...] by mouth in the morning. Pharmacy Information [facility]/pharmacy #[id number]: [address], [place] [id number] [phone] Allergies Emend (Pain) measles/mumps/rubella virus vaccine (Fever, [...] you for choosing us for your care. Ace [facility] Office/Clini c Noteon 03-12-2024 Family [...] Daily, # 30 tab(s), Refills(s) 0, [facility]: [id number], 162, cm, 02/13/24 8:26:00 EDT, Height/Length Dosing, 182.8, kg, 02/13/24 8:26:00 EDT, Weight Dosing phentermine, 37.5 mg = 1 tab(s), Oral, Daily, # 30 tab(s), Refills(s) 0, [facility]acy: [id number], 162, cm, 03/12/24 8:26:00 EST, Height/Length Dosing, 176.1, kg, 03/12/24 8:26:00 EST, Weight Dosing 3. Non-smoker (Z78.9: Other specified health status) continue not smoking Ordered: phentermine, 37.5 mg = 1 tab(s), Oral, Daily, # 30 tab(s), Refills(s) 0, [facility]: [id number], 162, cm, 02/13/24 8:26:00 EDT, Height/Length Dosing, 182.8, kg, 02/13/24 8:26:00 EDT, Weight Dosing phentermine, 37.5 mg = 1 tab(s), Oral, Daily, # 30 tab(s), Refills(s) 0, Pharmacy: [facility]/pharmacy #[id number], 162, cm, 03/12/24 8:26:00 EST, Height/Length [...] hepatitis B pediatric vaccine 08/09/1997 Recorded Normal [facility] Comment on above: Result Comment: Elec tronically Signed By: Annabella Moscoso\.br\Date and Time Signed: 03/12/24 08:41 EST Ambulatory Visit Summaryon 1 Ambulatory Visit Summary Ambulatory Visit Summary DANIELLA MANCERA :1980 Visit Date:02/13/2024 Ambulatory Visit Instructions Your Diagnosis Encounter for weight management Non-smoker Adult BMI 60.0-69.9 kg/sq m Morbid obesity Respiratory disorder, unspecified Your Care Team Attending Physician - Annabella [...] Follow-Up Appointments Monday 8:20 AM EST With: Annabella Moscoso Where: [facility] [place] [address] [place] [address]- Medications What How Much When Why Instructions [...] you for choosing us for your care. Ace [facility] Medicine Office/Clini c Noteon 02-13-2024 [...] Daily, # 30 tab(s), Refills(s) 0, Pharmacy: [facility]/pharmacy #[id number], 162, cm, 02/13/24 8:26:00 EDT, Height/Length Dosing, 182.8, kg, 02/13/24 8:26:00 EDT, Weight Dosing phentermine, 37.5 mg = 1 tab(s), Oral, Daily, # 30 tab(s), Refills(s) 0, Pharmacy: [facility], 162, cm, 01/17/24 14:02:00 EDT, Height/Length [...] DAY, # 60 tab(s), Refills(s) 2, Pharmacy: [facility]/pharmacy #[id number], 162, cm, 12/15/23 9:27:00 EDT, Height/Length Dosing, 197, kg, 12/15/23 9:27:00 EDT, Weight Dosing NIFEdipine, 30 mg = 1 tab(s), Oral, BID, # 180 tab(s), Refills(s) 3, Pharmacy: [facility]/pharmacy #[id number], 162, cm, 02/13/24 8:26:00 EDT, [...] hepatitis B pediatric vaccine 08/09/1997 Recorded Normal [facility] Comment on above: Result Comment: Elec tronically Signed By: Annabella Moscoso\.br\Date and Time Signed: 02/13/24 08:39 EDT [...] Daily, # 30 tab(s), Refills(s) 0, Pharmacy: [facility], 162, cm, 01/17/24 14:02:00 EDT, Height/Length Dosing, 185.8, kg, 01/17/24 14:02:00 EDT, Weight Dosing phentermine, 37.5 mg = 1 tab(s), Oral, Daily, # 30 tab(s), Refills(s) 0, Pharmacy: [facility], 162, cm, 12/15/23 9:27:00 EDT, Height/Length Dosing, 197, kg, 12/15/23 9:27:00 EDT, Weight Dosing 3. Non-smoker (Z78.9: Other specified health status) continue not smoking Ordered: phentermine, 37.5 mg = 1 tab(s), Oral, Daily, # 30 tab(s), Refills(s) 0, Pharmacy: [facility], 162, cm, 01/17/24 14:02:00 EDT, Height/Length Dosing, 185.8, kg, 01/17/24 14:02:00 EDT, Weight Dosing phentermine, 37.5 mg = 1 tab(s), Oral, Daily, # 30 tab(s), Refills(s) 0, Pharmacy: [facility], 162, cm, 12/15/23 9:27:00 EDT, Height/Length [...] Daily, # 30 tab(s), Refills(s) 0, Pharmacy: [facility] #[facility], 162, cm, 01/17/24 14:02:00 EDT, Height/Length Dosing, 185.8, kg, 01/17/24 14:02:00 EDT, Weight Dosing phentermine, 37.5 mg = 1 tab(s), Oral, Daily, # 30 tab(s), Refills(s) 0, Pharmacy: [facility], 162, cm, 12/15/23 9:27:00 EDT, Height/Length [...] hepatitis B pediatric vaccine 08/09/1997 Recorded Normal [facility] Comment on above: Result Comment: Elec tronically Signed By: Shannon FENG, Annabella Miranda\.br\Date and Time Signed: 01/17/24 15:22 EDT CBC AND AUTO DIFFon 01-12-20 ABSOLUTE BASOPHIL 0.1 X10E9/L Normal 0.0-0.2 [facility] Comment on above: Performed By: #### 1 9123-9, CBCA, CMP #### [facility] ([id number]) [address], [address] [place] [address] ABSOLUTE NEUTROPHIL 4.7 X10E9/L Normal 1.5-6.6 [facility] Comment on above: Performed By: #### 1 9123-9, CBCA, CMP #### [facility] ([id number]) [address], [address] [place] [address] Basophils/100 WBC (Bld) 1.3 % Normal [facility] Comment on above: Performed By: #### 1 9123-9, CBCA, CMP #### [facility] ([id number]) [address], [address] [place] [address] Eosinophils (Bld) [#/Vol] 0.3 10*3/uL Normal 0.0-0.4 [facility] Comment on above: Performed By: #### 1 9123-9, CBCA, CMP #### [facility] ([id number]) [address], [facility] [address] [place] [address] Eosinophils/100 WBC (Bld) 3.9 % Normal [facility] Comment on above: Performed By: #### 1 9123-9, CBCA, CMP #### [facility] ([id number]) [address], [facility] [address] [place] [address] Erythrocyte distribution width (RBC) [Ratio] 14.7 % Normal 11.5-15.0 [facility] Comment on above: Performed By: #### 1 9123-9, CBCA, CMP #### [facility] ([id number]) [address], [facility] [address] [place] [address] Hematocrit (Bld) [Volume fraction] 41.8 % Normal 35-47 [facility] Comment on above: Performed By: #### 1 9123-9, CBCA, CMP #### [facility] ([id number]) [address] [facility] [address] [place] [address] Hemoglobin (Bld) [Mass/Vol] 14.5 g/dL Normal 11.7-15.5 [facility] Comment on above: Performed By: #### 1 9123-9, CBCA, CMP #### [facility] ([id number]) [address], [facility] [address] [place] [address] Lymphocytes (Bld) [#/Vol] 1.5 10*3/uL Normal 1.0-3.5 [facility] Comment on above: Performed By: #### 1 9123-9, CBCA, CMP #### [facility] ([id number]) [address], [address] [place] [address] Lymphocytes/100 WBC (Bld) 21.2 % Normal [facility] Comment on above: Performed By: #### 1 9123-9, CBCA, CMP #### [facility] ([id number]) [address], [address] [place] [address] MCH (RBC) [Entitic mass] 29.6 pg Normal 27-34 [facility] Comment on above: Performed By: #### 1 9123-9, CBCA, CMP #### [facility] ([id number]) [address] [place] [address] MCHC (RBC) [Mass/Vol] 34.7 g/dL Normal 32-36 [facility] Comment on above: Performed By: #### 1 9123-9, CBCA, CMP #### [facility] ([id number]) [address], [facility] [address] [place] [address] MCV (RBC) [Entitic vol] 85 fL Normal 80-100 [facility] Comment on above: Performed By: #### 1 9123-9, CBCA, CMP #### [facility] ([id number]) [address] [place] [address] Monocytes (Bld) [#/Vol] 0.4 10*3/uL Normal 0-0.9 [facility] Comment on above: Performed By: #### 1 9123-9, CBCA, CMP #### [facility] ([id number]) [address], [address] [place] [address] Monocytes/100 WBC (Bld) 6.0 % Normal [facility] Comment on above: Performed By: #### 1 9123-9, CBCA, CMP #### [facility] ([id number]) [address], [address] [place] [address] Neutrophils/100 WBC (Bld) 67.6 % Normal [facility] Comment on above: Performed By: #### 1 9123-9, CBCA, CMP #### [facility] ([id number]) [address], [address] [place] [address] Platelet mean volume (Bld) [Entitic vol] 9.3 fL Normal 7-12 [facility] Comment on above: Performed By: #### 1 9123-9, CBCA, CMP #### [facility] ([id number]) [address], [facility] [address] [place] [address] Platelets (Bld) [#/Vol] 279 10*3/uL Normal 150-450 [facility] Comment on above: Performed By: #### 1 9123-9, CBCA, CMP #### [facility] ([id number]) [address] [place] [address] RBC COUNT 4.91 X10E12/L Normal 3.80-5.20 [facility] Comment on above: Performed By: #### 1 9123-9, CBCA, CMP #### [facility] ([id number]) [address], [facility] [address] [place] [address] WBC (Bld) [#/Vol] 6.9 10*3/uL Normal 4.0-11.0 [facility] Comment on above: Performed By: #### 1 9123-9, CBCA, CMP #### [facility] ([id number]) [address], [address] [place] [address] COMPREHENSIVE METABOLIC PANE Geoffrey 01-12-2024 Albumin [Mass/Vol] 4.4 g/dL Normal 3.2-5.3 [facility] Comment on above: Performed By: #### 1 9123-9, CBCA, CMP #### [facility] ([id number]) [address] [place] [address] ALP [Catalytic activity/Vol] 73 U/L Normal 39-130 [facility] Comment on above: Performed By: #### 1 9123-9, CBCA, CMP #### [facility] ([id number]) [address] [place] [address] ALT [Catalytic activity/Vol] 50 U/L High 0-31 [facility] Comment on above: Performed By: #### 1 9123-9, CBCA, CMP #### [facility] ([id number]) [address] [place] [address] Anion gap [Moles/Vol] 12 mmol/L Normal 5-15 [facility] Comment on above: Performed By: #### 1 9123-9, CBCA, CMP #### [facility] ([id number]) [address] [place] [address] AST [Catalytic activity/Vol] 26 U/L Normal 0-41 [facility] Comment on above: Performed By: #### 1 9123-9, CBCA, CMP #### [facility] ([id number]) [address] [place] [address] Bilirubin [Mass/Vol] 1.1 mg/dL Normal 0.3-1.2 [facility] Comment on above: Performed By: #### 1 9123-9, CBCA, CMP #### [facility] ([id number]) [address], [address] [place] [address] Calcium [Mass/Vol] 9.7 mg/dL Normal 8.5-10.5 [facility] Comment on above: Performed By: #### 1 9123-9, CBCA, CMP #### [facility] ([id number]) [address] [place] [address] Chloride [Moles/Vol] 101 mmol/L Normal 98-109 [facility] Comment on above: Performed By: #### 1 9123-9, CBCA, CMP #### [facility] ([id number]) [address] [place] [address] CO2 [Moles/Vol] 24 mmol/L Normal 22-32 [facility] Comment on above: Performed By: #### 1 9123-9, CBCA, CMP #### [facility] ([id number]) [address] [place] [address] Creatinine [Mass/Vol] 1.30 mg/dL High 0.40-1.00 [facility] Comment on above: Result Comment: METH OD TRACEABLE TO IDMS STANDARD Performed By: #### 1 9123-9, CBCA, CMP #### [facility] ([id number]) [address] [place] [address] GFR/1.73 sq M.predicted among non-blacks MDRD (S/P/Bld) [Vol rate/Area] 52 mL/min/{1.73_m2} Low >59 [facility] Comment on above: Result Comment: Reported eGFR is based on the CKD-EPI 2020 equation that does not use a race coefficient. Performed By: #### 1 9123-9, CBCA, CMP #### [facility] ([id number]) [address] [place] [address] Glucose [Mass/Vol] 105 mg/dL High 65-99 [facility] Comment on above: Performed By: #### 1 9123-9, CBCA, CMP #### [facility] ([id number]) [address] [place] [address] Potassium [Moles/Vol] 3.6 mmol/L Normal 3.5-5.0 [facility] Comment on above: Performed By: #### 1 9123-9, CBCA, CMP #### [facility] ([id number]) [address] [place] [address] Protein [Mass/Vol] 7.7 g/dL Normal 6.0-8.0 [facility] Comment on above: Performed By: #### 1 9123-9, CBCA, CMP #### [facility] ([id number]) [address] [place] [address] Sodium [Moles/Vol] 137 mmol/L Normal 134-146 [facility] Comment on above: Performed By: #### 1 9123-9, CBCA, CMP #### [facility] ([id number]) [address] [place] [address] Urea nitrogen [Mass/Vol] 36 mg/dL High 5-23 [facility] Comment on above: Performed By: #### 1 9123-9, CBCA, CMP #### [facility] ([id number]) [address] [place] [address] MAGNESIUMon 01-12-2024 Magnesium [Mass/Vol] 1.9 mg/dL Normal 1.8-2.6 [facility] Comment on above: Performed By: #### 1 9123-9, CBCA, CMP #### [facility] ([id number]) [address] [place] [address] MLR HEMOGLOBIN A1Con 024 Glucose [Mass/Vol] 108 mg/dL [facility] HbA1c (Bld) [Mass fraction] 5.4 % 4.5 - 6.2 % [facility] Comment on above: ADA RECOMMENDED LIMI T 4.0 - 6.0 ADA THERAPEUTIC TARGET < 7.0 ACTION SUGGESTED > 7.0 [facility] Ambulatory Visit Summaryon 0 12-15-2023 Ambulatory Visit [...] 8:20 AM EDT With: Annabella Moscoso Where: [place] [phone]- Medications What How Much When Instructions Unchanged [...] for choosing us for your care. Normal [facility] CHEMISTRYOrdered By: SYSTEM SYSTEM on 12-15-2023 Albumin [...] 12-15-2023 Albumin [Mass/Vol] 4.1 g/dL Normal 3.3-5.0 [facility] Comment on above: Performed By: #### 2 193587 #### [facility] [address] [place] [address] Albumin/Globulin (S) [Mass conc ratio] 1.3 Normal 1.1-2.2 [facility] Comment on above: Performed By: #### 2 [id number] #### [facility] [address] [place] [address] ALP [Catalytic activity/Vol] 81 Int._Unit/L Normal 21-98 [facility] Comment on above: Performed By: #### 2 975157 #### [facility] [address] [place] [address] ALT No additional P-5'-P [Catalytic activity/Vol] 28 Int._Unit/L Normal 6-46 [facility] Comment on above: Performed By: #### 2 [id number] #### [facility] [address] [place] [address] Anion gap [Moles/Vol] 17 mmol/L High 6-[address] [facility] Comment on above: Performed By: #### 2 139382 #### [facility] [address] [place] [address] AST [Catalytic activity/Vol] 22 Int._Unit/L Normal 5-43 [facility] Comment on above: Performed By: #### 2 279586 #### [facility] [address] [place] [address] Bilirubin [Mass/Vol] 0.7 mg/dL Normal 0.0-1.1 [facility] Comment on above: Performed By: #### 2 662569 #### [facility] [address] [place] [address] Calcium [Mass/Vol] 9.6 mg/dL Normal 8.9-11.1 [facility] Comment on above: Performed By: #### 2 [id number] #### [facility] [address] [place] [address] Chloride [Moles/Vol] 106 mmol/L Normal 101-111 [facility] Comment on above: Performed By: #### 2 [id number] #### [facility] [address] [place] [address] CO2 [Moles/Vol] 22 mmol/L Normal 21-31 [facility] Comment on above: Performed By: #### 2 [id number] #### [facility] [address] [place] [address] Creatinine [Mass/Vol] 0.9 mg/dL Normal 0.5-1.[address] [facility] Comment on above: Performed By: #### 2 [id number] #### [facility] [address] [place] [address] Globulin (S) [Mass/Vol] 3.1 g/dL Normal 1.4-4.0 [facility] Comment on above: Performed By: #### 2 [id number] #### [facility] [address] [place] [address] Glucose [Mass/Vol] 105 mg/dL Normal 55-199 [facility] Comment on above: Performed By: #### 2 [id number] #### [facility] [address] [place] [address] Potassium [Moles/Vol] 3.8 mmol/L Normal 3.5-5.[address] [facility] Comment on above: Performed By: #### 2 [id number] #### [facility] [address] [place] [address] Protein [Mass/Vol] 7.2 g/dL Normal 6.0-7.8 [facility] Comment on above: Performed By: #### 2 [id number] #### [facility] [address] [place] [address] Sodium [Moles/Vol] 141 mmol/L Normal 135-145 [facility] Comment on above: Performed By: #### 2 [id number] #### [facility] [address] [place] [address] Urea nitrogen [Mass/Vol] 22 mg/dL High 5-21 [facility] Comment on above: Performed By: #### 2 [id number] #### [facility] [address] [place] [address] Urea nitrogen/Creatinine [Mass ratio] 24 No Units High 10-20 [facility] Comment on above: Performed By: #### 2 [id number] #### [facility] [address] [place] [address] Family Medicine Office/Clini c Noteon 12-15-2023 Family [...] Daily, # 30 tab(s), Refills(s) 11, Pharmacy: [facility]/pharmacy #[id number], 162, cm, 12/15/23 9:27:00 EDT, Height/Length Dosing, 197, kg, 12/15/23 9:27:00 EDT, Weight Dosing Comprehensive Metabolic Panel Est Preventative 40 to 64 years [address] Lipid Panel Thyroid Stimulating Hormone 2. Weight gain (R63.5: Abnormal weight gain) pt has gained 26 pounds since last visit. will start adipex. discussed making health food choices and increasing exercise Ordered: metoprolol, 50 mg = 1 tab(s), Oral, Daily, # 30 tab(s), Refills(s) 11, Pharmacy: [facility]/pharm[facility] #[id number], 162, cm, 12/15/23 9:27:00 EDT, Height/Length Dosing, 197, kg, 12/15/23 9:27:00 EDT, Weight Dosing Est Preventative 40 to 64 years [address] 3. Hypertension (I10: Essential (primary) hypertension) BP at goal Ordered: metoprolol, 50 mg = 1 tab(s), Oral, Daily, # 30 tab(s), Refills(s) 11, Pharmacy: [facility]/pharmacy #[id number], 162, cm, 12/15/23 9:27:00 EDT, Height/Length Dosing, 197, kg, 12/15/23 9:27:00 EDT, Weight Dosing Comprehensive Metabolic Panel Est Preventative 40 to 64 years [address] Lipid Panel Thyroid Stimulating Hormone 4. BMI 70 and over, adult (Z68.45: Body mass index [BMI] 70 or greater, adult) BMI education given Ordered: metoprolol, 50 mg = 1 tab(s), Oral, Daily, # 30 tab(s), Refills(s) 11, Pharmacy: [facility]/pharmacy #[id number], 162, cm, 12/15/23 9:27:00 EDT, Height/Length Dosing, 197, kg, 12/15/23 9:27:00 EDT, Weight Dosing Est Preventative 40 to 64 years [address] 5. Morbid obesity (E66.01: Morbid (severe) obesity due to excess calories) see above Ordered: metoprolol, 50 mg = 1 tab(s), Oral, Daily, # 30 tab(s), Refills(s) 11, Pharmacy: [facility]/pharmacy #[id number], 162, cm, 12/15/23 9:27:00 EDT, Height/Length Dosing, 197, kg, 12/15/23 9:27:00 EDT, Weight Dosing Comprehensive Metabolic Panel Est Preventative 40 to 64 years [address] Lipid Panel Thyroid Stimulating Hormone 6. Non-smoker (Z78.9: Other specified health status) continue not smoking Ordered: metoprolol, 50 mg = 1 tab(s), Oral, Daily, # 30 tab(s), Refills(s) 11, Pharmacy: [facility]/pharmacy #[id number], 162, cm, 12/15/23 9:27:00 EDT, Height/Length Dosing, 197, kg, 12/15/23 9:27:00 EDT, Weight Dosing Comprehensive Metabolic Panel Est Preventative 40 to 64 years [address] Lipid Panel Thyroid Stimulating Hormone Orders: buPROPion, 100 mg = 1 tab(s), Oral, BID, # 60 tab(s), Refills(s) 11, [id number] 162, cm, 11/03/22 9:18:00 EDT, Height/Length Dosing, 408, kg, 11/03/22 9:18:00 EDT, Weight Dosing buPROPion, 100 mg = 1 tab(s), Oral, BID, # 60 tab(s), Refills(s) 11, [id number], 162, cm, 12/15/23 9:27:00 EDT, Height/Length Dosing, 197, kg, 12/15/23 9:27:00 EDT, Weight Dosing buPROPion, See Instructions, TAKE 1 TABLET BY MOUTH TWICE A DAY, # 60 tab(s), Refills(s) 11, Pharmacy: [facility] [id number], 162, cm, 12/15/23 9:27:00 EDT, Height/Length Dosing, 197, kg, 12/15/23 9:27:00 EDT, Weight Dosing busPIRone, 5 mg = 1 tab(s), Oral, Daily, # 30 tab(s), Refills(s) 11, [id number], 162, cm, 12/15/23 9:27:00 EDT, Height/Length Dosing, 197, kg, 12/15/23 9:27:00 EDT, Weight Dosing busPIRone, 5 mg = 1 tab(s), Oral, Daily, # 30 tab(s), Refills(s) 5, [id number], 162, cm, 11/03/22 9:18:00 EDT, Height/Length Dosing, 408, kg, 11/03/22 9:18:00 EDT, Weight Dosing hydrochlorothiazide, 25 mg = 1 tab(s), Oral, Daily, 25 Unknown, oral, 1 Refill(s), Take 25 mg by mouth daily., # 30 tab(s), Refills(s) 11, [id number] (more content not included)... Normal [facility] Comment on above: Result Comment: Elec tronically Signed By: Shannon FENG, Annabella Miranda\.br\Date and Time Signed: 12/15/23 10:14 EDT Lipid Panelon 12-15-2023 Cholesterol [Mass/Vol] 172 mg/dL Normal 120-200 [facility] Comment on above: Performed By: #### 2 [id number] #### [facility] [address] [place] [address] Cholesterol in HDL [Mass/Vol] 39 mg/dL Invalid Interpretation Code [facility] Comment on above: Result Comment: '>= 60 LOW RISK' '<= 40 HIGH RISK' Performed By: #### 2 [id number] #### [facility] [address] [place] [address] Cholesterol in LDL [Mass/Vol] 118 mg/dL Normal <=129 [facility] Comment on above: Performed By: #### 2 [id number] #### [facility] [address] [place] [address] Cholesterol in VLDL [Mass/Vol] 28 mg/dL Normal 7-40 [facility] Comment on above: Performed By: #### 2 [id number] #### [facility] [address] [place] [address] Triglyceride [Mass/Vol] 142 mg/dL Normal <=149 [facility] Comment on above: Performed By: #### 2 [id number] #### [facility] [address] [place] [address] TSHon 12-15-2023 TSH Qn 1.22 m[IU]/L Normal 0.34-5.60 [facility] Comment on above: Performed By: #### 2 [id number] #### [facility] [address] [place] [address] eGFRon 12-15-2023 eGFR 81 mL/min/1.73 m2 Normal >=59 [facility] Comment on above: Order Comment: Order added by Discern Expert. Performed By: #### 1 [id number] #### [facility] [address] [place] [address] Consultation Noteon 08-11-19 Consultation Note [id number] 0TIFF Normal [facility] XR ankle LT min 3V*on 2023 XR ankle LT min 3V* [facility] Main [address] [address] XRay Report Signed Patient: Daniella Mancera MR#: [id number] : 1980 Acct:[id number] Age/Sex: 42 / F ADM Date: 08/09/23 Loc: XDUCLY Room: Type: [facility] Attending Dr: Oneida TORRES Copies to: MELISSA [...] SPURRING. Impression dictated by: Aldo Hernandez Jr., FarhanOCampbell08/09/2023 11:03 AM Dictation Location: [place] [address] Transcribed By: [facility] 08/09/23 110 Dictated By: Aldo Hernandez Jr, DO 08/09/23 1103 Signed By: 08/09/23 1103 Normal [facility] Consultation Noteon 01-21-20 23 Consultation Note [id number] 0CD:127 Normal [facility] Cytology Cervical or vaginal smear or scraping studyon 12-13-2022 [facility] [employer] CHEMISTRYOrdered By: [employer] on 11-03-2022 Cholesterol [Mass/Vol] 163 mg/dL [...] : DR ANGIE BOLDEN . Admission #: [id number] Family : JARED SHEARER Order #: [id number] CLICK HERE TO VIEW EXAM RADIOLOGY REPORT PROCEDURE: MAMMOGRAM SCREENING 3D BILATERAL CAD COMPARISON: None. INDICATIONS: Screening mammography Calculator Name NCI Breast Cancer Risk Assessment Tool 5 Year Breast Cancer Risk 0.80% Lifetime Breast Cancer Risk 11.90% Personal Breast Cancer No Personal Ovarian Cancer No Treatments hysterectomy and chemotherapy Family Cancers Aunt-maternal with breast cancer at age 81. LOCATION: [facility] BREAST COMPOSITION: Almost entirely fatty. FINDINGS: [...] Mauro Heller M.D. on 01/03/2022 at 15:59 [facility] PAP ACOG PANEL 2: 30 to 65on 12-01-2021 . . Normal [facility] Comment on above: Result Comment: Perf ormed at: WB Performed By: #### 4 [id number] #### [facility] [address] [place] [address] Dr. Billy Parikh Age Gdln ACOG Testing 30-65 Normal [facility] Comment on above: Performed By: #### 4 [id number] #### [facility] [address] [address] [address] Billy Parikh DIAGNOSIS: Comment Normal [facility] Comment on above: Result Comment: NEGA TIVE FOR INTRAEPITHELIAL LESION OR MALIGNANCY. Performed at: WB Performed By: #### 4 [id number] #### [facility] [address] [place] [address] Dr. Billy Parikh HPV Aptima Negative Normal Negative [facility] Comment on above: Result Comment: This nucleic acid amplification test detects fourteen high-risk HPV types (16,18,31,33,35,39,45,51,52,56,58,59,66,68) without differentiation. Performed at: =G Performed By: #### 4 [id number] #### [facility] [address] [place] [address] Dr. Billy Parikh Methodology: CTIM Normal [facility] Comment on above: Result Comment: The Thin Prep(R) E D Tech was unable to read this specimen. Therefore a manual review was performed. Performed at: WB Performed By: #### 4 [id number] #### [facility] [address] [place] [address] Dr. Billy Parikh Note: Comment Normal [facility] Comment on above: Result Comment: The Pap smear is a screening test designed to aid in the detection of premalignant and malignant conditions of the uterine cervix. It is not a diagnostic procedure and should not be used as the sole means of detecting cervical cancer. Both false-positive and false-negative reports do occur. . Performed at: WB Performed By: #### 4 [id number] #### [facility] [address] [place] [address] Dr. Billy Parikh Performed by: Comment Normal [facility] Comment on above: Result Comment: Nish Wolff Vacuum Technician (ASCP) Performed at: WB Performed By: #### 4 [id number] #### [facility] [address] [place] [address] Dr. Billy Parikh Specimen adequacy: Comment Normal [facility] Comment on above: Result Comment: Sati sfactory for evaluation. No endocervical component is identified. Performed at: WB Performed By: #### 4 [id number] #### [facility] [address] [place] [address] Dr. Billy Parikh PROGRESSon 12-18-2016 PROGRESS HNO ID: [id number]: Stephie Aureice: (none)Author Type: PhysicianType: Progress NotesFiled: 12/18/2016 11:00 [...] pap: No.No past surgical history on file. [place] teeth removalPAST MEDICAL HISTORYDiagnosis Date- Abnormal uterine [...] rest, lower extremity edema,or palpitations. No recent NC (within 6 months), cardiac stent, cardiacsurgery, gangrene, [...] kg (397 lb 6.4 oz) BMI 66.13 kg/v9CWBXSUW: Patient is a well developed, well nourished [...] this office note were sent to:Angie Bolden, [id number] [facility] [place] [address]BY:Bhumi Choi MD (PCP) [facility] CNCOon 12-14-2016 CNCO Letter JimboDegayle Mancera:How to activate your [facility] [employer] Account 1. Visit the [employer] Signup page at [email or web address] 2. Identify yourself using your one-time use activation code: [email or web address] 3. Follow the on-screen prompts to choose your own secure username andpasswordThe following information will be necessary to access your account for thefirst time:Information needed for sign-up:Your custom activation code used one-time only for the initial accountset-up.Your date of birthThe last 4 digits of your social security numberWhat to do next:Fill in the requested information on the Identify Yourself Form [email or web address] , click Next.Create your login and password, choose a [employer] ID and password that will beeasy for you to use, but impossible for anyone else to guess.Pick a security question that will assist you in the event you forget yourpassword the next time you log-on.If you have difficulty activating your account, please call our Pyramid Analyticsline at [phone] or toll free at .We hope you enjoy using [employer]!Kindest Regards,[facility] [employer] Team Normal [facility] CNOVon 12-14-2016 CNOV Office Visit (GYNOSA) DANIELLA MANCERA ([id number]) 1980 FDate Time Provider Department12/14/16 3:00 PM [...] pap: No.No past surgical history on file. [place] teeth removalPAST MEDICAL HISTORYDiagnosis Date- Abnormal uterine [...] rest, lower extremity edema, orpalpitations. No recent NC (within 6 months), cardiac stent, cardiac surgery,gangrene, [...] kg (397 lb 6.4 oz) BMI 66.13 kg/o4SFQEREW: Patient is a well developed, well nourished [...] this office note were sent to:Angie Bolden, [id number] [facility] [address]HA:Bhumi Choi MD (PCP)Referring Provider: ANGIE BOLDEN [[id number]]Allergies As of Date: 12/14/2016(No Known Allergies)Date Reviewed: [...] 2016 2:43 PM Received from: External Pharmacy MESHA-CON M10 MEQ TABLET,EXTENDED RELEASE >> July Parry [...] Erroneous entryFollow-up and Disposition History RecordedEncounter Number: [id number] Status:Closed by STEPHIE HOLLIDAY MD on 12/18/16 Normal [facility] SC-US PELVIS & TRANSVAG IMPO RTon 10-20-2016 SC-US PELVIS & TRANSVAG IMPORT Images were obtained outside of [facility] Normal [facility] Vital Signs Date Time Vital Sign Value Performing Clinician Facility 11-14-2024 10: Body height 162.56 cm Annabella Okeefe NP-C Work Phone: [facility] 11-14-2024 10:17-0400 Body mass index (BMI) [Ratio] 61 kg/m2 Annabella Shannon TRUCK TRAILER MECHANIC-C Work Phone: [facility] 11-14-2024 10:17-0400 Body temperature 97.4 [degF] Annabella Shannon TRUCK TRAILER MECHANIC-C Work Phone: [facility] 11-14-2024 10:170400 Body weight 161.25 kg Annabella Shannon TRUCK TRAILER MECHANIC-C Work Phone: [facility] 11-14-2024 10:17-0400 Diastolic blood pressure 82 mm[Hg] Annabella Shannon TRUCK TRAILER MECHANIC-C Work Phone: [facility] 11-14-2024 10:17-0400 Heart rate 97 /min Annabella Shannon TRUCK TRAILER MECHANIC-C Work Phone: [facility] 11-14-2024 10:17-0400 Respiratory rate 18 /min Annabella Shannon TRUCK TRAILER MECHANIC-C Work Phone: [facility] 11-14-2024 10:17-0400 SaO2% (BldA) [Mass fraction] 98 % Annabella Shannon TRUCK TRAILER MECHANIC-C Work Phone: [facility] 11-14-2024 10:17-0400 Systolic blood pressure 127 mm[Hg] Annabella Shannon TRUCK TRAILER MECHANIC-C Work Phone: [facility] 10-21-2024 10:140400 Body height 162.56 cm Annabella Shannon TRUCK TRAILER MECHANIC-C Work Phone: [facility] 10-21-2024 10:14-0400 Body mass index (BMI) [Ratio] 60.2 kg/m2 Annabella Shannon TRUCK TRAILER MECHANIC-C Work Phone: [facility] 10-21-2024 10:14-0400 Body temperature 97.4 [degF] Annabella Shannon TRUCK TRAILER MECHANIC-C Work Phone: [facility] 10-21-2024 10:140400 Body weight 159.38 kg Annabella Shannon TRUCK TRAILER MECHANIC-C Work Phone: [facility] 10-21-2024 10:14-0400 Diastolic blood pressure 93 mm[Hg] Annabella Shannon TRUCK TRAILER MECHANIC-C Work Phone: [facility] 10-21-2024 10:14-0400 Heart rate 78 /min Annabella Shannon TRUCK TRAILER MECHANIC-C Work Phone: [facility] 10-21-2024 10:14-0400 Respiratory rate 18 /min Annabella Shannon TRUCK TRAILER MECHANIC-C Work Phone: [facility] 10-21-2024 10:14-0400 SaO2% (BldA) [Mass fraction] 99 % Annabella Shannon TRUCK TRAILER MECHANIC-C Work Phone: [facility] 10-21-2024 10:14-0400 Systolic blood pressure 139 mm[Hg] Annabella Shannon TRUCK TRAILER MECHANIC-C Work Phone: [facility] 07-17-2024 09:14-0400 Body height 165.1 cm Roxanna Gooden PA Work Phone: [employer] 07-17-2024 09:14-0400 Body mass index (BMI) [Ratio] 61.54 kg/m2 Roxanna Gooden PA Work Phone: [employer] 07-17-2024 09:14-0400 Body temperature 98.2 [degF] Roxanna Gooden PA Work Phone: [facility] 07-17-2024 09:14-0400 Body weight 167.74 kg Roxanna Gooden PA Work Phone: [facility] 07-17-2024 09:14-0400 Diastolic blood pressure 83 mm[Hg] Roxanna Gooden PA Work Phone: [facility] 07-17-2024 09:14-0400 Heart rate 81 /min Roxanna Gooden PA Work Phone: [facility] 07-17-2024 09:14-0400 Respiratory rate 18 /min Roxanna Gooden PA Work Phone: [facility] 07-17-2024 09:14-0400 SaO2% (BldA) [Mass fraction] 100 % Roxanna Gooden PA Work Phone: [facility] 07-17-2024 09:14-0400 Systolic blood pressure 130 mm[Hg] Rox[facility] Gooden [facility] 01-17-2024 09:00-0400 Body height 165.1 cm Roxanna Gooden PA [facility] 01-17-2024 09:00-0400 Body mass index (BMI) [Ratio] 68.39 kg/m2 Roxanna Gooden PA [facility] 01-17-2024 09:00-0400 Body temperature 98.2 [degF] Roxanna Gooden PA [facility] 01-17-2024 09:00-0400 Body weight 186.43 kg Roxanna Gooden PA [facility] 01-17-2024 09:00-0400 Diastolic blood pressure 88 mm[Hg] Roxanna Gooden PA [facility] 01-17-2024 09:00-0400 Heart rate 84 /min Roxanna Gooden PA [facility] 01-17-2024 09:00-0400 Respiratory rate 18 /min Roxanna Gooden PA [facility] 01-17-2024 09:00-0400 SaO2% (BldA) [Mass fraction] 99 % Roxanna Gooden PA [facility] 01-17-2024 09:00-0400 Systolic blood pressure 135 mm[Hg] Roxanna Gooden PA [facility] 12-19-2023 08:48-0400 Body height 162.6 cm Angie Yuan DO Work Phone: [facility] 12-19-2023 08:48-0400 Body mass index (BMI) [Ratio] 73.98 kg/m2 Angie Yuan DO Work Phone: [facility] 12-19-2023 08:48-0400 Body weight 195.5 kg Angie Yuan DO Work Phone: [facility] 12-19-2023 08:48-0400 Diastolic blood pressure 72 mm[Hg] Angie Yuan DO Work Phone: [facility] 12-19-2023 08:48-0400 Systolic blood pressure 128 mm[Hg] Angie Yuan DO Work Phone: [facility] 08-09-2023 10:15-0400 Body temperature 99.2 [degF] TRUCK TRAILER MECHANIC-C Annabella Shannon Work Phone: [facility] 08-09-2023 10:15-0400 Body weight 195.49 kg TRUCK TRAILER MECHANIC-C Annabella Shannon Work Phone: [facility] 08-09-2023 10:15-0400 Diastolic blood pressure 98 mm[Hg] TRUCK TRAILER MECHANIC-C Annabella Shannon Work Phone: [facility] 08-09-2023 10:15-0400 Heart rate 67 /min TRUCK TRAILER MECHANIC-C Annabella Shannon Work Phone: [facility] 08-09-2023 10:15-0400 Respiratory rate 18 /min TRUCK TRAILER MECHANIC-C Annabella Shannon Work Phone: [facility] 08-09-2023 10:15-0400 SaO2% (BldA) [Mass fraction] 98 % TRUCK TRAILER MECHANIC-C Annabella Shannon Work Phone: [facility] 08-09-2023 10:15-0400 Systolic blood pressure 148 mm[Hg] TRUCK TRAILER MECHANIC-C Annabella Shannon Work Phone: [facility] 07-18-2023 09:03-0400 Body height 165.1 cm Roxanna Gooden PA Work Phone: [facility] 07-18-2023 09:03-0400 Body mass index (BMI) [Ratio] 71.39 kg/m2 Roxanna Gooden PA Work Phone: [facility] 07-18-2023 09:03-0400 Body temperature 98.01 [degF] Roxanna Gooden PA Work Phone: [facility] 07-18-2023 09:03-0400 Body weight 194.59 kg Roxanna Gooden PA Work Phone: [facility] 07-18-2023 09:03-0400 Diastolic blood pressure 98 mm[Hg] Roxanna Gooden PA Work Phone: [facility] 07-18-2023 09:03-0400 Heart rate 74 /min Roxanna Gooden PA Work Phone: [facility] 07-18-2023 09:03-0400 Respiratory rate 18 /min Roxanna Gooden PA Work Phone: [facility] 07-18-2023 09:03-0400 SaO2% (BldA) [Mass fraction] 99 % Roxanna Gooden PA Work Phone: [facility] 07-18-2023 09:03-0400 Systolic blood pressure 152 mm[Hg] Roxanna Gooden PA Work Phone: [facility] 04-19-2023 09:06-0500 Body height 165.1 cm Roxanna Gooden PA Work Phone: [facility] 04-19-2023 09:06-0500 Body mass index (BMI) [Ratio] 71.66 kg/m2 Roxanna Gooden PA Work Phone: [facility] 04-19-2023 09:06-0500 Body temperature 97.9 [degF] Roxanna Gooden PA Work Phone: [facility] 04-19-2023 09:06-0500 Body weight 195.32 kg Roxanna Gooden PA [facility] 04-19-2023 09:06-0500 Diastolic blood pressure 91 mm[Hg] Roxanna Gooden PA [facility] 04-19-2023 09:06-0500 Heart rate 79 /min Roxanna Gooden PA [facility] 04-19-2023 09:06-0500 Respiratory rate 18 /min Roxanna Gooden PA [facility] 04-19-2023 09:06-0500 SaO2% (BldA) [Mass fraction] 97 % Roxanna Gooden PA [facility] 04-19-2023 09:06-0500 Systolic blood pressure 143 mm[Hg] Roxanna Wanne PA Work Phone: [facility] [employer] [facility] Encounters Encounter Date Encounter Type Care Provider Facility Start: 03-12-2025 ambulatory Annabella L Shannon Facility: [facility] Start: 12-19-2024 End: 12-19-2024 Bamboo flowsheet Angie Yuan DO Work Phone: [facility] Start: 12-19-2024 End: 12-19-2024 Bamboo flowsheet Angie Yuan DO Work Phone: [facility] Start: 12-11-2024 End: 12-11-2024 ambulatory Annabella L Shannon Facility:[facility] Start: 11-14-2024 End: 11-14-2024 ambulatory Annabella Kavitha Okeefe TRUCK TRAILER MECHANIC-C [facility] [facility] Work Phone: Start: 11-14-2024 End: 11-14-2024 Patient encounter procedure Krissy Morelos MD -[facility] Work Phone: Start: 11-13-2024 Non-patient / Non-visit Krissy Morelos MD -[facility] Work Phone: Start: 10-30-2024 End: 10-31-2024 Refill Roxanna RAYO Work Phone: Juanita Echols [facility] - Medical Oncology Comment on above: Hot flash, menopausa l Start: 10-21-2024 End: 10-21-2024 ambulatory Annabella Kavitha Shannon TRUCK TRAILER MECHANIC-C Work Phone: [facility] Work Phone: Start: 10-21-2024 End: 10-21-2024 Patient encounter procedure Krissy Morelos MD -[facility] Work Phone: Start: 09-10-2024 End: 09-10-2024 ambulatory Annabella L Shannon Facility:[facility] Start: 07-24-2024 End: 07-25-2024 Lab Drop off Annabella L Shannon [facility] Start: 07-24-2024 End: 07-25-2024 ambulatory Annabella L Shannon Facility:[facility] Start: 07-23-2024 End: 07-24-2024 Refill Roxanna RAYO Work Phone: Juanita Echols [facility] - Medical Oncology Start: 07-17-2024 End: 07-17-2024 ambulatory ROXANNA GOODEN [facility] Start: 07-17-2024 End: 07-17-2024 Office outpatient visit 25 minutes Roxanna RAYO Work Phone: Juanita Miranda Howell [facility] - Medical Oncology Comment on above: Endometrial cancer, FIGO stage IIIA ([facility]) (Primary Dx); Electrolyte abnormality; Obesity, morbid ([facility]); Hypomagnesemia; Hypokalemia; Iron deficiency anemia due to chronic blood loss Start: 06-23-2024 End: 06-24-2024 Refill Roxanna RAYO Work Phone: Juanita Miranda [facility] - Medical Oncology Comment on above: Hypokalemia Start: 06-12-2024 End: 06-12-2024 Lab Drop off Annabella L Shannon [facility] Start: 06-12-2024 End: 06-12-2024 ambulatory Annabella L Shannon Facility:[facility] Start: 05-17-2024 ambulatory Annabella L Shannon Facility: [facility] Start: 03-12-2024 End: 03-12-2024 ambulatory Annabella L Shannon Facility: [facility] Start: 02-13-2024 End: 02-13-2024 ambulatory Annabella L Shannon Facility: [facility] Start: 01-17-2024 End: 01-17-2024 ambulatory INSOLE CEMENTER Annabella L Shannon Facility: [facility] Start: 01-17-2024 End: 01-17-2024 Office outpatient visit 25 minutes Roxanna RAYO Work Phone: Juanita Miranda Howell [facility] - Medical Oncology Comment on above: Endometrial cancer, FIGO stage IIIA ([facility]) (Primary Dx); Hot flash, menopausal; Hypokalemia; Hypomagnesemia; Electrolyte abnormality; Counseling on health promotion and disease prevention Start: 01-17-2024 End: 01-17-2024 ambulatory [facility] Start: 01-12-2024 End: 01-12-2024 [facility] Start: 12-19-2023 End: 12-19-2023 Bamboo flowsheet Angie Yuan DO Work Phone: [facility] Start: 12-19-2023 End: 12-19-2023 Bamboo flowsheet Angie Yuan DO Work Phone: [facility] Start: 12-19-2023 End: 12-19-2023 Clinisync Result Encounter Angie Yuan DO Work Phone: [facility] Department Unsolicited Start: 12-19-2023 End: 12-19-2023 ambulatory ANGIE FINNEGANO Not Available Start: 12-19-2023 End: 12-19-2023 Patient encounter procedure Angie Finnegano DO Work Phone: [facility] Work Phone: Start: 12-19-2023 End: 12-19-2023 Periodic preventive med est patient 40-64yrs Angie Finnegano DO Work Phone: [facility] Comment on above: Well woman exam with routine gynecological exam; Breast cancer screening by mammogram; Insulin resistance Start: 12-15-2023 End: 12-15-2023 Lab Drop off Annabella Okeefe [facility] Start: 12-15-2023 End: 12-15-2023 ambulatory INSOLE CEMENTER Annabella Okeefe Facility:[facility] Caitlyn hines Start: 12-03-2023 End: 12-04-2023 Refill Roxanna RAYO Work Phone: Juanita Echols [facility] - Medical Oncology Comment on above: Hot flash, menopausa l Start: 10-22-2023 End: 10-23-2023 Refill Roxanna Gooden PA Work Phone: [facility] Start: 10-12-2023 End: 10-12-2023 Refill Roxanna RAYO Work Phone: Juanita Miranda Howell [facility] - Medical Oncology Comment on above: Hypokalemia Start: 08-09-2023 End: 08-09-2023 ambulatory Oneida Gold Facility:[facility] Start: 08-09-2023 End: 08-09-2023 ambulatory TRUCK TRAILER MECHANIC-C Annabella Okeefe Work Phone: [facility] Work Phone: Start: 08-09-2023 End: 08-09-2023 Patient encounter procedure TRUCK TRAILER MECHANIC-C Annabella Okeefe Work Phone: [facility] Work Phone: Start: 07-25-2023 Refill Roxanna Gooden PA Work Phone: Juanita Echols [facility] - Medical Oncology Comment on above: Iron deficiency anem ia due to chronic blood loss Start: 07-18-2023 End: 07-18-2023 Office outpatient visit 25 minutes Roxanna Gooden PA Work Phone: Juanita Echols [facility] - Medical Oncology Comment on above: Endometrial cancer, FIGO stage IIIA ([facility]) (Primary Dx); Electrolyte abnormality; Iron deficiency anemia due to chronic blood loss; Obesity, morbid ([facility]); Hot flash, menopausal; Hypomagnesemia Start: 07-06-2023 Orders Only Niecy Oliva RN [facility] Comment on above: Endometrial cancer, FIGO stage IIIA ([facility]) (Primary Dx) Start: 06-16-2023 Refill Roxanna RAYO Work Phone: Juanita Echols [facility] - Medical Oncology Comment on above: Hypokalemia Start: 04-22-2023 Refill Roxanna RAYO Work Phone: [facility] Start: 04-19-2023 End: 04-19-2023 Office outpatient visit 25 minutes Roxanna RAYO Work Phone: Juanita Echols [facility] Medical Oncology Comment on above: Endometrial cancer, FIGO stage IIIA ([facility]) (Primary Dx); Electrolyte abnormality; Obesity, morbid ([facility]) Start: 04-07-2023 End: 04-07-2023 ambulatory INSOLE CEMENTER Annabella Okeefe Facility:[facility] Caitlyn hines Start: 11-03-2022 End: 11-03-2022 Lab Drop off Annabella Okeefe [facility] Start: 01-03-2022 End: 01-04-[address] BHUMI CHOI Facility:[facility] Start: 11-25-2021 End: 11-25-[address] ANGIE BOLDEN Facility:[facility] Start: 01-27-2021 End: 04-21-2021 Preoperative state Roxanna RAYO Work Phone: [facility] Start: 12-14-2016 End: 12-14-2016 Ambulatory STEPHIEMARTINEZ [facility] Procedures Date Procedure Procedure Detail Performing Clinician Start: 01-17-2024 Follow-up visit Follow-up ALEXIA GOODEN Start: 12-19-2023 MLR HEMOGLOBIN A1C Carter Bolden DO Work Phone: Start: 08-09-2023 X-ray of left ankle TRUCK TRAILER MECHANIC- C Annabella Okeefe Work Phone: Start: 12-13-2022 Cytp cerv/vag auto t hin layer prep mnl screen [facility] Yuan Nurse Start: 03-11-2021 Port (substance) Annabella S chwab Comment on above: port remmoved 07/2022 infusion port placed Start: 03-10-2021 Chemotherapy Annabella Schwa b Start: 02-10-2021 Hysterectomy Annabella Schwa b Comment on above: uterine caner Dilation and curetta ge of uterus Annabella Shannon Plan of Treatment Date Care Activity Detail Author Start: 07-17-2025 Adult BMI Screening Adult BMI Screen ing [facility] Start: 07-17-2025 Tobacco Scre[facility] Start: 01-22-2025 End: 01-22-2025 Patient encounter procedure 01/22/2025 9:00 AM EDT Office Visit Juanita Echols [facility] - Medical Oncology [address] [place] [address] Roxanna Gooden PA [address] [place] [address] Juanita Echols [facility] - Medical Oncology Start: 01-16-2025 Adult BMI Screening Adult BMI Screen ing [facility] [employer] [facility] Start: 12-23-2024 Influenza vaccination Influenza Vacc ine [facility] Start: 12-19-2024 End: 12-19-2024 Patient encounter procedure 12/19/2024 8:30 AM EDT Office Visit [facility] [address] [place] [address] Angie Bolden, [address] [place] [address] [facility] Start: 07-17-2024 Adult BMI Screening Adult BMI Screen ing [facility] Start: 07-17-2024 End: 07-17-2024 Patient encounter procedure 07/17/2024 9:00 AM EDT Office Visit [facility] [address] [place] [phone] Roxanna Gooden PA [address] [place] [address] [facility] - [facility] Start: 04-19-2024 Adult BMI Screening Adult BMI Screen ing [facility] Start: 01-17-2024 End: 01-17-2024 Patient encounter procedure 01/17/2024 9:00 AM EDT Office Visit Ujan[facility] L [facility] - Medical Oncology [address] [place] [address], [place] [address] Roxanna Gooden PA [address] [place] [address] [facility] - Medical Oncology Start: 12-24-2023 Influenza vaccination Influenza Vacc [facility] Start: 12-19-2023 End: 02-17-2025 MG Breast - bilateral Screening Bilateral screening mammogram Imaging Routine Breast cancer screening by mammogram Expected: 12/19/2023 (Approximate), Expires: 02/17/2025 [facility] Work Phone: Comment on above: Expected: 12/19/2023 (Approximate), Expires: 02/17/2025 Start: 07-18-2023 End: 07-18-2023 Patient encounter procedure 07/18/2023 9:00 AM EDT Office Visit Juanita Echols [facility] - Medical Oncology [address] [place] [phone] Roxanna Gooden PA [address] [place] [address] Juanita Echols [facility] - Medical Oncology Start: 12-23-2022 Influenza vaccination Influenza Vacc ine [facility] Start: 10-20-2022 Tobacco Screening Tobacco Screening [facility] [employer] [facility] Start: 11-05-1998 DTaP,Tdap and Td Vaccines (1 - Tdap) DTaP,Tdap and Td Vaccines (1 - Tdap) [facility] [employer] [facility] Start: 11-05-1997 Adult BMI Follow Up Plan Adult [facility] Start: 1991 Depression Screening [facility] Start: 1991 Tobacco Screening Tobacco Screening [facility] [employer] [facility] End: 07-17-2024 CBC W Auto Differential panel - Blood CBC with auto diff Lab Routine Iron deficiency anemia due to chronic blood loss 1 Occurrences starting 07/18/2023 until 07/17/2024 [employer] Work Phone: Comment on above: 1 Occurrences starti ng 07/18/2023 until 07/17/2024 End: 07-05-2024 Comprehensive metabolic 2000 panel - Serum or Plasma Comprehensive metabolic panel Lab Routine Endometrial cancer, FIGO stage IIIA ([facility]) 1 Occurrences starting 07/06/2023 until 07/05/2024 [employer] Work Phone: Comment on above: 1 Occurrences starti ng 07/06/2023 until 07/05/2024 End: 07-17-2024 Comprehensive metabolic 2000 panel - Serum or Plasma Comprehensive metabolic panel Lab Routine Electrolyte abnormality 1 Occurrences starting 07/18/2023 until 07/17/2024 [facility] Comment on above: 1 Occurrences starti ng 07/18/2023 until 07/17/2024 Hemoglobin A1c/Hemoglobin.total in Blood Hemoglobin A1c Lab Routine Insulin resistance Ordered: 12/19/2023 [facility] Comment on above: Ordered: 12/19/2023 End: 07-05-2024 Magnesium [Mass/volume] in Serum or Plasma Magnesium Lab Routine Endometrial cancer, FIGO stage IIIA ([facility]) 1 Occurrences starting 07/06/2023 until 07/05/2024 [facility] Comment on above: 1 Occurrences starti ng 07/06/2023 until 07/05/2024 End: 07-17-2024 Magnesium [Mass/volume] in Serum or Plasma Magnesium Lab Routine Electrolyte abnormality 1 Occurrences starting 07/18/2023 until 07/17/2024 [facility] Comment on above: 1 Occurrences starti ng 07/18/2023 until 07/17/2024 Renal function 1999 panel - Serum or Plasma [facility] Renal function 1999 panel - Serum or Plasma [facility] THIN PREP TIS PAP AN D HR HPV DNA THIN PREP TIS PAP AND HR HPV DNA Pathology and Cytology Routine Well woman exam with routine gynecological exam Ordered: 12/19/2023 [facility] Comment on above: Ordered: 12/19/2023 US Kidney - bilateral [facility] XR Ankle - left GE 3 Views [facility] Immunizations Immunization Date Immunization Notes Care Provider Dariela arnold 08-09-1998 hepatitis B vaccine, pediatric or pediatric/adolescent dosage Annabella Okeefe [facility] Payers Date Payer Category Payer Self-pay [id number] 2022 Private Health Insurance [employer] [id number] 2020 Commercial Managed C are - O [employer] [id number] 2020 Unknown [id number] [id number]. [id number] 1979 Unknown [id number] 2.16.840.1.702108.3.579.2. 593 1979 Unknown [id number] 2.16.840.1.442291.3.579.2. 593 1979 Unknown [id number] 2.16.840.1.101206.3.579.2. 1259 1979 Unknown [id number] 2.16.840.1.371133.3.579.2. 727 1979 Unknown [id number] 2.16.840.1.955121.3.579.2. 727 1979 Unknown [id number] 2.16.840.1.736708.3.579.2. 727 1979 Unknown [id number] 2.16.840.1.066266.3.579.2. 727 1979 Unknown [id number] 2.16.840.1.953039.3.579.2. 1286 1979 Unknown [id number] 2.16.840.1.537638.3.579.2. 1286 1979 Unknown [id number] 2.16.840.1.712083.3.579.2. 1286 1979 Unknown [id number] 2.16.840.1.709219.3.579.2. 727 1979 Unknown [id number] 2.16.840.1.668677.3.579.2. 1979 Unknown [id number] 2.16.840.1.983713.3.579.2. 1979 Unknown [id number] 2.16.840.1.938061.3.579.2. 1979 Unknown [id number] 2.16.840.1.532017.3.579.2. 1979 Unknown [id number] 2.16.840.1.721709.3.579.2. 1979 Unknown [id number] 2.16.840.1.565542.3.579.2. 1979 Unknown [id number] 2.16.840.1.742435.3.579.2. 1979 Unknown [id number] 2.16.840.1.707158.3.579.2. 1979 Unknown [id number] 2.16.840.1.410383.3.579.2. 1979 Unknown [id number] 2.16.840.1.883252.3.579.2. 727 1959 Unknown [id number] Private Health Insurance [facility] [id number] Unknown [id number] 2.16.840.1.507828.3.579.2. 531 Social History Date Type Detail Facility Start: 11-03-2022 End: 10-21-2024 Tobacco smoking status Never smoked tobacco (finding) [facility] Tobacco smoking status Never [facility] Start: 10-20-2021 End: 07-16-2024 Sex Assigned At Female [facility] Start: 1980 Sex Assigned At Female [facility] Start: 06-24-2021 Gender identity Identifies as female gender (finding) [facility] Start: 06-24-2021 Sexual orientation Heterosexual (finding) [facility] Start: 01-25-2021 Tobacco use and exposure Smokeless tobacco non-user [facility] Start: 10-20-2021 End: 07-17-2024 Alcohol intake Ex-drinker (finding) [facility] Start: 10-20-2021 End: 07-16-2024 History of Social function [facility] Start: 01-18-2021 Sex Female (finding) [facility] How hard is it for y ou to pay for the very basics like food, housing, medical care, and heating Not very hard [facility] Sexual Orientation [facility] Medical Equipment Procedure Code Equipment Code Equipment Origin al Text Equipment Identifier Dates Port Powerport D uo Mri Argd 9.5fr 2 Lum Pwr Inj Rad Trnlu Rpl [id number] - [id number] , [id number] [facility] Start: 03-11-2021 Clinical Notes 04-19-2023 to 10-21-2024 [...] 2024 10:09am Secondary hyperparathyroidism acute October 21, 2 025 10:09am BMI 60.0-69.9, adult acute November 14, 2024 10:14am CKD (chronic kidney disease) stage 3, GFR 30-59 ml/min acute November 14, 2024 10:14am Endometrial cancer, FIGO stage IIIA acute November 14, 2024 10:14am Hypertensive chronic kidney disease with stage 1 through stage 4 chronic ki acute November 14, 2024 10:14am Nephrolithiasis acute October 10:14am Secondary hyperparathyroidism acute November 14, 2 025 10:14am [facility] Work Phone: 1(216) 751-450703-26-2025 History of Present illness Narrative* PERRI Farrell [...] metformin by Dr. Bolden and Adipex by Annabella Okeefe NP (PCP). Her blood pressure is [...] scans JAS. Endometrial cancer, FIGO stage IIIA ([facility]) 02/23/2021 Initial Diagnosis Endometrial cancer ([facility]) 07/14/2021 Remission Daniella Mancera Denies Early satiety [...] 02/10/2021 Performed by Jared Shearer MD at [facility] HYSTERECTOMY BILATERAL SALPINGO-OOPHORECTOMY N/A 02/10/2021 Performed by Jared Shearer MD at [facility] DILATION AND CURETTAGE OF UTERUS 12/2020 WISDOM TOOTH EXTRACTION Past Medical History: Diagnosis Date Abnormal uterine bleeding Anxiety Arthritis Chronic anemia Depression Endometrial ca ([facility]) 12/2020 Endometrial polyp Hypertension Iron deficiency anemia [...] masses or organomegaly Vulva: normal, Bartholin's, Urethra, Hawkeye's normal. Vagina: Atrophy: no Vaginal Cuff: yes [...] Patient Active Problem List Diagnosis Obesity, morbid ([facility]) Endometrial cancer, FIGO stage IIIA ([facility]) Electrolyte abnormality Plan: 1. Stage IIIA endometrial [...] BMI. Continue follow up with PCP andbenign carbon capture power plant manager re: metformin and Adipex. 6. Anemia - hgb improved, no bleeding. Continue daily or fluhc-anfja-fkf iron tablets. Repeat CBC prior to next [...] *This note was completed using a voice survey research manager system. Every effort was made to ensure accuracy. However, inadvertent computerized survey research manager errors may be present. .Total time spent was 32 minutes: Preparing to see the patient (e.g., review of tests) Performing a medically appropriate examination and/or evaluation Counseling and educating the patient/family/caregiver Ordering medications, tests, or procedures Documenting clinical information in the electronic or other health record Care coordination (not separately reported) Roxanna Gooden PA-C, RD, IF PERRI Farrell 07/17/24 0946 [facility] History of Present illness Narrative* PERRI Farrell [...] metformin by Dr. Bolden and Adipex by Annabella Okeefe NP (PCP). Her blood pressure is [...] scans JAS. Endometrial cancer, FIGO stage IIIA ([facility]) 02/23/2021 Initial Diagnosis Endometrial cancer ([facility]) 07/14/2021 Remission Daniella Mancera Denies Early satiety [...] 02/10/2021 Performed by Jared Shearer MD at [facility] DAVINCI HYSTERECTOMY BILATERAL SALPINGO-OOPHORECTOMY N/A 02/10/2021 Performed by Jared Shearer MD at [facility] DILATION AND CURETTAGE OF UTERUS 12/2020 WISDOM TOOTH EXTRACTION Past Medical History: Diagnosis Date Abnormal uterine bleeding Anxiety Arthritis Chronic anemia Depression Endometrial ca ([facility]) 12/2020 Endometrial polyp Hypertension Iron deficiency anemia [...] masses or organomegaly Vulva: normal, Bartholin's, Urethra, Hawkeye's normal. Vagina: Atrophy: no Vaginal Cuff: yes [...] Patient Active Problem List Diagnosis Obesity, morbid ([facility]) Endometrial cancer, FIGO stage IIIA (CMS-HCC) Electrolyte abnormality Plan: 1. Stage IIIA endometrial [...] BMI. Continue follow up with PCP andbenign carbon capture power plant manager re: metformin and Adipex. 6. Anemia - hgb improved, no bleeding. Continue daily or vmmwv-hgmjc-nso iron tablets. Repeat CBC prior to next [...] *This note was completed using a voice survey research manager system. Every effort was made to ensure accuracy. However, inadvertent computerized survey research manager errors may be present. .Total time spent was 32 minutes: Preparing to see the patient (e.g., review of tests) Performing a medically appropriate examination and/or evaluation Counseling and educating the patient/family/caregiver Ordering medications, tests, or procedures Documenting clinical information in the electronic or other health record Care coordination (not separately reported) Roxanna Gooden PA-C, RD, IF PERRI Farrell 01/17/24 0935 documented in [facility]08-27-2024 History of Present illness Narrative* Vinita Smart LPN - 12/19/2023 8:30 AM EDT Reason for Appointment: Patient ID: Daniella Mancera is a 43 y.o. female who presents for [facility] Visit Patient presents today for Annual [...] nursing note reviewed. Exam conducted with a operations analyst present. Vitals: Estimated body mass index [...] hysterectomy with Dr Shearer. Sees oncologist at [facility] [place]. Pt having night sweats takes gabapentin 200mg [...] by Vinita Smart LPN on behalf of: Angie Bolden DO documented in [facility] encounterS[facility] [id number] History of Present illness Narrative* PERRI Farrell [...] scans JAS. Endometrial cancer, FIGO stage IIIA ([facility]) 02/23/2021 Initial Diagnosis Endometrial cancer ([facility]) 07/14/2021 Remission Daniella Mancera Denies Early satiety [...] Anxiety Arthritis Chronic anemia Depression Endometrial ca ([facility]) 12/2020 Endometrial polyp Hypertension Iron deficiency anemia [...] masses or organomegaly Vulva: normal, Bartholin's, Urethra, Hawkeye's normal. Vagina: Atrophy: no Vaginal Cuff: yes [...] Patient Active Problem List Diagnosis Obesity, morbid ([facility]) Endometrial cancer, FIGO stage IIIA ([facility]) Electrolyte abnormality Plan: 1. Stage IIIA endometrial [...] hgb improved, no bleeding. Continue daily or uzbqb-xvvoj-fjq iron tablets. Repeat CBC prior to next visit. 7. Electrolyte imbalance - mg and k wnl, continue magox and klorcon. Repeat CMP and Mag prior to next visit. *The patient has a documented plan of care to address pain. All questions were answered to the patient's satisfaction. She is agreeable to this plan of care. *This note was completed using a voice survey research manager system. Every effort was made to ensure accuracy. However, inadvertent computerized survey research manager errors may be present. .Total time spent was 32 minutes: Preparing to see the patient (e.g., review of tests) Performing a medically appropriate examination and/or evaluation Counseling and educating the patient/family/caregiver Ordering medications, tests, or procedures Documenting clinical information in the electronic or other health record Care coordination (not separately reported) Roxanna Gooden PA-C, RD, IF PERRI Farrell 07/18/23 0930 [facility] History of Present illness Narrative* PERRI Farrell [...] scans JAS. Endometrial cancer, FIGO stage IIIA ([facility]) 02/23/2021 Initial Diagnosis Endometrial cancer ([facility]) 07/14/2021 Remission Daniella Mancera Denies Early satiety [...] 02/10/2021 Performed by Jared Shearer MD at [facility] HYSTERECTOMY BILATERAL SALPINGO-OOPHORECTOMY N/A 02/10/2021 Performed by Jared Shearer MD at [facility] DILATION AND CURETTAGE OF UTERUS 12/2020 WISDOM TOOTH EXTRACTION Past Medical History: Diagnosis Date Abnormal uterine bleeding Anxiety Arthritis Chronic anemia Depression Endometrial ca (CMS-HCC) 12/2020 Endometrial polyp Hypertension Iron deficiency anemia [...] masses or organomegaly Vulva: normal, Bartholin's, Urethra, Hawkeye's normal. Vagina: Atrophy: no Vaginal Cuff: yes [...] Patient Active Problem List Diagnosis Obesity, morbid ([facility]) Endometrial cancer, FIGO stage IIIA ([facility]) Electrolyte abnormality Plan: 1. Stage IIIA endometrial [...] hgb improved, no bleeding. Continue daily or kqfxk-fchwy-zvg iron tablets. 7. Electrolyte imbalance - mg and k wnl, continue magox and klorcon. Repeat labs in 3 months. PERRI Farrell 04/19/2330 [facility] note No data available for this section [facility] Future Appointments Appointment Date:01/19/2024 08:20:00 AM Scheduled Provider:Annabella Moscoso Location:[facility] Appointment Type:[facility] Evaluation + Plan note Future Appointments Appointment Date:09/10/2024 08:20:00 AM Scheduled Provider:Annabella Moscoso Location:[facility] Appointment Type:[facility] evaluation noteNo assessment information available [facility] Work Phone: Evaluation note* Diagnosis Well woman exam with routine gynecological exam Routine gynecological examination Breast cancer screening by mammogram Insulin resistance Other abnormal glucose [facility] Diagnosis Endometrial cancer, FIGO stage IIIA ([facility] Primary Electrolyte abnormality Electrolyte and fluid disorders not elsewhere classified Obesity, morbid ([facility]) Morbid obesity [facility]* Diagnosis Hypokalemia Hypopotassemia documented in [facility]* Diagnosis Hypokalemia Hypopotassemia documented [facility]* Diagnosis Endometrial cancer, FIGO stage IIIA ([facility] Primary [facility] Diagnosis Endometrial cancer, FIGO stage IIIA ([facility] Primary Electrolyte abnormality Electrolyte and fluid disorders not elsewhere classified Iron deficiency anemia due to chronic blood loss Iron deficiency anemia secondary to blood loss (chronic) Obesity, morbid ([facility]) Morbid obesity Hot flash, menopausal Symptomatic menopausal or female climacteric states Hypomagnesemia Disorders of magnesium metabolism [facility] Diagnosis Iron deficiency anemia due to chronic blood loss Iron deficiency anemia secondary to blood loss (chronic) [facility] Diagnosis Hot flash, menopausal Symptomatic menopausal or female climacteric states [facility]* Diagnosis Endometrial cancer, FIGO stage IIIA ([facility])- Primary Hot flash, menopausal Symptomatic menopausal or female climacteric states Hypokalemia Hypopotassemia Hypomagnesemia Disorders of magnesium metabolism Electrolyte abnormality Electrolyte and fluid disorders not elsewhere classified Counseling on health promotion and disease prevention Other specified counseling [facility] Diagnosis Endometrial cancer, FIGO stage IIIA ([facility])- Primary Electrolyte abnormality Electrolyte and fluid disorders not elsewhere classified Obesity, morbid ([facility]) Morbid obesity Hypomagnesemia Disorders of magnesium metabolism Hypokalemia Hypopotassemia Iron deficiency anemia due to chronic blood loss Iron deficiency anemia secondary to blood loss (chronic) documented in this encounter [facility]* Diagnosis Onset Date Resolution [...] Secondary hyperparathyroidism acute October 21, 2024 10:09am [facility] Work Phone: Evaluation note* Diagnosis Hot flash, menopausal Symptomatic menopausal or female climacteric states [facility] No data available for this section [facility] SouthInstructionsNot on filedocumented in this encounter [facility] [...] note No data available for this section [facility] SouthReason for referral (narrative)No reason for referral information available[facility] Work Phone: Summary Purpose Family History Relationship [...] section and content) DATE CREATED AUTHOR 10/18/2017 [facility] DATE CREATED AUTHOR AUTHOR'S ORGANIZ ATION 01/22/2022 [facility] DATE CREATED AUTHOR AUTHOR'S ORGANIZ ATION 08/19/2023 [facility] DATE CREATED AUTHOR AUTHOR'S ORGANIZ ATION 12/18/2023 [facility] DATE CREATED AUTHOR AUTHOR'S ORGANIZ ATION 12/20/2023 [facility] DATE CREATED AUTHOR AUTHOR'S ORGANIZ ATION 01/18/2024 [facility] DATE CREATED AUTHOR AUTHOR'S ORGANIZ ATION 06/14/2024 [facility] DATE CREATED AUTHOR AUTHOR'S ORGANIZ ATION 07/18/2024 [facility] DATE CREATED AUTHOR AUTHOR'S ORGANIZ ATION 07/27/2024 [facility] DATE CREATED AUTHOR AUTHOR'S ORGANIZ ATION 07/28/2024 [facility] DATE CREATED AUTHOR AUTHOR'S ORGANIZ ATION 09/17/2024 [facility] DATE CREATED AUTHOR AUTHOR'S ORGANIZ ATION 12/12/2024 [facility] Patient Care [...] August 09, 2023 End: August 09, 2023 Sanitary Landfill Supervisor Relationship Specialty Start Date End Date Bhumi Choi MD [address] [place] [address] [phone] PCP - General Family Medicine 01/20/21 Sanitary Landfill Supervisor Relationship Specialty Start Date End Date Bhumi Choi MD [address] [place] [address] [id number] PCP - General Family Medicine 01/20/21 Sanitary Landfill Supervisor Relationship Specialty Start Date End Date Annabella Okeefe MAIL MESSENGER-AIRFRAME AND POWERPLANT MECHANIC [address] [place] [address] [phone] PCP - General Nurse Practitioner 07/14/23 Sanitary Landfill Supervisor Relationship Specialty Start Date End Date Annabella Okeefe APRN-AIRFRAME AND POWERPLANT MECHANIC [address] [place], [place] [phone] PCP - General Nurse Practitioner 07/14/23 Sanitary Landfill Supervisor Relationship Specialty Start Date End Date Bhumi Choi MD [address] [place] [address] [phone] PCP - General Family Medicine 01/20/21 Sanitary Landfill Supervisor Relationship Specialty Start Date End Date Annabella Okeefe APRN-AIRFRAME AND POWERPLANT MECHANIC [address] [place] [address] [phone] PCP - General Nurse Practitioner 07/14/23 Sanitary Landfill Supervisor Relationship Specialty Start Date End Date Annabella Okeefe MAIL MESSENGER-AIRFRAME AND POWERPLANT MECHANIC [address] [place] [address] [id number] PCP - General Nurse Practitioner 07/14/23 Sanitary Landfill Supervisor Relationship Specialty Start Date End Date Annabella Okeefe APRN-CNP [address] [place] [id number] PCP - General Nurse Practitioner 07/14/23 Sanitary Landfill Supervisor Relationship Specialty Start Date End Date Annabella Okeefe APRN-CNP [address] [place] [id number] PCP - General Nurse Practitioner 07/14/23 Team Status: Inactive Member Role Status Dates MELISSA Rollins Primary Care Provider Active Start: October 21, 2024 End: October 21, 2024 Krissy Morelos MD Attending Provider Active Start : October 21, 2024 End: October 21, 2024 Sanitary Landfill Supervisor Relationship Specialty Start Date End Date Annabella Okeefe APRN-CNP [address] [place] [address] [id number] PCP - General Nurse Practitioner 07/14/23 Team [...] BE BASED ON THE PRIMARY CLINICAL RECORDS. [facility] [facility]. provides no warranty or guarantee of the accuracy or completeness of information in this document.
[2024-12-25 17:10] LABS: Age Gdln ACOG Testing Note (.); IGP, Aptima HPV, rfx 16/18,45 Note (.)
== END 2024-12-19 20:46 | disposition home or self-care (01) ==
LOC: LAB 20:45
PROVIDERS: PCP Nurse Practitioner; Visit Provider Obstetrics & Gynecology
DX: Z01.419 Encounter for gynecological examination (general) (routine) without abnormal findings (principal)
CPT/HCPCS: 87624; 88175

== ENCOUNTER 2025-01-29 08:25 | Outpatient (OUT) | payer OTHER, SELFPAY ==
--- NOTE | 2025-01-29 08:27 | MM_ITS ---
Patient Name: DANIELLA GOMEZ MR#: [id number] : 1980 Exam Date: 01/29/2025 Ordering Doctor: DR ANGIE SINCLAIR . RADIOLOGY REPORT PROCEDURE: MM TOMOSYNTHESIS SCREENING BI COMPARISON: MM TOMOSYNTHESIS SCREENING BI, 01/26/2024. MM TOMOSYNTHESIS SCREENING BI, 01/06/2023. MG MAMM SCREEN 3D NERI CAD, 01/03/2022. INDICATIONS: Screening for malignant neoplasm Calculator Name NCI Breast Cancer Risk Assessment Tool 5 Year Breast Cancer Risk 1.00% Lifetime Breast Cancer Risk 11.60% Personal Breast Cancer No Personal Ovarian Cancer No Treatments hysterectomy and chemotherapy Family Cancers Aunt-maternal with breast cancer at age 81. LOCATION: [facility] BREAST COMPOSITION: The breasts are almost entirely fatty. FINDINGS: RIGHT BREAST: No significant suspicious finding. Benign-appearing calcifications are present. LEFT BREAST: No significant suspicious finding. Benign-appearing calcifications are present. DIAGNOSTIC CATEGORY 2--BENIGN FINDING. NO CHANGE FROM COMPARISON. RECOMMENDATIONS: ROUTINE MAMMOGRAM AND CLINICAL EVALUATION IN 12 MONTHS. Dictated by: Gabriel Moe MD on 01/29/2025 at 15:09 Approved by: Gabriel Moe MD on 01/29/2025 at 15:25
--- OUTSIDE RECORDS SUMMARY | 2025-01-29 08:31 | XMS_ITS | CCD ---
Author Organization [facility] CliniSymd Care Team Providers Care Repair Operator Name Role Phone STEPHIE HOLLIDAY Unavailable Unavailable YUANSRIKANTH Unavailable Unavailable YUAN, DR ADAMS Attending Unavailable YUAN, DR ADAMS Consulting Unavailable CHOI, DR ALLISON Velasco Primary Care Unavailable YUAN, DR ADAMS Admitting Unavailable CHOI, DR ALLISON Velasco Primary Care Unavailable YUAN, DR ADAMS Admitting Unavailable YUAN, DR ADAMS Attending Unavailable YUAN, DR ADAMS Consulting Unavailable ZIEBER, DR MARCO ANTONIO Stokes Consulting Unavailable ShannonBilly Primary Care Physician Shannon, CHANGC Billy Plummer Primary Care Provider MELISSA Gold Attending Provider [phone] Oneida Gold Admitting Unavailable Oneida Gold Attending Unavailable ShannonBilly Primary Care Unavailable Shannon, PING Miranda Attending Unavailable Shannon, LEAD SALES CONSULTANT Billy Miranda Admitting Unavailable Shannon, LEAD SALES CONSULTANT Billy Miranda Attending Unavailable Shannon, LEAD SALES CONSULTANT Billy Miranda Attending Unavailable Shannon, LEAD SALES CONSULTANT Billy Miranda Attending Unavailable Unavailable Primary Care Provider Allison Valentin MD Primary Care Provider Shannon FLUX CORE WELDER-CHILD CAREBilly Primary Care Provider Shannon FLUX CORE WELDER-CHILD CAREBilly Primary Care Provider Shannon FLUX CORE WELDER-CHILD CAREBilly Primary Care Provider [phone] Shannon, Billy Miranda Attending Unavailable Shannon, Billy Miranda Admitting Unavailable Shannon, Billy Miranda Attending Unavailable Shannon, Billy Miranda Attending Unavailable Shannon, Billy Miranda Admitting Unavailable Shannon, Billy Miranda Attending Unavailable Shannon, Billy Miranda Attending Unavailable Shannon, Billy L Admitting Unavailable Shannon, Billy L Attending Unavailable Shannon, Billy L Attending Unavailable Shannon, Billy L Attending Unavailable Shannon, Billy L Attending Unavailable Shannon, Billy L Attending Unavailable Shannon, Billy L Admitting Unavailable Shannon, Billy L Attending Unavailable Shannon LASER ENGINEERLarryCBilly Primary Care Provider Krissy Morelos MD Attending Provider Shannon, Billy L Attending Unavailable Shannon, Billy L Admitting Unavailable Shannon, Billy L Attending Unavailable Shannon, Billy L Attending Unavailable YUANSRIKANTH Attending Unavailable GOODEN, ROXANNA Attending Unavailable SHANNON, BILLY Miranda Referring Unavailable SHANNON, BILLY Miranda Primary Care Unavailable ROXANNA GOODEN Attending Unavailable SHANNON, BILLY L Referring Unavailable SHANNON, BILLY L Primary Care Unavailable Allergies Allergy Classification Reported Allergen(s) Allergy Type Date of Onset Reaction(s) Facility (1 source) Deanol Drug Allergy [facility] Repository (1 source) Tetanus AND Diphtheria Tox,Adult Drug allergy (disorder) [facility] (20 sources) aprepitant; Translations: [aprepitant] Drug Allergy 1 Pain (finding), pain [facility] Comment on above: panic attack (20 sources) Morphine; Translations: [morphine] Drug Allergy 1 Eruption of skin (disorder), Dizziness, Headache, Hives, Itching, Rash [facility] (5 sources) fosaprepitant; Translations: [fosaprepitant] Drug Allergy 4 Unknown Reaction [facility] (5 sources) measles and rubella live virus vacc; Translations: [measles and rubella live virus vacc] Allergy to substance 4 Unknown Reaction [facility] (5 sources) Tetanus Vaccines and Toxoid; Translations: [Tetanus Vaccines and Toxoid] Allergy to substance 4 Unknown Reaction [facility] (1 source) Morphine Drug Allergy 4 [facility] Repository (4 sources) aprepitant; Translations: [Emend] Drug Allergy [facility] Repository (8 sources) aprepitant Drug Allergy 1 Other [facility] Work Phone: (8 sources) Other Propensity to adverse reactions 1 Dizziness, Headache, Other, Shortness of breath, Unknown, Fever, Itching, Swelling [facility] (20 sources) Tetanus Toxoid, Adsorbed; Translations: [TETANUS TOXOID, ADSORBED] Propensity to adverse reactions 1 Unknown, Other (See Comments) [facility] (17 sources) Measles, Mumps, And Rubella Vaccine Live; Translations: [MEASLES, MUMPS, AND RUBELLA VACCINE LIVE] Propensity to adverse reactions to drug 1 Other (See Comments) [facility] Work Phone: (5 sources) tetanus toxoid vaccine, inactivated; Translations: [tetanus toxoid] Drug Allergy Eruption of skin (disorder), Swelling (finding), Fever (finding) [facility] (5 sources) measles virus vaccine live, attenuated Taco strain / mumps virus vaccine live, Domenic Kavitha strain / rubella virus vaccine live (Wistar 27-3 strain); Translations: [measles/mumps/ rubella virus vaccine] Propensity to adverse reactions to substance Fever (finding), Swelling (finding), Eruption of skin (disorder) [facility] Medications Current Medications Medication Drug Class(es) Dates Sig (Normalized) Sig (Original) acetaminophen 500 mg oral capsule (18 sources) Start: 10-21-2024 take 2 capsules by [...] BID, # 60 tab(s), Refills(s) 11, Pharmacy: [facility]/pharmacy #[id number], 162, cm, 12/15/23 9:27:00 EDT, Height/Length [...] BID, # 60 tab(s), Refills(s) 11, [id number], cm, 11/03/22 9:18:00 EDT, Height/Length Dosing, 408, kg, 11/03/22 9:18:00 EDT, Weight Dosing Start Date: 11/03/22 Status: Ordered Start: 11-03-2022 take 2 tablets by mo [facility] once daily buPROPion 100 mg Tab 200 mg = 2 tab(s), Oral, Daily, Refills(s) 0 Start Date: 11/03/22 Status: Ordered take 2 tablets by mo [facility] every twelve hours in the morning buPROPion SR (WELLBUTRIN SR) 100 mg 12 hr tablet Take 2 tablets (200 mg total) by mouth in the morning. Active take 1 tablet by maris every twelve hours in the morning buPROPion SR (Wellbutrin SR) 100 MG 12 hr tablet Take 200 mg by mouth in the morning. Active busPIRone hydrochloride 5 mg oral tablet (20 sources) Start: 11-02-2022 busPIRone (BUS PAR) 5 mg tablet 1 tablet (5 mg total). 11/02/2022 Active Start: 11-02-2022 End: 10-21-2024 take 1 tablet by mouth twice daily Buspirone 5 mg tablet Discontinued 5 MG PO Twice daily August 09, 2023 12:00am October 21, 2024 10:19am Calcium Carb-Cholecalciferol (CALCIUM 600 + D PO) (7 sources) take 1 dose by mouth in [...] 02/13/24 Status: Ordered FIBER ADULT GUMMIES PO (7 sources) take 10 mg by mouth once [...] AT NIGHT 60 capsule 3 10/31/2024 Active hydroCHLOROthiazide 25 mg oral tablet (20 sources) Thiazide Diuretic Start: 11-14-2024 Hydrochlorothiazide 25 mg tablet Active 12.5 MG PO Every morning November 14, 2024 10:45am Complies with drug therapy Start: 10-31-2022 End: 11-14-2024 take 1 tablet by mouth once daily in the morning Hydrochlorothiazide 25 mg tablet Discontinued 25 MG PO Every morning August 09, 2023 12:00am November 14, 2024 10:45am take 0.5 tablet by m outh once daily hydroCHLOROthiazide (HYDRODIURIL) 25 mg tablet Take 0.5 tablets (12.5 mg total) by mouth daily. Active ibuprofen 200 mg oral tablet (20 sources) Nonsteroidal Anti-inflammatory Drug Start: 10-21-2024 take [...] 02/10/2021 Active lidocaine 0.05 mg/mg topical ointment (16 sources) Antiarrhythmic, Amide Local Anesthetic Start: 01-19-2022 lidocaine (XYLOCAINE) 5 % ointment Indications: Endometrial cancer, FIGO stage IIIA ([facility]) , Port-A-Cath in place Apply 1 application [...] 10 mg oral tablet (20 sources) Start: 01-20-2025 take 1 tablet by mouth once daily in the morning loratadine (CLARITIN) 10 mg tablet TAKE 1 TABLET (10 MG TOTAL) BY MOUTH EVERY MORNING. 90 tablet 1 01/20/2025 Active Start: 10-31-2022 take 2 tablets by mo [facility] once daily loratadine 10 mg Tab 2 Refill(s), TAKE 1 TABLET BY MOUTH EVERY DAY, Refills(s) 0 Start Date: 10/31/22 Status: Ordered Start: 10-20-2022 End: 01-20-2025 take 1 tablet by mouth once daily in the morning loratadine (CLARITIN) 10 mg tablet TAKE 1 TABLET (10 MG TOTAL) BY MOUTH EVERY MORNING. 90 tablet 1 07/24/2024 01/20/2025 Discontinued 24 hr metFORMIN hydrochlorid e 500 mg extended release oral tablet (19 sources) Biguanide Start: 10-21-2024 Metformin 500 mg tablet extended release 24 hr Active 1000 MG PO Every evening October 21, 2024 12:00am Complies with drug therapy Start: 01-29-2024 End: 12-19-2025 take 2 tablets by mouth every twenty-four hours at mealtime metFORMIN XR (Glucophage-XR) 500 MG 24 hr tablet Indications: Insulin resistance Take 2 tablets (1,000 mg) by mouth in the evening. Take with meals Do not crush, chew, or split. 60 tablet 11 12/19/2024 12/19/2025 Active Start: 01-17-2024 take 1 tablet by [...] DAY, # 60 tab(s), Refills(s) 2, Pharmacy: [facility]/pharmacy #[id number], 162, cm, 12/15/23 9:27:00 EDT, Height/Length [...] therapy phentermine hydrochloride 37.5 mg oral tablet (16 sources) Sympathomimetic Amine Anorectic Start: 12-15-2023 phentermine (ADIPEX-P) 37.5 mg tablet Take 1 tablet (37.5 mg total) by mouth. 12/15/2023 Active polysaccharide iron complex 391 mg oral capsule (20 sources) Start: 07-17-2024 End: 01-22-2025 take 1 capsule by mouth in the morning polysaccharide iron complex (PRO FE) 180 mg iron capsule Indications: Iron deficiency anemia due to chronic blood loss Apply 1 capsule to the mouth or throat in the morning. Take in the morning. 90 each 4 01/22/2025 Active Start: 10-31-2022 Start: 07-19-2022 End: 07-17-2024 take 1 capsule by mouth once daily Polysaccharide Iron Complex (Pro Fe) 180 mg iron capsule Active 180 MG PO Daily August 09, 2023 12:00am Complies with drug therapy take [facility] by [facility] ProFe 391.3 (180 Fe) MG capsule Take 391.3 mg by mouth Daily Active microencapsulated potassium chloride 20 meq extended release oral tablet (20 sources) Start: 10-31-2022 End: 01-22-2025 take 1 tablet by mouth in the morning potassium chloride (KLOR-CON M 20) 20 MEQ CR tablet Indications: Hypokalemia Take 1 tablet (20 mEq total) by mouth in the morning. 30 tablet 3 01/22/2025 Active take 20 mEq by mouth once daily potassium chloride (Klor-Con) 20 MEQ packet Take 20 mEq by mouth Daily Active ProFe 180 mg oral capsule (1 source) Start: 03-12-2024 take 1 capsule by mouth once daily in the morning ProFe 180 mg oral capsule TAKE 1 CAPSULE BY MOUTH EVERY DAY IN THE MORNING Start Date: 03/12/24 Status: Ordered Completed/Discontinued Medications Medication Drug Class(es) Dates Sig (Normalized) Sig (Original) magnesium oxide 400 mg oral capsule (20 sources) Start: 11-14-2024 End: 11-14-2024 take 1 capsule by mouth twice daily Magnesium Oxide 400 mg magnesium capsule Discontinued 400 MG PO Twice daily November 14, 2024 10:45am November 14, 2024 10:47am Start: 08-09-2023 End: 11-14-2024 take 1 capsule [...] Onset: 5 Chronic Deficiency and other anemia (4 sources) Iron deficiency anemia due to blood loss; Translations: [Iron deficiency anemia secondary to blood loss (chronic)] 07-18-2023 Chronic Deficiency and other anemia (1 source) Iron deficiency anemia secondary to blood loss (chronic); Translations: [Iron deficiency anemia secondary to blood loss (chronic)] Onset: 5 Chronic Deficiency and other anemia (4 sources) [...] HUMAN PAPILLOMAVIRUS] Onset: 2 Episodic Menopausal disorders (4 sources) Menopausal flushing; Translations: [Menopausal and female climacteric states] 07-18-2023 Chronic Miscellaneous mental health disorders (2 [...] Chronic Other nutritional; endocrine; and metabolic disorders (4 sources) Insulin resistance; Translations: [Insulin resistance] 12-19-2023 Chronic Other nutritional; endocrine; and metabolic disorders (3 sources) Hypomagnesemia; Translations: [Hypomagnesemia] 07-18-2023 Chronic Other nutritional; endocrine; and metabolic disorders (1 source) Morbid (severe) obesity due to excess calories; Translations: [Morbid (severe) obesity due to excess calories] Onset: 1 Chronic Other nutritional; endocrine; and metabolic disorders (1 source) Hypomagnesemia; Translations: [Hypomagnesemia] Onset: 5 Chronic Other nutritional; endocrine; and metabolic disorders (3 sources) Weight gain 12-15-2023 Episodic Other screening for suspected conditions (not mental disorders or infectious disease) (14 sources) Encounter for screening mammogram for malignant [...] Date Documented Da te Episodic/Chronic Administrative/social admission (1 source) Patient encounter status; Translations: [Other specified counseling] 01-17-2024 Episodic Fluid and electrolyte disorders (20 sources) Disorder of electrolytes; Translations: [Other disorders of electrolyte and fluid balance, not elsewhere classified] Onset: 02-24-2021 Resolved: 07-19-2022 04-19-2023 Episodic Nausea and vomiting (16 sources) Chemotherapy-induce d nausea and vomiting; Translations: [Nausea with vomiting, unspecified] Onset: 02-24-2021 Resolved: 07-19-2022 07-19-2022 Episodic Other aftercare (16 sources) Drug therapy finding; Translations: [Other intermission coordinator (current) drug therapy] Onset: 02-24-2021 Resolved: 07-19-2022 07-19-2022 Episodic Other circulatory disease (16 sources) Device in situ; Translations: [Presence of other vascular implants and grafts] Onset: 02-24-2021 Resolved: 01-18-2023 01-18-2023 Chronic Viral infection (16 sources) Disease caused by 2019-nCoV; Translations: [COVID-19] Onset: 04-09-2021 Resolved: 07-19-2022 07-19-2022 Episodic Results Test Name Value Interpretation Reference Range Facility IGP,APTIMA HPV,AGE GDLNon AGE GDLN ACOG TESTING Note . [facility] Comment on above: TESTS RESULT FLAG UN ITS REF RANGE LAB Clinician Provided Cytology Information Source.............[facility] No. of containers..01 ThinPrep Vial Age Algo ACOG Katina... 30-65 01 FLAG LEGEND: L-Low Normal,H-High Normal,LL-Alert Low,HH-Alert High <-Panic Low,>-Panic High,A-Abnormal,AA-Critical Abnormal Performed at: 01 =G [address] [address] Cori Castillo MD, HPV APTIMA Negative Negative [facility] Comment on above: This nucleic acid am plification test detects fourteen high- risk HPV types (16,18,31,33,35,39,45,51,52,56,58,59,66,68) without differentiation. Performed at: =G - [facility] [id number] Manager Channel: Cori Castillo MD, Phone: [phone] Performed at: - [address] [id number] Manager Channel: Cori Castillo MD, Phone: [phone] IGP, APTIMA HPV, RFX 16/18,45 Note . [facility] Comment on above: TESTS RESULT FLAG U NITS REF RANGE LAB DIAGNOSIS: 02 NEGATIVE FOR INTRAEPITHELIAL LESION OR MALIGNANCY. Specimen adequacy: 02 Satisfactory for evaluation. Performed by: 02 Pearl Fabian, Senior Care Provider ([facility]) . 02 Note: Note 02 The Pap smear is a screening test designed to aid in the detection of premalignant and malignant conditions of the uterine cervix. It is not a diagnostic procedure and should not be used as the sole means of detecting cervical cancer. Both false-positive and false-negative reports do occur. Test Methodology: Note 02 This liquid based ThinPrep(R) pap test was screened with the use of an image guided system. HPV Genotype Reflex Note 02 Criteria not met, HPV Genotype not performed. FLAG LEGEND: L-Low Normal,H-High Normal,LL-Alert Low,HH-Alert High <-Panic Low,>-Panic High,A-Abnormal,AA-Critical Abnormal Performed at: [address] [place] [address] Cori Castillo MD, CHAPO-NURA [facility] Ambulatory Visit Summaryon 0 12-11-2024 Ambulatory Visit [...] calories Your Care Team Attending Physician - Billy [...] 8:20 AM EST With: Billy Moscoso Where: [place] [phone] [place] [phone]- Medications What How Much When Why Instructions [...] signed up for this yet, please contact [employer] at [phone] to get signed up today. [Image Remov (more content not included)... Normal [facility] Family Medicine Office/Clini c Noteon 12-11-2024 Family [...] z68.44, # 30 tab(s), Refills(s) 0, [id number], 162, cm, 12/11/24 8:27:00 EDT, Height/Length Dosing, 161.2, kg, 12/11/24 8:27:00 EDT, Weight Dosing phentermine, 37.5 mg = 1 tab(s), Oral, Daily, bmi 59.63 z68.44, # 30 tab(s), Refills(s) 0, [id number], 162, cm, 09/10/24 8:20:00 EDT, Height/Length [...] z68.44, # 30 tab(s), Refills(s) 0, [id number], 162, cm, 12/11/24 8:27:00 EDT, Height/Length Dosing, 161.2, kg, 12/11/24 8:27:00 EDT, Weight Dosing phentermine, 37.5 mg = 1 tab(s), Oral, Daily, bmi 59.63 z68.44, # 30 tab(s), Refills(s) 0, Pharmacy: [facility]/pharmacy #[id number], 162, cm, 09/10/24 8:20:00 EDT, Height/Length [...] daily., # 30 cap(s), Refills(s) 11, Pharmacy: [facility]/pharmacy #[id number], 162, cm, 12/15/23 9:27:00 EDT, Height/Length [...] Stroke: Aunt (more content not included)... Normal [facility] Comment on above: Result Comment: Elec tronically Signed By: Billy Moscoso\.br\Date and Time Signed: 12/11/24 09:08 EDT Erythrocyte distribution wid th Auto (RBC) [Ratio]Ordered By: Krissy Morelos on 11-13-2024 Erythrocyte distribution width (RBC) [Ratio] 13.6 % 11.0-15.0 [facility] Estimated glomerular filtrat ion rate (GFR) non- AmericanOrdered By: Krissy Morelos on 11-13-2024 GFR/1.73 sq M.predicted among non-blacks MDRD (S/P/Bld) [Vol rate/Area] 26 mL/min/{1.73_m2} Low >=60 mL/min/1.73 m 2 [facility] Hematocrit Auto (Bld) [Volum e fraction]Ordered By: Krissy Morelos on 11-13-2024 Hematocrit (Bld) [Volume fraction] 39.0 % 36.0-48.0 [facility] Hemoglobin [Mass/volume] in BloodOrdered By: Krissy Morelos on 11-13-2024 Hemoglobin (Bld) [Mass/Vol] 13.5 g/dL 12.0-16.0 [facility] Laboratory - Chemistry and C hemistry - challengeOrdered By: Krissy Morelos on 11-13-2024 Albumin [Mass/Vol] 3.5 g/dL 3.4-5.0 [facility] Calcium [Mass/Vol] 9.5 mg/dL 8.5-10.1 [facility] Chloride [Moles/Vol] 101 mmol/L 98-107 [facility] CO2 [Moles/Vol] 25.1 mmol/L 21.0-32.0 [facility] Creatinine [Mass/Vol] 2.06 mg/dL High 0.55-1.02 [facility] GFR/1.73 sq M.predicted MDRD (S/P/Bld) [Vol rate/Area] 32 mL/min/{1.73_m2} Low >=60 mL/min/1.73 m 2 [facility] Glucose [Mass/Vol] 99 mg/dL 74-106 [facility] Magnesium [Mass/Vol] 1.6 mg/dL Low 1.8-2.4 [facility] Potassium [Moles/Vol] 3.9 mmol/L 3.5-5.1 [facility] Sodium [Moles/Vol] 139 mmol/L 136-145 [facility] Urate [Mass/Vol] 9.1 mg/dL High 2.6-6.0 [facility] Urea nitrogen [Mass/Vol] 32.0 mg/dL High 7.0-18.0 [facility] Urea nitrogen/Creatinine [Mass ratio] 15.5 mg/mg [facility] Bilirubin Ql (U) Negative NEGATIVE [facility] Glucose (U) [Mass/Vol] Negative NEGATIVE [facility] Ketones Ql (U) Negative NEGATIVE [facility] pH (U) 6.0 [pH] 5.0-9.0 [facility] Specific gravity (U) [Rel density] 1.015 1.005-1.025 [facility] Urobilinogen Qn (U) 0.2 {Bhavya'U}/dL 0.2-1.0 [facility] Laboratory - Specimen inform ationOrdered By: Krissy Morelos on 11-13-2024 Appearance (U) CLEAR CLEAR [facility] Color (U) LT. YELLOW YELLOW [facility] Laboratory - UrinalysisOrder ed By: Krissy Morelos on 11-13-2024 Leukocyte esterase Test strip Ql (U) Negative NEGATIVE [facility] Mucus Ql (Urine sed) TRACE Abnormal NONE SEEN [facility] Nitrite Ql (U) Negative NEGATIVE [facility] Protein (U) [Mass/Vol] 18.8 mg/dL High <=11.9 [facility] Protein Ql (U) Negative NEG/TRACE [facility] Leukocytes [#/volume] correc rebecca for nucleated erythrocytes in Blood by Automated counOrdered By: Krissy Morelos on 11-13-2024 WBC corrected for nucl RBC Auto (Bld) [#/Vol] 7.6 10 3/uL 4.0-11.0 [facility] MCH Auto (RBC) [Entitic mass ]Ordered By: Krissy Morelos on 11-13-2024 MCH (RBC) [Entitic mass] 30.7 pg 26.7-34.0 [facility] MCHC Auto (RBC) [Mass/Vol]Or dered By: Krissy Morelos on 11-13-2024 MCHC (RBC) [Mass/Vol] 34.6 g/dL 29.9-35.2 [facility] MCV Auto (RBC) [Entitic vol] Ordered By: Krissy Morelos on 11-13-2024 MCV (RBC) [Entitic vol] 88.6 fL 81.0-99.0 [facility] No Panel InformationOrdered By: Krissy Morelos on 11-13-2024 25-Hydroxy Vitamin D Total 32.4 ng/mL [facility] Comment on above: <20 ng/mL Vit D defi cient20-<30 ng/mL Vit D [id number] ng/mL Vit D sufficient>100 ng/mL Potential Toxicity Phosphorus Level 4.4 mg/dL 2.6-4.7 [facility] Urine Bacteria MODERATE #/HPF Abnormal NONE SEEN [facility] Urine Occult Blood SMALL Abnormal NEGATIVE [facility] Urine Other Casts NONE SEEN #/LPF NONE SEEN [facility] Urine Other Crystals None Seen #/HPF None Seen [facility] Urine Random Creatinine 131.92 mg/dL 20.0 0-300.0 0 [facility] Urine RBC 0-2 #/HPF 0-2 [facility] Urine Squamous Epithelial Cells MODERATE #/LPF Abnormal NONE/RARE [facility] Urine WBC 0-2 #/HPF Abnormal NONE SEEN [facility] Platelet mean volume Auto (B ld) [Entitic vol]Ordered By: Krissy Morelos on 11-13-2024 Platelet mean volume (Bld) [Entitic vol] 10.1 fL 9.5-13.5 [facility] Platelets Auto (Bld) [#/Vol] Ordered By: Krissy Morelos on 11-13-2024 Platelets (Bld) [#/Vol] 297 10 3/uL 150-450 [facility] RBC Auto (Bld) [#/Vol]Ordere d By: Krissy Morelos on 11-13-2024 RBC (Bld) [#/Vol] 4.40 10 6/uL 4.20-5.40 [facility] Serum or plasma anion gap de terminationOrdered By: Krissy Morelos on 11-13-2024 Anion gap [Moles/Vol] 16.8 mmol/L [facility] Urine protein/creatinine rat ioOrdered By: Krissy Morelos on 11-13-2024 Protein/Creatinine (U) [Ratio] 0.14 [facility] Ambulatory Visit Summaryon 0 09-10-2024 Ambulatory Visit Summary Ambulatory Visit Summary JASON DANIELLA OPAL :1980 Visit Date:09/10/2024 Ambulatory Visit Instructions [...] 8:20 AM EDT With: Billy Moscoso Where: [place] [phone]- Medications What How Much When Why Instructions [...] us for your care. Normal [facility] Family Medicine Office/Clini c Noteon 09-10-2024 [...] z68.44, # 30 tab(s), Refills(s) 0, [id number], 162, cm, 09/10/24 8:20:00 EDT, Height/Length Dosing, 163, kg, 09/10/24 8:20:00 EDT, Weight Dosing phentermine, 37.5 mg = 1 tab(s), Oral, Daily, bmi 102.8 z68.44, # 30 tab(s), Refills(s) 0, Pharmacy: [id number], 162, cm, 07/24/24 8:35:00 EDT, Height/Length Dosing, 166.3, kg, 07/24/24 8:35:00 EDT, Weight Dosing 4. BMI 60.0-69.9, adult (Z68.44: Body mass index [BMI] 60.0-69.9, adult) BMI education given 5. Non-smoker (Z78.9: Other specified health status) continue not smoking Ordered: phentermine, 37.5 mg = 1 tab(s), Oral, Daily, bmi 102.8 z68.44, # 30 tab(s), Refills(s) 0, Pharmacy: [facility] #[id number], 162, cm, 09/10/24 8:20:00 EDT, Height/Length Dosing, 163, kg, 09/10/24 8:20:00 EDT, Weight Dosing phentermine, 37.5 mg = 1 tab(s), Oral, Daily, bmi 102.8 z68.44, # 30 tab(s), Refills(s) 0, Pharmacy: [facility]/pharmacy #[id number], 162, cm, 07/24/24 8:35:00 EDT, Height/Length [...] hepatitis B pediatric vaccine 08/09/1997 Recorded Normal [facility] Comment on above: Result Comment: Elec tronically [...] 8:20 AM EDT With: Billy Moscoso Where: [place] [id number]- Medications What How Much When Why Instructions [...] for choosing us for your care. Normal [facility] BMPon 07-24-2024 Anion gap [Moles/Vol] 14 mmol/L Normal 6-16 [facility] Comment on above: Performed By: #### 2 [id number] #### [facility] [address] [place] [address] Calcium [Mass/Vol] 9.7 mg/dL Normal 8.9-11.1 [facility] Comment on above: Performed By: #### 2 [id number] #### [facility] [address] [place] [address] Chloride [Moles/Vol] 105 mmol/L Normal 101-111 [facility] Comment on above: Performed By: #### 2 [id number] #### [facility] [address] [place] [address] CO2 [Moles/Vol] 24 mmol/L Normal 21-31 [facility] Comment on above: Performed By: #### 2 [id number] #### [facility] [address] [place] [address] Creatinine [Mass/Vol] 1.3 mg/dL Normal 0.5-1.3 [facility] Comment on above: Performed By: #### 2 [id number] #### [facility] [address] [place] [address] Glucose [Mass/Vol] 101 mg/dL Normal 55-199 [facility] Comment on above: Performed By: #### 2 [id number] #### [facility] [address] [place] [address] Potassium [Moles/Vol] 3.9 mmol/L Normal 3.5-5.3 [facility] Comment on above: Performed By: #### 2 [id number] #### [facility] [address] [place] [address] Sodium [Moles/Vol] 139 mmol/L Normal 135-145 [facility] Comment on above: Performed By: #### 2 [id number] #### [facility] [address] [place] [address] Urea nitrogen [Mass/Vol] 30 mg/dL High 5-21 [facility] Comment on above: Performed By: #### 2 [id number] #### [facility] [address] [place] [address] Urea nitrogen/Creatinine [Mass ratio] 23 No Units High 10-20 [facility] Comment on above: Performed By: #### 2 [id number] #### [facility] [address] [place] [address] CHEMISTRYOrdered By: SYSTEM SYSTEM on 07-24-2024 Anion [...] BID, # 60 tab(s), Refills(s) 11, Pharmacy: [facility]/pharmacy #[id number], 162, cm, 12/15/23 9:27:00 EDT, Height/Length [...] hepatitis B pediatric vaccine 08/09/1997 Recorded Normal [facility] Comment on above: Result Comment: Elec tronically Signed By: Billy Moscoso\.br\Date and Time Signed: 07/24/24 08:53 EDT eGFRon 07-24-2024 eGFR 52 mL/min/1.73 m2 Low >=59 [facility] Comment on above: Performed By: #### 1 [id number] #### [facility] [address] [place] [address] Ambulatory Visit Summaryon 0 06-12-2024 Ambulatory Visit [...] 8:20 AM EDT With: Billy Moscoso Where: [facility] Medicine [place] [phone]- Medications What How Much When Why Instructions [...] for choosing us for your care. Normal [facility] BMPon 06-12-2024 Anion gap [Moles/Vol] 16 mmol/L Normal 6-16 [facility] Comment on above: Performed By: #### 2 [id number] #### [facility] [address] [place] [address] Calcium [Mass/Vol] 9.2 mg/dL Normal 8.9-11.1 [facility] Comment on above: Performed By: #### 2 [id number] #### [facility] [address] [place] [address] Chloride [Moles/Vol] 102 mmol/L Normal 101-111 [facility] Comment on above: Performed By: #### 2 647502 #### [facility] [address] [place] [address] CO2 [Moles/Vol] 24 mmol/L Normal 21-31 [facility] Comment on above: Performed By: #### 2 756110 #### [facility] [address] [place] [address] Creatinine [Mass/Vol] 1.4 mg/dL High 0.5-1.3 [facility] Comment on above: Performed By: #### 2 [id number] #### [facility] [address] [place] [address] Glucose [Mass/Vol] 101 mg/dL Normal 55-199 [facility] Comment on above: Performed By: #### 2 [id number] #### [facility] [address] [place] [address] Potassium [Moles/Vol] 3.7 mmol/L Normal 3.5-5.3 [facility] Comment on above: Performed By: #### 2 [id number] #### [facility] [address] [place] [address] Sodium [Moles/Vol] 138 mmol/L Normal 135-145 [facility] Comment on above: Performed By: #### 2 [id number] #### [facility] [address] [place] [address] Urea nitrogen [Mass/Vol] 23 mg/dL High 5-21 [facility] Comment on above: Performed By: #### 2 [id number] #### [facility] [address] [place] [address] Urea nitrogen/Creatinine [Mass ratio] 16 No Units Normal 10-20 [facility] Comment on above: Performed By: #### 2 [id number] #### [facility] [address] [place] [address] CHEMISTRYOrdered By: SYSTEM SYSTEM on 06-12-2024 Anion [...] Ordered: Basic Metabolic Panel Lab Specimen Collect [id number] 2. Elevated BUN (R79.9: Abnormal finding of blood chemistry, unspecified) will check BMP today Ordered: Basic Metabolic Panel Lab Specimen Collect [id number] 3. Hypertension (I10: Essential (primary) hypertension) BP log reviewed. Some are 90/70's will instruct her to stop the Procardia and continue to monitor her BP Ordered: phentermine, 37.5 mg = 1 tab(s), Oral, Daily, bmi 66.3, # 30 tab(s), Refills(s) 0, Pharmacy: [id number], 162, cm, 06/12/24 8:34:00 EST, Height/Length Dosing, 168.8, kg, 06/12/24 8:34:00 EST, Weight Dosing phentermine, 37.5 mg = 1 tab(s), Oral, Daily, bmi 66.3, # 30 tab(s), Refills(s) 0, Pharmacy: [id number], 162, cm, 04/10/24 7:19:00 EST, Height/Length Dosing, 174, kg, 04/10/24 7:19:00 EST, Weight Dosing 4. BMI 60.0-69.9, adult (Z68.44: Body mass index [BMI] 60.0-69.9, adult) BMI education given Ordered: Basic Metabolic Panel Lab Specimen Collect 43811 5. Non-smoker (Z78.9: Other specified health status) continue not smoking Ordered: phentermine, 37.5 mg = 1 tab(s), Oral, Daily, bmi 66.3, # 30 tab(s), Refills(s) 0, Pharmacy: [facility] #[id number], 162, cm, 06/12/24 8:34:00 EST, Height/Length Dosing, 168.8, kg, 06/12/24 8:34:00 EST, Weight Dosing phentermine, 37.5 mg = 1 tab(s), Oral, Daily, bmi 66.3, # 30 tab(s), Refills(s) 0, Pharmacy: [facility] #[id number], 162, cm, 04/10/24 7:19:00 EST, Height/Length Dosing, 174, kg, 04/10/24 7:19:00 EST, Weight Dosing Basic Metabolic Panel Lab Specimen Collect [id number] Follow-up No qualifying data available Problem List/Past [...] hepatitis B pediatric vaccine 08/09/1997 Recorded Normal [facility] Comment on above: Result Comment: Elec tronically Signed By: Billy Moscoso\.br\Date and Time Signed: 06/12/24 08:58 EST eGFRon 06-12-2024 eGFR 47 mL/min/1.73 m2 Low >=59 [facility] Comment on above: Performed By: #### 1 [id number] #### [facility] [address] [place] [address] Ambulatory Visit Summaryon 05-12-2023 Ambulatory Visit Summary [...] Appointments Monday 8:20 AM EST With: Where: [address] [address]- Monday 8:20 AM EST With: Billy Moscoso Where: [address] [address]- Medications What How Much When Why Instructions New phentermine (phentermine 37.5 mg Tab) 1 Tablets By Mouth Every day Hypertension BMI 70 and over, adult Non-smoker Pickup at [facility]/pharmacy #[id number] Unchanged buPROPion (buPROPion 100 mg Tab) 1 [...] by mouth in the morning. Pharmacy Information [facility]/pharmacy #[id number]: [address] [place], [place] [id number] [phone] Allergies Emend (Pain) measles/mumps/rubella virus vaccine (Fever, [...] us for your care. Normal [facility] Family Medicine Office/Clini c Noteon 03-12-2024 [...] Daily, # 30 tab(s), Refills(s) 0, Pharmacy: [id number], 162, cm, 02/13/24 8:26:00 EDT, Height/Length Dosing, 182.8, kg, 02/13/24 8:26:00 EDT, Weight Dosing phentermine, 37.5 mg = 1 tab(s), Oral, Daily, # 30 tab(s), Refills(s) 0, Pharmacy: [id number], 162, cm, 03/12/24 8:26:00 EST, Height/Length Dosing, 176.1, kg, 03/12/24 8:26:00 EST, Weight Dosing 3. Non-smoker (Z78.9: Other specified health status) continue not smoking Ordered: phentermine, 37.5 mg = 1 tab(s), Oral, Daily, # 30 tab(s), Refills(s) 0, Pharmacy: [id number], 162, cm, 02/13/24 8:26:00 EDT, Height/Length Dosing, 182.8, kg, 02/13/24 8:26:00 EDT, Weight Dosing phentermine, 37.5 mg = 1 tab(s), Oral, Daily, # 30 tab(s), Refills(s) 0, Pharmacy: [facility] #[id number], 162, cm, 03/12/24 8:26:00 EST, Height/Length [...] hepatitis B pediatric vaccine 08/09/1997 Recorded Normal [facility] Comment on above: Result Comment: Elec tronically [...] 8:20 AM EST With: Billy Moscoso Where: [facility] Medicine [address] [address]- Medications What How Much When Why Instructions [...] for choosing us for your care. Ace [facility] Family Medicine Office/Clini c Noteon 02-13-2024 [...] Daily, # 30 tab(s), Refills(s) 0, Pharmacy: [facility]/pharmacy #[id number], 162, cm, 02/13/24 8:26:00 EDT, Height/Length Dosing, 182.8, kg, 02/13/24 8:26:00 EDT, Weight Dosing phentermine, 37.5 mg = 1 tab(s), Oral, Daily, # 30 tab(s), Refills(s) 0, Pharmacy: [facility] #72, 162, cm, 01/17/24 14:02:00 EDT, Height/Length [...] DAY, # 60 tab(s), Refills(s) 2, Pharmacy: [facility]/pharmacy #[id number], 162, cm, 12/15/23 9:27:00 EDT, Height/Length Dosing, 197, kg, 12/15/23 9:27:00 EDT, Weight Dosing NIFEdipine, 30 mg = 1 tab(s), Oral, BID, # 180 tab(s), Refills(s) 3, Pharmacy: [facility]/pharmacy #[id number], 162, cm, 02/13/24 8:26:00 EDT, Height/Length [...] hepatitis B pediatric vaccine 08/09/1997 Recorded Normal [facility] Comment on above: Result Comment: Elec tronically [...] in insulin resistance w/adipex therapy. Last A1c 12/18/- 5.4 Has been having headaches, dry mouth, [...] Daily, # 30 tab(s), Refills(s) 0, Pharmacy: [facility] #72, 162, cm, 01/17/24 14:02:00 EDT, Height/Length Dosing, 185.8, kg, 01/17/24 14:02:00 EDT, Weight Dosing phentermine, 37.5 mg = 1 tab(s), Oral, Daily, # 30 tab(s), Refills(s) 0, Pharmacy: [facility] #72, 162, cm, 12/15/23 9:27:00 EDT, Height/Length Dosing, 197, kg, 12/15/23 9:27:00 EDT, Weight Dosing 3. Non-smoker (Z78.9: Other specified health status) continue not smoking Ordered: phentermine, 37.5 mg = 1 tab(s), Oral, Daily, # 30 tab(s), Refills(s) 0, Pharmacy: [facility] #[facility], 162, cm, 01/17/24 14:02:00 EDT, Height/Length Dosing, 185.8, kg, 01/17/24 14:02:00 EDT, Weight Dosing phentermine, 37.5 mg = 1 tab(s), Oral, Daily, # 30 tab(s), Refills(s) 0, Pharmacy: [facility] #72, 162, cm, 12/15/23 9:27:00 EDT, Height/Length [...] Daily, # 30 tab(s), Refills(s) 0, Pharmacy: [facility] #72, 162, cm, 01/17/24 14:02:00 EDT, Height/Length Dosing, 185.8, kg, 01/17/24 14:02:00 EDT, Weight Dosing phentermine, 37.5 mg = 1 tab(s), Oral, Daily, # 30 tab(s), Refills(s) 0, Pharmacy: [facility] #72, 162, cm, 12/15/23 9:27:00 EDT, Height/Length [...] hepatitis B pediatric vaccine 08/09/1997 Recorded Normal [facility] Comment on above: Result Comment: Elec tronically Signed By: Billy Moscoso\.br\Date and Time Signed: 01/17/24 15:22 EDT MLR HEMOGLOBIN A1Con 12-18- 024 Glucose [Mass/Vol] 108 mg/dL [facility] HbA1c (Bld) [Mass fraction] 5.4 % 4.5 - 6.2 % [facility] Comment on above: ADA RECOMMENDED LIMI T 4.0 - 6.0 ADA THERAPEUTIC TARGET < 7.0 ACTION SUGGESTED > 7.0 [facility] Ambulatory Visit Summaryon 0 12-15-2023 Ambulatory [...] 8:20 AM EDT With: Billy Moscoso Where: [place] [phone]- Medications What How Much When Instructions Unchanged [...] for choosing us for your care. Normal [facility] CHEMISTRYOrdered By: SYSTEM SYSTEM on 12-15-2023 Albumin [...] 12-15-2023 Albumin [Mass/Vol] 4.1 g/dL Normal 3.3-5.0 [facility] Comment on above: Performed By: #### 2 [id number] #### [facility] [address] [place] [address] Albumin/Globulin (S) [Mass conc ratio] 1.3 Normal 1.1-2.2 [facility] Comment on above: Performed By: #### 2 [id number] #### [facility] [address] [place] [address] ALP [Catalytic activity/Vol] 81 Int._Unit/L Normal 21-98 [facility] Comment on above: Performed By: #### 2 [id number] #### [facility] [address] [place] [address] ALT No additional P-5'-P [Catalytic activity/Vol] 28 Int._Unit/L Normal 6-46 [facility] Comment on above: Performed By: #### 2 [id number] #### [facility] [address] [place] [address] Anion gap [Moles/Vol] 17 mmol/L High 6-16 [facility] Comment on above: Performed By: #### 2 [id number] #### [facility] [address] [place] [address] AST [Catalytic activity/Vol] 22 Int._Unit/L Normal 5-43 [facility] Comment on above: Performed By: #### 2 [id number] #### [facility] [address] [place] [address] Bilirubin [Mass/Vol] 0.7 mg/dL Normal 0.0-1.1 [facility] Comment on above: Performed By: #### 2 [id number] #### [facility] [address] [place] [address] Calcium [Mass/Vol] 9.6 mg/dL Normal 8.9-11.1 [facility] Comment on above: Performed By: #### 2 922395 #### [facility] [address] [place] [address] Chloride [Moles/Vol] 106 mmol/L Normal 101-111 [facility] Comment on above: Performed By: #### 2 [id number] #### [facility] [address] [place] [address] CO2 [Moles/Vol] 22 mmol/L Normal 21-31 [facility] Comment on above: Performed By: #### 2 [id number] #### [facility] [address] [place] [address] Creatinine [Mass/Vol] 0.9 mg/dL Normal 0.5-1.3 [facility] Comment on above: Performed By: #### 2 [id number] #### [facility] [address] [place] [address] Globulin (S) [Mass/Vol] 3.1 g/dL Normal 1.4-4.0 [facility] Comment on above: Performed By: #### 2 [id number] #### [facility] [address] [place] [address] Glucose [Mass/Vol] 105 mg/dL Normal 55-199 [facility] Comment on above: Performed By: #### 2 [id number] #### [facility] [address] [place] [address] Potassium [Moles/Vol] 3.8 mmol/L Normal 3.5-5.3 [facility] Comment on above: Performed By: #### 2 909455 #### [facility] [address] [place] [address] Protein [Mass/Vol] 7.2 g/dL Normal 6.0-7.8 [facility] Comment on above: Performed By: #### 2 [id number] #### [facility] [address] [place] [address] Sodium [Moles/Vol] 141 mmol/L Normal 135-145 [facility] Comment on above: Performed By: #### 2 633362 #### [facility] [address] [place] [address] Urea nitrogen [Mass/Vol] 22 mg/dL High 5-21 [facility] Comment on above: Performed By: #### 2 [id number] #### [facility] [address] [place] [address] Urea nitrogen/Creatinine [Mass ratio] 24 No Units High 10-20 [facility] Comment on above: Performed By: #### 2 [id number] #### [facility] [address] [place] [address] Family Medicine Office/Clini c Noteon 12-15-2023 Family [...] Daily, # 30 tab(s), Refills(s) 11, Pharmacy: [id number], 162, cm, 12/15/23 9:27:00 EDT, Height/Length Dosing, 197, kg, 12/15/23 9:27:00 EDT, Weight Dosing Comprehensive Metabolic Panel Est Preventative 40 to 64 years [address] Lipid Panel Thyroid Stimulating Hormone 2. Weight gain (R63.5: Abnormal weight gain) pt has gained 26 pounds since last visit. will start adipex. discussed making health food choices and increasing exercise Ordered: metoprolol, 50 mg = 1 tab(s), Oral, Daily, # 30 tab(s), Refills(s) 11, Pharmacy: [id number], 162, cm, 12/15/23 9:27:00 EDT, Height/Length Dosing, 197, kg, 12/15/23 9:27:00 EDT, Weight Dosing Est Preventative 40 to 64 years [address] 3. Hypertension (I10: Essential (primary) hypertension) BP at goal Ordered: metoprolol, 50 mg = 1 tab(s), Oral, Daily, # 30 tab(s), Refills(s) 11, Pharmacy: [facility] #6177, 162, cm, 12/15/23 9:27:00 EDT, Height/Length Dosing, 197, kg, 12/15/23 9:27:00 EDT, Weight Dosing Comprehensive Metabolic Panel Est Preventative 40 to 64 years [address] Lipid Panel Thyroid Stimulating Hormone 4. BMI 70 and over, adult (Z68.45: Body mass index [BMI] 70 or greater, adult) BMI education given Ordered: metoprolol, 50 mg = 1 tab(s), Oral, Daily, # 30 tab(s), Refills(s) 11, Pharmacy: [facility]/pharmacy #[id number], 162, cm, 12/15/23 9:27:00 EDT, Height/Length Dosing, 197, kg, 12/15/23 9:27:00 EDT, Weight Dosing Est Preventative 40 to 64 years [address] 5. Morbid obesity (E66.01: Morbid (severe) obesity due to excess calories) see above Ordered: metoprolol, 50 mg = 1 tab(s), Oral, Daily, # 30 tab(s), Refills(s) 11, Pharmacy: [facility]/pharmacy #[id number], 162, cm, 12/15/23 9:27:00 EDT, Height/Length Dosing, 197, kg, 12/15/23 9:27:00 EDT, Weight Dosing Comprehensive Metabolic Panel Est Preventative 40 to 64 years [address] Lipid Panel Thyroid Stimulating Hormone 6. Non-smoker (Z78.9: Other specified health status) continue not smoking Ordered: metoprolol, 50 mg = 1 tab(s), Oral, Daily, # 30 tab(s), Refills(s) 11, Pharmacy: [facility]/pharmacy #[id number], 162, cm, 12/15/23 9:27:00 EDT, Height/Length Dosing, 197, kg, 12/15/23 9:27:00 EDT, Weight Dosing Comprehensive Metabolic Panel Est Preventative 40 to 64 years [address] Lipid Panel Thyroid Stimulating Hormone Orders: buPROPion, 100 mg = 1 tab(s), Oral, BID, # 60 tab(s), Refills(s) 11, Pharmacy: [facility]/pharmacy #[id number], 162, cm, 11/03/22 9:18:00 EDT, Height/Length Dosing, 408, kg, 11/03/22 9:18:00 EDT, Weight Dosing buPROPion, 100 mg = 1 tab(s), Oral, BID, # 60 tab(s), Refills(s) 11, Pharmacy: [facility]/pharmacy #[id number], 162, cm, 12/15/23 9:27:00 EDT, Height/Length Dosing, 197, kg, 12/15/23 9:27:00 EDT, Weight Dosing buPROPion, See Instructions, TAKE 1 TABLET BY MOUTH TWICE A DAY, # 60 tab(s), Refills(s) 11, Pharmacy: [facility] STORE [id number], 162, cm, 12/15/23 9:27:00 EDT, Height/Length Dosing, 197, kg, 12/15/23 9:27:00 EDT, Weight Dosing busPIRone, 5 mg = 1 tab(s), Oral, Daily, # 30 tab(s), Refills(s) 11, [id number] 162, cm, 12/15/23 9:27:00 EDT, Height/Length Dosing, 197, kg, 12/15/23 9:27:00 EDT, Weight Dosing busPIRone, 5 mg = 1 tab(s), Oral, Daily, # 30 tab(s), Refills(s) 5, [id number] 162, cm, 11/03/22 9:18:00 EDT, Height/Length Dosing, 408, kg, 11/03/22 9:18:00 EDT, Weight Dosing hydrochlorothiazide, 25 mg = 1 tab(s), Oral, Daily, 25 Unknown, oral, 1 Refill(s), Take 25 mg by mouth daily., # 30 tab(s), Refills(s) 11, [id number] (more content not included)... Normal [facility] Comment on above: Result Comment: Elec tronically Signed By: Billy Moscoso\.br\Date and Time Signed: 12/15/23 10:14 EDT Lipid Panelon 12-15-2023 Cholesterol [Mass/Vol] 172 mg/dL Normal 120-200 [facility] Comment on above: Performed By: #### 2 [id number] #### [facility] [address] [place] [address] Cholesterol in HDL [Mass/Vol] 39 mg/dL Invalid Interpretation Code [facility] Comment on above: Result Comment: '>= 60 LOW RISK' '<= 40 HIGH RISK' Performed By: #### 2 [id number] #### [facility] [address] [place] [address] Cholesterol in LDL [Mass/Vol] 118 mg/dL Normal <=129 [facility] Comment on above: Performed By: #### 2 [id number] #### [facility] [address] [place] [address] Cholesterol in VLDL [Mass/Vol] 28 mg/dL Normal 7-40 [facility] Comment on above: Performed By: #### 2 [id number] #### [facility] [address] [place] [address] Triglyceride [Mass/Vol] 142 mg/dL Normal <=149 [facility] Comment on above: Performed By: #### 2 [id number] #### [facility] [address] [place] [address] TSHon 12-15-2023 TSH Qn 1.22 m[IU]/L Normal 0.34-5.60 [facility] Comment on above: Performed By: #### 2 201670 #### [facility] [address] [place] [address] eGFRon 12-15-2023 eGFR 81 mL/min/1.73 m2 Normal >=59 [facility] Comment on above: Order Comment: Order added by Discern Expert. Performed By: #### 1 [id number] #### [facility] [address] [place] [address] Consultation Noteon 08-11-19 Consultation Note [id number] Normal [facility] XR ankle LT min 3V*on 2023 XR ankle LT min 3V* [facility] [address] [address] XRay Report Signed Patient: Daniella Mancera MR#: [id number] : 1980 Acct:[id number] Age/Sex: 42 / F ADM Date: 08/09/23 Loc: XDUCLY Room: Type: [facility] Attending Dr: Oneida TORRES Copies to: MELISSA [...] Farhan Upton Jr.OCampbell08/09/2023 11:03 AM Dictation Location: [place] [address] Transcribed By: [facility] 08/09/23 1103 Dictated By: Aldo Hernandez Jr, DO 08/09/23 1103 Signed By: 08/09/23 1103 Normal [facility] Consultation Noteon 01-21-20 Consultation Note [id number]:[id number] Normal [facility] Cytology Cervical or vaginal smear or scraping studyon 12-13-2022 [facility] CHEMISTRYOrdered By: SYSTEM SYSTEM on 11-03-2022 Cholesterol [...] : DR SRIKANTH BOLDEN . Admission #: [id number] Family : JARED SHEARER Order #: [id number] CLICK HERE TO VIEW EXAM RADIOLOGY REPORT PROCEDURE: MAMMOGRAM SCREENING 3D BILATERAL CAD COMPARISON: None. INDICATIONS: Screening mammography Calculator Name NCI Breast Cancer Risk Assessment Tool 5 Year Breast Cancer Risk 0.80% Lifetime Breast Cancer Risk 11.90% Personal Breast Cancer No Personal Ovarian Cancer No Treatments hysterectomy and chemotherapy Family Cancers Aunt-maternal with breast cancer at age 81. LOCATION: [facility] BREAST COMPOSITION: Almost entirely fatty. FINDINGS: [...] Heller M.D. on 01/03/2022 at 15:59 Normal [facility] PAP ACOG PANEL 2: 30 to 65on 12-01-2021 . . Normal [facility] Comment on above: Result Comment: Perf ormed at: WB Performed By: #### [id number] #### [facility] [address] [address] [address] Billy Parikh Age Gdln ACOG Testing 30-65 Normal [facility] Comment on above: Performed By: #### [id number] #### [facility] [address] [address] [address] Billy Parikh DIAGNOSIS: Comment Normal [facility] Comment on above: Result Comment: NEGA TIVE FOR INTRAEPITHELIAL LESION OR MALIGNANCY. Performed at: WB Performed By: #### [id number] #### [facility] [address] [address] [address] Billy Parikh HPV Aptima Negative Normal Negative [facility] Comment on above: Result Comment: This nucleic acid amplification test detects fourteen high-risk HPV types (16,18,31,33,35,39,45,51,52,56,58,59,66,68) without differentiation. Performed at: =G Performed By: #### [id number] #### [facility] [address] [place] [address] Dr. Billy Parikh Methodology: CTIM Normal [facility] Comment on above: Result Comment: The Thin Prep(R) Can Washer was unable to read this specimen. Therefore a manual review was performed. Performed at: WB Performed By: #### [id number] #### [facility] [address] [place] [address] Dr. Billy Parikh Note: Comment Normal [facility] Comment on above: Result Comment: The Pap smear is a screening test designed to aid in the detection of premalignant and malignant conditions of the uterine cervix. It is not a diagnostic procedure and should not be used as the sole means of detecting cervical cancer. Both false-positive and false-negative reports do occur. . Performed at: WB Performed By: #### [id number] #### [facility] [address] [place] [address] Dr. Billy Parikh Performed by: Comment Normal [facility] Comment on above: Result Comment: Nish Wolff Commercial Stripper (ASCP) Performed at: WB Performed By: #### [id number] #### [facility] [address] [place] [address] Dr. Billy Parikh Specimen adequacy: Comment Normal [facility] Comment on above: Result Comment: Sati sfactory for evaluation. No endocervical component is identified. Performed at: WB Performed By: #### 4 [id number] #### [facility] [address] [place] [address] Dr. Billy Parikh PROGRESSon 12-18-2016 PROGRESS HNO ID: [id number]: Stephie De Anda: (none)Author Type: PhysicianType: Progress NotesFiled: 12/18/2016 11:00 [...] pap: No.No past surgical history on file. [place] teeth removalPAST MEDICAL HISTORYDiagnosis Date- Abnormal uterine [...] rest, lower extremity edema,or palpitations. No recent NE (within 6 months), cardiac stent, cardiacsurgery, gangrene, [...] kg (397 lb 6.4 oz) BMI 66.13 kg/g8MAMYTVP: Patient is a well developed, well nourished [...] this office note were sent to:Srikanth Bolden, [id number] [facility] [place] [address]YQ:Allison Choi MD (PCP) [facility] CNCOon 12-14-2016 CNCO Letter Derek Mancera:How to activate your [facility] Viddsee Account 1. Visit the [facility] Signup page at [email or web address] 2. Identify yourself using your one-time use activation code: [email or web address] 3. Follow the on-screen prompts to choose your own secure username andpasswordThe following information will be necessary to access your account for thefirst time:Information needed for sign-up:Your custom activation code used one-time only for the initial accountset-up.Your date of birthThe last 4 digits of your social security numberWhat to do next:Fill in the requested information on the Identify Yourself Form [email or web address] , click Next.Create your login and password, choose a Viddsee ID and password that will beeasy for you to use, but impossible for anyone else to guess.Pick a security question that will assist you in the event you forget yourpassword the next time you log-on.If you have difficulty activating your account, please call our Anipipo at [phone] or toll free at .We hope you enjoy using Viddsee!Kindest Regards,[facility] [employer] Team Normal [facility] CNOVon 12-14-2016 CNOV Office Visit (GYNOSA) DANIELLA MANCERA ([id number]) 1980 FDate Time Provider Department12/14/16 3:00 PM [...] pap: No.No past surgical history on file. [place] teeth removalPAST MEDICAL HISTORYDiagnosis Date- Abnormal uterine [...] rest, lower extremity edema, orpalpitations. No recent NE (within 6 months), cardiac stent, cardiac surgery,gangrene, [...] kg (397 lb 6.4 oz) BMI 66.13 kg/k7UQEXDAY: Patient is a well developed, well nourished [...] this office note were sent to:Srikanth Bolden, [id number] [facility] [id number]:Allison Choi MD (PCP)Referring Provider: SRIKANTH BOLDEN [[id number]]Allergies As of Date: 12/14/2016(No Known Allergies)Date Reviewed: [...] Pharmacy KLOR-CON M10 MEQ TABLET,EXTENDED RELEASE >> Sadia Sohan 12/14/2016 2:43 PM >> SOHANJulyDec 14, 2016 2:43 PM Received from: External Pharmacy HYDROCODONE 5 MG-ACETAMINOPHEN 325 MG TABLET >> July Sohan 12/14/2016 2:43 PM >> PARRYJulyDec 14, 2016 2:43 PM Received from: External Pharmacy HYOSCYAMINE SULFATE 0.125 MG TABLET >> July Sohan 12/14/2016 2:43 PM >> PARRYJulyDec 14, 2016 [...] Erroneous entryFollow-up and Disposition History RecordedEncounter Number: [id number] Status:Closed by STEPHIE HOLLIDAY MD on 12/18/16 Normal [facility] AR-US PELVIS & TRANSVAG IMPO RTon 10-20-2016 AR-US PELVIS & TRANSVAG IMPORT Images were obtained outside of [facility] Normal [facility] Vital Signs Date Time Vital Sign Value Performing Clinician Facility 01-22-2025 13:34-0400 Body height 165.1 cm Roxanna RAYO Work Phone: [facility] 01-22-2025 13:34-0400 Body mass index (BMI) [Ratio] 60.31 kg/m2 Roxanna RAYO [facility] 01-22-2025 13:34-0400 Body weight 164.38 kg Roxanna RAYO Work Phone: [facility] 01-22-2025 13:34-0400 Diastolic blood pressure 81 mm[Hg] Roxanna RAYO Work Phone: [facility] 01-22-2025 13:34-0400 Heart rate 79 /min Roxanna Wanne PA Work Phone: [facility] 01-22-2025 13:34-0400 Respiratory rate 17 /min Roxanna Wanne PA Work Phone: [facility] 01-22-2025 13:34-0400 SaO2% (BldA) [Mass fraction] 100 % Roxanna Wanne PA Work Phone: [facility] 01-22-2025 13:34-0400 Systolic blood pressure 137 mm[Hg] Roxanna Wanne PA Work Phone: [facility] 12-19-2024 08:47-0400 Body mass index (BMI) [Ratio] 60.39 kg/m2 Srikanth Yuan DO Work Phone: [facility] 12-19-2024 08:47-0400 Body weight 159.57 kg Srikanth Yuan DO Work Phone: [facility] 12-19-2024 08:47-0400 Diastolic blood pressure 68 mm[Hg] Srikanth Yuan DO Work Phone: [facility] 12-19-2024 08:47-0400 Systolic blood pressure 102 mm[Hg] Srikanth Yuan DO Work Phone: [facility] 11-14-2024 10:17-0400 Body height 162.56 cm Billy Shannon LASER ENGINEER-C Work Phone: [facility] 11-14-2024 10:17-0400 Body mass index (BMI) [Ratio] 61 kg/m2 Billy Shannon LASER ENGINEER-C Work Phone: [facility] 11-14-2024 10:17-0400 Body temperature 97.4 [degF] Billy Shannon LASER ENGINEER-C Work Phone: [facility] 11-14-2024 10:17-0400 Body weight 161.25 kg Billy Shannon LASER ENGINEER-C Work Phone: [facility] 11-14-2024 10:17-0400 Diastolic blood pressure 82 mm[Hg] Billy Shannon LASER ENGINEER-C Work Phone: [facility] 11-14-2024 10:17-0400 Heart rate 97 /min Billy Shannon LASER ENGINEER-C Work Phone: [facility] 11-14-2024 10:170400 Respiratory rate 18 /min Billy Shannon LASER ENGINEER-C Work Phone: [facility] 11-14-2024 10:17-0400 SaO2% (BldA) [Mass fraction] 98 % Billy Shannon LASER ENGINEER-C Work Phone: [facility] 11-14-2024 10:17-0400 Systolic blood pressure 127 mm[Hg] Billy Shannon LASER ENGINEER-C Work Phone: [facility] 10-21-2024 10:14-0400 Body height 162.56 cm Billy Shannon LASER ENGINEER-C Work Phone: [facility] 10-21-2024 10:14-0400 Body mass index (BMI) [Ratio] 60.2 kg/m2 Billy Shannon LASER ENGINEER-C Work Phone: [facility] 10-21-2024 10:14-0400 Body temperature 97.4 [degF] Billy Shannon LASER ENGINEER-C Work Phone: [facility] 10-21-2024 10:14-0400 Body weight 159.38 kg Billy Shannon LASER ENGINEER-C Work Phone: [facility] 10-21-2024 10:14-0400 Diastolic blood pressure 93 mm[Hg] Billy Shannon LASER ENGINEER-C Work Phone: [facility] 10-21-2024 10:14-0400 Heart rate 78 /min Billy Shannon LASER ENGINEER-C Work Phone: [facility] 10-21-2024 10:14-0400 Respiratory rate 18 /min Billy Shannon LASER ENGINEER-C Work Phone: [facility] 10-21-2024 10:14-0400 SaO2% (BldA) [Mass fraction] 99 % Billy Shannon LASER ENGINEER-C Work Phone: [facility] 10-21-2024 10:14-0400 Systolic blood pressure 139 mm[Hg] Billy Shnanon LASER ENGINEER-C Work Phone: [facility] 07-17-2024 09:14-0400 Body height 165.1 cm Roxanna Gooden PA Work Phone: [facility] 07-17-2024 09:14-0400 Body mass index (BMI) [Ratio] 61.54 kg/m2 Roxanna Gooden PA Work Phone: [facility] 07-17-2024 09:14-0400 Body temperature 98.2 [degF] Roxanna Gooden PA Work Phone: [facility] 07-17-2024 09:14-0400 Body weight 167.74 kg Roxanna Gooden PA Work Phone: [facility] 07-17-2024 09:14-0400 Diastolic blood pressure 83 mm[Hg] Roxanna Gooden PA Work Phone: [facility] 07-17-2024 09:14-0400 Heart rate 81 /min Roxanna Gooden PA Work Phone: [facility] 07-17-2024 09:14-0400 Respiratory rate 18 /min Roxanna Gooden PA Work Phone: [facility] 07-17-2024 09:14-0400 SaO2% (BldA) [Mass fraction] 100 % Roxanna Gooden PA Work Phone: [facility] 07-17-2024 09:14-0400 Systolic blood pressure 130 mm[Hg] Roxanna Gooden PA Work Phone: [employer] 01-17-2024 09:00-0400 Body height 165.1 cm [facility] 01-17-2024 09:00-0400 Body mass index (BMI) [Ratio] 68.39 kg/m2 Rox[facility] Gooden PA [facility] 01-17-2024 09:00-0400 Body temperature 98.2 [degF] Roxanna Gooden PA [facility] 01-17-2024 09:00-0400 Body weight 186.43 kg Roxanna Gooden PA [facility] 01-17-2024 09:00-0400 Diastolic blood pressure 88 mm[Hg] Roxanna Gooden PA [facility] 01-17-2024 09:00-0400 Heart rate 84 /min Roxanna Gooden PA [facility] 01-17-2024 09:00-0400 Respiratory rate 18 /min Roxanna Gooden PA [facility] 01-17-2024 09:00-0400 SaO2% (BldA) [Mass fraction] 99 % Roxanna Gooden PA [facility] 01-17-2024 09:00-0400 Systolic blood pressure 135 mm[Hg] Roxanna Gooden PA Work Phone: [facility] 12-19-2023 08:48-0400 Body height 162.6 cm Srikanth Yuan DO Work Phone: [facility] 12-19-2023 08:48-0400 Body mass index (BMI) [Ratio] 73.98 kg/m2 Srikanth Yuan DO Work Phone: [facility] 12-19-2023 08:48-0400 Body weight 195.5 kg Srikanth Yuan DO Work Phone: [facility] 12-19-2023 08:48-0400 Diastolic blood pressure 72 mm[Hg] Srikanth Yuan DO Work Phone: [facility] 12-19-2023 08:48-0400 Systolic blood pressure 128 mm[Hg] Srikanth Yuan DO Work Phone: [facility] 08-09-2023 10:15-0400 Body temperature 99.2 [degF] LASER ENGINEER-C Billy Shannon Work Phone: [facility] 08-09-2023 10:15-0400 Body weight 195.49 kg LASER ENGINEER-C Billy Shannon Work Phone: [facility] 08-09-2023 10:15-0400 Diastolic blood pressure 98 mm[Hg] LASER ENGINEER-C Billy Shannon Work Phone: [facility] 08-09-2023 10:15-0400 Heart rate 67 /min LASER ENGINEER-C Billy Shannon Work Phone: [facility] 08-09-2023 10:15-0400 Respiratory rate 18 /min LASER ENGINEER-C Billy Shannon Work Phone: [facility] 08-09-2023 10:15-0400 SaO2% (BldA) [Mass fraction] 98 % LASER ENGINEER-C Billy Shannon Work Phone: [facility] 08-09-2023 10:15-0400 Systolic blood pressure 148 mm[Hg] LASER ENGINEER-C Billy Shannon Work Phone: [facility] 07-18-2023 09:03-0400 Body height 165.1 cm Roxanna RAYO Work Phone: [facility] 07-18-2023 09:03-0400 Body mass index (BMI) [Ratio] 71.39 kg/m2 Roxanna RAYO Work Phone: [facility] 07-18-2023 09:03-0400 Body temperature 98.01 [degF] Roxanna RAYO [facility] 07-18-2023 09:03-0400 Body weight 194.59 kg Roxanna Gooden PA Work [facility]: [facility] 07-18-2023 09:03-0400 Diastolic blood pressure 98 mm[Hg] Roxanna Gooden PA Work [facility]: [facility] 07-18-2023 09:03-0400 Heart rate 74 /min Roxanna Gooden PA [facility]: [facility] 07-18-2023 09:03-0400 Respiratory rate 18 /min Roxanna Gooden PA [facility] 07-18-2023 09:03-0400 SaO2% (BldA) [Mass fraction] 99 % Roxanna Gooden PA [facility] 07-18-2023 09:03-0400 Systolic blood pressure 152 mm[Hg] Roxanna Gooden PA [facility] 04-19-2023 09:06-0500 Body height 165.1 cm Roxanna Gooden PA [facility] 04-19-2023 09:06-0500 Body mass index (BMI) [Ratio] 71.66 kg/m2 Roxanna Gooden PA [facility] 04-19-2023 09:06-0500 Body temperature 97.9 [degF] Roxanna Gooden PA [facility] 04-19-2023 09:06-0500 Body weight 195.32 kg Roxanna Gooden PA [facility] 04-19-2023 09:06-0500 Diastolic blood pressure 91 mm[Hg] Roxanna Gooden PA [facility] 04-19-2023 09:06-0500 Heart rate 79 /min Roxanna Gooden PA Work Phone: [facility] 04-19-2023 09:06-0500 Respiratory rate 18 /min Roxanna RAYO Work Phone: [facility] 04-19-2023 09:06-0500 SaO2% (BldA) [Mass fraction] 97 % Roxanna RAYO Work Phone: [facility] 04-19-2023 09:06-0500 Systolic blood pressure 143 mm[Hg] Roxanna RAYO Work Phone: [facility] Encounters Encounter Date Encounter Type Care Provider Facility Start: 03-12-2025 ambulatory [facility] Facility: [facility] Start: 01-22-2025 End: 01-22-2025 Office outpatient visit 25 minutes Roxanna RAYO Work Phone: Juanita Miranda [facility] Comment on above: Endometrial cancer, FIGO stage IIIA ([facility]) (Primary Dx); Iron deficiency anemia due to chronic blood loss; Hypokalemia Start: 01-22-2025 End: 01-22-2025 ambulatory [facility] Start: 01-18-2025 End: 01-20-2025 Refill Roxanna RAYO Work Phone: Juanita Ech[facility] Start: 12-19-2024 End: 12-19-2024 Bamboo flowsheet Srikanth Yuan DO Work Phone: [facility] Start: 12-19-2024 End: 12-25-2024 Bamboo flowsheet Srikanth Yuan DO Work Phone: [facility] Start: 12-19-2024 End: 12-25-2024 Clinisync Result Encounter Srikanth Yuan DO Work Phone: [facility] External Department Unsolicited Start: 12-19-2024 End: 12-19-2024 ambulatory SRIKANTH YUAN Not Available Start: 12-19-2024 End: 12-19-2024 Patient encounter procedure Srikanth Downingo DO Work Phone: [facility] Work Phone: Start: 12-19-2024 End: 12-19-2024 Periodic preventive med est patient 40-64yrs Srikanth Downingo DO Work Phone: [facility] Comment on above: Well woman exam with routine gynecological exam; Breast cancer screening by mammogram; Insulin resistance Start: 12-11-2024 End: 12-11-2024 ambulatory Billy L Shannon Facility:[facility] Start: 11-14-2024 End: 11-14-2024 ambulatory Billy Kavitha Shannon LASER ENGINEER-C Work Phone: [facility] Work Phone: Start: 11-14-2024 End: 11-14-2024 Patient encounter procedure Krissy Morelos MD -[facility] Work Phone: Start: 11-13-2024 Non-patient / Non-visit Krissy Morelos MD -[facility] Work Phone: Start: 10-30-2024 End: 10-31-2024 Claudine RAYO Work Phone: Juanita Miranda [facility] Comment on above: Hot flash, menopausa l Start: 10-21-2024 End: 10-21-2024 ambulatory Billy Kavitha Shannon LASER ENGINEER-C Work Phone: [facility] Work Phone: Start: 10-21-2024 End: 10-21-2024 Patient encounter procedure Krissy Morelos MD -[facility] Work Phone: Start: 09-10-2024 End: 09-10-2024 ambulatory Billy L Shannon Facility:[facility] Start: 07-24-2024 End: 07-25-2024 Lab Drop off Billy L Shannon [facility] Start: 07-24-2024 End: 07-25-2024 ambulatory Billy L Shannon Facility: [facility] Start: 07-23-2024 End: 07-24-2024 Refill Roxanna RAYO Work Phone: [facility] Start: 07-17-2024 End: 07-17-2024 ambulatory ROXANNA GOODEN [facility] Start: 07-17-2024 End: 07-17-2024 Office outpatient visit 25 minutes Roxanna RAYO Work Phone: Juanita Miranda [facility] Comment on above: Endometrial cancer, FIGO stage IIIA ([facility]) (Primary Dx); Electrolyte abnormality; Obesity, morbid ([facility]); Hypomagnesemia; Hypokalemia; Iron deficiency anemia due to chronic blood loss Start: 06-23-2024 End: 06-24-2024 Refill Roxanna RAYO Work Phone: [facility] Comment on above: Hypokalemia Start: 06-12-2024 End: 06-12-2024 Lab Drop off Billy L Shannon [facility] Start: 06-12-2024 End: 06-12-2024 ambulatory Billy L Shannon Facility:[facility] Start: 05-17-2024 ambulatory Billy L Shannon [facility]: [facility] Start: 03-12-2024 End: 03-12-2024 ambulatory Billy L Shannon [facility] Start: 02-13-2024 End: 02-13-2024 ambulatory Billy L Shannon Facility: [facility] Start: 01-17-2024 End: 01-17-2024 ambulatory LEAD SALES CONSULTANT Billy L Shannon Facility: [facility] Start: 01-17-2024 End: 01-17-2024 Office outpatient visit 25 minutes Roxanna RAYO Work Phone: Juanita Miranda [facility] Comment on above: Endometrial cancer, FIGO stage IIIA ([facility]) (Primary Dx); Hot flash, menopausal; Hypokalemia; Hypomagnesemia; Electrolyte abnormality; Counseling on health promotion and disease prevention Start: 12-19-2023 End: 12-19-2023 Bamboo flowsheet Srikanth Yuan DO Work Phone: [facility] Start: 12-19-2023 End: 12-19-2023 Bamboo flowsheet Srikanth Yuan DO Work Phone: [facility] Start: 12-19-2023 End: 12-19-2023 Clinisync Result Encounter Srikanth Yuan DO Work Phone: [facility] External Department Unsolicited Start: 12-19-2023 End: 12-19-2023 Patient encounter procedure Srikanth Yuan DO Work Phone: [facility] Healthcare Work Phone: Start: 12-19-2023 End: 12-19-2023 Periodic preventive med est patient 40-64yrs Srikanth Yuan DO Work Phone: [facility] Comment on above: Well woman exam with routine gynecological exam; Breast cancer screening by mammogram; Insulin resistance Start: 12-15-2023 End: 12-15-2023 Lab Drop off Billy Okeefe [facility] Start: 12-15-2023 End: 12-15-2023 ambulatory LEAD SALES CONSULTANT Billy L Shannon Facility:[facility] Start: 12-03-2023 End: 12-04-2023 Refill Roxanna RAYO Work Phone: Juanita Miranda [facility] Comment on above: Hot flash, menopausa l Start: 10-22-2023 End: 10-23-2023 Refill Roxanna RAYO Work Phone: [facility] Start: 10-12-2023 End: 10-12-2023 Refill Roxanna RAYO Work Phone: [facility] Comment on above: Hypokalemia Start: 08-09-2023 End: 08-09-2023 ambulatory Oneida Gold Facility:[facility] Start: 08-09-2023 End: 08-09-2023 ambulatory LASER ENGINEER-C Billy Okeefe Work Phone: [facility] Work Phone: Start: 08-09-2023 End: 08-09-2023 Patient encounter procedure LASER ENGINEER-C Billy Okeefe Work Phone: [facility] Work Phone: Start: 07-25-2023 Refill Roxanna Gooden PA Work Phone: [facility] Comment on above: Iron deficiency anem ia due to chronic blood loss Start: 07-18-2023 End: 07-18-2023 Office outpatient visit 25 minutes Roxanna Gooden PA Work Phone: [facility] Comment on above: Endometrial cancer, FIGO stage IIIA ([facility]) (Primary Dx); Electrolyte abnormality; Iron deficiency anemia due to chronic blood loss; Obesity, morbid (CMS-HCC); Hot flash, menopausal; Hypomagnesemia Start: 07-06-2023 [facility] Comment on above: Endometrial cancer, FIGO stage IIIA ([facility]) (Primary Dx) Start: 06-16-2023 Refill Roxanna Gooden PA Work Phone: [facility] Comment on above: Hypokalemia Start: 04-22-2023 Refill Roxanna Gooden PA Work Phone: [facility] Start: 04-19-2023 End: 04-19-2023 Office outpatient visit 25 minutes Roxanna Gooden PA Work Phone: [facility] Oncology Comment on above: Endometrial cancer, FIGO stage IIIA ([facility]) (Primary Dx); Electrolyte abnormality; Obesity, morbid ([facility]) Start: 04-07-2023 End: 04-07-2023 ambulatory LEAD SALES CONSULTANT Billy Okeefe Facility:[facility] Caitlyn hines Start: 11-03-2022 End: 11-03-2022 Lab Drop off Billy Okeefe [facility] Start: 01-03-2022 End: 01-04-[address] ALLISON CHOI Facility:[facility] Start: 11-25-2021 End: 11-25-[address] SRIKANTH BOLDEN Facility:[facility] Start: 01-27-2021 End: 04-21-2021 Preoperative state Roxanna RAYO Work Phone: [facility] Start: 12-14-2016 End: 12-14-2016 [facility] Procedures Date Procedure Procedure Detail Performing Clinician Start: 12-19-2024 IGP,APTIMA HPV,AGE GDLN Srikanth Bolden DO Work Phone: Start: 07-17-2024 Follow-up visit Follow-up ALEXIA GOODEN Start: 12-19-2023 MLR HEMOGLOBIN A1C Carter Bolden DO Work Phone: Start: 08-09-2023 X-ray of left ankle LASER ENGINEER- C Billy Okefee Work Phone: Start: 12-13-2022 Cytp cerv/vag auto [...] Treatment Date Care Activity Detail Author Start: 01-22-2026 Adult BMI Screening Adult BMI Screen ing [facility] Start: 01-22-2026 Tobacco Screening Tobacco Screening [facility] Start: 12-25-2025 End: 12-25-2025 Patient encounter procedure 12/25/2025 10:00 AM EDT Procedure Visit [address] [place] [phone] Srikanth Bolden DO [address] [place] [address] Start: 07-23-2025 End: 07-23-2025 Patient encounter procedure 07/23/2025 9:30 AM EDT Office Visit Juanita Echols [facility] [address] [place] [phone] Roxanna Gooden PA [address] [place] [phone] Juanita Miranda [facility] Start: 07-17-2025 Adult BMI Screening Adult BMI Screen ing [facility] Start: 07-17-2025 Tobacco Screening Tobacco Screening [facility] Start: 01-22-2025 End: 01-22-2025 Patient encounter procedure Juanita Miranda [facility] Start: 01-16-2025 Adult BMI Screening Adult BMI Screen ing [facility] Start: 12-23-2024 Influenza vaccination Influenza Vacc ine [facility] Start: 12-19-2024 End: 02-18-2026 MG Breast - bilateral Screening Bilateral screening mammogram Imaging Routine Breast cancer screening by mammogram Expected: 12/19/2024 (Approximate), [facility] Work Phone: Comment on above: Expected: 12/19/2024 (Approximate), Expires: 02/18/2026 Start: 12-19-2024 End: 12-19-2024 Patient encounter procedure 12/19/2024 8:30 AM EDT Office Visit [facility] [address] [place] [phone] Srikanth Bolden DO [address] [place] [address] [facility] Start: 07-17-2024 Adult BMI Screening Adult BMI Screen ing [facility] Start: 07-17-2024 End: 07-17-2024 Patient encounter procedure 07/17/2024 9:00 AM EDT Office Visit Juanita L Ones[facility] [address] [place] [phone] Roxanna Gooden PA [address] [place] [address] Juanita Miranda [facility] Start: 04-19-2024 Adult BMI Screening Adult BMI Screen ing [facility] Start: 01-17-2024 End: 01-17-2024 Patient encounter procedure 01/17/2024 9:00 AM EDT Office Visit Juanita Ruben [facility] [address] [place] [phone] Roxanna Gooden PA [address] [place] [address] Juanita Miranda [facility] Start: 12-24-2023 Influenza vaccination Influenza Vacc ine [facility] Start: 12-19-2023 End: 02-17-2025 MG Breast - bilateral Screening Bilateral screening mammogram Imaging Routine Breast cancer screening by mammogram Expected: 12/19/2023 (Approximate), Expires: 02/17/2025 [facility] Work Phone: Comment on above: Expected: 12/19/2023 (Approximate), Expires: 02/17/2025 Start: 07-18-2023 End: 07-18-2023 Patient encounter procedure 07/18/2023 9:00 AM EDT Office Visit Juanita Echols [facility] [address] [place] [phone] Roxanna Gooden, PERRI [address] [place] [address] Juanita Echols [facility] Start: 12-23-2022 Influenza vaccination Influenza Vacc ine [facility] Why Not Give Back [facility] Start: 10-20-2022 Tobacco Screening [facility] Start: 11-05-1998 DTaP,Tdap and Td Vaccines (1 - Tdap) DTaP,Tdap and Td Vaccines (1 - Tdap) [facility] Start: 11-05-1997 Adult BMI Follow Up Plan Adult BMI Follow Up Plan [facility] Start: 1991 Depression Screening Depression Scre ening [facility] Start: 1991 Tobacco Screening Tobacco Screening [facility] End: 07-17-2024 CBC W Auto Differential panel - Blood CBC with auto diff Lab Routine Iron deficiency anemia due to chronic blood loss 1 Occurrences starting 07/18/2023 until 07/17/2024 [facility] Work Phone: Comment on above: 1 Occurrences starti ng 07/18/2023 until 07/17/2024 End: 07-05-2024 Comprehensive metabolic 2000 panel - Serum or Plasma Comprehensive metabolic panel Lab Routine Endometrial cancer, FIGO stage IIIA ([facility]) 1 Occurrences starting 07/06/2023 until 07/05/2024 [facility] Work Phone: Comment on above: 1 Occurrences starti ng 07/06/2023 until 07/05/2024 End: 07-17-2024 Comprehensive metabolic 2000 panel - Serum or Plasma Comprehensive metabolic panel Lab Routine Electrolyte abnormality 1 Occurrences starting 07/18/2023 until 07/17/2024 [facility] Comment on above: 1 Occurrences starti ng 07/18/2023 until 07/17/2024 Hemoglobin A1c/Hemoglobin.total in Blood Hemoglobin A1c Lab Routine Insulin resistance Ordered: 12/19/2023 [facility] Comment on above: Ordered: 12/19/2023 End: 07-05-2024 Magnesium [Mass/volume] in Serum or Plasma Magnesium Lab Routine Endometrial cancer, FIGO stage IIIA ([facility]) 1 Occurrences starting 07/06/2023 until 07/05/2024 [facility] Comment on above: 1 Occurrences starti ng 07/06/2023 until 07/05/2024 End: 07-17-2024 Magnesium [Mass/volume] in Serum or Plasma Magnesium Lab Routine Electrolyte abnormality 1 Occurrences starting 07/18/2023 until 07/17/2024 [facility] Comment on above: 1 Occurrences starti ng 07/18/2023 until 07/17/2024 Renal function 2000 panel - Serum or Plasma [facility] Renal function 2000 panel - Serum or Plasma [facility] THIN PREP TIS PAP AN D HR HPV DNA THIN PREP TIS PAP AND HR HPV DNA Pathology and Cytology Routine Well woman exam with routine gynecological exam Ordered: 12/19/2023 [facility] Comment on above: Ordered: 12/19/2023 THIN PREP TIS PAP AN D HR HPV DNA THIN PREP TIS PAP AND HR HPV DNA Pathology and Cytology Routine Well woman exam with routine gynecological exam Ordered: 12/19/2024 [facility] Comment on above: Ordered: 12/19/2024 US Kidney - bilateral [facility] XR Ankle - left GE 3 Views [facility] Immunizations Immunization Date Immunization Notes Care Provider Dariela arnold 08-09-1998 hepatitis B vaccine, pediatric or pediatric/adolescent dosage Billy Okeefe [facility] Payers Date Payer Category Payer Self-pay [id number] 2022 Private Health Insurance [employer] [id number] 2020 Commercial Managed C are - O [employer] [id number] 2020 Unknown [id number] 1.13.693.2. [id number] 1979 Unknown [id number] 2.16.840.1.223618.3.579.2. 593 1979 Unknown [id number] 2.16.840.1.247410.3.579.2. 593 1979 Unknown [id number] 2.16.840.1.339949.3.579.2. 1979 Unknown [id number] 2.16.840.1.133045.3.579.2. 727 1979 Unknown [id number] 2.16.840.1.270706.3.579.2. 72 1979 Unknown [id number] 2.16.840.1.853325.3.579.2. 727 1979 Unknown [id number] 2.16.840.1.983926.3.579.2. 72 1979 Unknown [id number] 2.16.840.1.074993.3.579.2. 7 1979 Unknown [id number] 2.16.840.1.970307.3.579.2. 72 1979 Unknown [id number] 2.16.840.1.809316.3.579.2. 727 1979 Unknown [id number] 2.16.840.1.743965.3.579.2. 727 1979 Unknown [id number] 2.16.840.1.236565.3.579.2. 727 1979 Unknown [id number] 2.16.840.1.406227.3.579.2. 727 1979 Unknown [id number] 2.16.840.1.558096.3.579.2. 727 1979 Unknown [id number] 2.16.840.1.089235.3.579.2. 727 1979 Unknown [id number] 2.16.840.1.393232.3.579.2. 727 1979 Unknown [id number] 2.16.840.1.021973.3.579.2. 727 1979 Unknown [id number] 2.16.840.1.354344.3.579.2. 1259 1979 Unknown [id number] 2.16.840.1.252815.3.579.2. 1286 1979 Unknown [id number] 2.16.840.1.351250.3.579.2. 1286 1959 Unknown [id number] Private Health Insurance [facility] [id number] Unknown [id number] 2.16.840.1.217439.3.579.2. 531 Social History Date Type Detail Facility Start: 01-25-2021 End: 11-03-2022 Tobacco smoking status Never smoked tobacco (finding) [facility] Tobacco smoking status Never [facility] Start: 10-20-2021 End: 07-16-2024 Sex Assigned At Female [facility] Start: 1980 Sex Assigned At Female [facility] Tobacco smoking stat us [facility]IS Tobacco smoking consumption unknown [facility] Start: 06-24-2021 Gender identity Identifies as female gender (finding) [facility] Start: 06-24-2021 Sexual orientation Heterosexual (finding) [facility] Start: 01-25-2021 Tobacco use and exposure Smokeless tobacco non-user [facility] Start: 10-20-2021 End: 01-22-2025 Alcohol intake Ex-drinker (finding) [facility] Start: 10-20-2021 End: 07-16-2024 History of Social function [facility] Start: 01-18-2021 Sex Female (finding) [facility] How hard is it for y ou to pay for the very basics like food, housing, medical care, and heating Not very hard [facility] Sexual Orientation [facility] Medical Equipment Procedure Code Equipment Code Equipment Origin al Text Equipment Identifier Dates Port Powerport D uo Mri Argd 9.5fr 2 Lum Pwr Inj Rad Trnlu Rpl [id number] - [id number] , [id number] [facility] Start: 03-11-2021 Clinical Notes 04-19-2023 to 01-22-2025 PERRI Farrell - 01/22/2025 1:30 PM EDTCcollin Bolden DO - 12/19/2024 8:30 AM EDT Note Date & Type Note Facility 01-22-2025 History of Present illness Narrative Subjective: Daniella Mancera is a 44 y.o. female who is here for surveillance for her stage IIIA endometrial adenocarcinoma, grade 3. Patient reports doing well. Hot flashes are mostly controlled with taking gabapentin 200 mg at night. She has lost about 95 lb in the last two years with continued diet and exercise changes. She was also placed on metformin by Dr. Bolden and Adipex by Billy Okeefe NP (PCP). Her blood pressure is well controlled. She reports occasional stomach upset, diarrhea, nausea with metformin but otherwise feels like she is tolerating these well. She also started seeing nephrology a few months ago for elevated creatinine. She does not have diabetes. Medications were changed and labs improved slightly. She follows up next month with repeat labs prior. She had her port removed in July [...] scans JAS. Endometrial cancer, FIGO stage IIIA ([facility]) 02/23/2021 Initial Diagnosis Endometrial cancer ([facility]) 07/14/2021 Remission Daniella Mancera Denies Early satiety [...] 02/10/2021 Performed by Jared Shearer MD at [facility] DILATION AND CURETTAGE OF UTERUS 12/2020 WISDOM TOOTH EXTRACTION Past Medical History: Diagnosis Date Abnormal uterine bleeding Anxiety Arthritis Chronic anemia Depression Endometrial ca ([facility]) 12/2020 Endometrial polyp Hypertension Iron deficiency anemia [...] items are noted in HPI. Objective: BP 137/81 Pulse 79 Resp 17 Ht 165.1 cm (5' 5 ) Wt (!) 164.4 kg (362 lb 6.4 oz) LMP 01/29/2021 SpO2 100% BMI 60.31 kg/m Patient was offered a medical escort service attendant and declined. ECO- Asymptomatic Physical Exam: General: alert, appears stated age and cooperative Heart: regular rate and rhythm Lungs: clear to auscultation bilaterally Abdomen: soft, non-tender, without masses or organomegaly Vulva: normal, Bartholin's, Urethra, [place]'s normal. Vagina: Atrophy: no Vaginal Cuff: yes [...] Patient Active Problem List Diagnosis Obesity, morbid ([facility]) Endometrial cancer, FIGO stage IIIA ([facility]) Electrolyte abnormality Plan: 1. Stage IIIA endometrial cancer - She has completed the SOC regimen with 6 cycles Carbo/Taxol. No evidence of recurrence on today's exam. - We discussed signs and symptoms of recurrence including bleeding, pain, changes in bowel or bladder habits encouraging her to call with any changes. RTC in 6 months. - mammogram is scheduled for next week. - Pap smears no longer indicated. 3. Loss [...] Continue follow up with PCP and benign grinder setup operator re: metformin and Adipex. 6. Anemia - hgb improved, no bleeding. Continue daily or ekyla-swrhb-jts iron tablets. Hgb stable, but iron tablets do help with energy. Iron tablets refilled. May consider discontinuing if causing constipation or elevated hgb. 7. Electrolyte imbalance - mg and k wnl, continue magox and klorcon. Repeat CMP and Mag prior to next visit - having this done with nephrology. Refills provided. *The patient has a documented plan of care to address pain. All questions were answered to the patient's satisfaction. She is agreeable to this plan of care. *This note was completed using a voice loadmaster system. Every effort was made to ensure accuracy. However, inadvertent computerized loadmaster errors may be present. .Total time spent was 32 minutes: Preparing to see the patient (e.g., review of tests) Performing a medically appropriate examination and/or evaluation Counseling and educating the patient/family/caregiver Ordering medications, tests, or procedures Documenting clinical information in the electronic or other health record Care coordination (not separately reported) Roxanna Gooden PA-C, RD, IF PERRI Farrell 01/22/25 1400 [facility] History of Present illness Narrative Reason for Appointment: Patient ID: Daniella Mancera is a 44 y.o. female who presents for Well Women [...] Oral, Nightly hydroCHLOROthiazide (HYDRODIURIL) 25 mg, Oral, Daily, 1/2 tablet KLOR-CON 20 MEQ ER tablet 20 mEq, Oral, Daily loratadine (CLARITIN) 10 mg, Oral, Daily magnesium oxide (MAG-OX) 400 mg, Oral, 2 times daily metFORMIN XR (GLUCOPHAGE-XR) 1,000 mg, Oral, Daily with evening meal, Do not crush, chew, or split. metoprolol succinate XL (TOPROL-XL) 50 mg, Oral, Daily NIFEdipine XL (PROCARDIA XL) 30 mg, Oral, 2 times daily phentermine (ADIPEX-P) 37.5 mg, Oral, Daily before breakfast potassium chloride (Klor-Con) 20 MEQ packet 20 mEq, Oral, Daily ProFe 391.3 mg, Oral, Daily ALLERGIES Allergies [...] appearance. She is well-developed. Genitourinary: Vulva normal. Vaginal cuff intact. Cervix is absent. Uterus is absent. Breasts: Breasts are soft. Right: Normal. Left: [...] nursing note reviewed. Exam conducted with a escort service attendant present. Vitals: Estimated body mass index is 60.39 kg/m as calculated from the following: Height as of 12/19/23: 5' 4 . Weight as of this encounter: 351 lb 12.8 oz. BP: 102/68 No LMP recorded. Patient has had a hysterectomy. ASSESSMENT & PLAN ICD-10-CM 1. Well woman exam with routine gynecological exam Z01.419 THIN PREP TIS PAP AND HR HPV DNA 2. Breast cancer screening by mammogram Z12.31 Bilateral screening mammogram Bilateral screening mammogram 3. Insulin resistance E88.819 metFORMIN XR (Glucophage-XR) 500 MG 24 hr tablet DISCONTINUED: metFORMIN XR (Glucophage-XR) 500 MG 24 hr tablet Annual: Patient presents today for an annual exam. Patient states she is doing well and has no complaints. Pap was obtained without difficulty and patient given mammogram order to have scheduled/obtained. Orders Placed This Encounter Procedures Bilateral screening mammogram Follow Up: Patient is to return in one year for annual unless needed otherwise. Documented by Marina Hernandez LPN on behalf of: Srikanth Bolden DO documented in this encounter [facility] 10-21-2024 Evaluation note Diagnosis Onset Date Resolution Anemia of renal disease acute J 2024 [...] acute October 10:14am Secondary hyperparathyroidism acute November 14 025 10:14am [facility] Work Phone: [phone] 246-441803-26-2025 History of Present illness Narrative* PERRI Farrell [...] scans JAS. Endometrial cancer, FIGO stage IIIA ([facility]) 02/23/2021 Initial Diagnosis Endometrial cancer ([facility]) 07/14/2021 Remission Daniella Mancera Denies Early satiety [...] 02/10/2021 Performed by Jared Shearer MD at [facility] HYSTERECTOMY BILATERAL SALPINGO-OOPHORECTOMY N/A 02/10/2021 Performed by Jared Shearer MD at [facility] DILATION AND CURETTAGE OF UTERUS 12/2020 WISDOM TOOTH EXTRACTION Past Medical History: Diagnosis Date Abnormal uterine bleeding Anxiety Arthritis Chronic anemia Depression Endometrial ca ([facility]) 12/2020 Endometrial polyp Hypertension Iron deficiency anemia [...] masses or organomegaly Vulva: normal, Bartholin's, Urethra, [place]'s normal. Vagina: Atrophy: no Vaginal Cuff: yes [...] Patient Active Problem List Diagnosis Obesity, morbid ([facility]) Endometrial cancer, FIGO stage IIIA ([facility]) Electrolyte abnormality Plan: 1. Stage IIIA endometrial [...] BMI. Continue follow up with PCP andbenign grinder setup operator re: metformin and Adipex. 6. Anemia - hgb improved, no bleeding. Continue daily or doggi-clzai-qyj iron tablets. Repeat CBC prior to next [...] *This note was completed using a voice loadmaster system. Every effort was made to ensure accuracy. However, inadvertent computerized loadmaster errors may be present. .Total time spent was 32 minutes: Preparing to see the patient (e.g., review of tests) Performing a medically appropriate examination and/or evaluation Counseling and educating the patient/family/caregiver Ordering medications, tests, or procedures Documenting clinical information in the electronic or other health record Care coordination (not separately reported) Roxanna Gooden PA-C, RD, IF PERRI Farrell 07/17/24 0946 [facility] History of Present illness Narrative* PERRI [...] scans JAS. Endometrial cancer, FIGO stage IIIA ([facility]) 02/23/2021 Initial Diagnosis Endometrial cancer ([facility]) 07/14/2021 Remission Daniella Mancera Denies Early satiety [...] 02/10/2021 Performed by Jared Shearer MD at [facility] HYSTERECTOMY BILATERAL SALPINGO-OOPHORECTOMY N/A 02/10/2021 Performed by Jared Shearer MD at [facility] DILATION AND CURETTAGE OF UTERUS 12/2020 WISDOM TOOTH EXTRACTION Past Medical History: Diagnosis Date Abnormal uterine bleeding Anxiety Arthritis Chronic anemia Depression Endometrial ca ([facility]) 12/2020 Endometrial polyp Hypertension Iron deficiency anemia [...] masses or organomegaly Vulva: normal, Bartholin's, Urethra, [place]'s normal. Vagina: Atrophy: no Vaginal Cuff: yes [...] Patient Active Problem List Diagnosis Obesity, morbid ([facility]) Endometrial cancer, FIGO stage IIIA ([facility]) Electrolyte abnormality Plan: 1. Stage IIIA endometrial [...] BMI. Continue follow up with PCP andbenign grinder setup operator re: metformin and Adipex. 6. Anemia - hgb improved, no bleeding. Continue daily or wkpac-clrad-gzt iron tablets. Repeat CBC prior to next [...] *This note was completed using a voice loadmaster system. Every effort was made to ensure accuracy. However, inadvertent computerized loadmaster errors may be present. .Total time spent was 32 minutes: Preparing to see the patient (e.g., review of tests) Performing a medically appropriate examination and/or evaluation Counseling and educating the patient/family/caregiver Ordering medications, tests, or procedures Documenting clinical information in the electronic or other health record Care coordination (not separately reported) Roxanna Gooden PA-C, RD, IF PERRI Farrell 01/17/24 0935 documented [facility] History of Present illness Narrative* Vinita Smart LPN - 12/19/2023 8:30 AM EDT Reason for Appointment: Patient ID: Daniella Mancera is a 43 y.o. female who presents for [facility] [employer] [facility] Visit Patient presents today for Annual [...] nursing note reviewed. Exam conducted with a escort service attendant present. Vitals: Estimated body mass index is [...] hysterectomy with Dr Shearer. Sees oncologist at [facility]. Pt having night sweats takes gabapentin [...] of: Srikanth Bolden DO documented [facility] [id number] History of Present illness Narrative* PERRI Farrell [...] scans JAS. Endometrial cancer, FIGO stage IIIA ([facility]) 02/23/2021 Initial Diagnosis Endometrial cancer ([facility]) 07/14/2021 Remission Daniella Mancera Denies Early satiety [...] 02/10/2021 Performed by Jared Shearer MD at [facility] DILATION AND CURETTAGE OF UTERUS 12/2020 WISDOM TOOTH EXTRACTION Past Medical History: Diagnosis Date Abnormal uterine bleeding Anxiety Arthritis Chronic anemia Depression Endometrial ca ([facility]) 12/2020 Endometrial polyp Hypertension Iron deficiency anemia [...] masses or organomegaly Vulva: normal, Bartholin's, Urethra, [place]'s normal. Vagina: Atrophy: no Vaginal Cuff: yes [...] Patient Active Problem List Diagnosis Obesity, morbid ([facility]) Endometrial cancer, FIGO stage IIIA ([facility]) Electrolyte abnormality Plan: 1. Stage IIIA endometrial [...] hgb improved, no bleeding. Continue daily or ftpiz-omrbt-vli iron tablets. Repeat CBC prior to next visit. 7. Electrolyte imbalance - mg and k wnl, continue magox and klorcon. Repeat CMP and Mag prior to next visit. *The patient has a documented plan of care to address pain. All questions were answered to the patient's satisfaction. She is agreeable to this plan of care. *This note was completed using a voice loadmaster system. Every effort was made to ensure accuracy. However, inadvertent computerized loadmaster errors may be present. .Total time spent was 32 minutes: Preparing to see the patient (e.g., review of tests) Performing a medically appropriate examination and/or evaluation Counseling and educating the patient/family/caregiver Ordering medications, tests, or procedures Documenting clinical information in the electronic or other health record Care coordination (not separately reported) Roxanna Gooden PA-C, RD, IF PERRI Farrell 07/18/23 0930 documented in this encounterCleveland Clinic Fairview HospitalBad Juju [employer], [employer]12-27-2023 History of Present illness Narrative* PERRI Farrell [...] scans JAS. Endometrial cancer, FIGO stage IIIA ([facility]) 02/23/2021 Initial Diagnosis Endometrial cancer ([facility]) 07/14/2021 Remission Daniella Mancera Denies Early satiety [...] 02/10/2021 Performed by Jared Shearer MD at [facility] DAVINCI HYSTERECTOMY BILATERAL SALPINGO-OOPHORECTOMY N/A 02/10/2021 Performed by Jared Shearer MD at [facility] DILATION AND CURETTAGE OF UTERUS 12/2020 WISDOM TOOTH EXTRACTION Past Medical History: Diagnosis Date Abnormal uterine bleeding Anxiety Arthritis Chronic anemia Depression Endometrial ca ([facility]) 12/2020 Endometrial polyp Hypertension Iron deficiency anemia [...] masses or organomegaly Vulva: normal, Bartholin's, Urethra, [place]'s normal. Vagina: Atrophy: no Vaginal Cuff: yes [...] Patient Active Problem List Diagnosis Obesity, morbid ([facility]) Endometrial cancer, FIGO stage IIIA ([facility]) Electrolyte abnormality Plan: 1. Stage IIIA endometrial [...] hgb improved, no bleeding. Continue daily or etkdj-[id number] iron tablets. 7. Electrolyte imbalance - mg and k wnl, continue magox and klorcon. Repeat labs in 3 months. PERRI Farrell 04/19/23 0930 documented in this encounterZ[facility]ville City [facility] SystemEvaluation + Plan note No data available for this section [facility] Future Appointments Appointment Date:01/19/2024 08:20:00 AM Scheduled Provider:Billy Moscoso Location:[facility] Appointment Type:[facility] Evaluation + Plan note Future Appointments Appointment Date:09/10/2024 08:20:00 AM Scheduled Provider:Billy Moscoso Location:[facility] Appointment Type:[facility] evaluation noteNo assessment information available [facility] Work Phone: evaluation note* Diagnosis Well woman exam with routine gynecological exam Routine gynecological examination Breast cancer screening by mammogram Insulin resistance Other abnormal glucose [facility] Diagnosis Endometrial cancer, FIGO stage IIIA ([facility] Primary Electrolyte abnormality Electrolyte and fluid disorders not elsewhere classified Obesity, morbid ([facility]) Morbid obesity [facility] Diagnosis Hypokalemia Hypopotassemia [facility] Diagnosis Hypokalemia Hypopotassemia [facility] Diagnosis Endometrial cancer, FIGO stage IIIA ([facility] Primary [facility] Diagnosis Endometrial cancer, FIGO stage IIIA ([facility] Primary Electrolyte abnormality Electrolyte and fluid disorders not elsewhere classified Iron deficiency anemia due to chronic blood loss Iron deficiency anemia secondary to blood loss (chronic) Obesity, morbid ([facility]) Morbid obesity Hot flash, menopausal Symptomatic menopausal [...] note* Diagnosis Endometrial cancer, FIGO stage IIIA ([facility] Primary Hot flash, menopausal Symptomatic menopausal or female climacteric states Hypokalemia Hypopotassemia Hypomagnesemia Disorders of magnesium metabolism Electrolyte abnormality Electrolyte and fluid disorders not elsewhere classified Counseling on health promotion and disease prevention Other specified counseling [facility] Diagnosis Endometrial cancer, FIGO stage IIIA ([facility])- Primary Electrolyte abnormality Electrolyte and fluid disorders not elsewhere classified Obesity, morbid ([facility]) Morbid obesity Hypomagnesemia Disorders of magnesium metabolism [...] 3, GFR 30-59 ml/min acute October 21 025 10:09am Endometrial cancer, FIGO stage IIIA acute October 21, 2024 10:09am Hypertensive chronic kidney disease with stage 1 through stage 4 chronic ki acute October 21, 2024 10:09am Secondary hyperparathyroidism acute October 21, 2024 10:09am [facility] Work Phone: Evaluation note* Diagnosis Hot flash, menopausal Symptomatic menopausal or female climacteric states documented [facility] Diagnosis Well woman exam with routine gynecological exam Routine gynecological examination Breast cancer screening by mammogram Insulin resistance Other abnormal glucose documented in this encounter [facility]Evaluation [facility]* Diagnosis Endometrial cancer, FIGO stage IIIA ([facility])- Primary Iron deficiency anemia due to chronic blood loss Iron deficiency anemia secondary to blood loss (chronic) Hypokalemia Hypopotassemia documented [facility] this encounter [facility] instructions No data available for this section [facility]InstructionsNot on filedocumented in this encounter [facility] [...] note No data available for this section [facility]Reason for referral (narrative)No reason for referral information availableSelect [facility] [place] Work Phone: Summary Purpose Family History No Family History Records Found Relationship Condition Age at Onset Recorded Date/T jonathan father Myocardial infarction Unknown mother Chronic kidney disea se with end stage renal failure on dialysis Unknown Advance Directives No Advanced Directives Records Found [...] section and content) DATE CREATED AUTHOR 10/18/2017 [facility] DATE CREATED AUTHOR AUTHOR'S ORGANIZ ATION 01/22/2022 [facility] DATE CREATED AUTHOR AUTHOR'S ORGANIZ ATION 08/19/2023 [facility] DATE CREATED AUTHOR AUTHOR'S ORGANIZ ATION 12/18/2023 [facility] DATE CREATED AUTHOR AUTHOR'S ORGANIZ ATION 01/18/2024 [facility] DATE CREATED AUTHOR AUTHOR'S ORGANIZ ATION 06/14/2024 [facility] DATE CREATED AUTHOR AUTHOR'S ORGANIZ ATION 07/27/2024 [facility] DATE CREATED AUTHOR AUTHOR'S ORGANIZ ATION 07/28/2024 [facility] DATE CREATED AUTHOR AUTHOR'S ORGANIZ ATION 09/17/2024 [facility] DATE CREATED AUTHOR AUTHOR'S ORGANIZ ATION 12/12/2024 [facility] DATE CREATED AUTHOR AUTHOR'S ORGANIZ ATION 12/21/2024 [facility] dical [facility] DATE CREATED AUTHOR AUTHOR'S ORGANIZ ATION 01/27/2025 [facility] Patient Care team informatio n (unrecognized [...] Status: Active Member Role Status Dates MELISSA Rlolins Primary Care Provider Active Start: August 09, 2023 MELISSA Flores Attending Provider Active S tart: August 09, 2023 Team Status: Inactive Member Role Status Dates MELISSA Rollins Primary Care Provider Active Start: August 09, 2023 End: August 09, 2023 MELISSA Flores Attending Provider Active S tart: August 09, 2023 End: August 09, 2023 Repair Operator Relationship Specialty Start Date End Date Allison Choi MD [address] [place] [address] [id number] PCP - General Family Medicine 01/20/21 Repair Operator Relationship Specialty Start Date End Date Allison Choi MD [address] [place] [address] [id number] PCP - General Family Medicine 01/20/21 Repair Operator Relationship Specialty Start Date End Date Billy Okeefe [facility] [address] [place] [address] [id number] PCP - General Nurse Practitioner 07/14/23 Repair Operator Relationship Specialty Start Date End Date Billy Okeefe [facility] [address] [place] [address] [id number] PCP - General Nurse Practitioner 07/14/23 Repair Operator Relationship Specialty Start Date End Date Allison Choi MD [address] [place] [address] [phone] PCP - General Family Medicine 01/20/21 Repair Operator Relationship Specialty Start Date End Date Billy Okeefe [facility] [address] [place] [address] [phone] PCP - General Nurse Practitioner 07/14/23 Repair Operator Relationship Specialty Start Date End Date Billy Okeefe [facility] [address] [place] [address] [id number] PCP - General Nurse Practitioner 07/14/23 Repair Operator Relationship Specialty Start Date End Date Billy Okeefe [facility] [address] [place] [address] [id number] PCP - General Nurse Practitioner 07/14/23 Repair Operator Relationship Specialty Start Date End Date Billy Okeefe [facility] [address] [place] [address] [id number] PCP - General Nurse Practitioner 07/14/23 Team Status: Inactive Member Role Status Dates Billy Okeefe LASER ENGINEER-C Primary Care Provider Active Start: October 21, 2024 End: October 21, 2024 Krissy Morelos MD Attending Provider Active Start : October 21, 2024 End: October 21, 2024 Repair Operator Relationship Specialty Start Date End Date Billy Okeefe [facility] [address] [place] [address] [phone] PCP - General Nurse Practitioner 07/14/23 Team Status: Active Member Role Status Dates Billy Okeefe NP-C Primary Care Provider Active Start: November 13, 2024 Krissy Morelos MD Attending Provider Active Start : November 13, 2024 Team Status: Inactive Member Role Status Dates Billy Okeefe NP-C Primary Care Provider Active Start: November 14, 2024 End: November 14, 2024 Krissy Morelos MD Attending Provider Active Start : November 14, 2024 End: November 14, 2024 Repair Operator Relationship Specialty Start Date End Date Billy Okeefe [facility] [address] [place] [address] [id number] PCP - General Nurse Practitioner 07/14/23 Goals [...] BE BASED ON THE PRIMARY CLINICAL RECORDS. [facility] [employer] [facility] provides no warranty or guarantee of the accuracy or completeness of information in this document.
== END 2025-01-29 08:26 | disposition home or self-care (01) ==
LOC: MAMMO 08:25
PROVIDERS: PCP Nurse Practitioner; Visit Provider Obstetrics & Gynecology
DX: Z12.31 Encounter for screening mammogram for malignant neoplasm of breast (principal); Z80.3 Family history of malignant neoplasm of breast
CPT/HCPCS: 77063; 77067